=== PATIENT | female | born 1975 | race Caucasian/White ===

== ENCOUNTER 2016-03-07 11:14 | Emergency (ER) | payer BC ==
[~2016-03-07] VITALS: Ht 167.6 cm; Wt 81.6 kg
[~2016-03-07 11:14] MED LIST: ALBU8.5H6 IH; ARIP10TA13 PO; DIAZ2TAB3 PO; ESCI10TA10 PO; FLUT1DIS3 IH; HYDR-923 PO; IBUP-1060 PO; OMEP20CA9 PO; [UNRECOGNIZED DRUG - CODE]
--- NOTE | 2016-03-07 12:32 | PHYS DOC ---
Past Medical History Past Medical History: Anxiety, Asthma, Bipolar, COPD, Depression, GERD, Kidney Infection, Kidney Stone, Other Additional Past Medical Histor: endometrosis, CHRONIC BACK PAIN,burcitis,sinus infeCTt Past Surgical History: , Hysterectomy Additional Past Surgical Histo: hernia X 3 Additional Information: 0.5 PPD Alcohol Use: None Drug Use: None Adult General Chief Complaint Chief Complaint: MULTIPLE COMPLAINTS HPI HPI Patient is a 40 year old female who presents with cough, shortness of breath, back pain. Patient reports she has been having cough and shortness of breath for the past 2 weeks. She had fever initially, however this has resolved. She had seen her PCP at [facility], and she was given a 10 day course of antibiotics and 5 days course of steroids (both of which she has completed). Patient reports that she was feeling better when she is taking the steroids, however now that they have finished she is feeling worse again. She describes bilateral pain in her mid back, as well as pain radiating from her right buttock down her right leg. She does have a history of herniated disc. No numbness or weakness. Back pain worse with movement. No loss of bowel or bladder continence. She has taken some hydrocodone with insufficient relief. Review of Systems Review of Systems Constitutional: Fever, now resolved Eyes: Denies change in visual acuity or eye pain HENT: Denies nasal congestion or sore throat Respiratory: Cough, SOB Cardiovascular: Denies chest pain GI: Denies abdominal pain, nausea, vomiting, bloody stools or diarrhea : Denies dysuria or hematuria Musculoskeletal: B/l mid back pain, pain radiating down RLE Integument: Denies rash or skin lesions Neurologic: Denies headache, focal weakness or sensory changes Current Medications Current Medications Current Medications Medications (Trade) Dose Ordered Sig/Eric Start Time Stop Time Status Last Admin Dose Admin Info (Do NOT chart on this entry -- for MONITORING) 1 each PRN DAILY PRN 03/07/16 14:00 03/07/16 15:31 DC Iohexol (Omnipaque 300 Mg/ml) 75 ml 1X ONCE 03/07/16 14:15 03/07/16 14:16 DC 03/07/16 14:04 75 ML Oxycodone/ Acetaminophen (Percocet 5/325) 2 tab 1X ONCE 03/07/16 12:45 03/07/16 12:46 DC 03/07/16 13:11 2 TAB Sodium Chloride (Iv Sodium Chloride 0.9% 1000ml Bag) 1,000 ml @ 1,000 mls/hr Q1H 03/07/16 12:33 03/07/16 13:49 DC 03/07/16 13:10 1,000 MLS/HR Allergies Allergies Allergies Coded Allergies Type Severity Reaction Last Updated Verified Latex, Natural Rubber Allergy Intermediate RASH 03/07/16 Yes adhesive tape Allergy Intermediate Rash 03/07/16 Yes Physical Exam Physical Exam Constitutional: Well developed, well nourished, no acute distress, non-toxic appearance HENT: Normocephalic, atraumatic, bilateral external ears normal Eyes: EOMI, conjunctiva normal, no discharge Neck: Normal range of motion, no stridor Cardiovascular: Heart rate normal, regular rhythm, no murmur Lungs & Thorax: Coarse breath sounds L lung base Abdomen: Bowel sounds normal, soft, non-distended, no TTP Skin: Clammy, no erythema, no rash Back: Mild bl/l lumbar TTP, no deformity or skin lesion noted Extremities: No obvious deformity, no edema Neurologic: Alert and oriented X 3, no gross deficits noted Current Patient Data Vital Signs Vital Signs Date Time Temp Pulse Resp B/P Pulse Ox O2 Delivery O2 Flow Rate FiO2 03/07/16 15:12 70 16 140/73 99 Room Air 03/07/16 11:39 97.4 97.4 Lab Values Laboratory Tests Test 03/07/16 11:32 03/07/16 12:01 03/07/16 13:15 Urine Collection Type Unknown Urine Color Yellow Urine Clarity Clear Urine pH 6.5 Urine Specific [place] <=1.005 Urine Protein Negativemg/dL (NEG-TRACE) Urine Glucose (UA) Negativemg/dL (NEG) Urine Ketones (Stick) Negativemg/dL (NEG) Urine Blood Negative (NEG) Urine Nitrite Negative (NEG) Urine Bilirubin Negative (NEG) Urine Urobilinogen Dipstick 0.2mg/dL (0.2 mg/dL) Urine Leukocyte Esterase Negative (NEG) Urine RBC 0/HPF (0-2) Urine WBC 0/HPF (0-4) Urine Squamous Epithelial Cells Few/LPF Urine Bacteria 0/HPF (0-FEW) White Blood Count 6.5x10^3/uL (4.0-11.0) Red Blood Count 4.53x10^6/uL (3.50-5.40) Hemoglobin 14.7g/dL (12.0-15.5) Hematocrit 44.3% (36.0-47.0) Mean Corpuscular Volume 98fL (79-100) Mean Corpuscular Hemoglobin 32pg (25-35) Mean Corpuscular Hemoglobin Concent 33g/dL (31-37) Red Cell Distribution Width 13.4% (11.5-14.5) Platelet Count 219x10^3/uL (140-400) Neutrophils (%) (Auto) 67% (31-73) Lymphocytes (%) (Auto) 23% (24-48) L Monocytes (%) (Auto) 7% (0-9) Eosinophils (%) (Auto) 1% (0-3) Basophils (%) (Auto) 1% (0-3) Neutrophils # (Auto) 4.4x10^3uL (1.8-7.7) Lymphocytes # (Auto) 1.5x10^3/uL (1.0-4.8) Monocytes # (Auto) 0.5x10^3/uL (0.0-1.1) Eosinophils # (Auto) 0.1x10^3/uL (0.0-0.7) Basophils # (Auto) 0.1x10^3/uL (0.0-0.2) D-Dimer (Jimena) 0.60ug/mlFEU (0.00-0.50) H Sodium Level 141mmol/L (136-145) Potassium Level 4.0mmol/L (3.5-5.1) Chloride Level 103mmol/L (98-107) Carbon Dioxide Level 25mmol/L (21-32) Anion Gap 13 (6-14) Blood Urea Nitrogen 10mg/dL (7-20) Creatinine 0.8mg/dL (0.6-1.0) Estimated GFR (Cockcroft-Gault) 79.4 BUN/Creatinine Ratio 13 (6-20) Glucose Level 103mg/dL (70-99) H Calcium Level 9.2mg/dL (8.5-10.1) Total Bilirubin 0.6mg/dL (0.2-1.0) Aspartate Amino Transferase (AST) 23U/L (15-37) Alanine Aminotransferase (ALT) 39U/L (14-59) Alkaline Phosphatase 90U/L (46-116) Troponin I Quantitative < 0.017ng/mL (0.000-0.055) Total Protein 7.8g/dL (6.4-8.2) Albumin 4.1g/dL (3.4-5.0) Albumin/Globulin Ratio 1.1 (1.0-1.7) Influenza Type A Antigen Negative (NEGATIVE) Influenza Type B Antigen Negative (NEGATIVE) Laboratory Tests 03/07/16 12:01 Laboratory Tests 03/07/16 12:01 EKG EKG EKG (my read): sinus rhythm, rate 93, normal axis, intervals wnl, no acute ischemic changes Radiology/Procedures Radiology/Procedures CXR: IMPRESSION: No acute pulmonary finding. CTA chest: IMPRESSION: 1. No evidence of pulmonary embolism or alternative acute finding. 2. 5 mm cortical cyst within the upper pole of the right kidney, stable in appearance. Course & Med Decision Making Course & Med Decision Making Pertinent Labs and Imaging studies reviewed. (See chart for details) Patient is 40-year-old female presents with cough, shortness of breath, back pain. He been treated with antibiotics, likely viral upper respiratory infection that is causing pain due to repeated coughing. However must consider more serious pathology. Chest x-ray, EKG, labs ordered to evaluate. Oral pain medication and IV fluids ordered for relief of symptoms. Labs notable for minimally elevated d-dimer; troponin within normal limits, given duration of symptoms this is sufficient to rule out NM. No leukocytosis. CTA chest ordered to rule out PE. No PE noted. No other acute pathology on imaging. Discussed results with the patient. Will discharge with prescription for cough syrup, naproxen, Pepcid, instructions for follow-up, return precautions. Dragon Disclaimer Dragon Disclaimer This electronic medical record was generated, in whole or in part, using a voice recognition dictation system. Departure Departure Impression: Primary Impression: Upper respiratory disease Additional Impression: Back pain Disposition: HOME, SELF-CARE Condition: STABLE Referrals: BARTOLOME LIZ APRN (PCP) Patient Instructions: Upper Respiratory Infection, Adult Additional Instructions: Thank you for allowing us to provide care today in the Emergency Department. Take the provided medication as directed. Use caution when taking the cough syrup as it can make you drowsy. Schedule a follow up appointment with your primary care doctor. Return promptly to the Emergency Department if you develop any new or concerning symptoms. Scripts Famotidine (Pepcid)20 Mg [id number] Mg PO BID #10 TAB Prov:HUMERA HOLDEN MD 03/07/16 Naproxen 250 Mg [id number] Mg PO BID #10 Prov:HUMERA HOLDEN MD 03/07/16 Hydrocodone Bit/Homatrop Me-Br (Hydrocodone-Homatropine Syrup)5 Ml Syrup5 Ml PO Q4HRS PRN COUGH #120 ML Prov:HUMERA HOLDEN MD 03/07/16 Problem Qualifiers HUMERA HOLDEN MD Mar 07, 2016 12:32
[2016-03-07] MEDS ORDERED: IV NORMAL SALINE 1000ML BAG 1,000 ML IV SCH (12:33)
[2016-03-07 12:45] LABS: BASO # 0.1 x10^3/uL (0.0-0.2); BASO % 1 % (0-3); EOS % 1 % (0-3); HEMATOCRIT 44.3 % (36.0-47.0); HEMOGLOBIN 14.7 g/dL (12.0-15.5); LYMPH # 1.5 x10^3/uL (1.0-4.8); LYMPH % 23 % (24-48); MEAN CORPUSCULAR HEMOGLOBIN 32 pg (25-35); MEAN CORPUSCULAR HGB CONC 33 g/dL (31-37); MEAN CORPUSCULAR VOLUME 98 fL (79-100); MONO % 7 % (0-9); NEUT % 67 % (31-73); PLATELET COUNT 219 x10^3/uL (140-400); RED BLOOD COUNT 4.53 x10^6/uL (3.50-5.40); RED CELL DISTRIBUTION WIDTH 13.4 % (11.5-14.5); WHITE BLOOD COUNT 6.5 x10^3/uL (4.0-11.0)
[2016-03-07] MEDS ORDERED: OXYCODONE/APAP 5/325 TABLET. PO ONE (12:45)
[2016-03-07 12:48] LABS: BILIRUBIN,URINE NEGATIVE (NEG); GLUCOSE,URINE NEGATIVE (NEG); NITRITE,URINE NEGATIVE (NEG); PH,URINE 6.5; PROTEIN,URINE NEGATIVE (NEG-TRACE); UROBILINOGEN,URINE 0.2 mg/dL (0.2 mg/dL)
--- NOTE | 2016-03-07 12:50 | EKG ---
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
[2016-03-07 12:58] LABS: CALCIUM 9.2 mg/dL (8.5-10.1); CREATININE 0.8 mg/dL (0.6-1.0); GFR 79.4
[2016-03-07 13:04] LABS: ALBUMIN 4.1 g/dL (3.4-5.0); ALBUMIN/GLOBULIN RATIO 1.1 (1.0-1.7); TOTAL BILIRUBIN 0.6 mg/dL (0.2-1.0); TOTAL PROTEIN 7.8 g/dL (6.4-8.2)
[2016-03-07 13:06] LABS: BACTERIA,URINE 0 /HPF (0-FEW); RBC,URINE 0 /HPF (0-2); SQUAMOUS EPITHELIAL CELL,UR FEW /LPF; WBC,URINE 0 /HPF (0-4)
--- NOTE | 2016-03-07 13:53 | RAD ---
EXAM: Chest, 2 views. HISTORY: Cough. COMPARISON: 11/16/2014. FINDINGS: Frontal and lateral views of the chest are obtained. There is no infiltrate, effusion or pneumothorax. There are prominent central pulmonary vascular shadows. The heart is normal in size. IMPRESSION: No acute pulmonary finding.
[2016-03-07] MEDS ORDERED: CONTRAST GIVEN MC PRN (14:00)
[2016-03-07 14:07] LABS: OBC FLU VALID
[2016-03-07] MEDS ORDERED: IOHEXOL 300 MG/ML 100ML VIAL. IV ONE (14:15)
--- NOTE | 2016-03-07 14:18 | RAD ---
EXAM: Chest CT angiogram with intravenous contrast. HISTORY: Shortness of air and elevated d-dimer. TECHNIQUE: Computed tomographic images of the chest were obtained following the administration of 75 cc Isovue-370 intravenous contrast. Multiplanar reformatting was performed and three-dimensional maximum intensity projection images were obtained. COMPARISON: 11/21/2013. FINDINGS: There is no evidence of pulmonary embolism. There is no pulmonary artery hypertension or right heart strain. The heart is normal in size. There is no aortic and is a more dissection. No pathologically enlarged lymph node is seen. There is no pneumothorax or pleural effusion. There is no infiltrate or suspicious pulmonary nodule. There is no suspicious osseous lesion. There is a 5 mm cortical cyst within the upper pole of the right kidney. IMPRESSION: 1. No evidence of pulmonary embolism or alternative acute finding. 2. 5 mm cortical cyst within the upper pole of the right kidney, stable in appearance. PQRS Compliance Statement: One or more of the following individualized dose reduction techniques were utilized for this examination: 1. Automated exposure control 2. Adjustment of the mA and/or kV according to patient size 3. Use of iterative reconstruction technique
[2016-03-07 15:12] VITALS: BP 140/73
[2016-03-07] MEDS ORDERED: FAMO-63 PO (15:12)
[2016-03-07] MEDS ORDERED: HYDR5SYR PO (15:12)
[2016-03-07] MEDS ORDERED: NAPR250T2 PO (15:12)
== END 2016-03-07 15:20 | disposition home or self-care (01) ==
LOC: ER 11:14
DX: M54.9 Dorsalgia, unspecified (principal); J39.9 Disease of upper respiratory tract, unspecified; F41.9 Anxiety disorder, unspecified; J45.909 Unspecified asthma, uncomplicated; J44.9 Chronic obstructive pulmonary disease, unspecified; G89.29 Other chronic pain; F32.9 Major depressive disorder, single episode, unspecified; K21.9 Gastro-esophageal reflux disease without esophagitis; Z87.442 Personal history of urinary calculi; Z87.440 Personal history of urinary (tract) infections; Z90.710 Acquired absence of both cervix and uterus; Z98.890 Other specified postprocedural states; Z91.040 Latex allergy status; Z91.09 Other allergy status, other than to drugs and biological substances
CPT/HCPCS: 36415; 71020; 71275; 80053; 81001; 84484; 85027; 85379; 87804; 93005; 96360; 99285; J7030; Q9967

== ENCOUNTER 2016-07-10 10:39 | Emergency (ER) | payer BC ==
[~2016-07-10 10:39] MED LIST changes: +AMIT10TA PO; +AMOX1TAB11 PO; -ARIP10TA13 PO; +ARIP10TA9 PO; +BUDE10.2 IH; +BUDE180A IH; +DIAZEPAM10 MG PO; +DOXY100T PO; -ESCI10TA10 PO; +FAMO-63 PO; +FLUO40CA9 PO; +GUAI600T47 PO; +HYDR-2758 PO; +HYDR5SYR PO; +LAMO200T3 PO; +LEVO750T31 PO; +LEXAPRO10 MG PO; +NAPR250T2 PO; +NAPR375T3 PO; +ZOLP10TA PO; -[UNRECOGNIZED DRUG - CODE]; +[UNRECOGNIZED DRUG - CODE] PO
[2016-07-10 11:13] VITALS: BP 107/73
--- NOTE | 2016-07-10 11:28 | PHYS DOC ---
Past Medical History Past Medical History: Asthma, COPD, Depression Additional Past Medical Histor: endometrosis, CHRONIC BACK PAIN,burcitis,sinus infeCTt Past Surgical History: , Hysterectomy, Other Additional Past Surgical Histo: hernia repair x 3 Alcohol Use: None Drug Use: None Adult General Chief Complaint Chief Complaint: MECHANICAL FALL HPI HPI Patient is a 40 year old female presents emergency department stating that she fell about a week ago. She states that she had tripped over a box and landed on the floor. She states that she is having pain in the right lower leg, right lateral knee, and right medial femur area. Patient was also noted to have a tenderness both sides bruise on her right upper arm. Patient states that she is mainly here to be evaluated for her leg pain and discomfort. She states that she takes hydrocodone at home although this has not been helping with the pain. Patient is concerned something further is going on. Review of Systems Review of Systems Constitutional: Denies fever or chills [] Eyes: Denies change in visual acuity, redness, or eye pain [] HENT: Denies nasal congestion or sore throat [] Respiratory: Denies cough or shortness of breath [] Cardiovascular: No additional information not addressed in HPI [] GI: Denies abdominal pain, nausea, vomiting, bloody stools or diarrhea [] : Denies dysuria or hematuria [] Musculoskeletal: Denies back pain. C/o right leg pain and discomfort Integument: Denies rash or skin lesions [] Neurologic: Denies headache, focal weakness or sensory changes [] Endocrine: Denies polyuria or polydipsia [] Current Medications Current Medications Current Medications Medications (Trade) Dose Ordered Sig/Eric Start Time Stop Time Status Last Admin Dose Admin Ketorolac Tromethamine (Toradol Im) 60 mg 1X ONCE 07/10/16 11:45 07/10/16 11:46 DC 07/10/16 12:01 60 MG Ondansetron HCl (Zofran Odt) 4 mg 1X ONCE 07/10/16 11:45 07/10/16 11:46 DC 07/10/16 12:01 4 MG Allergies Allergies Allergies Coded Allergies Type Severity Reaction Last Updated Verified Latex, Natural Rubber Allergy Intermediate RASH 03/07/16 Yes adhesive tape Allergy Intermediate Rash 03/07/16 Yes Physical Exam Physical Exam Constitutional: Well developed, well nourished, no acute distress, non-toxic appearance. [] HENT: Normocephalic, atraumatic, bilateral external ears normal, oropharynx moist, no oral exudates, nose normal. [] Eyes: PERRLA, EOMI, conjunctiva normal, no discharge. [] Neck: Normal range of motion, no tenderness, supple, no stridor. [] Cardiovascular:Heart rate regular rhythm, no murmur [] Lungs & Thorax: Bilateral breath sounds clear to auscultation [] Skin: Warm, dry, no erythema, no rash. [] Back: No tenderness Extremities: Right medial femur, right lateral knee, right anterior lower leg tenderness, old bruises noted. No cyanosis, no clubbing, ROM intact, no edema. Patient with 2+ cap refill, good sensation noted to the toes. Patient able to ambulate without difficulty, Neurologic: Alert and oriented X 3, normal motor function, normal sensory function, no focal deficits noted. [] Psychologic: Affect normal, judgement normal, mood normal. [] Current Patient Data Vital Signs Vital Signs Date Time Temp Pulse Resp B/P (MAP) Pulse Ox O2 Delivery O2 Flow Rate FiO2 07/10/16 11:13 98.3 83 18 97 Room Air 98.3 EKG EKG [] Radiology/Procedures Radiology/Procedures [facility] [address] [place] [address] IMAGING REPORT Signed PATIENT: NARCISA ALCAZAR ACCOUNT: [id number] : 1975 LOCATION: ER AGE: 40 SEX: F EXAM [id number]; [id number] STATUS: REG ER ORD. PHYSICIAN: JUSTIN GARCIA FIRER GLOST KILN REASON: fell 1 week ago increase pain and discomfort, PAIN FROM RT HIP TO ANKLE PROCEDURE: KNEE RIGHT 4V; RIGHT FEMUR XRAY; TIBIA FIBULA RIGHT Examination: 2 views of the right femur, 4 views of the right knee, 2 views of the right tibia and fibula History: History of fall, pain Comparison: None available Findings The femoral head is within the acetabulum. There is no acute fracture or dislocation identified. The alignment of the knee joint grossly appears unremarkable. No evidence of knee joint effusion identified. The alignment of the tibia and fibula grossly appears unremarkable. Impression: No acute osseous findings. DICTATED and SIGNED BY: AMARJIT SCOTT MD DATE: 07/10/16 1208 CC: BARTOLOME LIZ APRN; JUSTIN GARCIA APRN; NON,STAFF ~ [] Course & Med Decision Making Course & Med Decision Making Pertinent Labs and Imaging studies reviewed. (See chart for details) X-rays were negative for any bony abnormalities. Patient will be discharged home with recommendations to use ibuprofen 800 mg every 8 hours. She'll be has hydrocodone at home for her back pain and discomfort. Recommended ice packs on 20 minutes off 20 minutes several times a day. Also recommended her following up with her primary care physician. Signs and symptoms to return back to emergency department been provided. Patient agrees with discharge instructions treatment regimens and follow-up recommendations. [] Dragon Disclaimer Dragon Disclaimer This electronic medical record was generated, in whole or in part, using a voice recognition dictation system. Departure Departure Impression: Primary Impression: Right leg pain Disposition: 01 HOME, SELF-CARE Condition: STABLE Referrals: BARTOLOME LIZ APRN (PCP) Patient Instructions: Contusion, [id number] Additional Instructions: Your x-rays of your femur, knee, and tibia/fibula are negative for any fractures or abnormalities. Ice packs on 20 minutes off 20 minutes several times a day. Elevation as much as possible. Ibuprofen 800 mg every 8 hours with food stop taking few develop an upset stomach. You can continue to use her hydrocodone as needed for your back pain this should also help with your pain and discomfort in her leg. Follow-up to primary care physician next 3-5 days. Return back to emergency prior signs symptoms of become worse. JUSTIN GARCIA APRN July 10, 2016 11:28
[2016-07-10] MEDS ORDERED: KETOROLAC TROMETHAMINE 60 MG/2 ML INJ. IM ONE (11:45)
[2016-07-10] MEDS ORDERED: ONDANSETRON ODT 4 MG TAB.RAPDIS. PO ONE (11:45)
--- NOTE | 2016-07-10 12:10 | RAD ---
Examination: 2 views of the right femur, 4 views of the right knee, 2 views of the right tibia and fibula History: History of fall, pain Comparison: None available Findings The femoral head is within the acetabulum. There is no acute fracture or dislocation identified. The alignment of the knee joint grossly appears unremarkable. No evidence of knee joint effusion identified. The alignment of the tibia and fibula grossly appears unremarkable. Impression: No acute osseous findings.
== END 2016-07-10 12:44 | disposition home or self-care (01) ==
LOC: ER 11:05
DX: M79.604 Pain in right leg (principal); M25.562 Pain in left knee; M79.621 Pain in right upper arm; J44.9 Chronic obstructive pulmonary disease, unspecified; G89.29 Other chronic pain; Z90.710 Acquired absence of both cervix and uterus; Z98.890 Other specified postprocedural states; Z88.8 Allergy status to other drugs, medicaments and biological substances; Z91.040 Latex allergy status
CPT/HCPCS: 73552; 73564; 73590; 96372; 99284; J1885; Q0162

== ENCOUNTER → 2016-11-14 | Outpatient (CLI) | payer BC ==
[~2016-11-14] MED LIST changes: +CARB200T PO; +DOCU-150 PO; +HYDR-2762 PO; +META-21 PO; +MOME17SP NS; +NAPR-695 PO; -NAPR250T2 PO; +NAPR250T6 PO; -NAPR375T3 PO; +OMEP40CA5 PO; +PHEN37.5 PO; +TAMS0.4C2 PO; +TIZA4TAB PO; +ZOLP6.252 PO; +saxenda
[2016-11-14 15:00] LABS: BASO # 0.1 x10^3/uL (0.0-0.2); BASO % 1 % (0-3); EOS % 2 % (0-3); HEMATOCRIT 41.7 % (36.0-47.0); HEMOGLOBIN 14.2 g/dL (12.0-15.5); LYMPH # 1.6 x10^3/uL (1.0-4.8); LYMPH % 39 % (24-48); MEAN CORPUSCULAR HEMOGLOBIN 32 pg (25-35); MEAN CORPUSCULAR HGB CONC 34 g/dL (31-37); MEAN CORPUSCULAR VOLUME 93 fL (79-100); MONO % 9 % (0-9); NEUT % 50 % (31-73); PLATELET COUNT 244 x10^3/uL (140-400); RED BLOOD COUNT 4.49 x10^6/uL (3.50-5.40); RED CELL DISTRIBUTION WIDTH 13.5 % (11.5-14.5); WHITE BLOOD COUNT 4.2 x10^3/uL (4.0-11.0)
[2016-11-14 15:18] LABS: ALBUMIN 3.9 g/dL (3.4-5.0); CALCIUM 8.8 mg/dL (8.5-10.1); CREATININE 0.9 mg/dL (0.6-1.0); POTASSIUM 3.8 mmol/L (3.5-5.1); TOTAL BILIRUBIN 0.3 mg/dL (0.2-1.0)
== END | disposition home or self-care (01) ==
LOC: SURGPAT 14:34
PROVIDERS: ATTEND Surgery
DX: Z01.818 Encounter for other preprocedural examination (principal); Z90.49 Acquired absence of other specified parts of digestive tract
CPT/HCPCS: 36415; 80048; 82040; 82247; 85025

== ENCOUNTER 2016-11-29 08:32 | Day surgery (SDC) | payer BC ==
[~2016-11-29 08:32] MED LIST changes: +BUPIVACAINE-EPI 0.5%-1:200000 50 ML VIAL. ONE; +GLUCAGON,HUMAN RECOMBINANT 1 MG/ML VIAL. ONE; +HYDROmorphone 2 MG/ML VIAL IV PRN; +IOHEXOL 300 MG/ML 50 ML VIAL. ONE; +IV RINGERS,LACTATED 1000ML 1,000 ML IV SCH; +LIDOCAINE 1% PF 2 ML VIAL. ID PRN; +ONDANSETRON PF 4 MG/2 ML VIAL. IV PRN; +PROCHLORPERAZINE 10 MG/2 ML VIAL. IV PRN; +SURGICEL HEMOSTAT 4X8 EACH. ONE; +fentaNYL PF VIAL 100 MCG/2 ML VIAL IV PRN
[2016-11-29] MEDS ORDERED: ONDANSETRON PF 4 MG/2 ML VIAL. ONE (08:52)
[2016-11-29] MEDS ORDERED: fentaNYL PF VIAL 100 MCG/2 ML VIAL ONE (08:52)
[2016-11-29] MEDS ORDERED: DEXAMETHASONE SOD PHOS 20 MG/5 ML VIAL. ONE (08:52)
[2016-11-29] MEDS ORDERED: PROPOFOL 20 ML IV ONE (08:52)
[2016-11-29] MEDS ORDERED: LIDOCAINE 2% PF Vial for OR 5 ML VIAL. ONE (08:52)
[2016-11-29] MEDS ORDERED: MIDAZOLAM HCL/PF 2 MG/2 ML VIAL. ONE (08:52)
[2016-11-29] MEDS ORDERED: NEOSTIGMINE METHYLSULFATE 5 MG/5 ML SYRINGE. ONE (11:32)
[2016-11-29] MEDS ORDERED: GLYCOPYRROLATE 1 MG/5 ML VIAL. ONE (11:32)
[2016-11-29] MEDS ORDERED: DESFLURANE 61 TO 120 MINUTES IH ONE (11:36)
[2016-11-29] MEDS ORDERED: DESFLURANE > 120 MINUTES IH ONE (11:36)
[2016-11-29] MEDS ORDERED: SEVOFLURANE 31 TO 60 MINUTES. IH ONE (11:36)
[2016-11-29] MEDS ORDERED: SEVOFLURANE 61 TO 120 MINUTES. IH ONE (11:36)
[2016-11-29] MEDS: fentaNYL PF VIAL 100 MCG/2 ML VIAL IV PRN ×2 (12:08→12:15)
[2016-11-29] MEDS: MORPHINE SULFATE 4 MG/ML DISP.SYRIN. IV PRN ×4 (12:22→13:00)
--- NOTE | 2016-11-29 12:36 | OP ---
DATE OF SURGERY: 11/29/2016 PREOPERATIVE DIAGNOSIS: Symptomatic cholelithiasis. POSTOPERATIVE DIAGNOSIS: Symptomatic cholelithiasis. PROCEDURE: Laparoscopic cholecystectomy and lysis of a single Gnvh-Ecfm-Oudffh its acute recurrence adhesions. SURGEON: Malia Flynn M.D. ANESTHESIA: General endotracheal. ESTIMATED BLOOD LOSS: 10 mL. INTRAVENOUS FLUIDS: 700 mL. INDICATIONS: The patient is a 41-year-old with postprandial pain and nausea and an ultrasound showing stones. She is brought for cholecystectomy. OPERATIVE FINDINGS: The liver was somewhat fibrotic, but smooth. There was a single adhesion between the liver and the abdominal wall, consistent with Fyng-Ybfe-Hdlqwr. The gallbladder was supple. The cystic duct was extremely small caliber and I was unable to cannulate it for cholangiograms. The remainder of the inspection of the abdomen failed to reveal obvious abnormalities. DESCRIPTION OF PROCEDURE: The patient was brought to the OR, given a general endotracheal anesthetic and the abdomen prepped and draped in the usual sterile fashion. An infraumbilical incision was infiltrated with local anesthetic, sharply incised and a 5 mm Visiport used to gain access into the abdominal cavity, taking care to avoid injury to abdominal contents. Pneumoperitoneum established. Camera inserted. Inspection carried out with results as noted above. With the table in reverse Trendelenburg rolled to the left, the epigastric and midclavicular ports were placed under direct vision. The lateral port location was used for an "alligator" grasper and the gallbladder was retracted superolaterally. The cystic duct and cystic artery were exposed and the duct was clipped on the gallbladder side. Attempts at cholangiograms were unsuccessful due to small caliber of the cystic duct even trying to spatulate the opening. With scissors, I was unsuccessful cannulating it and as such, it was carefully clipped x 3 and divided, taking care to avoid injury or compromise of the common duct. An anterior and posterior branch of the cystic artery were clipped and divided and gallbladder freed from the bed with cautery dissection. A small tertiary vessel posteriorly midway up the fossa was controlled with clips as well. Gallbladder placed in an EndoCatch bag. Good hemostasis was present and there was no evidence of a bile leak. Table returned to level. Gallbladder delivered through the epigastric incision. Epigastric incision closed with interrupted 0 Vicryl suture. Intra-abdominal pressure decreased to 6 cm of water. No bleeding from the epigastric closure or from the midclavicular port site after its removal or from the lateral location of the alligator grasper. Abdomen decompressed, camera slowly removed, no bleeding seen. Skin incisions closed with subcuticular 4-0 Monocryl and Dermabond. The patient awakened from her anesthetic and taken to the recovery room in satisfactory condition. MALIA FLYNN MD DR: DREW/suki JOB#: [id number] / [id number]
--- NOTE | 2016-11-29 12:43 | DISCH ---
DISCHARGE INSTRUCTIONS Condition on Discharge Condition on Discharge: Stable Activity After Discharge Activity Instructions for Disc: Activity as tolerated, Avoid exertion Lifting Instructions after Dis: No heavy lifting Driving Instructions after Dis: Do not drive (3-4 days) Diet after Discharge Diet after Discharge: Regular Wound Incision Care Wound/Incision Care: Ice to area for comfort Other wound/incision instructi: june shower Sunday Follow-Up Follow up with: Pedro in the [facility] office 12/07 MALIA FLYNN MD Nov 29, 2016 12:43
[2016-11-29] MEDS ORDERED: HYDROcodone/APAP 7.5/325MG 1 TAB TABLET PO ONE (13:15)
[2016-11-29 13:34] VITALS: BP 127/61
--- NOTE | 2016-12-01 11:28 | PATHOLOGY ---
PATHOLOGY REPORT * * * * * * * * FINAL DIAGNOSIS: Gallbladder, laparoscopic cholecystectomy: - Cholelithiasis. - Chronic cholecystitis. (JPM:derek; 12/01/2016) COMMENT: There is no evidence of malignancy. REPORT ELECTRONICALLY SIGNED BY: Ben Kingsley M.D. DATE/TIME: 12/01/2016 11:27 * * * * * * * * GROSS PATHOLOGY: Received in formalin labeled "Estefany Ratliff, gallbladder and its contents," is a 6.3 x 3.5 x 2.1 cm, previously punctured gallbladder with blue-claire serosal surfaces. Opening the gallbladder reveals a velvety, bile-stained mucosa and an average wall thickness of 0.1 cm. Calculi are present displaying a light melgoza and granular appearance, and no masses are noted grossly. Stopper Setter sections from the body and fundus are submitted along with the proximal margin in cassette A1. (CAA; 11/30/2016) INITIAL CPT CODE(S): A; 09001 Professional services [place] [address] Technical services performed by [facility] at [address] [place] [address]. SPECIMEN(S) RECEIVED: A.Gallbladder and its contents CLINICAL HISTORY: Gallstones PATIENT: ESTEFANY RATLIFF /AGE: 9 1975 (Age: 41) PATIENT #: [id number] CASE #: SPECIMEN COLLECTION DATE: 11/29/2016 SPECIMEN RECEIVED DATE: 11/29/2016 [facility] - [address] [place] [address] - PHONE: [phone] * * * END OF REPORT * * *
== END 2016-11-29 14:07 | disposition home or self-care (01) ==
LOC: SURG 08:32
PROVIDERS: ATTEND Surgery
DX: K80.10 Calculus of gallbladder with chronic cholecystitis without obstruction (principal); J44.9 Chronic obstructive pulmonary disease, unspecified; E66.9 Obesity, unspecified; K21.9 Gastro-esophageal reflux disease without esophagitis; F32.9 Major depressive disorder, single episode, unspecified; F17.200 Nicotine dependence, unspecified, uncomplicated; Z98.890 Other specified postprocedural states; Z87.01 Personal history of pneumonia (recurrent); Z90.710 Acquired absence of both cervix and uterus; Z87.39 Personal history of other diseases of the musculoskeletal system and connective tissue; Z88.1 Allergy status to other antibiotic agents; Z91.040 Latex allergy status; Z88.8 Allergy status to other drugs, medicaments and biological substances; Z91.048 Other nonmedicinal substance allergy status
CPT/HCPCS: 47562; C1769; J0780; J1100; J1956; J2250; J2270; J2405; J2704; J2710; J3010; J3490; J7030; J7120; Q9967; 88304; J1610; J2001

== ENCOUNTER → 2017-03-05 | Outpatient (CLI) | payer BC | END | disposition home or self-care (01) | LOC: KCIC US 15:05 | DX: R10.9 Unspecified abdominal pain (principal) | CPT/HCPCS: 76770 ==

== ENCOUNTER → 2017-03-23 | Outpatient (CLI) | payer BC | END | disposition home or self-care (01) | LOC: KCIC 10:41 | DX: K59.00 Constipation, unspecified (principal); R10.0 Acute abdomen; R11.0 Nausea | CPT/HCPCS: 74022 ==

== ENCOUNTER → 2017-04-16 | Outpatient (CLI) | payer BC | END | disposition home or self-care (01) | LOC: KCIC 14:05 | DX: M19.031 Primary osteoarthritis, right wrist (principal) | CPT/HCPCS: 73110; 73610; 73630 ==

== ENCOUNTER 2017-06-09 00:56 | Emergency (ER) | payer BC ==
[2017-06-09] MEDS: fentaNYL PF VIAL 100 MCG/2 ML VIAL IM (03:21)
[2017-06-09] MEDS: DEXAMETHASONE SOD PHOS 4 MG/ML VIAL IM (03:21)
[2017-06-09] MEDS: HYDROcodone/APAP 7.5/325MG 1 TAB TABLET PO (03:22)
== END 2017-06-09 03:45 | disposition home or self-care (01) ==
LOC: ER 00:56
DX: G89.29 Other chronic pain (principal); M54.5 Low back pain; J44.9 Chronic obstructive pulmonary disease, unspecified; F32.9 Major depressive disorder, single episode, unspecified; Z90.710 Acquired absence of both cervix and uterus; Z91.040 Latex allergy status; Z91.048 Other nonmedicinal substance allergy status; Z88.8 Allergy status to other drugs, medicaments and biological substances; Z88.1 Allergy status to other antibiotic agents
CPT/HCPCS: 96372; 99284; J1100; J3010

== ENCOUNTER 2017-09-22 10:29 | Emergency (ER) | payer BC ==
[2017-09-22] MEDS: IV NORMAL SALINE 1000ML BAG 1,000 ML IV (11:37)
[2017-09-22 11:50] LABS: BASO % 1 % (0-3); EOS % 1 % (0-3); HEMATOCRIT 41.2 % (36.0-47.0); HEMOGLOBIN 14.3 g/dL (12.0-15.5); LYMPH # 0.3 x10^3/uL (1.0-4.8); LYMPH % 6 % (24-48); MEAN CORPUSCULAR HEMOGLOBIN 32 pg (25-35); MEAN CORPUSCULAR HGB CONC 35 g/dL (31-37); MEAN CORPUSCULAR VOLUME 91 fL (79-100); MONO # 0.2 x10^3/uL (0.0-1.1); MONO % 4 % (0-9); NEUT # 4.3 x10^3uL (1.8-7.7); NEUT % 89 % (31-73); PLATELET COUNT 201 x10^3/uL (140-400); RED BLOOD COUNT 4.53 x10^6/uL (3.50-5.40); RED CELL DISTRIBUTION WIDTH 13.3 % (11.5-14.5); WHITE BLOOD COUNT 4.9 x10^3/uL (4.0-11.0)
[2017-09-22 12:00] LABS: ADD MAN DIFF? YES
[2017-09-22 12:06] LABS: ANION GAP 8 (6-14); BLOOD UREA NITROGEN 11 mg/dL (7-20); BUN/CREATININE RATIO 10 (6-20); CALCIUM 8.9 mg/dL (8.5-10.1); CARBON DIOXIDE 27 mmol/L (21-32); CHLORIDE 100 mmol/L (98-107); CREATININE 1.1 mg/dL (0.6-1.0); GFR 54.7; GLUCOSE 82 mg/dL (70-99); POTASSIUM 3.9 mmol/L (3.5-5.1); SODIUM 135 mmol/L (136-145)
[2017-09-22 12:10] LABS: ALBUMIN/GLOBULIN RATIO 1.1 (1.0-1.7); ALK PHOS 109 U/L (46-116); ALT (SGPT) 32 U/L (14-59); AST (SGOT) 32 U/L (15-37); TOTAL BILIRUBIN 0.6 mg/dL (0.2-1.0); TOTAL PROTEIN 7.5 g/dL (6.4-8.2)
[2017-09-22] MEDS: IBUPROFEN 600 MG TABLET. PO (13:33)
[2017-09-22 14:28] LABS: % EOS 1 % (0-5); % LYMPHS 5 % (24-48); % MONOS 1 % (0-10); % SEGS 93 % (35-66)
[2017-09-22 14:29] LABS: PLT ESTIMATE ADEQUATE (ADEQUATE)
== END 2017-09-22 14:40 | disposition home or self-care (01) ==
LOC: ER 10:29
DX: J20.9 Acute bronchitis, unspecified (principal); K59.00 Constipation, unspecified; J44.9 Chronic obstructive pulmonary disease, unspecified; F32.9 Major depressive disorder, single episode, unspecified; G89.29 Other chronic pain; Z90.49 Acquired absence of other specified parts of digestive tract; Z98.890 Other specified postprocedural states; Z90.710 Acquired absence of both cervix and uterus; Z91.040 Latex allergy status; Z88.8 Allergy status to other drugs, medicaments and biological substances; Z88.1 Allergy status to other antibiotic agents
CPT/HCPCS: 36415; 71046; 80053; 85007; 85025; 87040; 99285-25; J7030

== ENCOUNTER 2017-10-10 09:26 | Emergency (ER) | payer BC ==
[~2017-10-10] VITALS: Ht 167.6 cm; Wt 83.9 kg
[~2017-10-10 09:26] MED LIST changes: +AZIT500T2 PO; -BUPIVACAINE-EPI 0.5%-1:200000 50 ML VIAL. ONE; -GLUCAGON,HUMAN RECOMBINANT 1 MG/ML VIAL. ONE; -HYDROmorphone 2 MG/ML VIAL IV PRN; -IOHEXOL 300 MG/ML 50 ML VIAL. ONE; -IV RINGERS,LACTATED 1000ML 1,000 ML IV SCH; -LIDOCAINE 1% PF 2 ML VIAL. ID PRN; +METH4TAB2 PO; -ONDANSETRON PF 4 MG/2 ML VIAL. IV PRN; -PROCHLORPERAZINE 10 MG/2 ML VIAL. IV PRN; -SURGICEL HEMOSTAT 4X8 EACH. ONE; -fentaNYL PF VIAL 100 MCG/2 ML VIAL IV PRN
[2017-10-10 09:49] LABS: BILIRUBIN,URINE NEGATIVE (NEG); CLARITY,URINE CLEAR; COLOR,URINE YELLOW; NITRITE,URINE NEGATIVE (NEG); PROTEIN,URINE NEGATIVE (NEG-TRACE); UROBILINOGEN,URINE 0.2 mg/dL (0.2 mg/dL)
[2017-10-10] MEDS ORDERED: ONDANSETRON PF 4 MG/2 ML VIAL. IV ONE (10:15)
[2017-10-10] MEDS ORDERED: KETOROLAC 30 MG/ML VIAL. IV ONE (10:15)
[2017-10-10] MEDS ORDERED: MORPHINE SULFATE 10 MG/ML VIAL. IV ONE (10:15)
[2017-10-10 10:16] LABS: BASO % 0 % (0-3); EOS # 0.1 x10^3/uL (0.0-0.7); EOS % 2 % (0-3); HEMATOCRIT 37.3 % (36.0-47.0); HEMOGLOBIN 12.9 g/dL (12.0-15.5); LYMPH # 1.3 x10^3/uL (1.0-4.8); LYMPH % 35 % (24-48); MEAN CORPUSCULAR HEMOGLOBIN 32 pg (25-35); MEAN CORPUSCULAR HGB CONC 35 g/dL (31-37); MEAN CORPUSCULAR VOLUME 92 fL (79-100); MONO # 0.5 x10^3/uL (0.0-1.1); MONO % 13 % (0-9); NEUT # 1.9 x10^3uL (1.8-7.7); NEUT % 50 % (31-73); PLATELET COUNT 240 x10^3/uL (140-400); RED BLOOD COUNT 4.07 x10^6/uL (3.50-5.40); WHITE BLOOD COUNT 3.9 x10^3/uL (4.0-11.0)
[2017-10-10 10:34] LABS: BACTERIA,URINE 0 /HPF (0-FEW); RBC,URINE 0 /HPF (0-2); SQUAMOUS EPITHELIAL CELL,UR FEW /LPF; WBC,URINE OCC /HPF (0-4); YEAST,URINE PRESENT /HPF
--- NOTE | 2017-10-10 10:41 | RAD ---
CT scan abdomen and pelvis without contrast 05/10/2017 CLINICAL HISTORY: Left lower quadrant abdominal pain for one week. TECHNIQUE: Unenhanced, contiguous, 5 mm axial sections were obtained through abdomen and pelvis. One or more of the following individualized dose reduction techniques were utilized for this study: 1. Automated exposure control. 2. Adjustment of the mA and/or kV according to patient size. 3. Use of iterative reconstruction technique. FINDINGS: Comparison study is dated 11/28/2015. Images through the lung bases demonstrate minimal dependent subsegmental atelectasis bilaterally. The liver, spleen, pancreas, adrenal glands and kidneys are within normal limits. Mild atherosclerotic calcification of the abdominal aorta and its branches is seen. The abdominal aorta tapers normally. Surgical clips are seen within the gallbladder fossa consistent with a cholecystectomy. No free fluid or free air is within the abdomen. There is no evidence of bowel obstruction. Air and stool is seen throughout the colon. The cecum extends into the pelvis. The appendix is well-visualized and is within normal limits. Images through the pelvis demonstrate the urinary bladder distended with urine. No adnexal mass is seen. No free fluid is noted. Minimal S-shaped curvature of the thoracolumbar spine is seen. Degenerative changes are seen involving the lower thoracic and mid and lower lumbar spine. IMPRESSION: No acute abnormality is seen. Electronically signed by: Jonas Loera MD (10/10/2017 10:36 AM) [id number]
[2017-10-10 10:53] LABS: CALCIUM 8.9 mg/dL (8.5-10.1); CREATININE 0.9 mg/dL (0.6-1.0); POTASSIUM 3.9 mmol/L (3.5-5.1)
[2017-10-10 10:59] LABS: ALBUMIN 3.7 g/dL (3.4-5.0); ALBUMIN/GLOBULIN RATIO 1.1 (1.0-1.7); TOTAL BILIRUBIN 0.3 mg/dL (0.2-1.0)
[2017-10-10 11:00] VITALS: BP 114/58
[2017-10-10] MEDS ORDERED: fentaNYL PF VIAL 100 MCG/2 ML VIAL IV ONE (11:00)
[2017-10-10 11:02] LABS: AMPHETAMINE/METHAMPHETAMINE NEG (NEG); BARBITURATES NEG (NEG); BENZODIAZEPINES NEG (NEG); CANNABINOIDS NEG (NEG); COCAINE NEG (NEG); METHADONE NEG (NEG); OPIATES NEG (NEG); PHENCYCLIDINE NEG (NEG)
--- NOTE | 2017-10-10 11:43 | PHYS DOC ---
Past Medical History Past Medical History: Angina, Asthma, COPD, Depression, Pneumonia Additional Past Medical Histor: endometrosis, CHRONIC BACK PAIN,burcitis,sinus infeCTt Past Surgical History: Cholecystectomy, , Hysterectomy, Other Additional Past Surgical Histo: hernia repair x 3 Alcohol Use: None Drug Use: None Adult General Chief Complaint Chief Complaint: ABDOMINAL PAIN [facility] HPI Patient is a 41 year old female with history of pneumonia, depression, chronic pain on hydrocodone who presents today complaining of 8 out of 10 left lower quadrant abdominal pain that began a week ago. Patient denies anything exacerbating the pain but states the hydrocodone sometimes helps. Denies any nausea vomiting. Denies any chance she is constipated, she states last bowel movement was yesterday. Denies any urgency frequency dysuria. She states she's had a full hysterectomy. Review of Systems Review of Systems Constitutional: Denies fever or chills [] Eyes: Denies change in visual acuity, redness, or eye pain [] HENT: Denies nasal congestion or sore throat [] Respiratory: Denies cough or shortness of breath [] Cardiovascular: No additional information not addressed in HPI [] GI: Reports left lower quadrant abdominal pain, denies nausea, vomiting, bloody stools or diarrhea [] : Denies dysuria or hematuria [] Musculoskeletal: Denies back pain or joint pain [] Integument: Denies rash or skin lesions [] Neurologic: Denies headache, focal weakness or sensory changes [] All other systems were reviewed and found to be within normal limits, except as documented in this note. Current Medications Current Medications Current Medications Medications (Trade) Dose Ordered Sig/[facility] Start Time Stop Time Status Last Admin Dose Admin Fentanyl Citrate (Fentanyl 2ml Vial) 25 mcg 1X ONCE 10/10/17 11:00 10/10/17 11:01 DC 10/10/17 10:42 25 MCG Ketorolac Tromethamine (Toradol 30mg Vial) 30 mg 1X ONCE 10/10/17 10:15 10/10/17 10:16 DC 10/10/17 10:13 30 MG Morphine Sulfate (Morphine Sulfate) 5 mg 1X ONCE 10/10/17 10:15 10/10/17 10:34 DC Ondansetron HCl (Zofran) 4 mg 1X ONCE 10/10/17 10:15 10/10/17 10:16 DC 10/10/17 10:11 4 MG Allergies Allergies Allergies Coded Allergies Type Severity Reaction Last Updated Verified Latex, Natural Rubber Allergy Intermediate RASH 11/29/16 Yes adhesive tape Allergy Intermediate Rash 11/29/16 Yes amoxicillin Adverse Reaction Intermediate 06/09/17 Yes formoterol Adverse Reaction Intermediate 06/09/17 Yes mometasone furoate Adverse Reaction Intermediate 06/09/17 Yes varenicline Adverse Reaction Intermediate 06/09/17 Yes Physical Exam Physical Exam Constitutional: Well developed, well nourished, no acute distress, non-toxic appearance. [] HENT: Normocephalic, atraumatic, bilateral external ears normal, oropharynx moist, no oral exudates, nose normal. [] Eyes: PERRLA, EOMI, conjunctiva normal, no discharge. [] Neck: Normal range of motion, no tenderness, supple, no stridor. [] Cardiovascular:Heart rate regular rhythm, no murmur [] Lungs & Thorax: Bilateral breath sounds clear to auscultation [] Abdomen: Rounded abdomen. Bowel sounds normal, soft, slight tenderness to the left lower quadrant, no right upper quadrant tenderness, no right lower quadrant tenderness, no guarding, no rebound tenderness, negative psoas sign, negative obturator sign, negative Rovsing sign, no masses, no pulsatile masses. [] Skin: Warm, dry, no erythema, no rash. [] Back: No tenderness, no CVA tenderness. [] Extremities: No tenderness, no cyanosis, no clubbing, ROM intact, no edema. [] Neurologic: Alert and oriented X 3, normal motor function, normal sensory function, no focal deficits noted. [] Psychologic: Affect normal, judgement normal, mood normal. [] Current Patient Data Vital Signs Vital Signs Date Time Temp Pulse Resp B/P (MAP) Pulse Ox O2 Delivery O2 Flow Rate FiO2 10/10/17 10:42 20 Room Air 10/10/17 10:28 84 112/61 (78) 99 10/10/17 09:40 98.3 98.3 Lab Values Laboratory Tests Test 10/10/17 09:35 10/10/17 10:00 Urine Collection Type Unknown Urine Color Yellow Urine Clarity Clear Urine pH 6.0 Urine Specific Novinger <=1.005 Urine Protein Negative mg/dL (NEG-TRACE) Urine Glucose (UA) Negative mg/dL (NEG) Urine Ketones (Stick) Negative mg/dL (NEG) Urine Blood Negative (NEG) Urine Nitrite Negative (NEG) Urine Bilirubin Negative (NEG) Urine Urobilinogen Dipstick 0.2 mg/dL (0.2 mg/dL) Urine Leukocyte Esterase Negative (NEG) Urine RBC 0 /HPF (0-2) Urine WBC Occ /HPF (0-4) Urine Squamous Epithelial Cells Few /LPF Urine Bacteria 0 /HPF (0-FEW) Urine Yeast Present /HPF Urine Opiates Screen Neg (NEG) Urine Methadone Screen Neg (NEG) Urine Barbiturates Neg (NEG) Urine Phencyclidine Screen Neg (NEG) Urine Amphetamine/Methamphetamine Neg (NEG) Urine Benzodiazepines Screen Neg (NEG) Urine Cocaine Screen Neg (NEG) Urine Cannabinoids Screen Neg (NEG) Urine Ethyl Alcohol Neg (NEG) White Blood Count 3.9 x10^3/uL (4.0-11.0) L Red Blood Count 4.07 x10^6/uL (3.50-5.40) Hemoglobin 12.9 g/dL (12.0-15.5) Hematocrit 37.3 % (36.0-47.0) Mean Corpuscular Volume 92 fL (79-100) Mean Corpuscular Hemoglobin 32 pg (25-35) Mean Corpuscular Hemoglobin Concent 35 g/dL (31-37) Red Cell Distribution Width 14.0 % (11.5-14.5) Platelet Count 240 x10^3/uL (140-400) Neutrophils (%) (Auto) 50 % (31-73) Lymphocytes (%) (Auto) 35 % (24-48) Monocytes (%) (Auto) 13 % (0-9) H Eosinophils (%) (Auto) 2 % (0-3) Basophils (%) (Auto) 0 % (0-3) Neutrophils # (Auto) 1.9 x10^3uL (1.8-7.7) Lymphocytes # (Auto) 1.3 x10^3/uL (1.0-4.8) Monocytes # (Auto) 0.5 x10^3/uL (0.0-1.1) Eosinophils # (Auto) 0.1 x10^3/uL (0.0-0.7) Basophils # (Auto) 0.0 x10^3/uL (0.0-0.2) Sodium Level 138 mmol/L (136-145) Potassium Level 3.9 mmol/L (3.5-5.1) Chloride Level 103 mmol/L (98-107) Carbon Dioxide Level 24 mmol/L (21-32) Anion Gap 11 (6-14) Blood Urea Nitrogen 9 mg/dL (7-20) Creatinine 0.9 mg/dL (0.6-1.0) Estimated GFR (Cockcroft-Gault) 69.0 BUN/Creatinine Ratio 10 (6-20) Glucose Level 131 mg/dL (70-99) H Calcium Level 8.9 mg/dL (8.5-10.1) Total Bilirubin 0.3 mg/dL (0.2-1.0) Aspartate Amino Transferase (AST) 30 U/L (15-37) Alanine Aminotransferase (ALT) 40 U/L (14-59) Alkaline Phosphatase 96 U/L (46-116) Total Protein 7.0 g/dL (6.4-8.2) Albumin 3.7 g/dL (3.4-5.0) Albumin/Globulin Ratio 1.1 (1.0-1.7) Lipase 190 U/L (73-393) Ethyl Alcohol Level < 10 mg/dL (0-10) Laboratory Tests 10/10/17 10:00 Laboratory Tests 10/10/17 10:00 EKG EKG [] Radiology/Procedures Radiology/Procedures [] Course & Med Decision Making Course & Med Decision Making Pertinent Labs and Imaging studies reviewed. (See chart for details) This is a 41-year-old female patient presenting to the ED today complaining of left lower quadrant abdominal pain. Has history of chronic pain and is on hydrocodone. Labs are negative for any acute findings, CT of the abdomen and pelvic was negative for any acute findings, noted for stool in the colon. Recommended patient to take [id number] bowel preps. She states she has Linzess at home, encourage her to take it. Also encouraged MiraLAX and magnesium citrate. Discourage her from pain medications. Follow-up with her PCP in one week. Provided GI for follow-up. Dragon Disclaimer Dragon Disclaimer This electronic medical record was generated, in whole or in part, using a voice recognition dictation system. Departure Departure Impression: Primary Impression: Constipation Additional Impression: Left lower quadrant pain Disposition: HOME, SELF-CARE Condition: STABLE Referrals: BARTOLOME LIZ APRN (PCP) Follow-up with your doctor in the next 7 days THO LEE MD follow up in one week Patient Instructions: Abdominal Pain, Constipation, Adult Additional Instructions: You were evaluated in the emergency room for left lower quadrant abdominal pain. Your CT of the abdomen and pelvic was negative for any acute findings, your were noted for stool in the colon. Continue using Linzess, also use MiraLAX every day and take magnesium citrate until you have a very good bowel movement then stop magnesium citrate. Consider diet high in fiber, consider exercise, consider cutting back on pain medication. Follow-up with your own doctor or the provided doctor in one week Problem Qualifiers Primary Impression: Constipation Constipation type: unspecified constipation type Qualified Codes: K59.00 - Constipation, unspecified STEPHANIA JOHNS APRN Oct 10, 2017 11:43
== END 2017-10-10 11:56 | disposition home or self-care (01) ==
LOC: ER 09:26
DX: K59.00 Constipation, unspecified (principal); R10.32 Left lower quadrant pain; J44.9 Chronic obstructive pulmonary disease, unspecified; F32.9 Major depressive disorder, single episode, unspecified; Z90.49 Acquired absence of other specified parts of digestive tract; Z90.710 Acquired absence of both cervix and uterus; Z98.890 Other specified postprocedural states; Z88.1 Allergy status to other antibiotic agents; Z88.8 Allergy status to other drugs, medicaments and biological substances; Z91.040 Latex allergy status
CPT/HCPCS: 36415; 74176; 80053; 80307; 81001; 83690; 85025; 96374; 96375; 99285; G0480; J1885; J2405; J3010; G0479

== ENCOUNTER 2017-10-10 19:50 | Emergency (ER) | payer BC ==
[~2017-10-10] VITALS: Ht 167.6 cm; Wt 83.9 kg
--- NOTE | 2017-10-10 20:59 | PHYS DOC ---
Past Medical History Past Medical History: Angina, Asthma, COPD, Depression, Pneumonia Additional Past Medical Histor: endometrosis, CHRONIC BACK PAIN,burcitis,sinus infeCTt Past Surgical History: Cholecystectomy, , Hysterectomy, Other Additional Past Surgical Histo: hernia repair x 3 Alcohol Use: None Drug Use: None Adult General Chief Complaint Chief Complaint: CONSTIPATION HPI HPI Patient is a 41-year-old female presents to the emergency department, with essentially 2 complaints. She states that she has ongoing chronic back pain. She had an MRI done about a week ago, which shows some degenerative disc disease , and she states her doctor referred her to the emergency department because we have a spine surgeon here. She denies any numbness, weakness, and cons, or saddle anesthesia. There are no alleviating, or exacerbating factors to her symptoms. The patient also states that she has a history of IBS and has been constipated. She states she had a watery bowel movement yesterday. She was seen in the emergency department earlier today, and underwent a thorough workup, with blood testing, and a CT scan which was read as normal. She also had a normal urinalysis. She states she has a GI doctor, Dr. Manjarrez, whom she saw about a week ago, and thought that her pain might be due to diverticulitis and put the patient on Flagyl. She has not had any fevers or chills. There are no alleviating, or exacerbating factors to her symptoms otherwise. The patient states that she has tried an enema and a suppository today but did not have a big bowel movement. Review of Systems Review of Systems Constitutional: Denies fever or chills [] Eyes: Denies change in visual acuity, redness, or eye pain [] HENT: Denies nasal congestion or sore throat [] Respiratory: Denies cough or shortness of breath [] Cardiovascular: The patient denies any shortness of breath, chest pain, palpitations, or orthopnea [] GI: Denies , nausea, vomiting, bloody stools or diarrhea [] : Denies dysuria or hematuria [] Musculoskeletal: Denies neck pain or joint pain [] Integument: Denies rash or skin lesions [] Neurologic: Denies headache, focal weakness or sensory changes [] Endocrine: Denies polyuria or polydipsia [] All other systems were reviewed and found to be within normal limits, except as documented in this note. Allergies Allergies Allergies Coded Allergies Type Severity Reaction Last Updated Verified Latex, Natural Rubber Allergy Intermediate RASH 11/29/16 Yes adhesive tape Allergy Intermediate Rash 11/29/16 Yes amoxicillin Adverse Reaction Intermediate 06/09/17 Yes formoterol Adverse Reaction Intermediate 06/09/17 Yes mometasone furoate Adverse Reaction Intermediate 06/09/17 Yes varenicline Adverse Reaction Intermediate 06/09/17 Yes Physical Exam Physical Exam PHYSICAL EXAM: CONSTITUTIONAL: Well developed, well nourished HEAD: normocephalic, atraumatic EENT: PERRL, EOMI. Conjunctivae normal color, sclerae non-icteric; moist mucous membranes. NECK: Supple, non-tender; no meningismus. LUNGS: Lungs CTA, breathing even and unlabored. Normal air movement. HEART: Regular rate and rhythm, no murmur CHEST: No deformity; non-tender ABDOMEN: The abdomen is soft, and non-tender, no masses or bruits. There is no significant reproducible abdominal discomfort on exam. EXTREM: Normal ROM; no deformity, no calf tenderness. Normal pulses palpable in all extremities. There is no pedal edema. SKIN: No rash; no diaphoresis NEURO: Alert; normal speech and cognition; CN's grossly intact; strength grossly intact without focal deficit.There is no foot drop. There is no perineal anesthesia. BACK: No CVA TTP. Current Patient Data Vital Signs Vital Signs Date Time Temp Pulse Resp B/P (MAP) Pulse Ox O2 Delivery O2 Flow Rate FiO2 10/10/17 20:34 98.1 83 20 149/74 (99) 99 Room Air 98.1 EKG EKG [] Radiology/Procedures Radiology/Procedures [] Course & Med Decision Making Course & Med Decision Making Pertinent Labs and Imaging studies from ER visit this morning reviewed. (See chart for details) []8:55 PM: The patient's condition remained stable. Her exam is benign. She has chronic ongoing issues both with constipation and IBS, as well as back pain. She had a thorough workup this morning, and a do not believe she requires any further testing. I did discuss importance of persistence with a daily bowel regimen, I initially recommended MiraLAX twice daily, and the importance of follow-up with her GI physician, whom she is ready establish with. I will give her a referral to the spine surgeon for further evaluation and treatment of her back pain, and I discussed return precautions with the patient and she is having no neurological symptoms at this time or any other indication of acute back problem. Dannie Disclaimer Dannie Disclaimer This electronic medical record was generated, in whole or in part, using a voice recognition dictation system. Departure Departure Impression: Primary Impression: IBS (irritable bowel syndrome) Additional Impression: Chronic back pain Disposition: HOME, SELF-CARE Condition: STABLE Referrals: BARTOLOME LIZ APRN (PCP) UBALDO XIE MD Patient Instructions: Back Pain, Adult, Constipation, Adult, Irritable Bowel Syndrome Additional Instructions: Use MiraLAX, one Capfull in 8 ounces of water twice daily. He may also use suppositories and/or enemas as needed for constipation. Follow-up with both her central office mechanic for further evaluation of your abdominal discomfort and constipation, and Dr. Sharp, for further evaluation of your back problems. Problem Qualifiers CONSTANCE TELLEZ MD Oct 10, 2017 20:59
[2017-10-10 21:05] VITALS: BP 136/74
[2017-10-10] MEDS ORDERED: KETOROLAC 60 MG/2 ML INJ. IM ONE (21:15)
== END 2017-10-10 21:22 | disposition home or self-care (01) ==
LOC: ER 19:50
DX: G89.29 Other chronic pain (principal); M54.9 Dorsalgia, unspecified; K58.9 Irritable bowel syndrome, unspecified; J44.9 Chronic obstructive pulmonary disease, unspecified; F32.9 Major depressive disorder, single episode, unspecified; Z90.49 Acquired absence of other specified parts of digestive tract; Z90.710 Acquired absence of both cervix and uterus; Z98.890 Other specified postprocedural states; Z88.8 Allergy status to other drugs, medicaments and biological substances; Z88.1 Allergy status to other antibiotic agents; Z91.040 Latex allergy status
CPT/HCPCS: 96372; 99283; J1885

== ENCOUNTER → 2018-06-07 | Outpatient (CLI) | payer BC ==
[~2018-06-07] MED LIST changes: -HYDR-2758 PO; +HYDR-2761 PO; -HYDR-2762 PO; +HYDR-2765 PO; +OMEP20CA10 PO; -OMEP20CA9 PO
--- NOTE | 2018-06-07 13:30 | KCIC ---
Right foot radiograph 06/07/2018 12:00 AM INDICATION: Right lateral foot pain for one year COMPARISON: None available. TECHNIQUE: 3 views of the right foot are provided. FINDINGS: There is no acute fracture or dislocation. Bone mineralization is within normal limits. Joint spaces are maintained. Regional soft tissues are within normal limits. There is no soft tissue gas or osseous erosion. IMPRESSION: No acute fracture or dislocation. Electronically signed by: Phyllis Freeman MD (06/07/2018 1:27 PM) [id number]
== END | disposition home or self-care (01) ==
LOC: KCIC 11:44
PROVIDERS: ATTEND Internal Medicine Rheumatology
DX: M79.671 Pain in right foot (principal)
CPT/HCPCS: 73630

== ENCOUNTER → 2018-10-29 | Day surgery (SDC) | payer BC ==
[~2018-10-29] MED LIST changes: +IV RINGERS,LACTATED 1000ML 1,000 ML IV SCH; +LIDOCAINE 2% PF 5 ML VIAL. ONE; +PANT40TA77 PO; +PROPOFOL 40 ML IV ONE; -TIZA4TAB PO; +TIZA4TAB2 PO
[2018-10-29 17:02] VITALS: BP 134/68
--- NOTE | 2018-10-30 05:19 | CONS ---
DATE OF CONSULTATION: 10/29/2018 REFERRING PHYSICIAN: Brendon Eastman MD REASON FOR CONSULTATION: Abnormal CAT scan, thickening in the right colon and constipation. HISTORY OF PRESENT ILLNESS: A 42-year-old female whose past medical history is significant for pelvic floor dysfunction as well as endometriosis, COPD, asthma, bipolar disorder, diverticulosis, seen with worsening abdominal pain. CT scan did reveal thickening in the right colon and possible early volvulus/floppy colon. Interval colonoscopy is recommended since her last was done in 2016. She does note having difficulties with constipation and defecation, but denies any bleeding. Weight and appetite have been stable. She is otherwise without additional complaints. PAST MEDICAL HISTORY: COPD, asthma, endometriosis, anxiety and gastric ulcers. ALLERGIES: LATEX AND AMOXICILLIN. MEDICATIONS: Include albuterol, budesonide, diazepam, docusate, Prozac, hydrocodone, Nasonex, Protonix and tizanidine. FAMILY AND SOCIAL HISTORY: Significant for heart disease with her mother and her grandfather, thyroid disease with her father, hypertension with her mother, maternal grandmother, pancreatic cancer with a sibling. PAST SURGICAL HISTORY: Status post , hernia repair, hysterectomy, gallbladder surgery. REVIEW OF SYSTEMS: Per records. PHYSICAL EXAMINATION: GENERAL: Reveals a well-nourished, well-developed female. VITAL SIGNS: Temperature is 98.3, pulse 85, respirations 20. HEENT: Normocephalic, atraumatic head. Pupils and extraocular muscles are not tested. Sclerae anicteric. NECK: Supple. LUNGS: Clear. CARDIOVASCULAR: Reveals an S1, S2 without S3, S4 or appreciable murmur. ABDOMEN: Reveals soft abdomen, normal bowel sounds, without appreciable hepatosplenomegaly, diffuse tenderness. EXTREMITIES: Reveals no cyanosis, clubbing or edema. IMPRESSION AND PLAN: Constipation, abnormal CT scan, possible cecal malrotation and volvulus are in the differential as well as inflammatory bowel disease. Therefore, I recommend interval colonoscopy with optical visualization of the right colon. Risks and benefits have been discussed with the patient and she is willing to proceed at this time. THO LEE MD DR: ANEL/suki JOB#: [id number] / [id number] BRENDON Dover MD
== END ==
LOC: SURG 15:24
PROVIDERS: ATTEND Internal Medicine Gastroenterology
DX: K57.30 Diverticulosis of large intestine without perforation or abscess without bleeding (principal); K64.0 First degree hemorrhoids; J44.9 Chronic obstructive pulmonary disease, unspecified; F31.9 Bipolar disorder, unspecified; Z91.040 Latex allergy status; Z90.710 Acquired absence of both cervix and uterus; Z88.6 Allergy status to analgesic agent; Z98.890 Other specified postprocedural states
CPT/HCPCS: 45378; J2001; J2704

== ENCOUNTER 2019-09-29 16:47 | Inpatient (IN) | payer BC ==
[~2019-09-29] VITALS: Ht 167.6 cm; Wt 88.5 kg
[~2019-09-29 16:47] MED LIST changes: -IV RINGERS,LACTATED 1000ML 1,000 ML IV SCH; -LIDOCAINE 2% PF 5 ML VIAL. ONE; -OMEP20CA10 PO; +OMEP20CA16 PO; +OMEP40CA45 PO; -OMEP40CA5 PO; -PROPOFOL 40 ML IV ONE
--- NOTE | 2019-09-29 19:04 | PHYS DOC ---
Past Medical History Past Medical History: Angina, Asthma, COPD, Depression, Pneumonia, UTI Additional Past Medical Histor: endometrosis, CHRONIC BACK PAIN,burcitis,sinus infeCTt;colitis Past Surgical History: Cholecystectomy, , Hysterectomy, Other Additional Past Surgical Histo: hernia repair x 3 Smoking Status: Former Smoker Additional Information: pt vaping Alcohol Use: Occasionally Drug Use: None General Adult EDM: Chief Complaint: FEVER HPI: HPI: Patient is a 43 year old female who presents with 2 to 3-week history of nausea vomiting diarrhea. Patient describes diffuse abdominal pain radiates to her back that is moderate in intensity and worse with palpation. Patient also says it radiates up into her chest. Patient denies any shortness of breath. Patient is also had fever and chills and dysuria. Patient was diagnosed with colitis on the CT scan 4 days ago and has been on antibiotics, Cipro, Flagyl for last several days. Patient states the pain is not getting any better. Review of Systems: Review of Systems: Constitutional: Reports fever and chills Eyes: Denies change in visual acuity. [] HENT: Denies nasal congestion or sore throat. [] Respiratory: Denies cough or shortness of breath. [] Cardiovascular: Complains of chest pain but no edema GI: Complains of abdominal pain, nausea, vomiting, diarrhea : Complains of urinary frequency Musculoskeletal: Complains of back pain but no extremity pain Integument: Denies rash. [] Neurologic: Denies headache, focal weakness or sensory changes. [] Endocrine: Denies polyuria or polydipsia. [] Lymphatic: Denies swollen glands. [] Psychiatric: Denies depression or anxiety. [] Heart Score: Risk Factors: Risk Factors: DM, Current or recent (<one month) smoker, HTN, HLP, family history of CAD, obesity. Risk Scores: Score 0 - 3: 2.5% MACE over next 6 weeks - Discharge Home Score 4 - 6: 20.3% MACE over next 6 weeks - Admit for Clinical Observation Score 7 - 10: 72.7% MACE over next 6 weeks - Early Invasive Strategies Allergies: Allergies: Allergies Coded Allergies Type Severity Reaction Last Updated Verified Latex, Natural Rubber Allergy Intermediate RASH 10/29/18 Yes adhesive tape Allergy Intermediate Rash 10/29/18 Yes amoxicillin Adverse Reaction Intermediate 10/29/18 Yes formoterol Adverse Reaction Intermediate 10/29/18 Yes mometasone furoate Adverse Reaction Intermediate 10/29/18 Yes varenicline Adverse Reaction Intermediate 10/29/18 Yes Physical Exam: PE: Constitutional: Well developed, well nourished, no acute distress, non-toxic appearance. [] HENT: Normocephalic, atraumatic, bilateral external ears normal, no trismus nose normal. [] Eyes: PERRLA, EOMI, conjunctiva normal, no discharge. [] Neck: Normal range of motion, no tenderness, supple, no stridor. [] Cardiovascular:Heart rate regular rhythm, no murmur [] Lungs & Thorax: Bilateral breath sounds clear to auscultation [] Abdomen: soft, diffuse tenderness to palpation without guarding or rebound, no masses, no pulsatile masses. [] Skin: Warm, dry, no erythema, no rash. [] Back: No tenderness, no CVA tenderness. [] Extremities: No tenderness, no cyanosis, no clubbing, ROM intact, no edema. [] Neurologic: Alert and oriented X 3, normal motor function, normal sensory function, no focal deficits noted. [] Psychologic: Affect normal, judgement normal, mood normal. [] Current Patient Data: Labs: Laboratory Tests Test 09/29/19 18:48 09/29/19 18:55 White Blood Count 5.6 x10^3/uL Red Blood Count 4.86 x10^6/uL Hemoglobin 15.6 g/dL Hematocrit 45.8 % Mean Corpuscular Volume 94 fL Mean Corpuscular Hemoglobin 32 pg Mean Corpuscular Hemoglobin Concent 34 g/dL Red Cell Distribution Width 13.5 % Platelet Count 318 x10^3/uL Neutrophils (%) (Auto) 70 % Lymphocytes (%) (Auto) 19 % Monocytes (%) (Auto) 9 % Eosinophils (%) (Auto) 1 % Basophils (%) (Auto) 1 % Neutrophils # (Auto) 3.9 x10^3/uL Lymphocytes # (Auto) 1.1 x10^3/uL Monocytes # (Auto) 0.5 x10^3/uL Eosinophils # (Auto) 0.0 x10^3/uL Basophils # (Auto) 0.1 x10^3/uL Sodium Level 134 mmol/L Potassium Level 4.4 mmol/L Chloride Level 99 mmol/L Carbon Dioxide Level 26 mmol/L Anion Gap 9 Blood Urea Nitrogen 7 mg/dL Creatinine 0.9 mg/dL Estimated GFR (Cockcroft-Gault) 68.3 BUN/Creatinine Ratio 8 Glucose Level 111 mg/dL Lactic Acid Level 1.0 mmol/L Calcium Level 9.4 mg/dL Total Bilirubin 1.1 mg/dL Aspartate Amino Transf (AST/SGOT) 144 U/L Alanine Aminotransferase (ALT/SGPT) 146 U/L Alkaline Phosphatase 104 U/L Creatine Kinase 62 U/L Troponin I Quantitative < 0.017 ng/mL Total Protein 7.8 g/dL Albumin 4.1 g/dL Albumin/Globulin Ratio 1.1 Lipase 103 U/L Procalcitonin < 0.10 ng/mL Serum Test, Qualitative Negative Urine Collection Type Unknown Urine Color Red Urine Clarity Clear Urine pH 5.5 Urine Specific [place] >=1.030 Urine Protein 100 mg/dL Urine Glucose (UA) Negative mg/dL Urine Ketones (Stick) 15 mg/dL Urine Blood Negative Urine Nitrite Positive Urine Bilirubin Moderate Urine Urobilinogen Dipstick 1.0 mg/dL Urine Leukocyte Esterase Moderate Urine RBC Occ /HPF Urine WBC 1-4 /HPF Urine Squamous Epithelial Cells Mod /LPF Urine Bacteria Moderate /HPF Urine Hyaline Casts Moderate /HPF Urine Mucus Marked /LPF Current Medications Medications (Trade) Dose Ordered Sig/Eric Route PRN Reason Start Time Stop Time Status Last Admin Dose Admin Sodium Chloride 1,000 ml @ 1,000 mls/hr 1X ONCE IV 09/29/19 19:15 09/29/19 20:14 DC 09/29/19 19:28 Ondansetron HCl (Zofran) 4 mg 1X ONCE IVP 09/29/19 19:15 09/29/19 19:16 DC 09/29/19 19:28 Iohexol (Omnipaque 300 Mg/ml) 75 ml 1X ONCE IV 09/29/19 19:30 09/29/19 19:31 DC 09/29/19 19:39 Info (CONTRAST GIVEN -- Rx MONITORING) 1 each PRN DAILY PRN MC SEE COMMENTS 09/29/19 19:30 10/01/19 19:29 Ceftriaxone Sodium (Rocephin) 1 gm 1X ONCE IVP 09/29/19 20:30 09/29/19 20:31 DC 09/29/19 20:35 Metronidazole 100 ml @ 100 mls/hr 1X ONCE IV 09/29/19 20:30 09/29/19 21:29 DC 09/29/19 20:36 Morphine Sulfate (Morphine Sulfate) 4 mg 1X ONCE IV 09/29/19 20:30 09/29/19 20:31 DC 09/29/19 20:35 Sodium Chloride 1,000 ml @ 125 mls/hr Q8H IV 09/29/19 21:00 09/30/19 20:59 Ondansetron HCl (Zofran) 4 mg PRN Q6HRS PRN IVP NAUSEA/VOMITING 1ST CHOICE 09/29/19 20:45 Morphine Sulfate (Morphine Sulfate) 4 mg PRN Q6HRS PRN IV SEVERE PAIN 7-10 09/29/19 20:45 Multi-Ingredient Mouthwash/Gargle (Gi Cocktail) 20 ml 1X ONCE SWSW 09/29/19 21:15 09/29/19 21:17 DC Vital Signs: Vital Signs Date Time Temp Pulse Resp B/P (MAP) Pulse Ox O2 Delivery O2 Flow Rate FiO2 09/29/19 18:33 98.4 83 16 122/73 (89) 99 Room Air 98.4 EKG: EKG: EKG interpreted by me normal sinus rhythm with rate of 73 normal axis normal intervals normal ST segments [] Radiology/Procedures: Radiology/Procedures: [][facility] [address] [place] [address] IMAGING REPORT Signed PATIENT: NARCISA ALCAZAR ACCOUNT: [id number] : 1975 LOCATION: ER AGE: 43 SEX: F EXAM STATUS: REG ER ORD. PHYSICIAN: THO SPAULDING MD REASON: n/v colitis PROCEDURE: CT ABD PELV W/ IV CONTRST ONLY CT abdomen pelvis with contrast dated 09/29/2019. Comparison made 10/10/2017. CLINICAL INDICATION: Nausea vomiting. History of colitis. TECHNIQUE: Contiguous axial imaging the abdomen pelvis performed after the administration of 75 cc Omnipaque 300. One or more of the following individualized dose reduction techniques were utilized for this examination: 1. Automated exposure control 2. Adjustment of the mA and/or kV according to patient size 3. Use of iterative reconstruction technique. FINDINGS: Limited images of lung bases are clear. Heart size within normal limits. No pleural or pericardial effusion. There is some linear scarring in the right middle lobe. There is also a noncalcified pulmonary nodule in the subpleural aspect the left lower lobe on image 6 that measures 3 mm. Liver, spleen, pancreas, adrenal glands, kidneys are unremarkable. No hydronephrosis. The gallbladder is surgically absent. Partially opacified GI tract normal in caliber and contour. No focal bowel wall thickening. No inflammatory stranding in the mesentery. Appendix normal in caliber. No ascites or lymphadenopathy. Abdominal aorta normal in caliber. Images of pelvis show nondistended urinary bladder. Uterus is surgically absent. No free fluid or pelvic lymphadenopathy. Bone windows show no acute findings. Multilevel spondylosis. IMPRESSION: 1. No acute abnormality of abdomen or pelvis. Normal appendix. 2. Status post cholecystectomy and hysterectomy. 3. Small noncalcified pulmonary nodule in the left lower lobe, nonspecific. Electronically signed by: Ian Valentin MD (09/29/2019 7:51 PM) [facility] [place] DICTATED and SIGNED BY: IAN VALENTIN MD DATE: 09/29/191950 Course & Med Decision Making: Course & Med Decision Making Pertinent Labs and Imaging studies reviewed. (See chart for details) 43-year-old female presents with abdominal pain, nausea vomiting diarrhea. Patient is dehydrated on exam. Patient be admitted for IV fluids. On reassessment still complain of pain but is somewhat improved. Stable on reassessment but still complains of pain. Patient has elevated LFTs and urinary tract infection. Patient was placed in observation for further evaluation treatment. MIPS measure: hCG checked and negative. Dannie Disclaimer: Dannie Disclaimer: This electronic medical record was generated, in whole or in part, using a voice recognition dictation system. Departure Departure Impression: Primary Impression: Left lower quadrant pain Additional Impressions: UTI (urinary tract infection) Transaminitis Disposition: ADMITTED INPATIENT Condition: STABLE Referrals: BARTOLOME LIZ APRN (PCP) Justicifation of Admission Dx: Justifications for Admission: Justification of Admission Dx: Yes THO SPAULDING MD Sep 29, 2019 19:03
[2019-09-29 19:14] LABS: BASO # 0.1 x10^3/uL (0.0-0.2); BASO % 1 % (0-3); EOS % 1 % (0-3); HEMATOCRIT 45.8 % (36.0-47.0); HEMOGLOBIN 15.6 g/dL (12.0-15.5); LYMPH # 1.1 x10^3/uL (1.0-4.8); LYMPH % 19 % (24-48); MEAN CORPUSCULAR HEMOGLOBIN 32 pg (25-35); MEAN CORPUSCULAR HGB CONC 34 g/dL (31-37); MEAN CORPUSCULAR VOLUME 94 fL (79-100); MONO # 0.5 x10^3/uL (0.0-1.1); MONO % 9 % (0-9); NEUT # 3.9 x10^3/uL (1.8-7.7); NEUT % 70 % (31-73); PLATELET COUNT 318 x10^3/uL (140-400); RED BLOOD COUNT 4.86 x10^6/uL (3.50-5.40); RED CELL DISTRIBUTION WIDTH 13.5 % (11.5-14.5); WHITE BLOOD COUNT 5.6 x10^3/uL (4.0-11.0)
[2019-09-29 19:15] LABS: BILIRUBIN,URINE MODERATE (NEG); CLARITY,URINE CLEAR; COLOR,URINE RED; NITRITE,URINE POSITIVE (NEG); PH,URINE 5.5 (<5.0-8.0); PROTEIN,URINE 100 mg/dL (NEG-TRACE)
[2019-09-29] MEDS ORDERED: IV NORMAL SALINE 1000ML BAG 1,000 ML IV ONE (19:15)
[2019-09-29] MEDS ORDERED: ONDANSETRON PF 4 MG/2 ML VIAL. IVP ONE (19:15)
[2019-09-29 19:21] LABS: CALCIUM 9.4 mg/dL (8.5-10.1); CREATININE 0.9 mg/dL (0.6-1.0); GFR 68.3; POTASSIUM 4.4 mmol/L (3.5-5.1)
[2019-09-29 19:22] LABS: BACTERIA,URINE MODERATE /HPF (0-FEW); RBC,URINE OCC /HPF (0-2); SQUAMOUS EPITHELIAL CELL,UR MOD /LPF
[2019-09-29 19:23] LABS: PREG TEST PT QUAL NEGATIVE (NEG)
[2019-09-29 19:23] LABS: HYALINE CASTS, URINE MODERATE /HPF
[2019-09-29 19:27] LABS: ALBUMIN 4.1 g/dL (3.4-5.0); ALBUMIN/GLOBULIN RATIO 1.1 (1.0-1.7); TOTAL BILIRUBIN 1.1 mg/dL (0.2-1.0); TOTAL PROTEIN 7.8 g/dL (6.4-8.2)
[2019-09-29] MEDS ORDERED: IOHEXOL 300 MG/ML 100ML VIAL. IV ONE (19:30)
[2019-09-29] MEDS ORDERED: CONTRAST GIVEN. MC PRN (19:30)
--- NOTE | 2019-09-29 19:53 | RAD ---
CT abdomen pelvis with contrast dated 09/29/2019. Comparison made 10/10/2017. CLINICAL INDICATION: Nausea vomiting. History of colitis. TECHNIQUE: Contiguous axial imaging the abdomen pelvis performed after the administration of 75 cc Omnipaque 300. One or more of the following individualized dose reduction techniques were utilized for this examination: 1. Automated exposure control 2. Adjustment of the mA and/or kV according to patient size 3. Use of iterative reconstruction technique. FINDINGS: Limited images of lung bases are clear. Heart size within normal limits. No pleural or pericardial effusion. There is some linear scarring in the right middle lobe. There is also a noncalcified pulmonary nodule in the subpleural aspect the left lower lobe on image 6 that measures 3 mm. Liver, spleen, pancreas, adrenal glands, kidneys are unremarkable. No hydronephrosis. The gallbladder is surgically absent. Partially opacified GI tract normal in caliber and contour. No focal bowel wall thickening. No inflammatory stranding in the mesentery. Appendix normal in caliber. No ascites or lymphadenopathy. Abdominal aorta normal in caliber. Images of pelvis show nondistended urinary bladder. Uterus is surgically absent. No free fluid or pelvic lymphadenopathy. Bone windows show no acute findings. Multilevel spondylosis. IMPRESSION: 1. No acute abnormality of abdomen or pelvis. Normal appendix. 2. Status post cholecystectomy and hysterectomy. 3. Small noncalcified pulmonary nodule in the left lower lobe, nonspecific. Electronically signed by: Ian Valentin MD (09/29/2019 7:51 PM) [facility]
--- NOTE | 2019-09-29 20:05 | RAD ---
Two-view chest dated 09/29/2019. Comparison made to 10/23/2017. CLINICAL INDICATION: Fever abdominal pain. FINDINGS: PA and lateral views obtained. Heart and mediastinal contours are within normal limits. Lungs are clear. No consolidation or pleural effusion. No pneumothorax. IMPRESSION: No acute radiographic abnormality. Electronically signed by: Ian Valentin MD (09/29/2019 8:02 PM) [facility]
[2019-09-29] MEDS ORDERED: MORPHINE SULFATE 4 MG/ML VIAL. IV ONE (20:30)
[2019-09-29] MEDS ORDERED: cefTRIAXone IV Push 1 GM VIAL. IVP ONE (20:30)
[2019-09-29] MEDS ORDERED: MORPHINE SULFATE 4 MG/ML VIAL. IV PRN (20:45)
[2019-09-29] MEDS ORDERED: LIDO:MAALOX 1:1 20 ML SINGLE DOSE. SWSW ONE (21:15)
[2019-09-29 22:02] VITALS: BP 110/61
[2019-09-29] MEDS ORDERED: [UNRECOGNIZED DRUG - OTHER] PO (23:13)
[2019-09-29] MEDS ORDERED: DULO30CA2 PO (23:13)
[2019-09-29] MEDS ORDERED: METR500T PO (23:13)
[2019-09-29] MEDS ORDERED: CIPR500T94 PO (23:13)
[2019-09-29] MEDS ORDERED: estrogen (23:13)
[2019-09-29] MEDS ORDERED: TEST100V2 IM (23:13)
[2019-09-29] MEDS ORDERED: LORA2TAB89 PO (23:13)
[2019-09-29] MEDS ORDERED: SUVO10TA PO (23:13)
[2019-09-29] MEDS ORDERED: PROG100C10 PO (23:13)
[2019-09-29] MEDS ORDERED: PRAZ2CAP2 PO (23:28)
[2019-09-29] MEDS ORDERED: LORazepam 1 MG TABLET PO SCH (23:30)
[2019-09-29] MEDS: IV NORMAL SALINE 1000ML BAG 1,000 ML IV SCH (23:57)
[2019-09-29] MEDS: PRAZOSIN 1 MG CAPSULE. PO SCH (23:58)
[2019-09-30] MEDS: MORPHINE SULFATE 4 MG/ML VIAL. IV PRN ×4 (01:43→20:53)
[2019-09-30] MEDS: ONDANSETRON PF 4 MG/2 ML VIAL. IVP PRN ×4 (01:53→21:55)
[2019-09-30 03:04] VITALS: BP 111/61
[2019-09-30] MEDS: HYDROmorphone 2 MG/ML VIAL IV PRN ×4 (03:43→18:19)
[2019-09-30] MEDS: hydrOXYzine 25 MG TABLET PO PRN ×2 (05:22→11:50)
--- NOTE | 2019-09-30 07:14 | EKG ---
[facility] [address] [place] [address] Test Date: 2019-09-29 Test Time: 18:58:52 Pat Name: ANRCISA ALCAZAR Department: Room: Gender: F [employer]: SERGIO : 1975 Requested By: THO SPAULDING Order Number: [id number] Reading MD: Measurements Intervals [place] Rate: 73 P: 56 W[place]: 156 QRS: 59 QRSD: 82 T: 41 QT: 408 QTc: 453 Interpretive Statements SINUS RHYTHM NORMAL ECG RI6.02 No previous ECG available for comparison
[2019-09-30 07:29] VITALS: BP 133/76
[2019-09-30] MEDS: IV NORMAL SALINE 1000ML BAG 1,000 ML IV SCH ×2 (09:31→12:54)
[2019-09-30] MEDS ORDERED: diphenhydrAMINE 50 MG/ML VIAL IVP PRN (10:15)
--- NOTE | 2019-09-30 11:06 | NUR ---
SW following. Spoke with RN and reviewed chart. Spoke with pt. Pt from home with spouse. Pt stated no concerns about returning home at discharge. Pt on IV Morphine and IV Dilaudid. Pt COVID pending. Pt on room air. No SW needs identified at this time.
[2019-09-30 11:10] VITALS: BP 148/88
--- NOTE | 2019-09-30 11:25 | PDOC1 ---
History and Physical Date of Service: DOS: DATE: 09/30/19 TIME: 11:23 Chief Complaint: Problems: (1) Pneumonia (2) COPD exacerbation (3) Urinary retention (4) De Quervain's disease (radial styloid tenosynovitis) (5) Contact dermatitis (6) Dermatitis (7) Lumbar strain (8) Upper respiratory disease (9) Back pain (10) CAP (community acquired pneumonia) (11) CAP (community acquired pneumonia) (12) Malaise (13) Chest discomfort (14) Hypoxia (15) Cough (16) CAP (community acquired pneumonia) (17) Symptomatic cholelithiasis (18) Constipation (19) UTI (urinary tract infection) Chief Complain: Left lower quadrant pain Nausea vomiting diarrhea History of Present Illness: HPI: This is a 43-year-old female who presents the ER with shortness of breath and weakness and abdominal discomfort While in the ER we noticed that she has a UTI She also seems to be dehydrated Were also concerned she could have COVID-19 I discussed the case with ER physician regarding with the patient and give her some IV antibiotics and rule out COVID-19 Past Medical/Surgical History: PMH/PSH: Past Medical History: Angina, Asthma, COPD, Depression, Pneumonia, UTI Additional Past Medical Histor: endometrosis, CHRONIC BACK PAIN,burcitis,sinus infeCTt;colitis Past Surgical History: Cholecystectomy, , Hysterectomy, Other Additional Past Surgical Histo: hernia repair x 3 Smoking Status: Former Smoker Additional Information: pt vaping Alcohol Use: Occasionally Allergies: Allergies: Coded Allergies: Latex, Natural Rubber (Verified Allergy, Intermediate, RASH, 10/29/18) adhesive tape (Verified Allergy, Intermediate, Rash, 10/29/18) amoxicillin (Verified Adverse Reaction, Intermediate, 10/29/18) CAUSES SEVERE YEAST INFECTIONS formoterol (Verified Adverse Reaction, Intermediate, 10/29/18) SHAKEY mometasone furoate (Verified Adverse Reaction, Intermediate, 10/29/18) SHAKEY varenicline (Verified Adverse Reaction, Intermediate, 10/29/18) BAD DREAMS Family History: Family History: Hypertension diabetes Social History: Social History: She smokes no drink or drug Current Medications: Current Medications Current Medications Sodium Chloride 1,000 ml @ 1,000 mls/hr 1X ONCE IV Last administered on at 19:28; Start 09/29/19 at 19:15; Stop 09/29/19 at 20:14; Status DC Ondansetron HCl (Zofran) 4 mg 1X ONCE IVP Last administered on 09/29/19at 19:28; Start 09/29/19 at 19:15; Stop 09/29/19 at 19:16; Status DC Iohexol (Omnipaque 300 Mg/ml) 75 ml 1X ONCE IV Last administered on 09/29/19at 19:39; Start 09/29/19 at 19:30; Stop 09/29/19 at 19:31; Status DC Info (CONTRAST GIVEN -- Rx MONITORING) 1 each PRN DAILY PRN MC SEE COMMENTS; Start 09/29/19 at 19:30; Stop 10/01/19 at 19:29 Ceftriaxone Sodium (Rocephin) 1 gm 1X ONCE IVP Last administered on 09/29/19at 20:35; Start 09/29/19 at 20:30; Stop 09/29/19 at 20:31; Status DC Metronidazole 100 ml @ 100 mls/hr 1X ONCE IV Last administered on 09/29/19at 20:36; Start 09/29/19 at 20:30; Stop 09/29/19 at 21:29; Status DC Morphine Sulfate (Morphine Sulfate) 4 mg 1X ONCE IV Last administered on 09/29/19 20:35; Start 09/29/19 at 20:30; Stop 09/29/19 at 20:31; Status DC Sodium Chloride 1,000 ml @ 125 mls/hr Q8H IV Last administered on 09/30/19at 09:31; Start 09/29/19 at 21:00; Stop 09/30/19 at 20:59 Ondansetron HCl (Zofran) 4 mg PRN Q6HRS PRN IVP NAUSEA/VOMITING 1ST CHOICE Last administered on 09/30/19 08:48; Start 09/29/19 at 20:45 Morphine Sulfate (Morphine Sulfate) 4 mg PRN Q6HRS PRN IV SEVERE PAIN 7-10 Last administered on 09/29/19at 21:48; Start 09/29/19 at 20:45; Stop 09/30/19 at 01:23; Status DC Multi-Ingredient Mouthwash/Gargle (Gi Cocktail) 20 ml 1X ONCE SWSW Last administered on 09/29/19at 21:48; Start 09/29/19 at 21:15; Stop 09/29/19 at 21:17; Status DC Progesterone (Prometrium) 100 mg QHS PO ; Start 09/30/19 at 21:00 Lorazepam (Ativan) 1 mg QHS PO Last administered on 09/29/19at 23:57; Start 09/29/19 at 23:30; Stop 09/30/19 at 11:06; Status DC Prazosin HCl (Minipress) 2 mg QHS PO Last administered on 09/29/19at 23:58; Start 09/30/19 at 00:00 Morphine Sulfate (Morphine Sulfate) 4 mg PRN Q4HRS PRN IV PAIN Last administered on 09/30/19at 08:11; Start 09/30/19 at 01:30 Hydromorphone HCl (Dilaudid) 0.7 mg PRN Q3HRS PRN IV SEVERE PAIN 7-10 Last administered on 09/30/19at 08:48; Start 09/30/19 at 03:15 Hydroxyzine HCl (Atarax) 25 mg PRN Q6HRS PRN PO ITCHING Last administered on 09/30/19at 05:22; Start 09/30/19 at 05:00 Diphenhydramine HCl (Benadryl) 50 mg PRN Q8HRS PRN IVP ITCHING; Start 09/30/19 at 10:15 Lorazepam (Ativan Inj) 2 mg PRN Q4HRS PRN IVP ANXIETY / AGITATION; Start 09/30/19 at 11:15 Active Scripts Active Reported Prazosin Hcl 2 Mg Capsule 2 Cap PO QHS Flagyl (Metronidazole) 500 Mg Tablet 500 Mg PO TID Cipro (Ciprofloxacin Hcl) 500 Mg Tablet 1 Tab PO BID 7 Days Belsomra (Suvorexant) 10 Mg Tablet 10 Mg PO HS Testosterone Cypionate 100 Mg/1 Ml Vial 100 Mg IM Q4WK [estrogen ] Progesterone (Progesterone,Micronized) 100 Mg Capsule 1 Cap PO QHS 30 Days Ativan (Lorazepam) 2 Mg Tablet 2 Mg PO HS Cymbalta (Duloxetine Hcl) 30 Mg Capsule. 1 Cap PO DAILY Protonix (Pantoprazole Sodium) 40 Mg Tablet. 40 Mg PO DAILYAC [saxenda] Hydrocodone-Apap 7.5-325 (Hydrocodone Bit/Acetaminophen) 1 Each Tablet 1 Tab PO PRN Q6HRS PRN Tizanidine Hcl 4 Mg Tablet 1 Tab PO PRN Q6HRS Symbicort 160-4.5 Mcg Inhaler (Budesonide/Formoterol Fumarate) 10.2 Gm Hfa.aer.ad 2 Puff IH BID Prozac (Fluoxetine Hcl) 40 Mg Capsule 80 Mg PO DAILY Albuterol Sulfate Hfa Inhaler (Albuterol Sulfate) 8.5 Gm Hfa.aer.ad 8.5 Gm IH DAILY ROS: Review of Systems Review of System REVIEW OF SYSTEMS: GENERAL: Denies weakness SKIN: No bruising, hair changes or rashes. EYES: No blurred, double or loss of vision. NOSE AND THROAT: No history of nosebleeds, hoarseness or sore throat. HEART: No history of palpitations, chest pain or shortness of breath on exertion. LUNGS: Complains of shortness of breath GASTROINTESTINAL: Complains of abdominal pain GENITOURINARY: No history of frequency, urgency, hesitancy or nocturia. NEUROLOGIC: Denies history of numbness, tingling, or tremor. PSYCHIATRIC: No history of panic, anxiety or depression. ENDOCRINE: No history of heat or cold intolerance, polyuria or polydipsia. EXTREMITIES: Denies joint pain, pain on walking or stiffness. Physical Exam: Vital Signs: Vital Signs Date Time Temp Pulse Resp B/P (MAP) Pulse Ox O2 Delivery O2 Flow Rate FiO2 09/30/19 11:10 97.0 90 22 148/88 (108) 99 Room Air 97.0 Physcial Exam: GEN: Appears weak short of breath HEENT: Normal cephalic, atraumatic, external auditory canals are patent EYES: Extraocular muscles are intact, pupil are equally round and reactive to light and accommodation MUSCULOSKELETAL: Well developed , well nourished, good range of motion ENDOCRINE: No thyromegaly was palpated LYMPHATICS: No cervical chain or axillary nodes were noted HEMATOPOIETIC: No bruising NECK: Supple, no JVD, no thyromegaly was noted LUNGS: Bibasilar crackles HEART: RRR, S!, S2 present. Peripheral pulses intact, no obvious murmurs noted ABDOMEN: Slightly tender EXTREMITIES: Without clubbing, cyanosis, or edema. Pedal pulses intact. Negative Homans sign NEUROLOGIC: Normal speech and tone. A&O x 3, moves all extremities, no obvious focal deficits PSYCHIATRIC: Normal affect, normal mood. Stable SKIN: No ulcerations or rashes, good skin turgor, no jaundice VASCULAR: Good capillary refill, neurovascular bundle appears to be intact Labs: Labs: Laboratory Tests Test 09/29/19 18:48 09/29/19 18:55 White Blood Count 5.6 x10^3/uL (4.0-11.0) Red Blood Count 4.86 x10^6/uL (3.50-5.40) Hemoglobin 15.6 g/dL (12.0-15.5) Hematocrit 45.8 % (36.0-47.0) Mean Corpuscular Volume 94 fL (79-100) Mean Corpuscular Hemoglobin 32 pg (25-35) Mean Corpuscular Hemoglobin Concent 34 g/dL (31-37) Red Cell Distribution Width 13.5 % (11.5-14.5) Platelet Count 318 x10^3/uL (140-400) Neutrophils (%) (Auto) 70 % (31-73) Lymphocytes (%) (Auto) 19 % (24-48) Monocytes (%) (Auto) 9 % (0-9) Eosinophils (%) (Auto) 1 % (0-3) Basophils (%) (Auto) 1 % (0-3) Neutrophils # (Auto) 3.9 x10^3/uL (1.8-7.7) Lymphocytes # (Auto) 1.1 x10^3/uL (1.0-4.8) Monocytes # (Auto) 0.5 x10^3/uL (0.0-1.1) Eosinophils # (Auto) 0.0 x10^3/uL (0.0-0.7) Basophils # (Auto) 0.1 x10^3/uL (0.0-0.2) Sodium Level 134 mmol/L (136-145) Potassium Level 4.4 mmol/L (3.5-5.1) Chloride Level 99 mmol/L (98-107) Carbon Dioxide Level 26 mmol/L (21-32) Anion Gap 9 (6-14) Blood Urea Nitrogen 7 mg/dL (7-20) Creatinine 0.9 mg/dL (0.6-1.0) Estimated GFR (Cockcroft-Gault) 68.3 BUN/Creatinine Ratio 8 (6-20) Glucose Level 111 mg/dL (70-99) Lactic Acid Level 1.0 mmol/L (0.4-2.0) Calcium Level 9.4 mg/dL (8.5-10.1) Total Bilirubin 1.1 mg/dL (0.2-1.0) Aspartate Amino Transf (AST/SGOT) 144 U/L (15-37) Alanine Aminotransferase (ALT/SGPT) 146 U/L (14-59) Alkaline Phosphatase 104 U/L (46-116) Creatine Kinase 62 U/L (26-192) Troponin I Quantitative < 0.017 ng/mL (0.000-0.055) Total Protein 7.8 g/dL (6.4-8.2) Albumin 4.1 g/dL (3.4-5.0) Albumin/Globulin Ratio 1.1 (1.0-1.7) Lipase 103 U/L (73-393) Procalcitonin < 0.10 ng/mL (0.00-0.10) Serum Test, Qualitative Negative (NEG) Urine Collection Type Unknown Urine Color Red Urine Clarity Clear Urine pH 5.5 (<5.0-8.0) Urine Specific [place] >=1.030 (1.000-1.030) Urine Protein 100 mg/dL (NEG-TRACE) Urine Glucose (UA) Negative mg/dL (NEG) Urine Ketones (Stick) 15 mg/dL (NEG) Urine Blood Negative (NEG) Urine Nitrite Positive (NEG) Urine Bilirubin Moderate (NEG) Urine Urobilinogen Dipstick 1.0 mg/dL (0.2 mg/dL) Urine Leukocyte Esterase Moderate (NEG) Urine RBC Occ /HPF (0-2) Urine WBC 1-4 /HPF (0-4) Urine Squamous Epithelial Cells Mod /LPF Urine Bacteria Moderate /HPF (0-FEW) Urine Hyaline Casts Moderate /HPF Urine Mucus Marked /LPF Laboratory Tests Test 09/29/19 18:48 09/29/19 18:55 White Blood Count 5.6 x10^3/uL (4.0-11.0) Red Blood Count 4.86 x10^6/uL (3.50-5.40) Hemoglobin 15.6 g/dL (12.0-15.5) Hematocrit 45.8 % (36.0-47.0) Mean Corpuscular Volume 94 fL (79-100) Mean Corpuscular Hemoglobin 32 pg (25-35) Mean Corpuscular Hemoglobin Concent 34 g/dL (31-37) Red Cell Distribution Width 13.5 % (11.5-14.5) Platelet Count 318 x10^3/uL (140-400) Neutrophils (%) (Auto) 70 % (31-73) Lymphocytes (%) (Auto) 19 % (24-48) Monocytes (%) (Auto) 9 % (0-9) Eosinophils (%) (Auto) 1 % (0-3) Basophils (%) (Auto) 1 % (0-3) Neutrophils # (Auto) 3.9 x10^3/uL (1.8-7.7) Lymphocytes # (Auto) 1.1 x10^3/uL (1.0-4.8) Monocytes # (Auto) 0.5 x10^3/uL (0.0-1.1) Eosinophils # (Auto) 0.0 x10^3/uL (0.0-0.7) Basophils # (Auto) 0.1 x10^3/uL (0.0-0.2) Sodium Level 134 mmol/L (136-145) Potassium Level 4.4 mmol/L (3.5-5.1) Chloride Level 99 mmol/L (98-107) Carbon Dioxide Level 26 mmol/L (21-32) Anion Gap 9 (6-14) Blood Urea Nitrogen 7 mg/dL (7-20) Creatinine 0.9 mg/dL (0.6-1.0) Estimated GFR (Cockcroft-Gault) 68.3 BUN/Creatinine Ratio 8 (6-20) Glucose Level 111 mg/dL (70-99) Lactic Acid Level 1.0 mmol/L (0.4-2.0) Calcium Level 9.4 mg/dL (8.5-10.1) Total Bilirubin 1.1 mg/dL (0.2-1.0) Aspartate Amino Transf (AST/SGOT) 144 U/L (15-37) Alanine Aminotransferase (ALT/SGPT) 146 U/L (14-59) Alkaline Phosphatase 104 U/L (46-116) Creatine Kinase 62 U/L (26-192) Troponin I Quantitative < 0.017 ng/mL (0.000-0.055) Total Protein 7.8 g/dL (6.4-8.2) Albumin 4.1 g/dL (3.4-5.0) Albumin/Globulin Ratio 1.1 (1.0-1.7) Lipase 103 U/L (73-393) Procalcitonin < 0.10 ng/mL (0.00-0.10) Serum Test, Qualitative Negative (NEG) Urine Collection Type Unknown Urine Color Red Urine Clarity Clear Urine pH 5.5 (<5.0-8.0) Urine Specific [place] >=1.030 (1.000-1.030) Urine Protein 100 mg/dL (NEG-TRACE) Urine Glucose (UA) Negative mg/dL (NEG) Urine Ketones (Stick) 15 mg/dL (NEG) Urine Blood Negative (NEG) Urine Nitrite Positive (NEG) Urine Bilirubin Moderate (NEG) Urine Urobilinogen Dipstick 1.0 mg/dL (0.2 mg/dL) Urine Leukocyte Esterase Moderate (NEG) Urine RBC Occ /HPF (0-2) Urine WBC 1-4 /HPF (0-4) Urine Squamous Epithelial Cells Mod /LPF Urine Bacteria Moderate /HPF (0-FEW) Urine Hyaline Casts Moderate /HPF Urine Mucus Marked /LPF Assessment/Plan Assessment/Plan Shortness of breath Possible Covid-19 Abdominal pain UTI Multiple comorbidities please see above Plan Rest isolation Rule out COVID-19 PRN pain meds IV fluids IV antibiotics Home meds DVT prophylaxis Full code Discussed with RN Justicifation of Admission Dx: Justifications for Admission: Justification of Admission Dx: N/A ZOHRA ZAMORA III DO Sep 30, 2019 11:25
--- NOTE | 2019-09-30 12:21 | PDOC2 ---
GI CONSULT Date of Service: DATE: 09/30/19 TIME: 12:20 Reason For Consult: colitis HPI: HPI: 43 y/o female to ER last night. Ill x 3 weeks w/ upper abdominal pain, n/v, some shortness of breath, and fevers (100). Denies precipitating events. Saw PCP - was told she had a UTI and "colitis" on CT done @ [facility] last . Started on Cipro and Flagyl without improvement. Currently very uncomfortable - pain meds not helping and has been itching since started taking last night. H/o GERD on Protonix QD. Typically has constipation improved w/ Linzess 290mcg QD but has had several days of diarrhea - unclear when this started (thinks before starting antibiotics) and hasn't stooled here. Denies hematemesis, hematochezia, and melena. Chronic back pain on hydrocodone. Pain is not similar to gallbladder attack (before cholecystectomy) - has never had this pain before. EGD in 2013 showed reflux esophagitis and duodenitis. Colonoscopy in 2019 showed sigmoid diverticulosis. She says she had diverticulitis in the past. S/p cholecystectomy for stones - did not have IOC. Denies liver and pancreas history. Remote h/o "ulcer." No NSAIDs. PMH: PMH: COPD/asthma, endometriosis, anxiety, bipolar, GERD, constipation cholecystectomy (stones) w/ CABRERA , x 2, hysterectomy, LIH repair, umbilical hernia repair FH: Family History: No pertinent hx Social History: ALCOHOL: other ("a couple shots every couple days") Drugs: None ROS: GEN: +fever HEENT: Denies blurred vision, sore throat CV: Denies chest pain RESP: Denies shortness of air, cough GI: Per HPI : Denies hematuria, dysuria ENDO: Denies weight changes NEURO: Denies confusion, dizziness MSK: +back, arm, leg pain SKIN: +pruritus Vitals: Vitals: Vital Signs Date Time Temp Pulse Resp B/P (MAP) Pulse Ox O2 Delivery O2 Flow Rate FiO2 09/30/19 11:10 97.0 90 22 148/88 (108) 99 Room Air 97.0 Labs: Labs: Laboratory Tests Test 09/29/19 18:48 09/29/19 18:55 White Blood Count 5.6 x10^3/uL (4.0-11.0) Red Blood Count 4.86 x10^6/uL (3.50-5.40) Hemoglobin 15.6 g/dL (12.0-15.5) Hematocrit 45.8 % (36.0-47.0) Mean Corpuscular Volume 94 fL (79-100) Mean Corpuscular Hemoglobin 32 pg (25-35) Mean Corpuscular Hemoglobin Concent 34 g/dL (31-37) Red Cell Distribution Width 13.5 % (11.5-14.5) Platelet Count 318 x10^3/uL (140-400) Neutrophils (%) (Auto) 70 % (31-73) Lymphocytes (%) (Auto) 19 % (24-48) Monocytes (%) (Auto) 9 % (0-9) Eosinophils (%) (Auto) 1 % (0-3) Basophils (%) (Auto) 1 % (0-3) Neutrophils # (Auto) 3.9 x10^3/uL (1.8-7.7) Lymphocytes # (Auto) 1.1 x10^3/uL (1.0-4.8) Monocytes # (Auto) 0.5 x10^3/uL (0.0-1.1) Eosinophils # (Auto) 0.0 x10^3/uL (0.0-0.7) Basophils # (Auto) 0.1 x10^3/uL (0.0-0.2) Sodium Level 134 mmol/L (136-145) Potassium Level 4.4 mmol/L (3.5-5.1) Chloride Level 99 mmol/L (98-107) Carbon Dioxide Level 26 mmol/L (21-32) Anion Gap 9 (6-14) Blood Urea Nitrogen 7 mg/dL (7-20) Creatinine 0.9 mg/dL (0.6-1.0) Estimated GFR (Cockcroft-Gault) 68.3 BUN/Creatinine Ratio 8 (6-20) Glucose Level 111 mg/dL (70-99) Lactic Acid Level 1.0 mmol/L (0.4-2.0) Calcium Level 9.4 mg/dL (8.5-10.1) Total Bilirubin 1.1 mg/dL (0.2-1.0) Aspartate Amino Transf (AST/SGOT) 144 U/L (15-37) Alanine Aminotransferase (ALT/SGPT) 146 U/L (14-59) Alkaline Phosphatase 104 U/L (46-116) Creatine Kinase 62 U/L (26-192) Troponin I Quantitative < 0.017 ng/mL (0.000-0.055) Total Protein 7.8 g/dL (6.4-8.2) Albumin 4.1 g/dL (3.4-5.0) Albumin/Globulin Ratio 1.1 (1.0-1.7) Lipase 103 U/L (73-393) Procalcitonin < 0.10 ng/mL (0.00-0.10) Serum Test, Qualitative Negative (NEG) Urine Collection Type Unknown Urine Color Red Urine Clarity Clear Urine pH 5.5 (<5.0-8.0) Urine Specific [place] >=1.030 (1.000-1.030) Urine Protein 100 mg/dL (NEG-TRACE) Urine Glucose (UA) Negative mg/dL (NEG) Urine Ketones (Stick) 15 mg/dL (NEG) Urine Blood Negative (NEG) Urine Nitrite Positive (NEG) Urine Bilirubin Moderate (NEG) Urine Urobilinogen Dipstick 1.0 mg/dL (0.2 mg/dL) Urine Leukocyte Esterase Moderate (NEG) Urine RBC Occ /HPF (0-2) Urine WBC 1-4 /HPF (0-4) Urine Squamous Epithelial Cells Mod /LPF Urine Bacteria Moderate /HPF (0-FEW) Urine Hyaline Casts Moderate /HPF Urine Mucus Marked /LPF Allergies: Coded Allergies: Latex, Natural Rubber (Verified Allergy, Intermediate, RASH, 10/29/18) adhesive tape (Verified Allergy, Intermediate, Rash, 10/29/18) amoxicillin (Verified Adverse Reaction, Intermediate, 10/29/18) CAUSES SEVERE YEAST INFECTIONS formoterol (Verified Adverse Reaction, Intermediate, 10/29/18) SHAKEY mometasone furoate (Verified Adverse Reaction, Intermediate, 10/29/18) SHAKEY varenicline (Verified Adverse Reaction, Intermediate, 10/29/18) BAD DREAMS Medications: Current Medications Medications (Trade) Dose Ordered Sig/Eric Route PRN Reason Start Time Stop Time Status Last Admin Dose Admin Sodium Chloride 1,000 ml @ 1,000 mls/hr 1X ONCE IV 09/29/19 19:15 09/29/19 20:14 DC 09/29/19 19:28 Ondansetron HCl (Zofran) 4 mg 1X ONCE IVP 09/29/19 19:15 09/29/19 19:16 DC 09/29/19 19:28 Iohexol (Omnipaque 300 Mg/ml) 75 ml 1X ONCE IV 09/29/19 19:30 09/29/19 19:31 DC 09/29/19 19:39 Ceftriaxone Sodium (Rocephin) 1 gm 1X ONCE IVP 09/29/19 20:30 09/29/19 20:31 DC 09/29/19 20:35 Metronidazole 100 ml @ 100 mls/hr 1X ONCE IV 09/29/19 20:30 09/29/19 21:29 DC 09/29/19 20:36 Morphine Sulfate (Morphine Sulfate) 4 mg 1X ONCE IV 09/29/19 20:30 09/29/19 20:31 DC 09/29/19 20:35 Sodium Chloride 1,000 ml @ 125 mls/hr Q8H IV 09/29/19 21:00 09/30/19 20:59 09/30/19 09:31 Ondansetron HCl (Zofran) 4 mg PRN Q6HRS PRN IVP NAUSEA/VOMITING 1ST CHOICE 09/29/19 20:45 09/30/19 08:48 Morphine Sulfate (Morphine Sulfate) 4 mg PRN Q6HRS PRN IV SEVERE PAIN 7-10 09/29/19 20:45 09/30/19 01:23 DC 09/29/19 21:48 Multi-Ingredient Mouthwash/Gargle (Gi Cocktail) 20 ml 1X ONCE SWSW 09/29/19 21:15 09/29/19 21:17 DC 09/29/19 21:48 Lorazepam (Ativan) 1 mg QHS PO 09/29/19 23:30 09/30/19 11:06 DC 09/29/19 23:57 Prazosin HCl (Minipress) 2 mg QHS PO 09/30/19 00:00 09/29/19 23:58 Morphine Sulfate (Morphine Sulfate) 4 mg PRN Q4HRS PRN IV PAIN 09/30/19 01:30 09/30/19 08:11 Hydromorphone HCl (Dilaudid) 0.7 mg PRN Q3HRS PRN IV SEVERE PAIN 7-10 09/30/19 03:15 09/30/19 11:50 Hydroxyzine HCl (Atarax) 25 mg PRN Q6HRS PRN PO ITCHING 09/30/19 05:00 09/30/19 11:50 Lorazepam (Ativan Inj) 2 mg PRN Q4HRS PRN IVP ANXIETY / AGITATION 09/30/19 11:15 09/30/19 11:50 Imaging: Imaging: CXR IMPRESSION: No acute radiographic abnormality. CT A/P IMPRESSION: 1. No acute abnormality of abdomen or pelvis. Normal appendix. 2. Status post cholecystectomy and hysterectomy. 3. Small noncalcified pulmonary nodule in the left lower lobe, nonspecific. PE: GEN: uncomfortable HEENT: Atraumatic, PERRL LUNGS: CTAB anteriorly HEART: RRR ABD: NABS, mildly distended, soft, diffusely non-specifically tender EXTREMITY: No edema SKIN: excoriations on legs NEURO/PSYCH: A & O 3, tearful A/P: A/P: Abd pain, vomiting, ?diarrhea - treated w/ atbx for UTI and "colitis" as outpt UTI, elevated LFTs GERD, remote h/o PUD CRC screen - UTD H/o constipation - controlled w/ Manuelazess Diverticulosis - ?h/o diverticulitis S/p cholecystectomy Chronic back pain on hydrocodone R/o COVID-19 -- UTI treatment and pain control per Dr. Fink. Would keep NPO for now. Add IV PPI. If having diarrhea, check stool studies. Will return to see and review additional recs (?need for additional imaging) w/ Dr. Green. Will ask for outpt CT report. Recheck labs in [facility] Guillen Sep 30, 2019 12:21
--- NOTE | 2019-09-30 12:55 | NUR ---
This RN nonadministered NS @ 100 for 1300. Previous bag still infusing. Refer to EMAR for details.
[2019-09-30] MEDS ORDERED: LIDO:MAALOX 1:1 20 ML SINGLE DOSE. PO PRN (13:00)
[2019-09-30] MEDS ORDERED: DICYCLOMINE HCL 10 MG CAPSULE PO PRN (13:00)
[2019-09-30 15:37] VITALS: BP 126/76
[2019-09-30] MEDS ORDERED: IV NORMAL SALINE 1000ML BAG 1,000 ML IV SCH (18:00)
[2019-09-30] MEDS: IV NORMAL SALINE 1000ML BAG 1,000 ML IV PRN (18:11)
[2019-09-30 19:00] VITALS: BP 133/70
[2019-09-30] MEDS: PRAZOSIN 1 MG CAPSULE. PO SCH (20:20)
[2019-09-30] MEDS: PROGESTERONE, MICRONIZED 100 MG CAPSULE PO SCH (20:20)
[2019-09-30 23:00] VITALS: BP 116/67
--- NOTE | 2019-10-01 00:30 | NUR ---
Covid test came back negative. Patient transferred to [facility]. Report called to Amira ANN.
[2019-10-01] MEDS: ACETAMINOPHEN 325 MG TABLET. PO PRN (01:29)
[2019-10-01] MEDS: IV NORMAL SALINE 1000ML BAG 1,000 ML IV PRN (02:16)
[2019-10-01 03:00] VITALS: BP 121/64
[2019-10-01] MEDS: ONDANSETRON PF 4 MG/2 ML VIAL. IVP PRN (04:09)
[2019-10-01] MEDS: MORPHINE SULFATE 4 MG/ML VIAL. IV PRN (04:10)
[2019-10-01 05:56] LABS: HEMOGLOBIN 13.6 g/dL (12.0-15.5); RED BLOOD COUNT 4.21 x10^6/uL (3.50-5.40); RED CELL DISTRIBUTION WIDTH 13.8 % (11.5-14.5); WHITE BLOOD COUNT 7.3 x10^3/uL (4.0-11.0)
[2019-10-01 06:18] LABS: ALBUMIN 3.3 g/dL (3.4-5.0); ALBUMIN/GLOBULIN RATIO 1.1 (1.0-1.7); CALCIUM 8.1 mg/dL (8.5-10.1); CREATININE 0.6 mg/dL (0.6-1.0); GFR 109.1; POTASSIUM 3.6 mmol/L (3.5-5.1); TOTAL BILIRUBIN 0.9 mg/dL (0.2-1.0); TOTAL PROTEIN 6.3 g/dL (6.4-8.2)
[2019-10-01 07:00] VITALS: BP 124/69
[2019-10-01] MEDS ORDERED: PANTOPRAZOLE IV PUSH 40 MG VIAL. IVP SCH (07:30)
[2019-10-01] MEDS: KETOROLAC 15 MG/ML VIAL. IVP PRN ×3 (08:21→21:50)
--- NOTE | 2019-10-01 09:19 | PDOC ---
PROGRESS NOTES Date of Service: DATE: 10/01/19 TIME: 09:19 Chief Complaint Chief Complaint Assessment/Plan Assessment/Plan Shortness of breath Possible Covid-19 Abdominal pain UTI Multiple comorbidities Plan Rest isolation Rule out COVID-19 PRN pain meds IV fluids IV antibiotics Home meds DVT prophylaxis Full code Discussed with RN Justicifation of Admission Dx: Justicifation of Admission Dx: Justifications for Admission: Justification of Admission Dx: N/A Vitals Vitals Vital Signs Date Time Temp Pulse Resp B/P (MAP) Pulse Ox O2 Delivery O2 Flow Rate FiO2 10/01/19 07:00 98.1 77 18 124/69 (87) 97 Room Air 98.1 Physical Exam Physical Exam GEN: Appears weak short of breath HEENT: Normal cephalic, atraumatic, external auditory canals are patent EYES: Extraocular muscles are intact, pupil are equally round and reactive to light and accommodation MUSCULOSKELETAL: Well developed , well nourished, good range of motion ENDOCRINE: No thyromegaly was palpated LYMPHATICS: No cervical chain or axillary nodes were noted HEMATOPOIETIC: No bruising NECK: Supple, no JVD, no thyromegaly was noted LUNGS: Bibasilar crackles HEART: RRR, S!, S2 present. Peripheral pulses intact, no obvious murmurs noted ABDOMEN: Slightly tender EXTREMITIES: Without clubbing, cyanosis, or edema. Pedal pulses intact. Negative Homans sign NEUROLOGIC: Normal speech and tone. A&O x 3, moves all extremities, no obvious focal deficits PSYCHIATRIC: Normal affect, normal mood. Stable SKIN: No ulcerations or rashes, good skin turgor, no jaundice VASCULAR: Good capillary refill, neurovascular bundle appears to be intact Lungs: Crackles Labs LABS Laboratory Tests Test 10/01/19 04:05 White Blood Count 7.3 x10^3/uL (4.0-11.0) Red Blood Count 4.21 x10^6/uL (3.50-5.40) Hemoglobin 13.6 g/dL (12.0-15.5) Hematocrit 40.0 % (36.0-47.0) Mean Corpuscular Volume 95 fL (79-100) Mean Corpuscular Hemoglobin 32 pg (25-35) Mean Corpuscular Hemoglobin Concent 34 g/dL (31-37) Red Cell Distribution Width 13.8 % (11.5-14.5) Platelet Count 238 x10^3/uL (140-400) Sodium Level 136 mmol/L (136-145) Potassium Level 3.6 mmol/L (3.5-5.1) Chloride Level 103 mmol/L (98-107) Carbon Dioxide Level 24 mmol/L (21-32) Anion Gap 9 (6-14) Blood Urea Nitrogen 2 mg/dL (7-20) Creatinine 0.6 mg/dL (0.6-1.0) Estimated GFR (Cockcroft-Gault) 109.1 BUN/Creatinine Ratio 3 (6-20) Glucose Level 88 mg/dL (70-99) Calcium Level 8.1 mg/dL (8.5-10.1) Total Bilirubin 0.9 mg/dL (0.2-1.0) Aspartate Amino Transf (AST/SGOT) 54 U/L (15-37) Alanine Aminotransferase (ALT/SGPT) 84 U/L (14-59) Alkaline Phosphatase 81 U/L (46-116) Total Protein 6.3 g/dL (6.4-8.2) Albumin 3.3 g/dL (3.4-5.0) Albumin/Globulin Ratio 1.1 (1.0-1.7) Assessment and Plan Assessmemt and Plan Problems Medical Problems: (1) Left lower quadrant pain Status: Acute (2) Transaminitis Status: Acute (3) UTI (urinary tract infection) Status: Acute Comment Review of Relevant I have reviewed the following items kasandra (where applicable) has been applied. Labs Laboratory Tests Test 09/29/19 18:48 09/29/19 18:55 09/29/19 19:03 10/01/19 04:05 White Blood Count 5.6 x10^3/uL (4.0-11.0) 7.3 x10^3/uL (4.0-11.0) Red Blood Count 4.86 x10^6/uL (3.50-5.40) 4.21 x10^6/uL (3.50-5.40) Hemoglobin 15.6 g/dL (12.0-15.5) 13.6 g/dL (12.0-15.5) Hematocrit 45.8 % (36.0-47.0) 40.0 % (36.0-47.0) Mean Corpuscular Volume 94 fL (79-100) 95 fL (79-100) Mean Corpuscular Hemoglobin 32 pg (25-35) 32 pg (25-35) Mean Corpuscular Hemoglobin Concent 34 g/dL (31-37) 34 g/dL (31-37) Red Cell Distribution Width 13.5 % (11.5-14.5) 13.8 % (11.5-14.5) Platelet Count 318 x10^3/uL (140-400) 238 x10^3/uL (140-400) Neutrophils (%) (Auto) 70 % (31-73) Lymphocytes (%) (Auto) 19 % (24-48) Monocytes (%) (Auto) 9 % (0-9) Eosinophils (%) (Auto) 1 % (0-3) Basophils (%) (Auto) 1 % (0-3) Neutrophils # (Auto) 3.9 x10^3/uL (1.8-7.7) Lymphocytes # (Auto) 1.1 x10^3/uL (1.0-4.8) Monocytes # (Auto) 0.5 x10^3/uL (0.0-1.1) Eosinophils # (Auto) 0.0 x10^3/uL (0.0-0.7) Basophils # (Auto) 0.1 x10^3/uL (0.0-0.2) Sodium Level 134 mmol/L (136-145) 136 mmol/L (136-145) Potassium Level 4.4 mmol/L (3.5-5.1) 3.6 mmol/L (3.5-5.1) Chloride Level 99 mmol/L (98-107) 103 mmol/L (98-107) Carbon Dioxide Level 26 mmol/L (21-32) 24 mmol/L (21-32) Anion Gap 9 (6-14) 9 (6-14) Blood Urea Nitrogen 7 mg/dL (7-20) 2 mg/dL (7-20) Creatinine 0.9 mg/dL (0.6-1.0) 0.6 mg/dL (0.6-1.0) Estimated GFR (Cockcroft-Gault) 68.3 109.1 BUN/Creatinine Ratio 8 (6-20) 3 (6-20) Glucose Level 111 mg/dL (70-99) 88 mg/dL (70-99) Lactic Acid Level 1.0 mmol/L (0.4-2.0) Calcium Level 9.4 mg/dL (8.5-10.1) 8.1 mg/dL (8.5-10.1) Total Bilirubin 1.1 mg/dL (0.2-1.0) 0.9 mg/dL (0.2-1.0) Aspartate Amino Transf (AST/SGOT) 144 U/L (15-37) 54 U/L (15-37) Alanine Aminotransferase (ALT/SGPT) 146 U/L (14-59) 84 U/L (14-59) Alkaline Phosphatase 104 U/L (46-116) 81 U/L (46-116) Creatine Kinase 62 U/L (26-192) Troponin I Quantitative < 0.017 ng/mL (0.000-0.055) Total Protein 7.8 g/dL (6.4-8.2) 6.3 g/dL (6.4-8.2) Albumin 4.1 g/dL (3.4-5.0) 3.3 g/dL (3.4-5.0) Albumin/Globulin Ratio 1.1 (1.0-1.7) 1.1 (1.0-1.7) Lipase 103 U/L (73-393) Procalcitonin < 0.10 ng/mL (0.00-0.10) Serum Test, Qualitative Negative (NEG) Urine Collection Type Unknown Urine Color Red Urine Clarity Clear Urine pH 5.5 (<5.0-8.0) Urine Specific [place] >=1.030 (1.000-1.030) Urine Protein 100 mg/dL (NEG-TRACE) Urine Glucose (UA) Negative mg/dL (NEG) Urine Ketones (Stick) 15 mg/dL (NEG) Urine Blood Negative (NEG) Urine Nitrite Positive (NEG) Urine Bilirubin Moderate (NEG) Urine Urobilinogen Dipstick 1.0 mg/dL (0.2 mg/dL) Urine Leukocyte Esterase Moderate (NEG) Urine RBC Occ /HPF (0-2) Urine WBC 1-4 /HPF (0-4) Urine Squamous Epithelial Cells Mod /LPF Urine Bacteria Moderate /HPF (0-FEW) Urine Hyaline Casts Moderate /HPF Urine Mucus Marked /LPF Coronavirus (PCR) Not detected (Not Detected) Laboratory Tests Test 10/01/19 04:05 White Blood Count 7.3 x10^3/uL (4.0-11.0) Red Blood Count 4.21 x10^6/uL (3.50-5.40) Hemoglobin 13.6 g/dL (12.0-15.5) Hematocrit 40.0 % (36.0-47.0) Mean Corpuscular Volume 95 fL (79-100) Mean Corpuscular Hemoglobin 32 pg (25-35) Mean Corpuscular Hemoglobin Concent 34 g/dL (31-37) Red Cell Distribution Width 13.8 % (11.5-14.5) Platelet Count 238 x10^3/uL (140-400) Sodium Level 136 mmol/L (136-145) Potassium Level 3.6 mmol/L (3.5-5.1) Chloride Level 103 mmol/L (98-107) Carbon Dioxide Level 24 mmol/L (21-32) Anion Gap 9 (6-14) Blood Urea Nitrogen 2 mg/dL (7-20) Creatinine 0.6 mg/dL (0.6-1.0) Estimated GFR (Cockcroft-Gault) 109.1 BUN/Creatinine Ratio 3 (6-20) Glucose Level 88 mg/dL (70-99) Calcium Level 8.1 mg/dL (8.5-10.1) Total Bilirubin 0.9 mg/dL (0.2-1.0) Aspartate Amino Transf (AST/SGOT) 54 U/L (15-37) Alanine Aminotransferase (ALT/SGPT) 84 U/L (14-59) Alkaline Phosphatase 81 U/L (46-116) Total Protein 6.3 g/dL (6.4-8.2) Albumin 3.3 g/dL (3.4-5.0) Albumin/Globulin Ratio 1.1 (1.0-1.7) Microbiology 09/29/19 Urine Culture - Final, Complete 09/29/19 Blood Culture - Preliminary, Resulted NO GROWTH AFTER 1 DAY Medications Current Medications Sodium Chloride 1,000 ml @ 1,000 mls/hr 1X ONCE IV Last administered on 09/29/19at 19:28; Start 09/29/19 at 19:15; Stop 09/29/19 at 20:14; Status DC Ondansetron HCl (Zofran) 4 mg 1X ONCE IVP Last administered on 09/29/19 19:28; Start 09/29/19 at 19:15; Stop 09/29/19 at 19:16; Status DC Iohexol (Omnipaque 300 Mg/ml) 75 ml 1X ONCE IV Last administered on 09/29/19at 19:39; Start 09/29/19 at 19:30; Stop 09/29/19 at 19:31; Status DC Info (CONTRAST GIVEN -- Rx MONITORING) 1 each PRN DAILY PRN MC SEE COMMENTS; Start 09/29/19 at 19:30; Stop 10/01/19 at 19:29 Ceftriaxone Sodium (Rocephin) 1 gm 1X ONCE IVP Last administered on 09/29/19at 20:35; Start 09/29/19 at 20:30; Stop 09/29/19 at 20:31; Status DC Metronidazole 100 ml @ 100 mls/hr 1X ONCE IV Last administered on 09/29/19at 20:36; Start 09/29/19 at 20:30; Stop 09/29/19 at 21:29; Status DC Morphine Sulfate (Morphine Sulfate) 4 mg 1X ONCE IV Last administered on 09/29/19 20:35; Start 09/29/19 at 20:30; Stop 09/29/19 at 20:31; Status DC Sodium Chloride 1,000 ml @ 125 mls/hr Q8H IV Last administered on 09/30/19 09:31; Start 09/29/19 at 21:00; Stop 09/30/19 at 18:01; Status DC Ondansetron HCl (Zofran) 4 mg PRN Q6HRS PRN IVP NAUSEA/VOMITING 1ST CHOICE Last administered on 10/01/19at 04:09; Start 09/29/19 at 20:45 Morphine Sulfate (Morphine Sulfate) 4 mg PRN Q6HRS PRN IV SEVERE PAIN 7-10 Last administered on 09/29/19at 21:48; Start 09/29/19 at 20:45; Stop 09/30/19 at 01:23; Status DC Multi-Ingredient Mouthwash/Gargle (Gi Cocktail) 20 ml 1X ONCE SWSW Last administered on 09/29/19 21:48; Start 09/29/19 at 21:15; Stop 09/29/19 at 21:17; Status DC Progesterone (Prometrium) 100 mg QHS PO Last administered on 09/30/19at 20:20; Start 09/30/19 at 21:00 Lorazepam (Ativan) 1 mg QHS PO Last administered on 09/29/19 23:57; Start 09/29/19 at 23:30; Stop 09/30/19 at 11:06; Status DC Prazosin HCl (Minipress) 2 mg QHS PO Last administered on 09/30/19at 20:20; Start 09/30/19 at 00:00 Morphine Sulfate (Morphine Sulfate) 4 mg PRN Q4HRS PRN IV MODERATE PAIN Last administered on 10/01/19at 04:10; Start 09/30/19 at 01:30 Hydromorphone HCl (Dilaudid) 0.7 mg PRN Q3HRS PRN IV SEVERE PAIN 7-10 Last administered on 09/30/19at 18:19; Start 09/30/19 at 03:15 Hydroxyzine HCl (Atarax) 25 mg PRN Q6HRS PRN PO ITCHING Last administered on 09/30/19at 11:50; Start 09/30/19 at 05:00 Diphenhydramine HCl (Benadryl) 50 mg PRN Q8HRS PRN IVP ITCHING; Start 09/30/19 at 10:15 Lorazepam (Ativan Inj) 2 mg PRN Q4HRS PRN IVP ANXIETY / AGITATION Last administered on 10/01/19at 04:10; Start 09/30/19 at 11:15 Pantoprazole Sodium (PROTONIX VIAL for IV PUSH) 40 mg DAILYAC IVP Last administered on 10/01/19at 08:04; Start 10/01/19 at 07:30 Multi-Ingredient Mouthwash/Gargle (Gi Cocktail) 20 ml PRN QID PRN PO abd pain Last administered on 10/01/19at 08:20; Start 09/30/19 at 13:00 Dicyclomine HCl (Bentyl) 10 mg PRN QID PRN PO GI SYMPTOMS; Start 09/30/19 at 13:00 Sodium Chloride 1,000 ml @ 125 mls/hr 1X IV ; Start 09/30/19 at 18:00; Stop 09/30/19 at 18:05; Status DC Sodium Chloride 1,000 ml @ 125 mls/hr CONT PRN IV SEE COMMENTS Last administered on 10/01/19at 02:16; Start 09/30/19 at 18:15; Stop 10/01/19 at 02:16; Status DC Acetaminophen (Tylenol) 650 mg PRN Q6HRS PRN PO MILD PAIN / TEMP > 100.3'F Last administered on 10/01/19at 01:29; Start 10/01/19 at 01:15 Ketorolac Tromethamine (Toradol 15mg Vial) 15 mg PRN Q6HRS PRN IVP MODERATE PAIN 4-6 Last administered on 10/01/19at 08:21; Start 10/01/19 at 01:15 Active Scripts Active Reported Prazosin Hcl 2 Mg Capsule 2 Cap PO QHS Flagyl (Metronidazole) 500 Mg Tablet 500 Mg PO TID Cipro (Ciprofloxacin Hcl) 500 Mg Tablet 1 Tab PO BID 7 Days Belsomra (Suvorexant) 10 Mg Tablet 10 Mg PO HS Testosterone Cypionate 100 Mg/1 Ml Vial 100 Mg IM Q4WK [estrogen ] Progesterone (Progesterone,Micronized) 100 Mg Capsule 1 Cap PO QHS 30 Days Ativan (Lorazepam) 2 Mg Tablet 2 Mg PO HS Cymbalta (Duloxetine Hcl) 30 Mg Capsule. 1 Cap PO DAILY Protonix (Pantoprazole Sodium) 40 Mg Tablet. 40 Mg PO DAILYAC [saxenda] Hydrocodone-Apap 7.5-325 (Hydrocodone Bit/Acetaminophen) 1 Each Tablet 1 Tab PO PRN Q6HRS PRN Tizanidine Hcl 4 Mg Tablet 1 Tab PO PRN Q6HRS Symbicort 160-4.5 Mcg Inhaler (Budesonide/Formoterol Fumarate) 10.2 Gm Hfa.aer.ad 2 Puff IH BID Prozac (Fluoxetine Hcl) 40 Mg Capsule 80 Mg PO DAILY Albuterol Sulfate Hfa Inhaler (Albuterol Sulfate) 8.5 Gm Hfa.aer.ad 8.5 Gm IH DAILY Vitals/I & O Vital Sign - Last 24 Hours 09/30/19 09/30/19 09/30/19 09/30/19 11:10 15:37 19:00 20:00 Temp 97.0 96.6 97.9 97.0 96.6 97.9 Pulse 90 72 79 Resp 22 18 18 B/P (MAP) 148/88 (108) 126/76 (93) 133/70 (91) Pulse Ox 99 96 96 O2 Delivery Room Air Room Air Room Air Room Air 09/30/19 09/30/19 09/30/19 09/30/19 20:20 20:53 21:23 23:00 Temp 97.7 97.7 Pulse 72 80 Resp 18 18 18 B/P (MAP) 126/76 116/67 (83) Pulse Ox 96 96 94 O2 Delivery Room Air Room Air Room Air 10/01/19 10/01/19 10/01/19 10/01/19 03:00 04:10 04:51 07:00 Temp 98.1 98.1 98.1 98.1 Pulse 90 77 Resp 19 18 B/P (MAP) 121/64 (83) 124/69 (87) Pulse Ox 97 97 O2 Delivery Room Air Room Air Room Air Room Air Intake and Output 09/30/19 09/30/19 10/01/19 15:00 23:00 07:00 Intake Total 1100 ml 1000 ml 60 ml Output Total 450 ml 250 ml Balance 650 ml 750 ml 60 ml Justicifation of Admission Dx: Justifications for Admission: Justification of Admission Dx: N/A DENISSE MENDES MD Oct 01, 2019 09:19
[2019-10-01 11:00] VITALS: BP 123/84
--- NOTE | 2019-10-01 11:46 | NUR ---
SW following. Discussed with RN, pt from home with spouse, room air, COVID-19 negative. RN advised no SW needs, anticipates possible discharge home today with self care if tolerates diet.
--- NOTE | 2019-10-01 11:59 | PDOC ---
Date of Service: DATE: 10/01/19 TIME: 11:51 Subjective: Subjective: Feels better but wants to know what's going on. Vomited last night - has tolerated liquids today. Has had diarrhea - says specimen not collected. Pain is now in LUQ tracking down left side to LLQ - worse w/ movement and w/ stooling, unchanged w/ eating. Wonders if she has an ulcer. Objective: Objective: Called by nurse this morning - pt wanting to know "the plan." Toradol and GI cocktail improved pain this morning. Gave okay to advance diet. No diarrhea reported. Outside CT report reviewed from 09/24 - fluid-filled proximal colon w/ suspicion for very mild long segment nonspecific colitis involving mid to distal colon, no evidence of diverticulitis, mild hepatomegaly, no biliary ductal dilation s/p margarita, renal cysts. Hasn't tried dicyclomine. Vital Signs: Vital Signs Date Time Temp Pulse Resp B/P (MAP) Pulse Ox O2 Delivery O2 Flow Rate FiO2 10/01/19 11:00 98.5 91 18 123/84 (97) 95 Room Air 98.5 Labs: Laboratory Tests Test 10/01/19 04:05 White Blood Count 7.3 x10^3/uL Red Blood Count 4.21 x10^6/uL Hemoglobin 13.6 g/dL Hematocrit 40.0 % Mean Corpuscular Volume 95 fL Mean Corpuscular Hemoglobin 32 pg Mean Corpuscular Hemoglobin Concent 34 g/dL Red Cell Distribution Width 13.8 % Platelet Count 238 x10^3/uL Sodium Level 136 mmol/L Potassium Level 3.6 mmol/L Chloride Level 103 mmol/L Carbon Dioxide Level 24 mmol/L Anion Gap 9 Blood Urea Nitrogen 2 mg/dL Creatinine 0.6 mg/dL Estimated GFR (Cockcroft-Gault) 109.1 BUN/Creatinine Ratio 3 Glucose Level 88 mg/dL Calcium Level 8.1 mg/dL Total Bilirubin 0.9 mg/dL Aspartate Amino Transf (AST/SGOT) 54 U/L Alanine Aminotransferase (ALT/SGPT) 84 U/L Alkaline Phosphatase 81 U/L Total Protein 6.3 g/dL Albumin 3.3 g/dL Albumin/Globulin Ratio 1.1 URINE CULTURE Final Final No Growth on 10/01/19 at 0841 BLOOD CULTURE Preliminary NO GROWTH AFTER 1 DAY PE: GEN: NAD - seems much more comfortable today LUNGS: CTAB HEART: RRR ABD: quiest, still some distention, less tender NEURO/PSYCH: A & O 3 A/P: Abd pain, n/v, diarrhea Recent UTI - cx neg Elevated LFTs - improved; h/o cholecystectomy for stones (no IOC); some h/o alcohol use GERD, remote h/o PUD - on PPI COVID-19 negative Chronic pain, frequent alcohol use -- ADAT. Change to PO PPI. Reviewed orders - C Diff order cancelled yesterday per nurse, will reorder w/ c/o ongoing diarrhea and recent antibiotic use. Also appears enteric panel not collected. Would collect before considering DC; however, if pain improved and tolerating diet, could consider DC soon w/ plans for outpt GI f/u PRN. D/w nurse. Justicifation of Admission Dx: Justifications for Admission: Justification of Admission Dx: N/A ELLIOTT POPE Oct 01, 2019 11:59
[2019-10-01 15:00] VITALS: BP 150/97
[2019-10-01 19:33] VITALS: BP 130/76
[2019-10-01] MEDS: PRAZOSIN 1 MG CAPSULE. PO SCH (21:50)
[2019-10-01] MEDS: PROGESTERONE, MICRONIZED 100 MG CAPSULE PO SCH (21:50)
[2019-10-01 23:57] VITALS: BP 145/86
[2019-10-02 03:38] VITALS: BP 120/67
[2019-10-02] MEDS: KETOROLAC 15 MG/ML VIAL. IVP PRN (05:14)
[2019-10-02 07:00] VITALS: BP 101/47
[2019-10-02] MEDS ORDERED: PANTOPRAZOLE 40 MG TABLET.DR. PO SCH (07:30)
[2019-10-02] MEDS: ACETAMINOPHEN 325 MG TABLET. PO PRN (08:43)
--- NOTE | 2019-10-02 09:38 | NUR ---
SW following. Discussed with RN, pt from home with spouse, room air, COVID-19 negative. Pt on GI soft diet, wanting to discharge home today. RN advised no SW needs.
--- NOTE | 2019-10-02 10:19 | PDOC3 ---
Discharge Summary Date of Admission: Sep 30, 2019 Date of Discharge: Oct 02, 2019 Follow-Up: 3-5 days Admitting Diagnosis comment: DISCHARGE DX Shortness of breath RESOLVED NEG Covid-19 Abdominal pain UTI Multiple comorbidities Plan FEELS MUCH IMPROVED, WANTS TO GO HOME PRN pain meds IV fluids PO antibiotics Home meds DVT prophylaxis Full code Discussed with RN D/C PLANNING 34 MIN Justicifation of Admission Dx: Justicifation of Admission Dx: Justifications for Admission: Justification of Admission Dx: N/A Vitals Vitals Vital Signs Date Time Temp Pulse Resp B/P (MAP) Pulse Ox O2 Delivery O2 Flow Rate FiO2 10/02/19 07:00 98.6 67 18 101/47 (65) 96 Room Air 98.6 Physical Exam Physical Exam ALERT NAD HEENT: Normal cephalic, atraumatic, external auditory canals are patent EYES: Extraocular muscles are intact, pupil are equally round and reactive to light and accommodation MUSCULOSKELETAL: Well developed , well nourished, good range of motion ENDOCRINE: No thyromegaly was palpated LYMPHATICS: No cervical chain or axillary nodes were noted HEMATOPOIETIC: No bruising NECK: Supple, no JVD, no thyromegaly was noted LUNGS: Bibasilar crackles HEART: RRR, S!, S2 present. Peripheral pulses intact, no obvious murmurs noted ABDOMEN: Slightly tender EXTREMITIES: Without clubbing, cyanosis, or edema. Pedal pulses intact. Neg ative Homans sign NEUROLOGIC: Normal speech and tone. A&O x 3, moves all extremities, no obvious focal deficits PSYCHIATRIC: Normal affect, normal mood. Stable SKIN: No ulcerations or rashes, good skin turgor, no jaundice VASCULAR: Good capillary refill, neurovascular bundle appears to be intact General: Alert, Oriented X3, Cooperative, No acute distress Heart: Regular rate Lungs: Clear, Crackles Abdomen: Soft, No tenderness Extremities: No cyanosis, No edema Skin: No rashes, No significant lesion Assessment and Plan Assessmemt and Plan Problems Medical Problems: (1) Left lower quadrant pain Status: Acute (2) Transaminitis Status: Acute (3) UTI (urinary tract infection) Status: Acute FINAL DIAGNOSIS Problems Medical Problems: (1) Left lower quadrant pain Status: Acute (2) Transaminitis Status: Acute (3) UTI (urinary tract infection) Status: Acute Brief Hospital Course Ms. Ratliff is a 43 old [sex] who presented with [UTI , WEAKNESS ] CONDITION AT DISCHARGE: Improved Discharge Medications Current Medications Sodium Chloride 1,000 ml @ 1,000 mls/hr 1X ONCE IV Last administered on 09/29/19 19:28; Start 09/29/19 at 19:15; Stop 09/29/19 at 20:14; Status DC Ondansetron HCl (Zofran) 4 mg 1X ONCE IVP Last administered on 09/29/19 19:28; Start 09/29/19 at 19:15; Stop 09/29/19 at 19:16; Status DC Iohexol (Omnipaque 300 Mg/ml) 75 ml 1X ONCE IV Last administered on 09/29/19at 19:39; Start 09/29/19 at 19:30; Stop 09/29/19 at 19:31; Status DC Info (CONTRAST GIVEN -- Rx MONITORING) 1 each PRN DAILY PRN MC SEE COMMENTS; Start 09/29/19 at 19:30; Stop 10/01/19 at 19:29; Status DC Ceftriaxone Sodium (Rocephin) 1 gm 1X ONCE IVP Last administered on 09/29/19 20:35; Start 09/29/19 at 20:30; Stop 09/29/19 at 20:31; Status DC Metronidazole 100 ml @ 100 mls/hr 1X ONCE IV Last administered on 09/29/19 20:36; Start 09/29/19 at 20:30; Stop 09/29/19 at 21:29; Status DC Morphine Sulfate (Morphine Sulfate) 4 mg 1X ONCE IV Last administered on 09/29/19 20:35; Start 09/29/19 at 20:30; Stop 09/29/19 at 20:31; Status DC Sodium Chloride 1,000 ml @ 125 mls/hr Q8H IV Last administered on 09/30/19 09:31; Start 09/29/19 at 21:00; Stop 09/30/19 at 18:01; Status DC Ondansetron HCl (Zofran) 4 mg PRN Q6HRS PRN IVP NAUSEA/VOMITING 1ST CHOICE Last administered on 10/01/19at 04:09; Start 09/29/19 at 20:45 Morphine Sulfate (Morphine Sulfate) 4 mg PRN Q6HRS PRN IV SEVERE PAIN 7-10 Last administered on 09/29/19 21:48; Start 09/29/19 at 20:45; Stop 09/30/19 at 01:23; Status DC Multi-Ingredient Mouthwash/Gargle (Gi Cocktail) 20 ml 1X ONCE SWSW Last administered on 09/29/19 21:48; Start 09/29/19 at 21:15; Stop 09/29/19 at 21:17; Status DC Progesterone (Prometrium) 100 mg QHS PO Last administered on 10/01/19 21:50; Start 09/30/19 at 21:00 Lorazepam (Ativan) 1 mg QHS PO Last administered on 09/29/19 23:57; Start 09/29/19 at 23:30; Stop 09/30/19 at 11:06; Status DC Prazosin HCl (Minipress) 2 mg QHS PO Last administered on 10/01/19 21:50; Start 09/30/19 at 00:00 Morphine Sulfate (Morphine Sulfate) 4 mg PRN Q4HRS PRN IV MODERATE PAIN (2nd Choice) Last administered on 10/01/19 04:10; Start 09/30/19 at 01:30 Hydromorphone HCl (Dilaudid) 0.7 mg PRN Q3HRS PRN IV SEVERE PAIN 7-10 Last administered on 09/30/19 18:19; Start 09/30/19 at 03:15 Hydroxyzine HCl (Atarax) 25 mg PRN Q6HRS PRN PO ITCHING Last administered on 09/30/19at 11:50; Start 09/30/19 at 05:00 Diphenhydramine HCl (Benadryl) 50 mg PRN Q8HRS PRN IVP ITCHING; Start 09/30/19 at 10:15 Lorazepam (Ativan Inj) 2 mg PRN Q4HRS PRN IVP ANXIETY / AGITATION Last administ ered on 10/02/19 05:14; Start 09/30/19 at 11:15 Pantoprazole Sodium (PROTONIX VIAL for IV PUSH) 40 mg DAILYAC IVP Last administered on 8/5/20at 08:04; Start 10/01/19 at 07:30; Stop 10/01/19 at 12:01; Status DC Multi-Ingredient Mouthwash/Gargle (Gi Cocktail) 20 ml PRN QID PRN PO abd pain Last administered on 10/01/19at 08:20; Start 09/30/19 at 13:00 Dicyclomine HCl (Bentyl) 10 mg PRN QID PRN PO GI SYMPTOMS; Start 09/30/19 at 13:00 Sodium Chloride 1,000 ml @ 125 mls/hr 1X IV ; Start 09/30/19 at 18:00; Stop 09/30/19 at 18:05; Status DC Sodium Chloride 1,000 ml @ 125 mls/hr CONT PRN IV SEE COMMENTS Last administered on 10/01/19at 02:16; Start 09/30/19 at 18:15; Stop 10/01/19 at 02:16; Status DC Acetaminophen (Tylenol) 650 mg PRN Q6HRS PRN PO MILD PAIN / TEMP > 100.3'F Last administered on 10/02/19at 08:43; Start 10/01/19 at 01:15 Ketorolac Tromethamine (Toradol 15mg Vial) 15 mg PRN Q6HRS PRN IVP MODERATE PAIN 4-6 (1st Choice) Last administered on 10/02/19at 05:14; Start 10/01/19 at 01:15 Pantoprazole Sodium (Protonix) 40 mg DAILYAC PO Last administered on 10/02/19at 08:43; Start 10/02/19 at 07:30 Active Scripts Active Reported Prazosin Hcl 2 Mg Capsule 2 Cap PO QHS Flagyl (Metronidazole) 500 Mg Tablet 500 Mg PO TID Cipro (Ciprofloxacin Hcl) 500 Mg Tablet 1 Tab PO BID 7 Days Belsomra (Suvorexant) 10 Mg Tablet 10 Mg PO HS Testosterone Cypionate 100 Mg/1 Ml Vial 100 Mg IM Q4WK [estrogen ] Progesterone (Progesterone,Micronized) 100 Mg Capsule 1 Cap PO QHS 30 Days Ativan (Lorazepam) 2 Mg Tablet 2 Mg PO HS Cymbalta (Duloxetine Hcl) 30 Mg Capsule. 1 Cap PO DAILY Protonix (Pantoprazole Sodium) 40 Mg Tablet.dr 40 Mg PO DAILYAC [saxenda] Hydrocodone-Apap 7.5-325 (Hydrocodone Bit/Acetaminophen) 1 Each Tablet 1 Tab PO PRN Q6HRS PRN Tizanidine Hcl 4 Mg Tablet 1 Tab PO PRN Q6HRS Symbicort 160-4.5 Mcg Inhaler (Budesonide/Formoterol Fumarate) 10.2 Gm Hfa.aer.ad 2 Puff IH BID Prozac (Fluoxetine Hcl) 40 Mg Capsule 80 Mg PO DAILY Albuterol Sulfate Hfa Inhaler (Albuterol Sulfate) 8.5 Gm Hfa.aer.ad 8.5 Gm IH DAILY Vital Signs Vital Signs Date Time Temp Pulse Resp B/P (MAP) Pulse Ox O2 Delivery O2 Flow Rate FiO2 10/02/19 07:00 98.6 67 18 101/47 (65) 96 Room Air 98.6 Labs Laboratory Tests Test 10/01/19 04:05 White Blood Count 7.3 x10^3/uL (4.0-11.0) Red Blood Count 4.21 x10^6/uL (3.50-5.40) Hemoglobin 13.6 g/dL (12.0-15.5) Hematocrit 40.0 % (36.0-47.0) Mean Corpuscular Volume 95 fL (79-100) Mean Corpuscular Hemoglobin 32 pg (25-35) Mean Corpuscular Hemoglobin Concent 34 g/dL (31-37) Red Cell Distribution Width 13.8 % (11.5-14.5) Platelet Count 238 x10^3/uL (140-400) Sodium Level 136 mmol/L (136-145) Potassium Level 3.6 mmol/L (3.5-5.1) Chloride Level 103 mmol/L (98-107) Carbon Dioxide Level 24 mmol/L (21-32) Anion Gap 9 (6-14) Blood Urea Nitrogen 2 mg/dL (7-20) Creatinine 0.6 mg/dL (0.6-1.0) Estimated GFR (Cockcroft-Gault) 109.1 BUN/Creatinine Ratio 3 (6-20) Glucose Level 88 mg/dL (70-99) Calcium Level 8.1 mg/dL (8.5-10.1) Total Bilirubin 0.9 mg/dL (0.2-1.0) Aspartate Amino Transf (AST/SGOT) 54 U/L (15-37) Alanine Aminotransferase (ALT/SGPT) 84 U/L (14-59) Alkaline Phosphatase 81 U/L (46-116) Total Protein 6.3 g/dL (6.4-8.2) Albumin 3.3 g/dL (3.4-5.0) Albumin/Globulin Ratio 1.1 (1.0-1.7) Allergies Allergies Coded Allergies Type Severity Reaction Last Updated Verified Latex, Natural Rubber Allergy Intermediate RASH 10/29/18 Yes adhesive tape Allergy Intermediate Rash 10/29/18 Yes amoxicillin Adverse Reaction Intermediate 10/29/18 Yes formoterol Adverse Reaction Intermediate 10/29/18 Yes mometasone furoate Adverse Reaction Intermediate 10/29/18 Yes varenicline Adverse Reaction Intermediate 10/29/18 Yes Disposition/Orders: D/C to Home Patient Instructions SEE PCP SUNDAY Justicifation of Admission Dx: Justifications for Admission: Justification of Admission Dx: N/A DENISSE MENDES MD Oct 02, 2019 10:19
[2019-10-02] MEDS ORDERED: ACET325T9 PO (10:21)
[2019-10-02] MEDS ORDERED: NITR100C62 PO (10:24)
--- NOTE | 2019-10-02 10:25 | DISCH ---
DISCHARGE INSTRUCTIONS Condition on Discharge Condition on Discharge: Stable Activity After Discharge Activity Instructions for Disc: Activity as tolerated, Avoid exertion Lifting Instructions after Dis: No heavy lifting Driving Instructions after Dis: Do not drive, Do not drive today Weight Bearing Status after Di: As tolerated Diet after Discharge Diet after Discharge: Regular Liquid Texture: Thin Liquid Wound Incision Care Wound/Incision Care: Ice to area for comfort Contacting the DR. after DC Call your doctor for: If your condition worsens Treatment/Equipment after DC Discharge Respiratory Equipmen: Oxygen DENISSE MENDES MD Oct 02, 2019 10:25
--- NOTE | 2019-10-02 10:46 | PDOC ---
Date of Service: DATE: 10/02/19 TIME: 10:44 Subjective: Subjective: I saw her earlier this morning. Feeling better. Had a little diarrhea - less. Pain improved. Feels okay to go home. Objective: Vital Signs: Vital Signs Date Time Temp Pulse Resp B/P (MAP) Pulse Ox O2 Delivery O2 Flow Rate FiO2 10/02/19 08:00 Room Air 10/02/19 07:00 98.6 67 18 101/47 (65) 96 98.6 PE: GEN: NAD LUNGS: CTAB HEART: RRR, ABD: NABS, S/ND/NT NEURO/PSYCH: A & O 3 A/P: Abd pain, n/v, diarrhea - resolving -- Dc per primary. Follow-up for stool test results and if symptoms recur. Justicifation of Admission Dx: Justifications for Admission: Justification of Admission Dx: N/A ELLIOTT POPE Oct 02, 2019 10:46
[2019-10-02] MEDS ORDERED: NITROFURANTOIN MONOHYD/M-CRYST 100 MG CAPSULE. PO SCH (11:00)
== END 2019-10-02 11:10 | disposition home or self-care (01) | DRG 690 ==
LOC: ER 16:47 → 6 SOUTH 21:20 → OBSVTOIN 09-30 11:37 → 4 NORTH 10-01 01:08
PROVIDERS: ADMIT Family Medicine; ATTEND Family Medicine
DX: N39.0 Urinary tract infection, site not specified (principal); K52.9 Noninfective gastroenteritis and colitis, unspecified; Z20.828 Contact with and (suspected) exposure to other viral communicable diseases; E86.0 Dehydration; F31.9 Bipolar disorder, unspecified; F41.9 Anxiety disorder, unspecified; G89.29 Other chronic pain; J39.9 Disease of upper respiratory tract, unspecified; K21.9 Gastro-esophageal reflux disease without esophagitis; K57.30 Diverticulosis of large intestine without perforation or abscess without bleeding; K59.00 Constipation, unspecified; K80.20 Calculus of gallbladder without cholecystitis without obstruction; L25.9 Unspecified contact dermatitis, unspecified cause; M65.4 Radial styloid tenosynovitis [de Quervain]; N80.9 Endometriosis, unspecified; R09.02 Hypoxemia; S39.012A Strain of muscle, fascia and tendon of lower back, initial encounter; Z82.49 Family history of ischemic heart disease and other diseases of the circulatory system; Z83.3 Family history of diabetes mellitus; Z87.891 Personal history of nicotine dependence; Z90.49 Acquired absence of other specified parts of digestive tract; Z90.710 Acquired absence of both cervix and uterus; K21.0 Gastro-esophageal reflux disease with esophagitis; Z91.040 Latex allergy status; Z91.048 Other nonmedicinal substance allergy status
CPT/HCPCS: 36415; 71046; 74177; 80053; 81001; 82550; 83605; 83690; 84145; 84484; 84703; 85025; 85027; 87040; 87086; 87493; 87505; 93005; 96361; 96365; 96375; 99285; C9113; G0378; G0379; J0696; J1170; J1885; J2060; J2270; J2405; J3490; J7030; Q9967; U0003-CS

== ENCOUNTER → 2019-10-24 | Outpatient (CLI) | payer BC ==
[2019-10-02 07:00] VITALS: BP 101/47
[~2019-10-24] MED LIST changes: +ACET325T9 PO; +CIPR500T94 PO; +DULO30CA2 PO; +LORA2TAB89 PO; +METR500T PO; +NITR100C62 PO; +PRAZ2CAP2 PO; +PROG100C10 PO; +SUVO10TA PO; +TEST100V2 IM; +[UNRECOGNIZED DRUG - OTHER] PO; +estrogen
--- NOTE | 2019-10-24 14:42 | KCIC ---
EXAM: Right shoulder, 3 views; right humerus, 2 views; right forearm, 2 views; right elbow, 3 views; right wrist, 3 views; right hand, 3 views. HISTORY: Fall. COMPARISON: None. FINDINGS: Right shoulder: 3 views of the right shoulder obtained. There is no fracture, dislocation or subluxation. There is suspected calcification associated with lymph nodes within the right axilla. Right humerus: 2 views of the right humerus are obtained. There is no fracture, dislocation or subluxation. There is no lytic or sclerotic osseous lesion or periosteal reaction. Right elbow: 3 views of the right elbow are obtained. There is calcification along the posterior olecranon at the triceps insertion, possibly due to enthesopathy or the sequela of overlying the olecranon bursitis. There is no fracture, dislocation or subluxation. There is no elbow effusion. Right forearm: 2 views of the right forearm are obtained. There is no fracture, dislocation or subluxation. There is no lytic or sclerotic osseous lesion or periosteal reaction. Right hand and wrist: 3 views of the right hand and wrist are obtained. There is no fracture, dislocation or subluxation. The alignment and joint spaces are unremarkable. No foreign body is seen. IMPRESSION: No acute osseous finding. Electronically signed by: Ilene Santamaria MD (10/24/2019 2:39 PM) [facility]
== END ==
LOC: KCIC 12:37
PROVIDERS: ATTEND Obstetrics & Gynecology
DX: M25.511 Pain in right shoulder (principal); M79.631 Pain in right forearm; M79.641 Pain in right hand
CPT/HCPCS: 73030; 73060; 73080; 73090; 73110; 73130

== ENCOUNTER → 2019-10-27 | Outpatient (CLI) | payer BC ==
[2019-10-02 07:00] VITALS: BP 101/47
[~2019-10-27] MED LIST changes: +GADOTERATE 7.5 MMOL/15ML VIAL. IVP ONE
--- NOTE | 2019-10-27 16:38 | KCIC ---
MRI Brain with and without contrast History:Hyperprolactinemia, elevated prolactin levels in recent months Technique: Multiplanar, multi sequential pre and postcontrast MR imaging was performed of the brain, dedicated images of the pituitary gland also obtained. Comparison: None Findings: There is a slightly more protuberant margin of the superior lateral aspect of the right pituitary gland although difficult to identify focus of decreased enhancement in this region. As seen on coronal Images, there is a small focus of decreased enhancement of the left lateral pituitary gland near margin of the cavernous sinus, measures about 2 mm as seen on image 11 series 15. This is difficult to confirm on the dynamic images although there is some associated T2 hyperintense signal in this region. There is no evidence of recent infarct or cytotoxic edema. The ventricles, sulci, and cisterns are within normal limits in size and configuration. There is no significant midline shift, intraaxial mass effect, or focal abnormal extra-axial fluid collection. There are a couple of tiny foci of nonenhancing T2 and FLAIR hyperintense signal of the right frontal deep white matter There is no nodular parenchymal or leptomeningeal enhancement. There is preservation of the major intracranial flow-voids at the skull base. The cerebellar tonsils are normal in location. There is no significant abnormality of the pineal gland. Paranasal sinuses are overall aerated. There is minimal patchy fluid and thickening of the left mastoid air cells.There is preserved marrow signal of the clivus. Impression: 1. There is a small 2 mm focus of relative decreased enhancement of the left lateral pituitary gland, potentially a small microadenoma although difficult to confirm on the dynamic images. 2. There are a couple of small foci of nonenhancing, likely nonspecific gliosis of the right frontal white matter. Electronically signed by: Chip Yen MD (10/27/2019 4:35 PM) [place] [id number]
== END | disposition home or self-care (01) ==
LOC: KCIC MRI 13:54
PROVIDERS: ATTEND Internal Medicine
DX: E22.1 Hyperprolactinemia (principal); J34.89 Other specified disorders of nose and nasal sinuses
CPT/HCPCS: 70553; A9575

== ENCOUNTER → 2019-10-27 | Outpatient (CLI) | payer BC ==
[2019-10-02 07:00] VITALS: BP 101/47
[~2019-10-27] MED LIST changes: -GADOTERATE 7.5 MMOL/15ML VIAL. IVP ONE
--- NOTE | 2019-10-27 15:44 | RAD ---
Gastric Emptying Study 10/27/2019 Indication: Reason: / Spl. Instructions: / History: Procedure: Anterior and posterior projection static images are obtained over the stomach following oral administration of 2 mCi of 99 M technetium sulfur colloid in a solid meal . Time points include an immediate baseline, and 1, 2, 3, and 4 hours post ingestion. Findings: There is progressive emptying of the stomach on sequential images. Percentage retention at... One hour is 70% (normal 34.8-91%). Two hours 45% (normal 2.7-60%). Three hours 41,% (normal 0.5-28%). Four hours 30% (normal 0-10%). Impression: Abnormal gastric emptying with increased retention of radiotracer in the stomach at the 3 and 4 hour time points. Findings are consistent with moderately delayed gastric emptying. Consensus Recommendations for Gastric Emptying Scintigraphy: A Joint Report of the [place] [employer] and the Society of Nuclear Medicine: J. Nucl. Med. Technol. April 2007 vol. 36 no. 1 44-54 Grading for severity of delayed GE based on the 4-h value: grade 1 (mild): 11?20% retention at 4 h grade 2 (moderate): 21?35% retention at 4 h grade 3 (severe): 36?50% retention at 4 h grade 4 (very severe): >50% retention at 4 h. Electronically signed by: Alessio Maza MD (10/27/2019 3:41 PM) [id number]
== END | disposition home or self-care (01) ==
LOC: NM 08:23
PROVIDERS: ATTEND Internal Medicine Gastroenterology
DX: R11.0 Nausea (principal); R14.0 Abdominal distension (gaseous); R10.9 Unspecified abdominal pain
CPT/HCPCS: 78264; A9541

== ENCOUNTER 2019-11-20 11:32 | Inpatient (IN) | payer BC ==
[~2019-11-20] VITALS: Ht 167.6 cm; Wt 83.9 kg
[2019-11-20] MEDS ORDERED: ONDANSETRON PF 4 MG/2 ML VIAL. IVP ONE (12:45)
[2019-11-20] MEDS ORDERED: IBUPROFEN 400 MG TABLET. PO ONE (12:45)
[2019-11-20] MEDS: IV NORMAL SALINE 1000ML BAG 1,000 ML IV SCH ×3 (12:59→16:21)
--- NOTE | 2019-11-20 13:00 | PHYS DOC ---
Past Medical History Past Medical History: Angina, Asthma, COPD, Depression, Pneumonia, UTI Additional Past Medical Histor: endometrosis, CHRONIC BACK PAIN,burcitis,sinus infeCTt;colitis Past Surgical History: Cholecystectomy, , Hysterectomy, Other Additional Past Surgical Histo: hernia repair x 3 Smoking Status: Former Smoker Alcohol Use: Occasionally Drug Use: None General Adult EDM: Chief Complaint: SKIN PROBLEM HPI: HPI: Patient is a 44 year old female with a history of asthma, depression, COPD, angina, who presents to the ED today complaining of a right buttock cellulitis that began 7 days ago. Patient is being followed up by her PCP, she states she is currently on Cipro and Flagyl and goes to the PCP every other day to receive Rocephin injections. She states she was sent to the ED to ensure the cellulitis has not gone to her rectum and does not need to be drained hence she needs a CT. She is also reporting fevers. Denies any nausea or vomiting. Review of Systems: Review of Systems: Constitutional: Reports fever Eyes: Denies change in visual acuity. [] HENT: Denies nasal congestion or sore throat. [] Respiratory: Denies cough or shortness of breath. [] Cardiovascular: Denies chest pain or edema. [] GI: Denies abdominal pain, nausea, vomiting, bloody stools or diarrhea. [] : Denies dysuria. [] Musculoskeletal: Denies back pain or joint pain. [] Integument: Reports right buttock abscess Neurologic: Denies headache, focal weakness or sensory changes. [] Psychiatric: Denies depression or anxiety. [] Heart Score: Risk Factors: Risk Factors: DM, Current or recent (<one month) smoker, HTN, HLP, family history of CAD, obesity. Risk Scores: Score 0 - 3: 2.5% MACE over next 6 weeks - Discharge Home Score 4 - 6: 20.3% MACE over next 6 weeks - Admit for Clinical Observation Score 7 - 10: 72.7% MACE over next 6 weeks - Early Invasive Strategies Current Medications: Current Medications Medications (Trade) Dose Ordered Sig/Eric Start Time Stop Time Status Last Admin Dose Admin Fentanyl Citrate (Fentanyl 2ml Vial) 50 mcg PRN Q15MIN PRN 11/20/19 12:45 11/21/19 12:44 Ibuprofen (Motrin) 800 mg 1X ONCE 11/20/19 12:45 11/20/19 12:51 DC Ondansetron HCl (Zofran) 4 mg 1X ONCE 11/20/19 12:45 11/20/19 12:51 DC Sodium Chloride 1,000 ml @ 1,770 mls/hr Q34M 11/20/19 12:40 11/20/19 13:40 Allergies: Allergies: Allergies Coded Allergies Type Severity Reaction Last Updated Verified Latex, Natural Rubber Allergy Intermediate RASH 10/29/18 Yes adhesive tape Allergy Intermediate Rash 10/29/18 Yes amoxicillin Adverse Reaction Intermediate 10/29/18 Yes formoterol Adverse Reaction Intermediate 10/29/18 Yes mometasone furoate Adverse Reaction Intermediate 10/29/18 Yes varenicline Adverse Reaction Intermediate 10/29/18 Yes Physical Exam: PE: Constitutional: Well developed, well nourished, no acute distress, non-toxic appearance. [] HENT: Normocephalic, atraumatic, bilateral external ears normal, oropharynx moist, no oral exudates, nose normal. [] Eyes: PERRLA, EOMI, conjunctiva normal, no discharge. [] Neck: Normal range of motion, no tenderness, supple, no stridor. [] Cardiovascular:Heart rate regular rhythm, no murmur [] Lungs & Thorax: Bilateral breath sounds clear to auscultation [] Abdomen: Bowel sounds normal, soft, no tenderness, no masses, no pulsatile masses. [] Skin: Right buttock with mild area of cellulitis roughly 10 x 8 cm moving into the inner buttock, there is no rectal wall involvement. There is no fluctuance to this region. Considering the marking on her skin that was done at the doctor's office the cellulitis appears to be decreasing in size. Back: No tenderness, no CVA tenderness. [] Extremities: No tenderness, no cyanosis, no clubbing, ROM intact, no edema. [] Neurologic: Alert and oriented X 3, normal motor function, normal sensory function, no focal deficits noted. [] Psychologic: Affect normal, judgement normal, mood normal. [] Current Patient Data: Vital Signs: Vital Signs Date Time Temp Pulse Resp B/P (MAP) Pulse Ox O2 Delivery O2 Flow Rate FiO2 11/20/19 12:15 98.7 106 18 140/87 (104) 98 Room Air 98.7 EKG: EKG: [] Radiology/Procedures: Radiology/Procedures: []PROCEDURE: CT PELVIS W/CONTRAST Examination: CT pelvis with IV contrast HISTORY: History of right buttock abscess, cellulitis TECHNIQUE: Axial CT images of the pelvis were performed with IV contrast. Coronal and sagittal reformats are performed. Exposure: One or more of the following individualized dose reduction techniques were utilized for this examination: 1. Automated exposure control 2. Adjustment of the mA and/or kV according to patient size 3. Use of iterative reconstruction technique FINDINGS: Feces and gas noted in the colon. Urinary bladder is mildly distended. There is a large focal fluid collection identified in the right perineal region extending to the right buttock could be seroma or abscess. The bilateral femoral heads within the acetabula. IMPRESSION: 1. Large focal fluid collection identified in the right perineal region extending to the right buttock could be seroma or abscess. Electronically signed by: Omer Florence MD (11/20/2019 2:01 PM) [id number] DICTATED and SIGNED BY: OMER FLORENCE MD DATE: 11/20/19 1401 Course & Med Decision Making: Course & Med Decision Making Pertinent Labs and Imaging studies reviewed. (See chart for details) This is a 44-year-old female patient presenting to the ED today with right buttock cellulitis that began 7 days ago. Patient is currently on Flagyl and Cipro and gets Rocephin injections every other day at the PCPs office. She was sent by the PCP to have a CAT scan to make sure this infection has not gone into her rectal region and does not need to be drained. Patient is afebrile,CBC with a normal WBC, CMP with no acute findings, lactic is normal. CT of the pelvic noted for large focal fluid collection identified in the right perineal region extending to the right buttock could be seroma or abscess. I spoke with Dr. Hernandez who will follow up with patient tomorrow morning I spoke with Dr. Butt who accepted patient for admission Dannie Disclaimer: Dannie Disclaimer: This electronic medical record was generated, in whole or in part, using a voice recognition dictation system. Departure Departure Impression: Primary Impression: Cellulitis of right buttock Additional Impression: Abscess of right buttock Disposition: ADMITTED INPATIENT Condition: STABLE Referrals: BARTOLOME LZI APRN (PCP) Justicifation of Admission Dx: Justifications for Admission: Justification of Admission Dx: Yes Cellulitis: Cellulitis STEPHANIA JOHNS APRN Nov 20, 2019 13:00
[2019-11-20 13:04] LABS: CALCIUM 9.2 mg/dL (8.5-10.1); CREATININE 0.8 mg/dL (0.6-1.0); GFR 77.9; POTASSIUM 3.3 mmol/L (3.5-5.1)
[2019-11-20] MEDS: fentaNYL PF VIAL 100 MCG/2 ML VIAL IV PRN ×7 (13:04→22:39)
[2019-11-20 13:12] LABS: ALBUMIN 3.2 g/dL (3.4-5.0); ALBUMIN/GLOBULIN RATIO 0.7 (1.0-1.7); TOTAL BILIRUBIN 0.5 mg/dL (0.2-1.0); TOTAL PROTEIN 7.6 g/dL (6.4-8.2)
[2019-11-20 13:18] LABS: BASO % 0 % (0-3); EOS % 0 % (0-3); HEMATOCRIT 40.9 % (36.0-47.0); HEMOGLOBIN 14.2 g/dL (12.0-15.5); LYMPH % 15 % (24-48); MEAN CORPUSCULAR HEMOGLOBIN 32 pg (25-35); MEAN CORPUSCULAR HGB CONC 35 g/dL (31-37); MEAN CORPUSCULAR VOLUME 93 fL (79-100); MONO # 0.6 x10^3/uL (0.0-1.1); MONO % 10 % (0-9); NEUT % 75 % (31-73); PLATELET COUNT 363 x10^3/uL (140-400); RED BLOOD COUNT 4.38 x10^6/uL (3.50-5.40); RED CELL DISTRIBUTION WIDTH 14.6 % (11.5-14.5); WHITE BLOOD COUNT 6.6 x10^3/uL (4.0-11.0)
[2019-11-20 13:27] LABS: PROTHROMBIN TIME PATIENT 12.9 SEC (11.7-14.0)
[2019-11-20] MEDS ORDERED: IOHEXOL 300 MG/ML 100ML VIAL. IV ONE (13:30)
[2019-11-20] MEDS ORDERED: CONTRAST GIVEN. MC PRN (13:30)
--- NOTE | 2019-11-20 14:04 | RAD ---
Examination: CT pelvis with IV contrast HISTORY: History of right buttock abscess, cellulitis TECHNIQUE: Axial CT images of the pelvis were performed with IV contrast. Coronal and sagittal reformats are performed. Exposure: One or more of the following individualized dose reduction techniques were utilized for this examination: 1. Automated exposure control 2. Adjustment of the mA and/or kV according to patient size 3. Use of iterative reconstruction technique FINDINGS: Feces and gas noted in the colon. Urinary bladder is mildly distended. There is a large focal fluid collection identified in the right perineal region extending to the right buttock could be seroma or abscess. The bilateral femoral heads within the acetabula. IMPRESSION: 1. Large focal fluid collection identified in the right perineal region extending to the right buttock could be seroma or abscess. Electronically signed by: Omer Florence MD (11/20/2019 2:01 PM) [id number]
[2019-11-20] MEDS ORDERED: ONDANSETRON PF 4 MG/2 ML VIAL. IV PRN (15:15)
[2019-11-20] MEDS ORDERED: ACETAMINOPHEN 325 MG TABLET. PO PRN ×2 (15:15→16:00)
[2019-11-20] MEDS ORDERED: PIPERACILLIN/TAZOBACTAM 3.375 GM in IV NORMAL SALINE 50ML 50 ML IV ONE (16:00)
[2019-11-20] MEDS ORDERED: cloNIDine HCL 0.1 MG TABLET PO PRN (16:00)
[2019-11-20] MEDS ORDERED: guaiFENesin ORAL 200 MG/10 ML LIQUID. PO PRN (16:00)
[2019-11-20] MEDS ORDERED: ALBUTEROL SULFATE 2.5 MG/3 ML NEBU. NEB PRN (16:00)
[2019-11-20] MEDS: LORazepam 0.5 MG TABLET PO PRN ×2 (16:33→22:41)
--- NOTE | 2019-11-20 17:17 | PDOC1 ---
History and Physical Date of Admission Date of Admission November 20, 2019 Identification/Chief Complaint Chief Complaint My buttock hurts Problems: (1) Cellulitis of right buttock (2) Abscess of right buttock Source Source: Chart review, Patient History of Present Illness History of Present Illness Patient is a 44-year-old female with past medical history of depression bipolar disorder and anxiety who also suffers from interstitial cystitis who was in her usual state of health until approximately 1 week prior to her admission when she presented what she thought it was a bump in her right buttock. 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 The patient unfortunately has had progression of her symptoms with pain over the affected area and now experiencing fever and chills at home. She called her primary care physician who advised her to come to the emergency department for further evaluation and treatment. At the time of my evaluation the patient is in no acute distress she does seem to be somewhat uncomfortable and she was told by her primary care physician that she needed to be evaluated in order to ensure that the cellulitis had not gone into the rectum. She has been taking Cipro and Flagyl and has received Rocephin injections in the outpatient setting. Despite all this intervention she has failed outpatient therapy reason why we were asked to admit the patient for definitive treatment. Plan of care has been explained detail no concerns were voiced during my encounter. No headache no blurred vision no dysphagia odynophagia no chest pain no palpitations no shortness of breath no abdominal pain no nausea vomiting or diarrhea has been reported no urinary symptoms either. Reassurance has been provided Past Medical History Cardiovascular: No pertinent hx Pulmonary: Bronchitis, COPD, Pneumonia GI: No pertinent hx Heme/Onc: No pertinent hx Hepatobiliary: No pertinent hx Psych: No pertinent hx Rheumatologic: No pertinent hx Infectious disease: No pertinent hx Renal/: No pertinent hx Endocrine: No pertinent hx Past Surgical History Past Surgical History: Hysterectomy Family History Family History: No Significant Social History Smoke: No ALCOHOL: none Drugs: None Current Problem List Problem List Problems Medical Problems: (1) Abscess of right buttock Status: Acute (2) Cellulitis of right buttock Status: Acute Current Medications Current Medications Current Medications Medications (Trade) Dose Ordered Sig/Eric Start Time Stop Time Status Last Admin Dose Admin Acetaminophen (Tylenol) 650 mg PRN Q4HRS PRN 11/20/19 16:00 Albuterol Sulfate (Ventolin Neb Soln) 2.5 mg PRN Q4HRS PRN 11/20/19 16:00 Clonidine HCl (Catapres) 0.1 mg PRN Q6HRS PRN 11/20/19 16:00 Diphenhydramine HCl (Benadryl) 25 mg PRN Q4HRS PRN 11/20/19 16:00 Docusate Sodium (Colace) 100 mg PRN BID PRN 11/20/19 16:00 Duloxetine HCl (Cymbalta) 30 mg DAILY 11/21/19 09:00 UNV Enoxaparin Sodium (Lovenox 40mg Syringe) 40 mg Q24H 11/20/19 16:00 UNV Fentanyl Citrate (Fentanyl 2ml Vial) 50 mcg PRN Q1HR PRN 11/20/19 15:15 11/21/19 15:14 11/20/19 16:22 50 MCG Guaifenesin (Robitussin) 200 mg PRN Q4HRS PRN 11/20/19 16:00 Ibuprofen (Motrin) 800 mg 1X ONCE 11/20/19 12:45 11/20/19 12:51 DC 11/20/19 12:59 800 MG Info (CONTRAST GIVEN -- Rx MONITORING) 1 each PRN DAILY PRN 11/20/19 13:30 11/22/19 13:29 Iohexol (Omnipaque 300 Mg/ml) 75 ml 1X ONCE 11/20/19 13:30 11/20/19 13:31 DC 11/20/19 13:49 75 ML Lorazepam (Ativan) 0.5 mg PRN Q4HRS PRN 11/20/19 16:00 11/20/19 16:33 0.5 MG Nitrofurantoin Macrocrystals (Macrobid) 100 mg BID 11/20/19 21:00 11/20/19 15:52 DC Non-Formulary Medication (Albuterol Sulfate (Albuterol Sulfate Hfa Inhaler)) 8.5 gm DAILY 11/21/19 09:00 UNV Non-Formulary Medication (Budesonide/ Formoterol Fumarate (Symbicort 160-4.5 Mcg Inhaler)) 2 puff BID 9/24/20 21:00 UNV Non-Formulary Medication (Prazosin Hcl ) 2 cap QHS 11/20/19 21:00 UNV Non-Formulary Medication (Suvorexant (Belsomra)) 10 mg HS 11/20/19 21:00 UNV Ondansetron HCl (Zofran) 4 mg PRN Q4HRS PRN 11/20/19 16:00 Pantoprazole Sodium (Protonix) 40 mg DAILYAC 11/21/19 07:30 Piperacillin Sod/ Tazobactam Sod 3.375 gm/Sodium Chloride 50 ml @ 100 mls/hr 1X ONCE 11/20/19 16:00 11/20/19 16:29 DC 11/20/19 16:21 100 MLS/HR Progesterone (Prometrium) 100 mg QHS 11/20/19 21:00 UNV Sodium Chloride 1,000 ml @ 75 mls/hr [id number] 11/20/19 15:46 11/20/19 16:21 75 MLS/HR Zolpidem Tartrate (Ambien) 5 mg PRN QHS PRN 11/20/19 16:00 Allergies Allergies Allergies Coded Allergies Type Severity Reaction Last Updated Verified Latex, Natural Rubber Allergy Intermediate RASH 10/29/18 Yes adhesive tape Allergy Intermediate Rash 10/29/18 Yes amoxicillin Adverse Reaction Intermediate 10/29/18 Yes formoterol Adverse Reaction Intermediate 10/29/18 Yes mometasone furoate Adverse Reaction Intermediate 10/29/18 Yes varenicline Adverse Reaction Intermediate 10/29/18 Yes ROS Review of System CONSTITUTIONAL: Fever and chills, generalized malaise EYES: No recent changes SKIN: No rash or itching CARDIOVASCULAR: No chest pain, syncope, palpitations, or edema RESPIRATORY: No SOB or cough GASTROINTESTINAL: No nausea, vomiting or abdominal pain NEUROLOGICAL: No headaches or weakness ENDOCRINE: No cold or heat intolerance GENITOURINARY: No urgency or frequency of urination MUSCULOSKELETAL: No back pain or joint pain LYMPHATICS: No enlarged lymph nodes PSYCHIATRIC: Anxiety and depression Physical Exam Physical Exam GEN.: No apparent distress. Alert and oriented. HEENT: Head is normocephalic, atraumatic NECK: Supple. LUNGS: Clear to auscultation. HEART: RRR, S1, S2 present. Peripheral pulses intact ABDOMEN: Soft, nontender. Positive bowel sounds. EXTREMITIES: Without any cyanosis. NEUROLOGIC: Normal speech, normal tone PSYCHIATRIC: Normal affect, normal mood. SKIN: No ulcerations Vitals Vitals Vital Signs Date Time Temp Pulse Resp B/P (MAP) Pulse Ox O2 Delivery O2 Flow Rate FiO2 11/20/19 16:22 22 98 Room Air 11/20/19 12:15 98.7 106 140/87 (104) 98.7 Labs Labs Laboratory Tests Test 11/20/19 12:44 White Blood Count 6.6 x10^3/uL (4.0-11.0) Red Blood Count 4.38 x10^6/uL (3.50-5.40) Hemoglobin 14.2 g/dL (12.0-15.5) Hematocrit 40.9 % (36.0-47.0) Mean Corpuscular Volume 93 fL (79-100) Mean Corpuscular Hemoglobin 32 pg (25-35) Mean Corpuscular Hemoglobin Concent 35 g/dL (31-37) Red Cell Distribution Width 14.6 % (11.5-14.5) Platelet Count 363 x10^3/uL (140-400) Neutrophils (%) (Auto) 75 % (31-73) Lymphocytes (%) (Auto) 15 % (24-48) Monocytes (%) (Auto) 10 % (0-9) Eosinophils (%) (Auto) 0 % (0-3) Basophils (%) (Auto) 0 % (0-3) Neutrophils # (Auto) 5.0 x10^3/uL (1.8-7.7) Lymphocytes # (Auto) 1.0 x10^3/uL (1.0-4.8) Monocytes # (Auto) 0.6 x10^3/uL (0.0-1.1) Eosinophils # (Auto) 0.0 x10^3/uL (0.0-0.7) Basophils # (Auto) 0.0 x10^3/uL (0.0-0.2) Prothrombin Time 12.9 SEC (11.7-14.0) Prothromb Time International Ratio 1.0 (0.8-1.1) Activated Partial Thromboplast Time 29 SEC (24-38) Sodium Level 137 mmol/L (136-145) Potassium Level 3.3 mmol/L (3.5-5.1) Chloride Level 99 mmol/L (98-107) Carbon Dioxide Level 29 mmol/L (21-32) Anion Gap 9 (6-14) Blood Urea Nitrogen 11 mg/dL (7-20) Creatinine 0.8 mg/dL (0.6-1.0) Estimated GFR (Cockcroft-Gault) 77.9 BUN/Creatinine Ratio 14 (6-20) Glucose Level 120 mg/dL (70-99) Lactic Acid Level 1.3 mmol/L (0.4-2.0) Calcium Level 9.2 mg/dL (8.5-10.1) Total Bilirubin 0.5 mg/dL (0.2-1.0) Aspartate Amino Transf (AST/SGOT) 16 U/L (15-37) Alanine Aminotransferase (ALT/SGPT) 27 U/L (14-59) Alkaline Phosphatase 157 U/L (46-116) Total Protein 7.6 g/dL (6.4-8.2) Albumin 3.2 g/dL (3.4-5.0) Albumin/Globulin Ratio 0.7 (1.0-1.7) Procalcitonin < 0.10 ng/mL (0.00-0.10) Laboratory Tests Test 11/20/19 12:44 White Blood Count 6.6 x10^3/uL (4.0-11.0) Red Blood Count 4.38 x10^6/uL (3.50-5.40) Hemoglobin 14.2 g/dL (12.0-15.5) Hematocrit 40.9 % (36.0-47.0) Mean Corpuscular Volume 93 fL (79-100) Mean Corpuscular Hemoglobin 32 pg (25-35) Mean Corpuscular Hemoglobin Concent 35 g/dL (31-37) Red Cell Distribution Width 14.6 % (11.5-14.5) Platelet Count 363 x10^3/uL (140-400) Neutrophils (%) (Auto) 75 % (31-73) Lymphocytes (%) (Auto) 15 % (24-48) Monocytes (%) (Auto) 10 % (0-9) Eosinophils (%) (Auto) 0 % (0-3) Basophils (%) (Auto) 0 % (0-3) Neutrophils # (Auto) 5.0 x10^3/uL (1.8-7.7) Lymphocytes # (Auto) 1.0 x10^3/uL (1.0-4.8) Monocytes # (Auto) 0.6 x10^3/uL (0.0-1.1) Eosinophils # (Auto) 0.0 x10^3/uL (0.0-0.7) Basophils # (Auto) 0.0 x10^3/uL (0.0-0.2) Prothrombin Time 12.9 SEC (11.7-14.0) Prothromb Time International Ratio 1.0 (0.8-1.1) Activated Partial Thromboplast Time 29 SEC (24-38) Sodium Level 137 mmol/L (136-145) Potassium Level 3.3 mmol/L (3.5-5.1) Chloride Level 99 mmol/L (98-107) Carbon Dioxide Level 29 mmol/L (21-32) Anion Gap 9 (6-14) Blood Urea Nitrogen 11 mg/dL (7-20) Creatinine 0.8 mg/dL (0.6-1.0) Estimated GFR (Cockcroft-Gault) 77.9 BUN/Creatinine Ratio 14 (6-20) Glucose Level 120 mg/dL (70-99) Lactic Acid Level 1.3 mmol/L (0.4-2.0) Calcium Level 9.2 mg/dL (8.5-10.1) Total Bilirubin 0.5 mg/dL (0.2-1.0) Aspartate Amino Transf (AST/SGOT) 16 U/L (15-37) Alanine Aminotransferase (ALT/SGPT) 27 U/L (14-59) Alkaline Phosphatase 157 U/L (46-116) Total Protein 7.6 g/dL (6.4-8.2) Albumin 3.2 g/dL (3.4-5.0) Albumin/Globulin Ratio 0.7 (1.0-1.7) Procalcitonin < 0.10 ng/mL (0.00-0.10) VTE Prophylaxis Ordered VTE Prophylaxis Devices: No VTE Pharmacological Prophylaxi: Yes Assessment/Plan Assessment/Plan Large focal fluid collection identified in the right perineal region extending to the right buttock could be seroma or abscess. History of COPD Tobacco abuse who quit approximately 10 years ago History of bipolar disorder History of generalized anxiety disorder History of interstitial cystitis currently being followed up in the outpatient setting by urogynecology Plan Broad-spectrum antibiotic Surgical consultation Pain management Resume home medications once available for review Further recommendations based on the clinical course DVT prophylaxis with Lovenox Justifications for Admission Other Justification MENDEZ CHRISTIE MD Nov 20, 2019 17:17
[2019-11-20] MEDS: ENOXAPARIN 40 MG/0.4 ML SYRINGE. SQ SCH (17:34)
[2019-11-20] MEDS: PIPERACILLIN/TAZOBACTAM 3.375 GM in IV NORMAL SALINE 50ML 50 ML IV SCH (18:00)
[2019-11-20] MEDS: BUDESONIDE 0.5 MG/2 ML NEBU. NEB SCH (20:00)
[2019-11-20 20:30] VITALS: BP 149/101
[2019-11-20] MEDS ORDERED: NITROFURANTOIN MONOHYD/M-CRYST 100 MG CAPSULE. PO SCH (21:00)
[2019-11-20] MEDS ORDERED: SUVOREXANT 10 MG PO SCH (21:00)
[2019-11-20] MEDS: PRAZOSIN 1 MG CAPSULE. PO SCH (22:41)
[2019-11-20] MEDS: PROGESTERONE, MICRONIZED 100 MG CAPSULE PO SCH (22:41)
--- NOTE | 2019-11-20 23:00 | NUR ---
Patient admitted from ER to room 414. Patient arrived to floor at 2034. Admitting diagnosis: Right buttock abscess with cellulitis. Patient c/o that the abscess developed 1 week ago and she was being seen in her doctor's office for outpatient treatment. The treatment was not working. Patient states her pain was increasing daily. Patient will be seen by Dr. Hernandez in the morning for an I&D of her right perirectal abscess. Patient is alert and oriented x4. Patient is moderate distress due to pain. Will continue to monitor.
[2019-11-20 23:08] VITALS: BP 141/84
[2019-11-21] VITALS (11 sets, daily range): BP systolic 120–146; BP diastolic 69–91
[2019-11-21] MEDS: PIPERACILLIN/TAZOBACTAM 3.375 GM in IV NORMAL SALINE 50ML 50 ML IV SCH ×5 (00:09→23:29)
[2019-11-21] MEDS: fentaNYL PF VIAL 100 MCG/2 ML VIAL IV PRN ×3 (00:09→09:20)
[2019-11-21] MEDS: ONDANSETRON PF 4 MG/2 ML VIAL. IV PRN ×2 (00:17→20:55)
[2019-11-21] MEDS: fentaNYL PF VIAL 100 MCG/2 ML VIAL IVP PRN ×13 (01:31→22:48)
[2019-11-21] MEDS: LORazepam 0.5 MG TABLET PO PRN ×4 (02:39→22:49)
[2019-11-21] MEDS: IV NORMAL SALINE 1000ML BAG 1,000 ML IV SCH ×2 (05:09→22:41)
[2019-11-21] MEDS ORDERED: IV RINGERS,LACTATED 1000ML 1,000 ML IV SCH (06:56)
[2019-11-21] MEDS ORDERED: ONDANSETRON PF 4 MG/2 ML VIAL. IV PRN (07:00)
[2019-11-21] MEDS ORDERED: fentaNYL PF VIAL 100 MCG/2 ML VIAL IV PRN (07:00)
[2019-11-21] MEDS ORDERED: PROCHLORPERAZINE 10 MG/2 ML VIAL. IV PRN (07:00)
[2019-11-21 07:04] LABS: BASO % 1 % (0-3); EOS % 0 % (0-3); HEMATOCRIT 36.5 % (36.0-47.0); HEMOGLOBIN 12.4 g/dL (12.0-15.5); LYMPH # 0.8 x10^3/uL (1.0-4.8); LYMPH % 12 % (24-48); MEAN CORPUSCULAR HEMOGLOBIN 32 pg (25-35); MEAN CORPUSCULAR HGB CONC 34 g/dL (31-37); MEAN CORPUSCULAR VOLUME 95 fL (79-100); MONO # 0.6 x10^3/uL (0.0-1.1); MONO % 9 % (0-9); NEUT % 78 % (31-73); PLATELET COUNT 289 x10^3/uL (140-400); RED BLOOD COUNT 3.85 x10^6/uL (3.50-5.40); RED CELL DISTRIBUTION WIDTH 14.9 % (11.5-14.5); WHITE BLOOD COUNT 6.4 x10^3/uL (4.0-11.0)
[2019-11-21] MEDS: PANTOPRAZOLE 40 MG TABLET.DR. PO SCH (07:30)
[2019-11-21] MEDS ORDERED: BUPIVACAINE-EPI 0.5%-1:200000 MPF 30 ML VIAL. ONE (07:43)
[2019-11-21] MEDS ORDERED: fentaNYL PF VIAL 100 MCG/2 ML VIAL ONE ×2 (08:13→09:05)
[2019-11-21] MEDS ORDERED: MIDAZOLAM HCL/PF 2 MG/2 ML VIAL. ONE (08:13)
[2019-11-21] MEDS ORDERED: LIDOCAINE 2% PF 5 ML VIAL. ONE (08:49)
[2019-11-21] MEDS ORDERED: PROPOFOL 10 MG/ML (20ML) VIAL. IV ONE ×2 (08:49)
[2019-11-21] MEDS ORDERED: ONDANSETRON PF 4 MG/2 ML VIAL. ONE (08:49)
[2019-11-21] MEDS ORDERED: SEVOFLURANE 31 TO 60 MINUTES. IH ONE (08:50)
[2019-11-21] MEDS ORDERED: DEXAMETHASONE SOD PHOS 4 MG/ML VIAL ONE (08:50)
[2019-11-21] MEDS ORDERED: SURGICEL HEMOSTAT 4X8 EACH. ONE (08:54)
--- NOTE | 2019-11-21 08:59 | PDOC2 ---
CONSULT Date of Consult Date of Consult DATE: 11/21/19 TIME: 08:57 Reason for Consult Reason for Consult: Perirectal abscess Referring Physician Referring Physician: Daquan Identification/Chief Complaint Chief Complaint Peritoneal pain Source Source: Chart review, Patient History of Present Illness Reason for Visit: 44-year-old female with perirectal pain and swelling. Admitted to the hospital for IV antibiotics CT scan shows a extensive perirectal abscess and gluteal abscess Past Medical History Cardiovascular: No pertinent hx Pulmonary: Bronchitis, COPD, Pneumonia GI: No pertinent hx Heme/Onc: No pertinent hx Hepatobiliary: No pertinent hx Psych: No pertinent hx Rheumatologic: No pertinent hx Infectious disease: No pertinent hx Renal/: No pertinent hx Endocrine: No pertinent hx Past Surgical History Past Surgical History: Hysterectomy Family History Family History: No Significant Social History No ALCOHOL: none Drugs: None Current Problem List Problem List Problems Medical Problems: (1) Abscess of right buttock Status: Acute (2) Cellulitis of right buttock Status: Acute Current Medications Current Medications Current Medications Sodium Chloride 1,000 ml @ 1,770 mls/hr Q34M IV Last administered on 11/20/19at 13:05; Start 11/20/19 at 12:40; Stop 11/20/19 at 13:40; Status DC Fentanyl Citrate (Fentanyl 2ml Vial) 50 mcg PRN Q15MIN PRN IV PAIN GREATER THAN 3/10 Last administered on 11/20/19at 21:05; Start 11/20/19 at 12:45; Stop 11/21/19 at 01:14; Status DC Ondansetron HCl (Zofran) 4 mg 1X ONCE IVP Last administered on 11/20/19at 12:59; Start 11/20/19 at 12:45; Stop 11/20/19 at 12:51; Status DC Ibuprofen (Motrin) 800 mg 1X ONCE PO Last administered on 11/20/19at 12:59; Start 11/20/19 at 12:45; Stop 11/20/19 at 12:51; Status DC Iohexol (Omnipaque 300 Mg/ml) 75 ml 1X ONCE IV Last administered on 11/20/19at 13:49; Start 11/20/19 at 13:30; Stop 11/20/19 at 13:31; Status DC Info (CONTRAST GIVEN -- Rx MONITORING) 1 each PRN DAILY PRN MC SEE COMMENTS; Start 11/20/19 at 13:30; Stop 11/22/19 at 13:29 Ondansetron HCl (Zofran) 4 mg PRN Q8HRS PRN IV NAUSEA/VOMITING; Start 11/20/19 at 15:15; Stop 11/20/19 at 15:55; Status DC Fentanyl Citrate (Fentanyl 2ml Vial) 50 mcg PRN Q1HR PRN IV PAIN Last administered on 11/21/19at 00:09; Start 11/20/19 at 15:15; Stop 11/21/19 at 01:14; Status DC Acetaminophen (Tylenol) 650 mg PRN Q4HRS PRN PO FEVER > 100.3'F; Start 11/20/19 at 15:15; Stop 11/20/19 at 15:55; Status DC Acetaminophen (Tylenol) 650 mg PRN Q6HRS PRN PO MILD PAIN / TEMP > 100.3'F; Start 11/20/19 at 16:00; Status UNV Duloxetine HCl (Cymbalta) 30 mg DAILY PO ; Start 11/21/19 at 09:00 Nitrofurantoin Macrocrystals (Macrobid) 100 mg BID PO ; Start 11/20/19 at 21:00; Stop 11/20/19 at 15:52; Status DC Pantoprazole Sodium (Protonix) 40 mg DAILYAC PO ; Start 11/21/19 at 07:30 Progesterone (Prometrium) 100 mg QHS PO Last administered on 11/20/19at 22:41; Start 11/20/19 at 21:00 Non-Formulary Medication (Albuterol Sulfate (Albuterol Sulfate Hfa Inhaler)) 8.5 gm DAILY IH ; Start 11/21/19 at 09:00; Status UNV Budesonide (Pulmicort) 0.5 mg RTBID NEB ; Start 11/20/19 at 20:00 Prazosin HCl (Minipress) 4 mg QHS PO Last administered on 11/20/19at 22:41; Start 11/20/19 at 21:00 Non-Formulary Medication (Suvorexant (Belsomra)) 10 mg HS PO ; Start 11/20/19 at 21:00; Stop 11/21/19 at 07:15; Status DC Sodium Chloride 1,000 ml @ 75 mls/hr [id number] IV Last administered on 11/21/19at 05:09; Start 11/20/19 at 15:46 Ondansetron HCl (Zofran) 4 mg PRN Q4HRS PRN IV NAUSEA/VOMITING Last administered on 11/21/19at 00:17; Start 11/20/19 at 16:00 Zolpidem Tartrate (Ambien) 5 mg PRN QHS PRN PO INSOMNIA; Start 11/20/19 at 16:00 Acetaminophen (Tylenol) 650 mg PRN Q4HRS PRN PO TEMP OVER 100.4F OR MILD PAIN; Start 11/20/19 at 16:00 Clonidine HCl (Catapres) 0.1 mg PRN Q6HRS PRN PO SBP>160 OR DBP>90; Start 11/20/19 at 16:00 Diphenhydramine HCl (Benadryl) 25 mg PRN Q4HRS PRN IVP ITCHING; Start 11/20/19 at 16:00 Docusate Sodium (Colace) 100 mg PRN BID PRN PO HARD STOOLS; Start 11/20/19 at 16:00 Albuterol Sulfate (Ventolin Neb Soln) 2.5 mg PRN Q4HRS PRN NEB SHORTNESS OF BREATH; Start 11/20/19 at 16:00 Guaifenesin (Robitussin) 200 mg PRN Q4HRS PRN PO COUGH; Start 11/20/19 at 16:00 Lorazepam (Ativan) 0.5 mg PRN Q4HRS PRN PO ANXIETY / AGITATION Last administered on 11/21/19at 02:39; Start 11/20/19 at 16:00 Enoxaparin Sodium (Lovenox 40mg Syringe) 40 mg Q24H SQ Last administered on 11/20/19at 17:34; Start 11/20/19 at 17:00 Piperacillin Sod/ Tazobactam Sod 3.375 gm/Sodium Chloride 50 ml @ 100 mls/hr Q6HRS IV Last administered on 11/21/19at 06:16; Start 11/20/19 at 18:00 Piperacillin Sod/ Tazobactam Sod 3.375 gm/Sodium Chloride 50 ml @ 100 mls/hr 1X ONCE IV Last administered on 11/20/19at 16:21; Start 11/20/19 at 16:00; Stop 11/20/19 at 16:29; Status DC Albuterol Sulfate (Ventolin Neb Soln) 2.5 mg Q6HRS NEB ; Start 11/21/19 at 19:00 Fentanyl Citrate (Fentanyl 2ml Vial) 100 mcg PRN Q1HR PRN IVP SEVERE PAIN 7-10 Last administered on 11/21/19at 07:21; Start 11/21/19 at 01:15 Ondansetron HCl (Zofran) 4 mg PRN Q6HRS PRN IV NAUSEA/VOMITING; Start 11/21/19 at 07:00; Stop 11/22/19 at 06:59 Fentanyl Citrate (Fentanyl 2ml Vial) 25 mcg PRN Q5MIN PRN IV MILD PAIN 1-3; Start 11/21/19 at 07:00; Stop 11/22/19 at 06:59 Fentanyl Citrate (Fentanyl 2ml Vial) 50 mcg PRN Q5MIN PRN IV MODERATE TO SEVERE PAIN; Start 11/21/19 at 07:00; Stop 11/22/19 at 06:59 Morphine Sulfate (Morphine Sulfate) 1 mg PRN Q10MIN PRN IV SEVERE PAIN 7-10; Start 11/21/19 at 07:00; Stop 11/22/19 at 06:59 Ringer's Solution 1,000 ml @ 30 mls/hr Q24H IV ; Start 11/21/19 at 06:56; Stop 11/21/19 at 18:55 Hydromorphone HCl (Dilaudid) 0.5 mg PRN Q10MIN PRN IV SEV PAIN, Second choice; Start 11/21/19 at 07:00; Stop 11/22/19 at 06:59 Prochlorperazine Edisylate (Compazine) 5 mg PACU PRN PRN IV NAUSEA, MRX1; Start 11/21/19 at 07:00; Stop 11/22/19 at 06:59 Bupivacaine HCl/ Epinephrine Bitart (Sensorcain-Epi 0.5%-1:[id number] Mpf) 30 ml STK-MED ONCE .ROUTE Last administered on 11/21/19at 08:44; Start 11/21/19 at 07:43; Stop 11/21/19 at 07:43; Status DC Fentanyl Citrate (Fentanyl 2ml Vial) 100 mcg STK-MED ONCE .ROUTE ; Start 11/21/19 at 08:13; Stop 11/21/19 at 08:13; Status DC Midazolam HCl (Versed) 2 mg STK-MED ONCE .ROUTE ; Start 11/21/19 at 08:13; Stop 11/21/19 at 08:13; Status DC Propofol (Diprivan) 200 mg STK-MED ONCE IV ; Start 11/21/19 at 08:49; Stop 11/21/19 at 08:50; Status DC Propofol (Diprivan) 200 mg STK-MED ONCE IV ; Start 11/21/19 at 08:49; Stop 11/21/19 at 08:50; Status DC Lidocaine HCl (Lidocaine Pf 2% Vial) 5 ml STK-MED ONCE .ROUTE ; Start 11/21/19 at 08:49; Stop 11/21/19 at 08:50; Status DC Ondansetron HCl (Zofran) 4 mg STK-MED ONCE .ROUTE ; Start 11/21/19 at 08:49; Stop 11/21/19 at 08:50; Status DC Dexamethasone Sodium Phosphate (Decadron) 4 mg STK-MED ONCE .ROUTE ; Start 11/21/19 at 08:50; Stop 11/21/19 at 08:50; Status DC Sevoflurane (Ultane) 30 ml STK-MED ONCE IH ; Start 11/21/19 at 08:50; Stop 11/21/19 at 08:50; Status DC Cellulose (Surgicel Hemostat 4x8) 1 each STK-MED ONCE .ROUTE ; Start 11/21/19 at 08:54; Stop 11/21/19 at 08:54; Status DC Active Scripts Active Macrobid 100 Mg Capsule (Nitrofurantoin Monohyd/M-Cryst) 100 Mg Capsule 1 Cap PO BID 7 Days Tylenol (Acetaminophen) 325 Mg Tablet 650 Mg PO PRN Q6HRS PRN 10 Days Reported Prazosin Hcl 2 Mg Capsule 2 Cap PO QHS Belsomra (Suvorexant) 10 Mg Tablet 10 Mg PO HS Progesterone (Progesterone,Micronized) 100 Mg Capsule 1 Cap PO QHS 30 Days Cymbalta (Duloxetine Hcl) 30 Mg Capsule. 1 Cap PO DAILY Protonix (Pantoprazole Sodium) 40 Mg Tablet.dr 40 Mg PO DAILYAC Symbicort 160-4.5 Mcg Inhaler (Budesonide/Formoterol Fumarate) 10.2 Gm Hfa.aer.ad 2 Puff IH BID Albuterol Sulfate Hfa Inhaler (Albuterol Sulfate) 8.5 Gm Hfa.aer.ad 8.5 Gm IH DAILY Allergies Allergies: Coded Allergies: Latex, Natural Rubber (Verified Allergy, Intermediate, RASH, 10/29/18) adhesive tape (Verified Allergy, Intermediate, Rash, 10/29/18) amoxicillin (Verified Adverse Reaction, Intermediate, 10/29/18) CAUSES SEVERE YEAST INFECTIONS formoterol (Verified Adverse Reaction, Intermediate, 10/29/18) SHAKEY mometasone furoate (Verified Adverse Reaction, Intermediate, 10/29/18) SHAKEY varenicline (Verified Adverse Reaction, Intermediate, 10/29/18) BAD DREAMS ROS Gastrointestinal: Yes Other (Rectal pain) Physical Exam General: Alert, Oriented X3, Cooperative, moderate distress HEENT: Atraumatic, EOMI Lungs: Clear to auscultation, Normal air movement Heart: Regular rate, No murmurs Abdomen: Normal bowel sounds, Soft, No tenderness, Other (Large perirectal inflammation tenderness to palpation erythema) Extremities: No edema Skin: No significant lesion Neuro: Normal speech Psych/Mental Status: Mental status NL Vitals VITALS Vital Signs Date Time Temp Pulse Resp B/P (MAP) Pulse Ox O2 Delivery O2 Flow Rate FiO2 11/21/19 07:48 98.8 107 20 126/74 97 Room Air 98.8 Labs Labs Laboratory Tests Test 11/20/19 12:44 11/20/19 19:48 11/21/19 06:05 White Blood Count 6.6 x10^3/uL (4.0-11.0) 6.4 x10^3/uL (4.0-11.0) Red Blood Count 4.38 x10^6/uL (3.50-5.40) 3.85 x10^6/uL (3.50-5.40) Hemoglobin 14.2 g/dL (12.0-15.5) 12.4 g/dL (12.0-15.5) Hematocrit 40.9 % (36.0-47.0) 36.5 % (36.0-47.0) Mean Corpuscular Volume 93 fL (79-100) 95 fL (79-100) Mean Corpuscular Hemoglobin 32 pg (25-35) 32 pg (25-35) Mean Corpuscular Hemoglobin Concent 35 g/dL (31-37) 34 g/dL (31-37) Red Cell Distribution Width 14.6 % (11.5-14.5) 14.9 % (11.5-14.5) Platelet Count 363 x10^3/uL (140-400) 289 x10^3/uL (140-400) Neutrophils (%) (Auto) 75 % (31-73) 78 % (31-73) Lymphocytes (%) (Auto) 15 % (24-48) 12 % (24-48) Monocytes (%) (Auto) 10 % (0-9) 9 % (0-9) Eosinophils (%) (Auto) 0 % (0-3) 0 % (0-3) Basophils (%) (Auto) 0 % (0-3) 1 % (0-3) Neutrophils # (Auto) 5.0 x10^3/uL (1.8-7.7) 5.0 x10^3/uL (1.8-7.7) Lymphocytes # (Auto) 1.0 x10^3/uL (1.0-4.8) 0.8 x10^3/uL (1.0-4.8) Monocytes # (Auto) 0.6 x10^3/uL (0.0-1.1) 0.6 x10^3/uL (0.0-1.1) Eosinophils # (Auto) 0.0 x10^3/uL (0.0-0.7) 0.0 x10^3/uL (0.0-0.7) Basophils # (Auto) 0.0 x10^3/uL (0.0-0.2) 0.0 x10^3/uL (0.0-0.2) Prothrombin Time 12.9 SEC (11.7-14.0) Prothromb Time International Ratio 1.0 (0.8-1.1) Activated Partial Thromboplast Time 29 SEC (24-38) Sodium Level 137 mmol/L (136-145) Potassium Level 3.3 mmol/L (3.5-5.1) Chloride Level 99 mmol/L (98-107) Carbon Dioxide Level 29 mmol/L (21-32) Anion Gap 9 (6-14) Blood Urea Nitrogen 11 mg/dL (7-20) Creatinine 0.8 mg/dL (0.6-1.0) Estimated GFR (Cockcroft-Gault) 77.9 BUN/Creatinine Ratio 14 (6-20) Glucose Level 120 mg/dL (70-99) Lactic Acid Level 1.3 mmol/L (0.4-2.0) Calcium Level 9.2 mg/dL (8.5-10.1) Total Bilirubin 0.5 mg/dL (0.2-1.0) Aspartate Amino Transf (AST/SGOT) 16 U/L (15-37) Alanine Aminotransferase (ALT/SGPT) 27 U/L (14-59) Alkaline Phosphatase 157 U/L (46-116) Total Protein 7.6 g/dL (6.4-8.2) Albumin 3.2 g/dL (3.4-5.0) Albumin/Globulin Ratio 0.7 (1.0-1.7) Procalcitonin < 0.10 ng/mL (0.00-0.10) SARS-CoV-2 Antigen (Rapid) Negative (NEGATIVE) Laboratory Tests Test 11/20/19 12:44 11/20/19 19:48 11/21/19 06:05 White Blood Count 6.6 x10^3/uL (4.0-11.0) 6.4 x10^3/uL (4.0-11.0) Red Blood Count 4.38 x10^6/uL (3.50-5.40) 3.85 x10^6/uL (3.50-5.40) Hemoglobin 14.2 g/dL (12.0-15.5) 12.4 g/dL (12.0-15.5) Hematocrit 40.9 % (36.0-47.0) 36.5 % (36.0-47.0) Mean Corpuscular Volume 93 fL (79-100) 95 fL (79-100) Mean Corpuscular Hemoglobin 32 pg (25-35) 32 pg (25-35) Mean Corpuscular Hemoglobin Concent 35 g/dL (31-37) 34 g/dL (31-37) Red Cell Distribution Width 14.6 % (11.5-14.5) 14.9 % (11.5-14.5) Platelet Count 363 x10^3/uL (140-400) 289 x10^3/uL (140-400) Neutrophils (%) (Auto) 75 % (31-73) 78 % (31-73) Lymphocytes (%) (Auto) 15 % (24-48) 12 % (24-48) Monocytes (%) (Auto) 10 % (0-9) 9 % (0-9) Eosinophils (%) (Auto) 0 % (0-3) 0 % (0-3) Basophils (%) (Auto) 0 % (0-3) 1 % (0-3) Neutrophils # (Auto) 5.0 x10^3/uL (1.8-7.7) 5.0 x10^3/uL (1.8-7.7) Lymphocytes # (Auto) 1.0 x10^3/uL (1.0-4.8) 0.8 x10^3/uL (1.0-4.8) Monocytes # (Auto) 0.6 x10^3/uL (0.0-1.1) 0.6 x10^3/uL (0.0-1.1) Eosinophils # (Auto) 0.0 x10^3/uL (0.0-0.7) 0.0 x10^3/uL (0.0-0.7) Basophils # (Auto) 0.0 x10^3/uL (0.0-0.2) 0.0 x10^3/uL (0.0-0.2) Prothrombin Time 12.9 SEC (11.7-14.0) Prothromb Time International Ratio 1.0 (0.8-1.1) Activated Partial Thromboplast Time 29 SEC (24-38) Sodium Level 137 mmol/L (136-145) Potassium Level 3.3 mmol/L (3.5-5.1) Chloride Level 99 mmol/L (98-107) Carbon Dioxide Level 29 mmol/L (21-32) Anion Gap 9 (6-14) Blood Urea Nitrogen 11 mg/dL (7-20) Creatinine 0.8 mg/dL (0.6-1.0) Estimated GFR (Cockcroft-Gault) 77.9 BUN/Creatinine Ratio 14 (6-20) Glucose Level 120 mg/dL (70-99) Lactic Acid Level 1.3 mmol/L (0.4-2.0) Calcium Level 9.2 mg/dL (8.5-10.1) Total Bilirubin 0.5 mg/dL (0.2-1.0) Aspartate Amino Transf (AST/SGOT) 16 U/L (15-37) Alanine Aminotransferase (ALT/SGPT) 27 U/L (14-59) Alkaline Phosphatase 157 U/L (46-116) Total Protein 7.6 g/dL (6.4-8.2) Albumin 3.2 g/dL (3.4-5.0) Albumin/Globulin Ratio 0.7 (1.0-1.7) Procalcitonin < 0.10 ng/mL (0.00-0.10) SARS-CoV-2 Antigen (Rapid) Negative (NEGATIVE) Images Images CT as in the history of present illness Assessment/Plan Assessment/Plan Perirectal abscess plan for incision and drainage DENISSE WATKINS MD Nov 21, 2019 08:59
[2019-11-21] MEDS ORDERED: ALBUTEROL SULFATE IH SCH (09:00)
--- NOTE | 2019-11-21 09:02 | PDOC4 ---
Operative Note Operative Note Date: 11/21/2019 at 0900 Preoperative diagnosis: Perirectal abscess Postoperative diagnosis: Same Procedure: Incision and drainage of perirectal abscess Surgeon: David Specimen: Cultures Dictation: Patient is a 44-year-old female was mated to the hospital with large perirectal abscess. Procedure of incision and drainage was explained to the patient detail risk-benefit were also discussed including bleeding infection alternatives to this procedure also discussed with the patient who seemed to understand and gave both verbal and written consent to have the procedure perfor med. Patient was taken to the operating room placed supine position general anesthesia was initiated once patient was sleeping intubated she placed in lithotomy positioning and her peritoneum was prepped and draped usual sterile fashion using Betadine scrub and solution. Area on the left buttock towards the rectum was incised with a 11 blade scalpel copious amounts of purulent material were expressed this was cultured wound was suctioned of all this purulence wound was then irrigated with copious amounts normal saline and suctioned dry hemostasis was controlled with electrocautery. The wound was then packed with inch iodoform new gauze and Surgicel. Wound was dressed with 4 x 4's ABD and mesh panties patient was prepared position to her supine position awakened and extubated operating room taken to recovery in stable condition all sponge instrument needle counts listed as correct estimated blood loss 30 mL. DENISSE WATKINS MD Nov 21, 2019 09:02
[2019-11-21] MEDS ORDERED: MORPHINE SULFATE 2 MG/ML VIAL. ONE (09:24)
[2019-11-21] MEDS: MORPHINE SULFATE 2 MG/ML VIAL. IV PRN ×2 (09:27→09:35)
[2019-11-21] MEDS ORDERED: HYDROmorphone 2 MG/ML VIAL ONE (09:37)
[2019-11-21] MEDS: HYDROmorphone 2 MG/ML VIAL IV PRN ×2 (09:39→09:49)
[2019-11-21] MEDS: DULoxetine HCL 30 MG CAPSULE.DR PO SCH (10:47)
[2019-11-21] MEDS: DOCUSATE SODIUM 100 MG CAPSULE. PO PRN (10:47)
--- NOTE | 2019-11-21 10:49 | NUR ---
SW following. Discussed with RN, pt from home with family, room air, NPO for surgery this morning. Pt up ad yessi, IV zosyn. Pt may require some wound care at discharge. SW will continue to follow.
--- NOTE | 2019-11-21 12:13 | NUR ---
Reviewed patient incision upon after arrival. Pt had saturated the 4x4s, Reapplied fresh 4x4 and abdominal pad, mesh panties holding in place.
--- NOTE | 2019-11-21 12:48 | PDOC ---
[employer] PROGRESS NOTE Date of Service DOS: DATE: 11/21/19 TIME: 12:42 Chief Complaint Chief Complaint Sacral wound s/p Incision and drainage of perirectal abscess 11/21/19 History of COPD Tobacco abuse who quit approximately 10 years ago History of bipolar disorder History of generalized anxiety disorder History of interstitial cystitis currently being followed up in the outpatient setting by urogynecology Plan Broad-spectrum antibiotic Follow-up with surgical recommendations Pain management Resume home medications once available for review Further recommendations based on the clinical course DVT prophylaxis with Lovenox Smoking cessation: Total time spent was > 15 minutes in face to face counseling. Patient has agreed disagreed to consider nicotine patches/gum or to start on Varnicline when discharged History of Present Illness History of Present Illness 44-year-old female with past medical history of depression bipolar disorder and anxiety who also suffers from interstitial cystitis who was in her usual state of health until approximately 1 week prior to her admission when she presented what she thought it was a bump in her right buttock. The patient subsequently was seen by her uro-principal law clerk and also by her primary care physician on Sunday and advised to start an antibiotic. The patient unfortunately has had progression of her symptoms with pain over the affected area and now experienci ng fever and chills at home. She called her primary care physician who advised her to come to the emergency department for further evaluation and treatment. Vitals/I&O Vitals/I&O: Vital Signs Date Time Temp Pulse Resp B/P (MAP) Pulse Ox O2 Delivery O2 Flow Rate FiO2 11/21/19 10:54 90 Room Air 11/21/19 09:49 16 11/21/19 09:45 97.6 110 131/71 97.6 11/21/19 09:39 4.0 I & O 11/20/19 11/20/19 11/21/19 14:59 22:59 06:59 Intake Total 1770 ml 50 ml 2220 ml Balance 1770 ml 50 ml 2220 ml Physical Exam Physical Exam: GEN: No apparent distress. Alert and oriented HEENT: Normal cephalic, atraumatic, external auditory canals are patent NECK: Supple, no JVD, no thyromegaly was noted LUNGS: Bilateral clear HEART: RRR, S1, S2 present. Peripheral pulses intact, no obvious murmurs noted ABDOMEN: Soft, appropriate tender to palpation. Dressings are clear dry and intact positive bowel sounds, no organomegaly, normal bowel sounds EXTREMITIES: Without clubbing, cyanosis, or edema. Pedal pulses intact. Negative Homans sign General: Alert, Oriented X3, Cooperative, moderate distress Heart: Regular rate, No murmurs Lungs: Clear, Crackles Abdomen: Normal bowel sounds, Soft, No tenderness, Other (Large perirectal inflammation tenderness to palpation erythema) Extremities: No edema Skin: No significant lesion Labs Labs: Laboratory Tests Test 11/20/19 12:44 11/20/19 19:48 11/21/19 06:05 White Blood Count 6.6 x10^3/uL (4.0-11.0) 6.4 x10^3/uL (4.0-11.0) Red Blood Count 4.38 x10^6/uL (3.50-5.40) 3.85 x10^6/uL (3.50-5.40) Hemoglobin 14.2 g/dL (12.0-15.5) 12.4 g/dL (12.0-15.5) Hematocrit 40.9 % (36.0-47.0) 36.5 % (36.0-47.0) Mean Corpuscular Volume 93 fL (79-100) 95 fL (79-100) Mean Corpuscular Hemoglobin 32 pg (25-35) 32 pg (25-35) Mean Corpuscular Hemoglobin Concent 35 g/dL (31-37) 34 g/dL (31-37) Red Cell Distribution Width 14.6 % (11.5-14.5) 14.9 % (11.5-14.5) Platelet Count 363 x10^3/uL (140-400) 289 x10^3/uL (140-400) Neutrophils (%) (Auto) 75 % (31-73) 78 % (31-73) Lymphocytes (%) (Auto) 15 % (24-48) 12 % (24-48) Monocytes (%) (Auto) 10 % (0-9) 9 % (0-9) Eosinophils (%) (Auto) 0 % (0-3) 0 % (0-3) Basophils (%) (Auto) 0 % (0-3) 1 % (0-3) Neutrophils # (Auto) 5.0 x10^3/uL (1.8-7.7) 5.0 x10^3/uL (1.8-7.7) Lymphocytes # (Auto) 1.0 x10^3/uL (1.0-4.8) 0.8 x10^3/uL (1.0-4.8) Monocytes # (Auto) 0.6 x10^3/uL (0.0-1.1) 0.6 x10^3/uL (0.0-1.1) Eosinophils # (Auto) 0.0 x10^3/uL (0.0-0.7) 0.0 x10^3/uL (0.0-0.7) Basophils # (Auto) 0.0 x10^3/uL (0.0-0.2) 0.0 x10^3/uL (0.0-0.2) Prothrombin Time 12.9 SEC (11.7-14.0) Prothromb Time International Ratio 1.0 (0.8-1.1) Activated Partial Thromboplast Time 29 SEC (24-38) Sodium Level 137 mmol/L (136-145) Potassium Level 3.3 mmol/L (3.5-5.1) Chloride Level 99 mmol/L (98-107) Carbon Dioxide Level 29 mmol/L (21-32) Anion Gap 9 (6-14) Blood Urea Nitrogen 11 mg/dL (7-20) Creatinine 0.8 mg/dL (0.6-1.0) Estimated GFR (Cockcroft-Gault) 77.9 BUN/Creatinine Ratio 14 (6-20) Glucose Level 120 mg/dL (70-99) Lactic Acid Level 1.3 mmol/L (0.4-2.0) Calcium Level 9.2 mg/dL (8.5-10.1) Total Bilirubin 0.5 mg/dL (0.2-1.0) Aspartate Amino Transf (AST/SGOT) 16 U/L (15-37) Alanine Aminotransferase (ALT/SGPT) 27 U/L (14-59) Alkaline Phosphatase 157 U/L (46-116) Total Protein 7.6 g/dL (6.4-8.2) Albumin 3.2 g/dL (3.4-5.0) Albumin/Globulin Ratio 0.7 (1.0-1.7) Procalcitonin < 0.10 ng/mL (0.00-0.10) SARS-CoV-2 Antigen (Rapid) Negative (NEGATIVE) Assessment and Plan Assessmemt and Plan Problems Medical Problems: (1) Abscess of right buttock Status: Acute (2) Cellulitis of right buttock Status: Acute Comment Review of Relevant I have reviewed the following items kasandra (where applicable) has been applied. Medications: Current Medications Medications (Trade) Dose Ordered Sig/Eric Route PRN Reason Start Time Stop Time Status Last Admin Dose Admin Fentanyl Citrate (Fentanyl 2ml Vial) 50 mcg PRN Q15MIN PRN IV PAIN GREATER THAN 3/10 11/20/19 12:45 11/21/19 01:14 DC 11/20/19 21:05 Ondansetron HCl (Zofran) 4 mg 1X ONCE IVP 11/20/19 12:45 11/20/19 12:51 DC 11/20/19 12:59 Ibuprofen (Motrin) 800 mg 1X ONCE PO 11/20/19 12:45 11/20/19 12:51 DC 11/20/19 12:59 Iohexol (Omnipaque 300 Mg/ml) 75 ml 1X ONCE IV 11/20/19 13:30 11/20/19 13:31 DC 11/20/19 13:49 Fentanyl Citrate (Fentanyl 2ml Vial) 50 mcg PRN Q1HR PRN IV PAIN 11/20/19 15:15 11/21/19 01:14 DC 11/21/19 00:09 Duloxetine HCl (Cymbalta) 30 mg DAILY PO 11/21/19 09:00 11/21/19 10:47 Progesterone (Prometrium) 100 mg QHS PO 11/20/19 21:00 11/20/19 22:41 Prazosin HCl (Minipress) 4 mg QHS PO 11/20/19 21:00 11/20/19 22:41 Sodium Chloride 1,000 ml @ 75 mls/hr [id number] IV 11/20/19 15:46 11/21/19 05:09 Ondansetron HCl (Zofran) 4 mg PRN Q4HRS PRN IV NAUSEA/VOMITING 11/20/19 16:00 11/21/19 00:17 Docusate Sodium (Colace) 100 mg PRN BID PRN PO HARD STOOLS 11/20/19 16:00 11/21/19 10:47 Lorazepam (Ativan) 0.5 mg PRN Q4HRS PRN PO ANXIETY / AGITATION 11/20/19 16:00 11/21/19 11:53 Enoxaparin Sodium (Lovenox 40mg Syringe) 40 mg Q24H SQ 11/20/19 17:00 11/20/19 17:34 Piperacillin Sod/ Tazobactam Sod 3.375 gm/Sodium Chloride 50 ml @ 100 mls/hr Q6HRS IV 11/20/19 18:00 11/21/19 11:55 Piperacillin Sod/ Tazobactam Sod 3.375 gm/Sodium Chloride 50 ml @ 100 mls/hr 1X ONCE IV 11/20/19 16:00 11/20/19 16:29 DC 11/20/19 16:21 Fentanyl Citrate (Fentanyl 2ml Vial) 100 mcg PRN Q1HR PRN IVP SEVERE PAIN 7-10 11/21/19 01:15 11/21/19 10:54 Fentanyl Citrate (Fentanyl 2ml Vial) 50 mcg PRN Q5MIN PRN IV MODERATE TO SEVERE PAIN 11/21/19 07:00 11/22/19 06:59 11/21/19 09:20 Morphine Sulfate (Morphine Sulfate) 1 mg PRN Q10MIN PRN IV SEVERE PAIN 7-10 11/21/19 07:00 11/22/19 06:59 11/21/19 09:35 Hydromorphone HCl (Dilaudid) 0.5 mg PRN Q10MIN PRN IV SEV PAIN, Second choice 11/21/19 07:00 11/22/19 06:59 11/21/19 09:49 Bupivacaine HCl/ Epinephrine Bitart (Sensorcain-Epi 0.5%-1:853430 Mpf) 30 ml STK-MED ONCE .ROUTE 11/21/19 07:43 11/21/19 07:43 DC 11/21/19 08:44 Cellulose (Surgicel Hemostat 4x8) 1 each STK-MED ONCE .ROUTE 11/21/19 08:54 11/21/19 08:54 DC 11/21/19 08:44 Justifications for Admission Other Justification JAMILA MOORE MD Nov 21, 2019 12:48
[2019-11-21] MEDS: ENOXAPARIN 40 MG/0.4 ML SYRINGE. SQ SCH (17:59)
[2019-11-21] MEDS ORDERED: ALBUTEROL SULFATE 2.5 MG/3 ML NEBU. NEB SCH (19:00)
[2019-11-21] MEDS: diphenhydrAMINE 50 MG/ML VIAL IVP PRN (19:51)
[2019-11-21] MEDS: PROGESTERONE, MICRONIZED 100 MG CAPSULE PO SCH (20:20)
[2019-11-21] MEDS: PRAZOSIN 1 MG CAPSULE. PO SCH (20:20)
[2019-11-21] MEDS: ZOLPIDEM 5 MG TABLET. PO PRN (20:26)
[2019-11-22] MEDS: fentaNYL PF VIAL 100 MCG/2 ML VIAL IVP PRN ×4 (00:01→09:08)
[2019-11-22] MEDS: diphenhydrAMINE 50 MG/ML VIAL IVP PRN ×4 (00:11→20:42)
[2019-11-22 02:55] VITALS: BP 148/82
[2019-11-22] MEDS: LORazepam 0.5 MG TABLET PO PRN ×2 (03:12→20:19)
[2019-11-22] MEDS: PIPERACILLIN/TAZOBACTAM 3.375 GM in IV NORMAL SALINE 50ML 50 ML IV SCH ×4 (05:27→23:14)
[2019-11-22] MEDS: PANTOPRAZOLE 40 MG TABLET.DR. PO SCH (05:28)
[2019-11-22 07:00] VITALS: BP 102/63
[2019-11-22] MEDS: BUDESONIDE 0.5 MG/2 ML NEBU. NEB SCH ×2 (07:30→19:42)
[2019-11-22] MEDS ORDERED: ALBUTEROL SULFATE 2.5 MG/3 ML NEBU. NEB PRN (08:15)
[2019-11-22] MEDS: DULoxetine HCL 30 MG CAPSULE.DR PO SCH (09:08)
[2019-11-22] MEDS: IV NORMAL SALINE 1000ML BAG 1,000 ML IV SCH ×2 (09:11→23:15)
--- NOTE | 2019-11-22 09:13 | PDOC ---
SURGICAL PROGRESS NOTE DATE: 11/22/19 TIME: 09:12 Subjective Patient feeling much better today significantly less pain Vital Signs Vital Signs Date Time Temp Pulse Resp B/P (MAP) Pulse Ox O2 Delivery O2 Flow Rate FiO2 11/22/19 09:08 94 Room Air 11/22/19 07:00 98.3 94 18 102/63 (76) 98.3 11/21/19 15:30 2.0 I&O Intake and Output 11/22/19 07:00 Intake Total 2800 ml Output Total 30 ml Balance 2770 ml Intake Oral 1950 ml IV Total 850 ml Output Estimated Blood Loss 30 ml # Voids 6 PATIENT HAS A MORALES: No General: Alert, Oriented X3, Cooperative, mild distress Skin: Other (Wound packed decreased erythema) Labs Laboratory Tests Test 11/20/19 12:44 11/20/19 19:48 11/21/19 06:05 White Blood Count 6.6 x10^3/uL (4.0-11.0) 6.4 x10^3/uL (4.0-11.0) Red Blood Count 4.38 x10^6/uL (3.50-5.40) 3.85 x10^6/uL (3.50-5.40) Hemoglobin 14.2 g/dL (12.0-15.5) 12.4 g/dL (12.0-15.5) Hematocrit 40.9 % (36.0-47.0) 36.5 % (36.0-47.0) Mean Corpuscular Volume 93 fL (79-100) 95 fL (79-100) Mean Corpuscular Hemoglobin 32 pg (25-35) 32 pg (25-35) Mean Corpuscular Hemoglobin Concent 35 g/dL (31-37) 34 g/dL (31-37) Red Cell Distribution Width 14.6 % (11.5-14.5) 14.9 % (11.5-14.5) Platelet Count 363 x10^3/uL (140-400) 289 x10^3/uL (140-400) Neutrophils (%) (Auto) 75 % (31-73) 78 % (31-73) Lymphocytes (%) (Auto) 15 % (24-48) 12 % (24-48) Monocytes (%) (Auto) 10 % (0-9) 9 % (0-9) Eosinophils (%) (Auto) 0 % (0-3) 0 % (0-3) Basophils (%) (Auto) 0 % (0-3) 1 % (0-3) Neutrophils # (Auto) 5.0 x10^3/uL (1.8-7.7) 5.0 x10^3/uL (1.8-7.7) Lymphocytes # (Auto) 1.0 x10^3/uL (1.0-4.8) 0.8 x10^3/uL (1.0-4.8) Monocytes # (Auto) 0.6 x10^3/uL (0.0-1.1) 0.6 x10^3/uL (0.0-1.1) Eosinophils # (Auto) 0.0 x10^3/uL (0.0-0.7) 0.0 x10^3/uL (0.0-0.7) Basophils # (Auto) 0.0 x10^3/uL (0.0-0.2) 0.0 x10^3/uL (0.0-0.2) Prothrombin Time 12.9 SEC (11.7-14.0) Prothromb Time International Ratio 1.0 (0.8-1.1) Activated Partial Thromboplast Time 29 SEC (24-38) Sodium Level 137 mmol/L (136-145) Potassium Level 3.3 mmol/L (3.5-5.1) Chloride Level 99 mmol/L (98-107) Carbon Dioxide Level 29 mmol/L (21-32) Anion Gap 9 (6-14) Blood Urea Nitrogen 11 mg/dL (7-20) Creatinine 0.8 mg/dL (0.6-1.0) Estimated GFR (Cockcroft-Gault) 77.9 BUN/Creatinine Ratio 14 (6-20) Glucose Level 120 mg/dL (70-99) Lactic Acid Level 1.3 mmol/L (0.4-2.0) Calcium Level 9.2 mg/dL (8.5-10.1) Total Bilirubin 0.5 mg/dL (0.2-1.0) Aspartate Amino Transf (AST/SGOT) 16 U/L (15-37) Alanine Aminotransferase (ALT/SGPT) 27 U/L (14-59) Alkaline Phosphatase 157 U/L (46-116) Total Protein 7.6 g/dL (6.4-8.2) Albumin 3.2 g/dL (3.4-5.0) Albumin/Globulin Ratio 0.7 (1.0-1.7) Procalcitonin < 0.10 ng/mL (0.00-0.10) SARS-CoV-2 Antigen (Rapid) Negative (NEGATIVE) Problem List Problems Medical Problems: (1) Abscess of right buttock Status: Acute (2) Cellulitis of right buttock Status: Acute Assessment/Plan Right perirectal abscess status post incision and drainage with packing. Consult wound care for daily packing changes and wound care Justicifation of Admission Dx: Justifications for Admission: Justification of Admission Dx: Yes Cellulitis: Cellulitis DENISSE WATKINS MD Nov 22, 2019 09:13
[2019-11-22 11:00] VITALS: BP 108/54
--- NOTE | 2019-11-22 12:02 | PDOC ---
GENERAL General: Patient examined chart reviewed today's hospital day 3 for this patient with ri ght buttock abscess status post surgical debridement. General surgery assistance is appreciated. She tells me that her pain is much improved since surgery though still higher than her baseline pain. She does follow with pain management at [facility] and needs some hydrocodone daily to function. She has lumbar spinal stenosis by her report. Her home medication list does not reflect this but nursing tells me that needs to be updated. We will change her intravenous pain meds to oral patient is agreeable to that plan. Continue IV antibiotics. Cultures are negative to date surgical cultures are pending. She will need significant support for her dressings wound nurse consult is pending. She may also benefit from home health nursing. Depending on her progress we could even consider discharge home with home health nursing for wound care as long as they could see her over the weekend. Continue current management otherwise Problems: (1) Abscess of right buttock VITAL SIGNS Vital Signs/I&O: Vital Signs Date Time Temp Pulse Resp B/P (MAP) Pulse Ox O2 Delivery O2 Flow Rate FiO2 11/22/19 11:00 98.1 90 18 108/54 (72) 95 Room Air 98.1 11/21/19 15:30 2.0 I & O 11/21/19 11/21/19 11/22/19 15:00 23:00 07:00 Intake Total 1050 ml 850 ml 900 ml Output Total 30 ml Balance 1020 ml 850 ml 900 ml In general the patient is pleasant alert and oriented x3 no acute distress HEENT exam is unremarkable Chest is clear to auscultation Heart S1-S2 normal regular rate and rhythm no murmurs or gallops are noted Abdomen soft nontender nondistended no masses organomegaly noted Buttock wound dressing is dry clean and intact Extremity exam is unremarkable for acute abnormality ALLERGIES Allergies: Allergies Coded Allergies Type Severity Reaction Last Updated Verified Latex, Natural Rubber Allergy Intermediate RASH 10/29/18 Yes adhesive tape Allergy Intermediate Rash 10/29/18 Yes amoxicillin Adverse Reaction Intermediate 10/29/18 Yes formoterol Adverse Reaction Intermediate 10/29/18 Yes mometasone furoate Adverse Reaction Intermediate 10/29/18 Yes varenicline Adverse Reaction Intermediate 10/29/18 Yes MEDS Medications: Current Medications Medications (Trade) Dose Ordered Sig/Eric Start Time Stop Time Status Last Admin Dose Admin Acetaminophen (Tylenol) 650 mg PRN Q4HRS PRN 11/20/19 16:00 Albuterol Sulfate (Ventolin Neb Soln) 2.5 mg PRN Q4HRS PRN 11/22/19 08:15 Budesonide (Pulmicort) 0.5 mg RTBID 11/20/19 20:00 11/22/19 07:30 Bupivacaine HCl/ Epinephrine Bitart (Sensorcain-Epi 0.5%-1:910071 Mpf) 30 ml STK-MED ONCE 11/21/19 07:43 11/21/19 07:43 DC 11/21/19 08:44 Cellulose (Surgicel Hemostat 4x8) 1 each STK-MED ONCE 11/21/19 08:54 11/21/19 08:54 DC 11/21/19 08:44 Clonidine HCl (Catapres) 0.1 mg PRN Q6HRS PRN 11/20/19 16:00 Dexamethasone Sodium Phosphate (Decadron) 4 mg STK-MED ONCE 11/21/19 08:50 11/21/19 08:50 DC Diphenhydramine HCl (Benadryl) 25 mg PRN Q4HRS PRN 11/20/19 16:00 11/22/19 05:26 Docusate Sodium (Colace) 100 mg PRN BID PRN 11/20/19 16:00 11/21/19 10:47 Duloxetine HCl (Cymbalta) 30 mg DAILY 11/21/19 09:00 11/22/19 09:08 Enoxaparin Sodium (Lovenox 40mg Syringe) 40 mg Q24H 11/20/19 17:00 11/21/19 17:59 Fentanyl Citrate (Fentanyl 2ml Vial) 100 mcg STK-MED ONCE 11/21/19 09:05 11/21/19 09:06 DC Guaifenesin (Robitussin) 200 mg PRN Q4HRS PRN 11/20/19 16:00 Hydromorphone HCl (Dilaudid) 2 mg STK-MED ONCE 11/21/19 09:37 11/21/19 09:37 DC Ibuprofen (Motrin) 800 mg 1X ONCE 11/20/19 12:45 11/20/19 12:51 DC 11/20/19 12:59 Info (CONTRAST GIVEN -- Rx MONITORING) 1 each PRN DAILY PRN 11/20/19 13:30 11/22/19 13:29 Iohexol (Omnipaque 300 Mg/ml) 75 ml 1X ONCE 11/20/19 13:30 11/20/19 13:31 DC 11/20/19 13:49 Lidocaine HCl (Lidocaine Pf 2% Vial) 5 ml STK-MED ONCE 11/21/19 08:49 11/21/19 08:50 DC Lorazepam (Ativan) 0.5 mg PRN BID PRN 11/22/19 11:45 Midazolam HCl (Versed) 2 mg STK-MED ONCE 11/21/19 08:13 11/21/19 08:13 DC Morphine Sulfate (Morphine Sulfate) 2 mg STK-MED ONCE 11/21/19 09:24 11/21/19 09:24 DC Nitrofurantoin Macrocrystals (Macrobid) 100 mg BID 11/20/19 21:00 11/20/19 15:52 DC Non-Formulary Medication (Albuterol Sulfate (Albuterol Sulfate Hfa Inhaler)) 8.5 gm DAILY 11/21/19 09:00 UNV Non-Formulary Medication (Suvorexant (Belsomra)) 10 mg HS 11/20/19 21:00 11/21/19 07:15 DC Ondansetron HCl (Zofran) 4 mg STK-MED ONCE 11/21/19 08:49 11/21/19 08:50 DC Oxycodone HCl (Roxicodone) 5 mg PRN Q4HRS PRN 11/22/19 11:45 Pantoprazole Sodium (Protonix) 40 mg DAILYAC 11/21/19 07:30 11/22/19 05:28 Piperacillin Sod/ Tazobactam Sod 3.375 gm/Sodium Chloride 50 ml @ 100 mls/hr 1X ONCE 11/20/19 16:00 11/20/19 16:29 DC 11/20/19 16:21 Prazosin HCl (Minipress) 4 mg QHS 11/20/19 21:00 11/21/19 20:20 Prochlorperazine Edisylate (Compazine) 5 mg PACU PRN PRN 11/21/19 07:00 11/22/19 07:00 DC Progesterone (Prometrium) 100 mg QHS 11/20/19 21:00 11/21/19 20:20 Propofol (Diprivan) 200 mg STK-MED ONCE 11/21/19 08:49 11/21/19 08:50 DC Ringer's Solution 1,000 ml @ 30 mls/hr Q24H 11/21/19 06:56 11/21/19 18:55 DC Sevoflurane (Ultane) 30 ml STK-MED ONCE 11/21/19 08:50 11/21/19 08:50 DC Sodium Chloride 1,000 ml @ 75 mls/hr [id number] 11/20/19 15:46 11/22/19 09:11 Zolpidem Tartrate (Ambien) 5 mg PRN QHS PRN 11/20/19 16:00 11/21/19 20:26 ASSESSMENT & PLAN A&P Plan as noted above This note was created using [employer] and may have omissions and/or errors due to the nature of real-time voice rotary kiln operator. Justifications for Admission Other Justification CHARLOTTE CONNORS MD Nov 22, 2019 12:02
[2019-11-22] MEDS: oxyCODONE IR 5 MG TABLET PO PRN ×2 (12:13→18:17)
[2019-11-22 15:00] VITALS: BP 105/65
[2019-11-22] MEDS: DOCUSATE SODIUM 100 MG CAPSULE. PO PRN (17:29)
[2019-11-22] MEDS: ENOXAPARIN 40 MG/0.4 ML SYRINGE. SQ SCH (17:30)
[2019-11-22] MEDS: ACETAMINOPHEN 325 MG TABLET. PO PRN (18:16)
[2019-11-22 19:09] VITALS: BP 148/81
[2019-11-22] MEDS: PROGESTERONE, MICRONIZED 100 MG CAPSULE PO SCH (20:18)
[2019-11-22] MEDS: PRAZOSIN 1 MG CAPSULE. PO SCH (20:18)
[2019-11-22] MEDS: ZOLPIDEM 5 MG TABLET. PO PRN (20:42)
[2019-11-22 22:47] VITALS: BP 129/78
[2019-11-23] VITALS (9 sets, daily range): BP systolic 84–154; BP diastolic 44–93
[2019-11-23] MEDS: oxyCODONE IR 5 MG TABLET PO PRN ×5 (00:14→22:12)
[2019-11-23] MEDS: diphenhydrAMINE 50 MG/ML VIAL IVP PRN ×2 (02:38→19:10)
[2019-11-23] MEDS: ACETAMINOPHEN 325 MG TABLET. PO PRN ×3 (02:43→16:17)
[2019-11-23] MEDS: PANTOPRAZOLE 40 MG TABLET.DR. PO SCH (05:43)
[2019-11-23] MEDS: PIPERACILLIN/TAZOBACTAM 3.375 GM in IV NORMAL SALINE 50ML 50 ML IV SCH ×3 (05:43→19:11)
[2019-11-23] MEDS: BUDESONIDE 0.5 MG/2 ML NEBU. NEB SCH ×2 (07:54→20:00)
[2019-11-23 08:18] LABS: BASO % 0 % (0-3); EOS % 1 % (0-3); HEMATOCRIT 29.9 % (36.0-47.0); HEMOGLOBIN 10.3 g/dL (12.0-15.5); LYMPH # 1.2 x10^3/uL (1.0-4.8); LYMPH % 23 % (24-48); MEAN CORPUSCULAR HEMOGLOBIN 33 pg (25-35); MEAN CORPUSCULAR HGB CONC 34 g/dL (31-37); MEAN CORPUSCULAR VOLUME 96 fL (79-100); MONO # 0.5 x10^3/uL (0.0-1.1); MONO % 10 % (0-9); NEUT # 3.5 x10^3/uL (1.8-7.7); NEUT % 66 % (31-73); PLATELET COUNT 281 x10^3/uL (140-400); RED BLOOD COUNT 3.13 x10^6/uL (3.50-5.40); WHITE BLOOD COUNT 5.3 x10^3/uL (4.0-11.0)
[2019-11-23 08:34] LABS: ALBUMIN 2.1 g/dL (3.4-5.0); ALBUMIN/GLOBULIN RATIO 0.7 (1.0-1.7); CALCIUM 7.9 mg/dL (8.5-10.1); CREATININE 0.8 mg/dL (0.6-1.0); GFR 77.9; POTASSIUM 3.4 mmol/L (3.5-5.1); TOTAL BILIRUBIN 0.3 mg/dL (0.2-1.0); TOTAL PROTEIN 5.3 g/dL (6.4-8.2)
[2019-11-23] MEDS: DOCUSATE SODIUM 100 MG CAPSULE. PO PRN (09:17)
[2019-11-23] MEDS: DULoxetine HCL 30 MG CAPSULE.DR PO SCH (09:17)
[2019-11-23] MEDS ORDERED: IV NORMAL SALINE 500ML BAG 500 ML IV ONE (09:30)
[2019-11-23] MEDS: IV NORMAL SALINE 1000ML BAG 1,000 ML IV SCH ×2 (12:14→20:50)
--- NOTE | 2019-11-23 13:27 | PDOC ---
GENERAL General: Patient examined chart reviewed she is feeling little stronger today. She is looking forward to being able to discharge. Plan is for wound nurse consult tomorrow morning and then home with home health to help with wound management if she and her family do not feel that they can handle the dressing needs. She can also follow-up with outpatient wound management. Continue current management otherwise. Problems: (1) Abscess of right buttock VITAL SIGNS Vital Signs/I&O: Vital Signs Date Time Temp Pulse Resp B/P (MAP) Pulse Ox O2 Delivery O2 Flow Rate FiO2 11/23/19 12:17 93 Room Air 2.0 11/23/19 11:00 98.8 79 18 113/66 (82) 98.8 I & O 11/22/19 11/22/19 11/23/19 15:00 23:00 07:00 Intake Total 150 ml 1250 ml 500 ml Balance 150 ml 1250 ml 500 ml In general the patient is pleasant alert and oriented x3 no acute distress HEENT exam is unremarkable Chest is clear to auscultation Heart S1-S2 normal regular rate and rhythm no murmurs or gallops are noted Abdomen soft nontender nondistended no masses organomegaly noted Extremity exam is unremarkable for acute abnormality ALLERGIES Allergies: Allergies Coded Allergies Type Severity Reaction Last Updated Verified Latex, Natural Rubber Allergy Intermediate RASH 10/29/18 Yes adhesive tape Allergy Intermediate Rash 10/29/18 Yes amoxicillin Adverse Reaction Intermediate 10/29/18 Yes formoterol Adverse Reaction Intermediate 10/29/18 Yes mometasone furoate Adverse Reaction Intermediate 10/29/18 Yes varenicline Adverse Reaction Intermediate 10/29/18 Yes MEDS Medications: Current Medications Medications (Trade) Dose Ordered Sig/Eric Route PRN Reason Start Time Stop Time Status Last Admin Dose Admin Sodium Chloride 500 ml @ 500 mls/hr 1X ONCE IV 11/23/19 09:30 11/23/19 10:29 DC 11/23/19 09:30 LAB Lab: Laboratory Tests Test 11/23/19 06:45 White Blood Count 5.3 x10^3/uL (4.0-11.0) Red Blood Count 3.13 x10^6/uL (3.50-5.40) L Hemoglobin 10.3 g/dL (12.0-15.5) L Hematocrit 29.9 % (36.0-47.0) L Mean Corpuscular Volume 96 fL (79-100) Mean Corpuscular Hemoglobin 33 pg (25-35) Mean Corpuscular Hemoglobin Concent 34 g/dL (31-37) Red Cell Distribution Width 15.0 % (11.5-14.5) H Platelet Count 281 x10^3/uL (140-400) Neutrophils (%) (Auto) 66 % (31-73) Lymphocytes (%) (Auto) 23 % (24-48) L Monocytes (%) (Auto) 10 % (0-9) H Eosinophils (%) (Auto) 1 % (0-3) Basophils (%) (Auto) 0 % (0-3) Neutrophils # (Auto) 3.5 x10^3/uL (1.8-7.7) Lymphocytes # (Auto) 1.2 x10^3/uL (1.0-4.8) Monocytes # (Auto) 0.5 x10^3/uL (0.0-1.1) Eosinophils # (Auto) 0.0 x10^3/uL (0.0-0.7) Basophils # (Auto) 0.0 x10^3/uL (0.0-0.2) Sodium Level 140 mmol/L (136-145) Potassium Level 3.4 mmol/L (3.5-5.1) L Chloride Level 104 mmol/L (98-107) Carbon Dioxide Level 28 mmol/L (21-32) Anion Gap 8 (6-14) Blood Urea Nitrogen 10 mg/dL (7-20) Creatinine 0.8 mg/dL (0.6-1.0) Estimated GFR (Cockcroft-Gault) 77.9 BUN/Creatinine Ratio 13 (6-20) Glucose Level 117 mg/dL (70-99) H Calcium Level 7.9 mg/dL (8.5-10.1) L Total Bilirubin 0.3 mg/dL (0.2-1.0) Aspartate Amino Transferase (AST) 18 U/L (15-37) Alanine Aminotransferase (ALT) 17 U/L (14-59) Alkaline Phosphatase 81 U/L (46-116) Total Protein 5.3 g/dL (6.4-8.2) L Albumin 2.1 g/dL (3.4-5.0) L Albumin/Globulin Ratio 0.7 (1.0-1.7) L Laboratory Tests 11/23/19 06:45 Laboratory Tests 11/23/19 06:45 ASSESSMENT & PLAN A&P Plan as noted above This note was created using [employer] and may have omissions and/or errors due to the nature of real-time voice shared services and outsourcing manager. Justifications for Admission Other Justification CHARLOTTE CONNORS MD Nov 23, 2019 13:27
[2019-11-23] MEDS: ENOXAPARIN 40 MG/0.4 ML SYRINGE. SQ SCH (17:09)
[2019-11-23] MEDS: LACTOBACILLUS RHAMNOSUS GG 1 CAPSULE. PO SCH (20:50)
[2019-11-23] MEDS: ZOLPIDEM 5 MG TABLET. PO PRN (20:50)
[2019-11-23] MEDS: PRAZOSIN 1 MG CAPSULE. PO SCH (20:50)
[2019-11-23] MEDS: PROGESTERONE, MICRONIZED 100 MG CAPSULE PO SCH (20:50)
[2019-11-23] MEDS: LORazepam 0.5 MG TABLET PO PRN (20:50)
[2019-11-24] MEDS: PIPERACILLIN/TAZOBACTAM 3.375 GM in IV NORMAL SALINE 50ML 50 ML IV SCH ×4 (00:54→14:54)
[2019-11-24] MEDS: diphenhydrAMINE 50 MG/ML VIAL IVP PRN ×2 (00:56→05:21)
[2019-11-24] MEDS: ACETAMINOPHEN 325 MG TABLET. PO PRN (00:56)
[2019-11-24 03:00] VITALS: BP 116/80
[2019-11-24] MEDS: oxyCODONE IR 5 MG TABLET PO PRN ×3 (03:15→15:37)
[2019-11-24] MEDS: PANTOPRAZOLE 40 MG TABLET.DR. PO SCH (05:21)
[2019-11-24] MEDS: IV NORMAL SALINE 1000ML BAG 1,000 ML IV SCH ×2 (05:24→14:53)
[2019-11-24 07:00] VITALS: BP 144/88
[2019-11-24] MEDS: BUDESONIDE 0.5 MG/2 ML NEBU. NEB SCH (07:28)
--- NOTE | 2019-11-24 07:51 | NUR ---
IP: Pt is mrsa + in a perirectal abscess requiring contact precautions.
[2019-11-24] MEDS: LACTOBACILLUS RHAMNOSUS GG 1 CAPSULE. PO SCH (08:22)
[2019-11-24] MEDS: DULoxetine HCL 30 MG CAPSULE.DR PO SCH (08:23)
[2019-11-24] MEDS: LORazepam 0.5 MG TABLET PO PRN (08:23)
[2019-11-24] MEDS ORDERED: POTASSIUM CHLORIDE 20 MEQ TABLET.ER. PO ONE (08:45)
--- NOTE | 2019-11-24 09:14 | PDOC ---
SURGICAL PROGRESS NOTE DATE: 11/24/19 TIME: 09:12 Subjective still with pain Vital Signs Vital Signs Date Time Temp Pulse Resp B/P (MAP) Pulse Ox O2 Delivery O2 Flow Rate FiO2 11/24/19 08:00 Room Air 11/24/19 07:31 97 11/24/19 07:00 98.4 86 20 144/88 (106) 98.4 11/23/19 19:35 2.0 I&O Intake and Output 11/24/19 06:59 Intake Total 850 ml Balance 850 ml Intake Oral 850 ml # Voids 2 General: Alert, Oriented X3, Cooperative Skin: Other (wound with packing, some drainage ) Labs Laboratory Tests Test 11/23/19 06:45 White Blood Count 5.3 x10^3/uL (4.0-11.0) Red Blood Count 3.13 x10^6/uL (3.50-5.40) Hemoglobin 10.3 g/dL (12.0-15.5) Hematocrit 29.9 % (36.0-47.0) Mean Corpuscular Volume 96 fL (79-100) Mean Corpuscular Hemoglobin 33 pg (25-35) Mean Corpuscular Hemoglobin Concent 34 g/dL (31-37) Red Cell Distribution Width 15.0 % (11.5-14.5) Platelet Count 281 x10^3/uL (140-400) Neutrophils (%) (Auto) 66 % (31-73) Lymphocytes (%) (Auto) 23 % (24-48) Monocytes (%) (Auto) 10 % (0-9) Eosinophils (%) (Auto) 1 % (0-3) Basophils (%) (Auto) 0 % (0-3) Neutrophils # (Auto) 3.5 x10^3/uL (1.8-7.7) Lymphocytes # (Auto) 1.2 x10^3/uL (1.0-4.8) Monocytes # (Auto) 0.5 x10^3/uL (0.0-1.1) Eosinophils # (Auto) 0.0 x10^3/uL (0.0-0.7) Basophils # (Auto) 0.0 x10^3/uL (0.0-0.2) Sodium Level 140 mmol/L (136-145) Potassium Level 3.4 mmol/L (3.5-5.1) Chloride Level 104 mmol/L (98-107) Carbon Dioxide Level 28 mmol/L (21-32) Anion Gap 8 (6-14) Blood Urea Nitrogen 10 mg/dL (7-20) Creatinine 0.8 mg/dL (0.6-1.0) Estimated GFR (Cockcroft-Gault) 77.9 BUN/Creatinine Ratio 13 (6-20) Glucose Level 117 mg/dL (70-99) Calcium Level 7.9 mg/dL (8.5-10.1) Total Bilirubin 0.3 mg/dL (0.2-1.0) Aspartate Amino Transf (AST/SGOT) 18 U/L (15-37) Alanine Aminotransferase (ALT/SGPT) 17 U/L (14-59) Alkaline Phosphatase 81 U/L (46-116) Total Protein 5.3 g/dL (6.4-8.2) Albumin 2.1 g/dL (3.4-5.0) Albumin/Globulin Ratio 0.7 (1.0-1.7) Problem List Problems Medical Problems: (1) Abscess of right buttock Status: Acute (2) Cellulitis of right buttock Status: Acute Assessment/Plan s/p I&D wound care to see, continue packing, abx stable surgically Justicifation of Admission Dx: Justifications for Admission: Justification of Admission Dx: Yes Cellulitis: Cellulitis MARYJANE CHINO [employer] SPECIALIST Nov 24, 2019 09:14
[2019-11-24] MEDS ORDERED: MULTIVITAMIN with MINERAL TABLET. PO SCH (10:00)
[2019-11-24 11:00] VITALS: BP 128/71
--- NOTE | 2019-11-24 11:42 | NUR ---
DEENA following. Discussed with RN, pt from home with family, room air, regular diet. Wound care to see pt today, to provide teaching and determine wound care at home. Pt having IV terin q6. DEENA will continue to follow. Possibility of home health vs outpatient wound care. Addendum: 11/24/19 at 1243 by LESLEY SHAFFER Discharge order for home with home health. RN contacted DEENA to advise pt does not want home health at discharge - stated she doesn't need it. No further DEENA needs.
--- NOTE | 2019-11-24 12:04 | PDOC ---
[facility] [facility] PROGRESS NOTE Date of Service DOS: DATE: 11/24/19 TIME: 11:55 Chief Complaint Chief Complaint Sacral wound s/p Incision and drainage of perirectal abscess 11/21/19 History of COPD Tobacco abuse who quit approximately 10 years ago History of bipolar disorder History of generalized anxiety disorder History of interstitial cystitis currently being followed up in the outpatient setting by urogynecology History of Present Illness History of Present Illness 11/24/2019 Patient was laying in bed LEFT lateral recumbent, NAD. Post-op day 4 of sacral wound s/p I&D. Awaiting wound care consult this AM. Discussed with RN and CM. HPI: 44-year-old female with past medical history of depression bipolar disorder and anxiety who also suffers from interstitial cystitis who was in her usual state of health until approximately 1 week prior to her admission when she presented what she thought it was a bump in her right buttock. The patient subsequently was seen by her uro-legal analyst and also by her primary care physician on Sunday and advised to start an antibiotic. The patient unfortunately has had progression of her symptoms with pain over the affected area and now experiencing fever and chills at home. She called her primary care physician who advised her to come to the emergency department for further evaluation and treatment. Vitals/I&O Vitals/I&O: Vital Signs Date Time Temp Pulse Resp B/P (MAP) Pulse Ox O2 Delivery O2 Flow Rate FiO2 11/24/19 11:00 98.2 76 20 128/71 (90) 100 Room Air 98.2 11/23/19 19:35 2.0 I & O 11/23/19 11/23/19 11/24/19 15:00 23:00 07:00 Intake Total 350 ml 200 ml 300 ml Balance 350 ml 200 ml 300 ml Physical Exam Physical Exam: GEN: No apparent distress. Alert and oriented HEENT: Normal cephalic, atraumatic, external auditory canals are patent NECK: Supple, no JVD, no thyromegaly was noted LUNGS: Bilateral clear HEART: RRR, S1, S2 present. Peripheral pulses intact, no obvious murmurs noted ABDOMEN: Soft, appropriate tender to palpation. Dressings are clear dry and intact positive bowel sounds, no organomegaly, normal bowel sounds EXTREMITIES: Without clubbing, cyanosis, or edema. Pedal pulses intact. Negative Homans sign General: Alert, Oriented X3, Cooperative Heart: Regular rate, No murmurs Lungs: Clear, Crackles Abdomen: Normal bowel sounds, Soft, No tenderness, Other (Large perirectal inflammation tenderness to palpation erythema) Extremities: No edema Skin: Other (wound with packing, some drainage ) Review of Systems Review of Systems: Denies SOB. Denies N/V. Assessment and Plan Assessmemt and Plan Problems Medical Problems: (1) Abscess of right buttock Status: Acute (2) Cellulitis of right buttock Status: Acute Assessment: 1) Sacral wound s/p I&D of perirectal abscess 11/21/19 2) Hx COPD 3) Tobacco abuse who quit approximately 10 years ago 4) Hx bipolar disorder 5) Hx generalized anxiety disorder 6) Hx interstitial cystitis currently being followed up in the outpatient setting by urogynecology Plan: Broad-spectrum Abx. PO Potassium. Follow-up with surgical recommendations. DVT prophylaxis with Lovenox Awaiting wound care consult. D/C home with home health for wound management. Comment Review of Relevant I have reviewed the following items kasandra (where applicable) has been applied. Medications: Current Medications Medications (Trade) Dose Ordered Sig/Eric Route PRN Reason Start Time Stop Time Status Last Admin Dose Admin Lactobacillus Rhamnosus (Culturelle) 1 cap BID PO 11/23/19 21:00 11/24/19 08:22 Potassium Chloride (Klor-Con) 40 meq 1X ONCE PO 11/24/19 08:45 11/24/19 08:46 DC 11/24/19 10:17 Multivitamins (Thera M Plus) 1 tab DAILY PO 11/24/19 10:00 11/24/19 10:17 Justifications for Admission Other Justification ZOHRA ZAMORA III DO Nov 24, 2019 12:04
--- NOTE | 2019-11-24 12:12 | SNU/HH DC ---
DISCHARGE WITH HOME HEALTH DISCHARGE INFORMATION: Final Diagnosis: Problems Medical Problems: (1) Abscess of right buttock Status: Acute (2) Cellulitis of right buttock Status: Acute Condition on Discharge: Stable CODE STATUS: Code Status: Full HOME HEALTH: Face to Face: I certify this patient is under my care and that I, or a nurse practitioner or physician's plastic surgery assistant working with me, had a face to face encounter that meets the physician face to face encounter requirements with this patient on []. Medical Complications: Other (Postop I&D buttock wound) Jail For: Assess & Educate Safety RN For Eval/Treatment: Yes Physical Therapy For: Evalulation/Treatment Occupational Therapy For: Evaluation/Treatment Home Health Aide For: Self-care RN STARS For: Community Resources Pt Meets Homebound Status: Poor coordination w/ amb. POST DISCHARGE ORDERS: Activity Instructions for Disc: Activity as tolerated Weight Bearing Status after Di: As tolerated DIET AFTER DISCHARGE: Cardiac Wound/Incision Care: Ice to area for comfort TREATMENT/EQUIPMENT ORDERS: Discharge Respiratory Equipmen: Oxygen CERTIFICATION STATEMENT: Certification Statement: Certification Statement: Based on the above finding, I certify that this patient is confined to the home and needs intermittent long term care, physical therapy and/or speech therapy, or continues to need occupational therapy.~ This patient is under my care, and I have initiated the establishment of the plan of care.~ This patient will be followed by myself or a community physician who will periodically review the plan of care. Home Meds Active Scripts Nitrofurantoin Monohyd/M-Cryst (MACROBID 100 MG CAPSULE) 100 Mg Capsule, 1 CAP PO BID for UTI for 7 Days, #14 CAP 0 Refills Prov:DENISSE MENDES MD 10/02/19 Acetaminophen (TYLENOL) 325 Mg Tablet, 650 MG PO PRN Q6HRS PRN for MILD PAIN / TEMP > 100.3'F for 10 Days, #30 TAB Prov:DENISSE MENDES MD 10/02/19 Reported Medications Prazosin Hcl (PRAZOSIN HCL) 2 Mg Capsule, 2 CAP PO QHS for anxiety, #30 CAP 2 Refills 09/29/19 Suvorexant (Belsomra) 10 Mg Tablet, 10 MG PO HS for unknown, TAB 09/29/19 Progesterone,Micronized (PROGESTERONE) 100 Mg Capsule, 1 CAP PO QHS for hormone replacement for 30 Days, #30 CAP 0 Refills 09/29/19 Duloxetine Hcl (CYMBALTA) 30 Mg Capsule.dr, 1 CAP PO DAILY for depression, #30 CAP 5 Refills 09/29/19 Pantoprazole Sodium (PROTONIX ) 40 Mg Tablet.dr, 40 MG PO DAILYAC for GERD, TAB 10/29/18 Budesonide/Formoterol Fumarate (SYMBICORT 160-4.5 MCG INHALER) 10.2 Gm Hfa.aer.ad, 2 PUFF IH BID, #10.6 GM 3 Refills 11/14/16 Albuterol Sulfate (ALBUTEROL SULFATE HFA INHALER) 8.5 Gm Hfa.aer.ad, 8.5 GM IH DAILY 02/28/13 ZOHRA ZAMORA III DO Nov 24, 2019 12:11
[2019-11-24] MEDS: ENOXAPARIN 40 MG/0.4 ML SYRINGE. SQ SCH (14:54)
[2019-11-24 15:00] VITALS: BP 132/80
--- NOTE | 2019-11-24 15:50 | NUR ---
Discharge Note: NARCISA ALCAZAR TANGIPAHOA Discharge instructions and discharge home medications reviewed with Patient and a copy given. All questions have been answered and understanding verbalized. The following instructions and handouts were given: information about wound care, medications, follow up appointments, etc. Discontinued lines and drains: IV line in left AC removed, catheter tip intact. Patient discharged to home with self care with , wheelchair used for mobility to discharge vehicle.
--- NOTE | 2019-11-24 15:50 | NUR ---
Wound Care Wound Type/Assessment: R medial gluteal abscess s/p surgical I&D. Packing removed, at bedside to observe, as he will be her primary caregiver/dressing changer. Wound bed is pink, shiny, sloughy, with two extensive tunnels. Using a sterile cotton tipped applicator, showed where tunnels are located. Wound cleaned/flushed with saline wash, repacked with 1/4" plain packing strip, as Iodoform packing was not available at the bedside. Tunnels and wound bed packed, tail left extending out of wound, covered with ABD and tape, pt tolerated well. Treatment Recommendations/Plan: Cleanse wound, pack with 1/2" Iodoform packing strip, cover with ABD and tape, change once daily. Iodoform packing ordered from [facility] and given to pt's for home dressing changes. Education provided: to pt and re: s/sx of infection, correct packing technique and dressing changes, nutrition, and keeping wound clean, no baths or shower water into wound bed. Offloading surface/device: turning side to side, minimal sitting upright. Recommended Referrals/Tests: follow up with surgeon as scheduled, and also provided pt with Wound Clinic contact information, if she would like to follow up with us. Discharge Recommendations for dressings: See treatment plan above.
--- NOTE | 2019-11-24 16:17 | DS ---
DATE OF DISCHARGE: 11/24/2019 ADMISSION DIAGNOSIS: Right buttock abscess. DISCHARGE DIAGNOSIS: Postoperative incision and drainage of right buttock abscess. HOSPITAL COURSE: The patient is a pleasant 44-year-old female who presented with a right buttock abscess. We admitted the patient, consulted General Surgery. She was taken for I and D. Today, her cultures did grow MRSA that was sensitive to Bactrim and we called in a prescription for Bactrim and discharged to home with home health. DISPOSITION: Home with home health. ACTIVITY: As tolerated. DIET: Low sodium. MEDICATIONS: Please see the MRAD. TOTAL TIME: 34 minutes. ZOHRA ZAMORA DO DR: IKER/suki JOB#: [id number] / [id number]
== END 2019-11-24 15:50 | disposition home health service (06) | DRG 345 ==
LOC: ER 11:32 → ED HOLD 16:16 → 4 NORTH 20:31
PROVIDERS: ADMIT Internal Medicine; ATTEND Internal Medicine
PROC: 0D9P0ZZ Drainage of Rectum, Open Approach (ICD-10-PCS; principal; 2019-11-21 08:30)
DX: K61.1 Rectal abscess (principal); L02.31 Cutaneous abscess of buttock; L03.317 Cellulitis of buttock; F31.9 Bipolar disorder, unspecified; F41.1 Generalized anxiety disorder; J44.9 Chronic obstructive pulmonary disease, unspecified; K62.89 Other specified diseases of anus and rectum; N30.10 Interstitial cystitis (chronic) without hematuria; Z87.891 Personal history of nicotine dependence; Z90.710 Acquired absence of both cervix and uterus; G89.29 Other chronic pain; F41.9 Anxiety disorder, unspecified; K52.9 Noninfective gastroenteritis and colitis, unspecified; Z20.828 Contact with and (suspected) exposure to other viral communicable diseases; Z79.899 Other long term (current) drug therapy
CPT/HCPCS: 36415; 72193; 80053; 83605; 84145; 85025; 85610; 85730; 87040; 87071; 87075; 87426; 94640; 94760; 96361; 96365; 96372; 96375; 99285; A7015; J1100; J1170; J1200; J1650; J2250; J2270; J2405; J2543; J2704; J3010; J7030; J7040; Q9967; A4461; G0378; J7626; U0003-CS

== ENCOUNTER → 2019-12-23 | Outpatient (CLI) | payer BC ==
[2019-11-24 15:00] VITALS: BP 132/80
[~2019-12-23] MED LIST changes: +CONTRAST GIVEN. MC PRN; +IOHEXOL 350 MG/ML 100 ML VIAL. IV ONE
--- NOTE | 2019-12-23 14:53 | RAD ---
CT angiography of the chest 12/23/2019 2:27 PM Indication: Dyspnea. Technique: Multiple contiguous axial images were obtained through the chest after administration of intravenous iodinated contrast. Coronal, sagittal, and 3-D MIP reformations were created. One or more of the following individualized dose reduction techniques were utilized for this examination: 1. Automated exposure control 2. Adjustment of the mA and/or kV according to patient size 3. Use of iterative reconstruction technique Comparison: CT of the chest April 07, 2016. Findings: There is no filling defect within central pulmonary arteries or evidence of acute pulmonary embolism. Heart size is normal. No pericardial effusion is appreciated. No pathologically enlarged mediastinal lymph nodes are seen. There is no pneumothorax or pleural effusion. No acute infiltrates are seen. There is a 3 mm subpleural nodule in the left lower lobe (axial image 109). Limited visualization of the upper abdomen demonstrates no acute abnormality. No acute osseous abnormalities are appreciated. Impression: 1.No evidence of acute pulmonary embolism or other acute cardiopulmonary process 2. 3 mm noncalcified pulmonary nodule in the subpleural left lower lobe . Fleischner Society pulmonary nodule recommendations 2017, revision 4 SOLID NODULES Solitary solid nodule <6 mm (<100 mm3) low-risk patients: no routine follow-up required high-risk patients: optional CT at 12 months (particularly with suspicious nodule morphology and/or upper lobe location) Electronically signed by: Alessio Maza MD (12/23/2019 2:50 PM) [id number]
== END ==
LOC: CT 14:08
PROVIDERS: ATTEND Nurse Practitioner
DX: R79.89 Other specified abnormal findings of blood chemistry (principal); R91.1 Solitary pulmonary nodule; R06.00 Dyspnea, unspecified
CPT/HCPCS: 71275; Q9967

== ENCOUNTER 2020-03-22 11:08 | Emergency (ER) | payer BC ==
[~2020-03-22] VITALS: Ht 167.6 cm; Wt 82.9 kg
[~2020-03-22 11:08] MED LIST changes: -CONTRAST GIVEN. MC PRN; -IOHEXOL 350 MG/ML 100 ML VIAL. IV ONE
--- NOTE | 2020-03-22 11:20 | PHYS DOC ---
Past Medical History Past Medical History: Angina, Asthma, COPD, Depression, Pneumonia, UTI Additional Past Medical Histor: endometrosis, CHRONIC BACK PAIN,burcitis,sinus infeCTt;colitis Past Surgical History: Cholecystectomy, , Hysterectomy, Other Additional Past Surgical Histo: hernia repair x 3 Smoking Status: Former Smoker Alcohol Use: Occasionally Drug Use: None General Adult EDM: Chief Complaint: HALLUCINATIONS AUDIBLE/VISUAL HPI: HPI: Patient is a 44 year old female presents to the emergency department stating that her psychiatrist sent her here to be admitted to the psychiatric unit because they are out of beds at [facility]. Patient states that she has been having increased auditory and visual hallucinations over the past 2 months. Patient states her psychiatrist suspects that it might be because she drinks fireball daily and takes muscle relaxers at night. Patient states she has a longstanding history of bipolar depression and multiple other psychiatric problems that she has been dealing with most of her life. Patient states that her auditory and visual hallucinations have become worse and is starting to affect her relationship with her and has come into the ER today to be evaluated and admitted to the psychiatric unit. Patient denies homicidal or suicidal ideations. Review of Systems: Review of Systems: 14 body systems of review of systems have been reviewed. See HPI for pertinent positives and negative responses, otherwise all other systems are negative, nonpertinent or noncontributory. Heart Score: Risk Factors: Risk Factors: DM, Current or recent (<one month) smoker, HTN, HLP, family history of CAD, obesity. Risk Scores: Score 0 - 3: 2.5% MACE over next 6 weeks - Discharge Home Score 4 - 6: 20.3% MACE over next 6 weeks - Admit for Clinical Observation Score 7 - 10: 72.7% MACE over next 6 weeks - Early Invasive Strategies Current Medications: Patient reports taking prazosin 5 mg, Robaxin 750 mg, zaleplon 10 mg, duloxetine 30 mg, amlodipine 2.5 mg, calcium 333 mg, Warren 7.5/325 mg, fluoxetine 40 mg, Linzess 290 mcg, tizanidine 4 mg, spironolactone 100 mg, progesterone 200 mg, lorazepam 1 mg, Allergies: Allergies: Allergies Coded Allergies Type Severity Reaction Last Updated Verified Latex, Natural Rubber Allergy Intermediate RASH 10/29/18 Yes adhesive tape Allergy Intermediate Rash 10/29/18 Yes I S O L A T I O N *CONTACT* Allergy Unknown 11/24/19 Yes amoxicillin Adverse Reaction Intermediate 10/29/18 Yes formoterol Adverse Reaction Intermediate 10/29/18 Yes mometasone furoate Adverse Reaction Intermediate 10/29/18 Yes varenicline Adverse Reaction Intermediate 10/29/18 Yes Physical Exam: PE: Constitutional: Well developed, well nourished, no acute distress, non-toxic appearance. HENT: Normocephalic, atraumatic, bilateral external ears normal, oropharynx moist, no oral exudates, nose normal. Eyes: PERRLA, EOMI, conjunctiva normal, no discharge. Neck: Normal range of motion, no tenderness, supple, no stridor. Cardiovascular:Heart rate regular rhythm, no murmur Lungs & Thorax: Bilateral breath sounds clear to auscultation Abdomen: Bowel sounds normal, soft, no tenderness, no masses, no pulsatile masses. Skin: Warm, dry, no erythema, no rash. Back: No tenderness, no CVA tenderness. Extremities: No tenderness, no cyanosis, no clubbing, ROM intact, no edema. Neurologic: Alert and oriented X 3, normal motor function, normal sensory function, no focal deficits noted. Psychologic: Affect normal, judgement normal, mood normal. EKG: EKG: [] Radiology/Procedures: Radiology/Procedures: [] Course & Med Decision Making: Course & Med Decision Making Pertinent Labs and Imaging studies reviewed. (See chart for details) 44-year-old patient, vital signs stable, presents to the emergency department for evaluation of auditory hallucinations and visual hallucinations, reports was sent here by her primary psychiatrist because [facility] psych that are limited. And she should be admitted here at this hospital. A psychiatric ER work-up was initiated. PAT member Kwon in room to evaluate patient. Patient plan to go home and follow-up with psychiatric facility in the morning, has signed a safety plan with PAT member Kwon. Patient gave verbal understanding of discharge home instructions, return to ER precautions and concerns, follow-up with psychiatric facility tomorrow, patient had no further questions or concerns and was discharged home. Will follow up with [place] psychiatric facility tomorrow. Dannie Disclaimer: Dannie Disclaimer: This electronic medical record was generated, in whole or in part, using a voice recognition dictation system. Departure Departure Impression: Primary Impression: Hallucinations Additional Impressions: Hallucinations, visual Auditory hallucinations Disposition: 01 DC HOME SELF CARE/HOMELESS Condition: IMPROVED Referrals: LESLIE FREED (PCP) Additional Instructions: Please maintain your safety plan, follow-up with [facility] tomorrow, return to the emergency department for worsening symptoms or other concerns. EMERGENCY DEPARTMENT GENERAL DISCHARGE INSTRUCTIONS Thank you for coming to [facility] Emergency Department (ED) today and trusting us with you care. We trust that you had a positive experience in our Emergency Department. If you wish to speak to the department management, you may call the Director at [phone]. YOUR FOLLOW UP INSTRUCTIONS ARE FOLLOWS: 1. Do you have a private Doctor? If you do not have a private doctor, please ask for a resource list of physicians or clinics that may be able to assist you with follow up care. 2. The Emergency Physicain has interpreted your x-rays. The X-Ray specialist will also review them. If there is a change in the findings, you will be notified in 48 hours when at all possible. 3. A lab test or culture has been done, your results will be reviewed and you will be notified if you need a change in treatment. ADDITIONAL INSTRUCTIONS AND INFORMATION: 1. Your care today has been supervised by a physician who is specially trained in emergency care. Many problems require more than one evaluation for a complete diagnosis and treatment. We recommend that you schedule your follow up appointment as recommended to ensure complete treatment of you illness or injury. If you are unable to obtain follow up care and continue to have a problem, or if your condition worsens, we recommend that you return to the ED. 2. We are not able to safely determine your condition over the phone nor are we able to give sound medical advice over the phone. For these safety reasons, if you call for medical advice we will ask you to come to the ED for further evaluation. 3. If you have any questions regarding these discharge instructions please call the ED at [phone]. SAFETY INFORMATION: In the interest of safety, wellness, and injury prevention; we encourage you to wear your sealbelt, if you smoke; quite smoking, and we encourage family to use a protective helmet for bicycling and other sporting events that present an increased risk for head injury. IF YOUR SYMPTOMS WORSEN OR NEW SYMPTOMS DEVELOP, OR YOU HAVE CONCERNS ABOUT YOUR CONDITION; OR IF YOUR CONDITION WORSENS WHILE YOU ARE WAITING FOR YOUR FOLLOW UP APPOINTMENT; EITHER CONTACT YOUR PRIMARY CARE DOCTOR, THE PHYSICIAN WHOSE NAME AND NUMBER YOU WERE GIVEN, OR RETURN TO THE ED IMMEDIATELY. YVON DAVIS APRN Mar 22, 2020 11:20
[2020-03-22 11:58] LABS: BILIRUBIN,URINE NEGATIVE (NEG); CLARITY,URINE CLEAR; COLOR,URINE YELLOW; NITRITE,URINE NEGATIVE (NEG); PROTEIN,URINE NEGATIVE (NEG-TRACE); UROBILINOGEN,URINE 0.2 mg/dL (0.2 mg/dL)
[2020-03-22 11:59] LABS: BASO # 0.1 x10^3/uL (0.0-0.2); BASO % 1 % (0-3); EOS # 0.1 x10^3/uL (0.0-0.7); EOS % 2 % (0-3); HEMATOCRIT 41.3 % (36.0-47.0); HEMOGLOBIN 13.9 g/dL (12.0-15.5); LYMPH % 35 % (24-48); MEAN CORPUSCULAR HEMOGLOBIN 31 pg (25-35); MEAN CORPUSCULAR HGB CONC 34 g/dL (31-37); MEAN CORPUSCULAR VOLUME 93 fL (79-100); MONO # 0.6 x10^3/uL (0.0-1.1); MONO % 11 % (0-9); NEUT % 52 % (31-73); PLATELET COUNT 306 x10^3/uL (140-400); RED BLOOD COUNT 4.42 x10^6/uL (3.50-5.40); RED CELL DISTRIBUTION WIDTH 14.9 % (11.5-14.5); WHITE BLOOD COUNT 5.8 x10^3/uL (4.0-11.0)
[2020-03-22 12:04] LABS: BARBITURATES NEG (NEG); BENZODIAZEPINES NEG (NEG); CANNABINOIDS NEG (NEG); COCAINE NEG (NEG); METHADONE NEG (NEG); OPIATES POS (NEG); PHENCYCLIDINE NEG (NEG)
[2020-03-22 12:05] LABS: AMPHETAMINE/METHAMPHETAMINE POS (NEG)
[2020-03-22 12:07] LABS: CALCIUM 9.3 mg/dL (8.5-10.1); CREATININE 0.8 mg/dL (0.6-1.0); GFR 77.9; POTASSIUM 3.6 mmol/L (3.5-5.1)
[2020-03-22 12:13] LABS: BACTERIA,URINE FEW /HPF (0-FEW); RBC,URINE OCC /HPF (0-2); WBC,URINE OCC /HPF (0-4)
[2020-03-22 12:14] LABS: ALBUMIN 3.9 g/dL (3.4-5.0); ALBUMIN/GLOBULIN RATIO 1.1 (1.0-1.7); TOTAL BILIRUBIN 0.6 mg/dL (0.2-1.0); TOTAL PROTEIN 7.4 g/dL (6.4-8.2)
[2020-03-22] MEDS ORDERED: IV NORMAL SALINE 1000ML BAG 1,000 ML IV ONE (13:00)
[2020-03-22 14:58] VITALS: BP 139/84
== END 2020-03-22 16:35 | disposition home or self-care (01) ==
LOC: ER 11:08
DX: R44.1 Visual hallucinations (principal); Z20.822 Contact with and (suspected) exposure to COVID-19; R44.0 Auditory hallucinations; J44.9 Chronic obstructive pulmonary disease, unspecified; F32.9 Major depressive disorder, single episode, unspecified; G89.29 Other chronic pain; Z87.891 Personal history of nicotine dependence; Z90.49 Acquired absence of other specified parts of digestive tract; Z90.710 Acquired absence of both cervix and uterus; Z98.890 Other specified postprocedural states; Z91.040 Latex allergy status; Z88.1 Allergy status to other antibiotic agents; Z88.8 Allergy status to other drugs, medicaments and biological substances
CPT/HCPCS: 36415; 80053; 80307; 81001; 85025; 87426; 96360; 96361; 99285; C9803; G0480; J7030; U0003

== ENCOUNTER → 2020-04-21 | Outpatient (CLI) | payer BC ==
[2020-03-22 14:58] VITALS: BP 139/84
[~2020-04-21] MED LIST changes: +ACAM333T7 PO; +AMLO2.5T2 PO; +LORA2ORA2 PO; +MIRT-36 PO; +PRAZ5CAP2 PO; +SPIR100T4 PO; +ZALE10CA PO
--- NOTE | 2020-04-21 12:44 | RAD ---
MR#: [id number] Date of Study: 04/21/2020 Ordering Physician: KENISHA SANCHEZ, Referring Physician: NINA GARCIA Tech: RT Jay (R) (N) APPROVED REPORT Test Type: Exercise Stress Nurse/Tech: Dena Slaughter RN Test Indications: Chest pain Cardiac History: Family history,COPD Medications: See Electronic Medical Record Medical History: See Electronic Medical Record Resting ECG: SR Resting Heart Rate: 95 bpm Resting Blood Pressure: 122/73mmHg Pretest Chest Pain: No chest pain Nurse/Tech Notes S1,S2 and lungs slightly diminished in the bases. Consent: The procedure was explained to the patient in lay terms. Informed consent was witnessed. José Miguel eout was entered into [employer]. History and Stress Test performed by SUSAN Eller, ARRT (R) (N) Stress Symptoms Fatigue POST EXERCISE Reason for Termination: Reached target heart rate, Fatigue Target HR: Yes Max HR: 149 bpm 100% of Maximum Predicted HR: 149 bpm Exercise duration: 8:50 min:sec, 3 Stage Exercise capacity: 10.0METs Max Blood Pressure: 146/74mmHg Blood Pressure response to exercise: Normal blood pressure response during stress. Heart Rate response to exercise: WNL Chest Pain: No. Arrhythmia: No. ST Change: No. INTERPRETATION Stress EKG Conclusion: No evidence of stress induced EKG changes. Imaging Protocol IMAGE PROTOCOL: Rest Tc-99m/stress Tc-99m 1 day Rest: Stress: Viability: Radiopharm.Tc99m ZahgohdvpPt24x Sestamibi Wzzo61oEf 30mCi Img Date 04/21/2020 04/21/2020 Inj-Img Atun07oxn. 60min. Rest Admin Site:IV - Right AntecubitalAdministrator:RT Jay (R)(N) Stress Admin Site: IV - Right AntecubitalAdministrator: RT Jay (R)(N) STRESS DATA End Diast. Vol.67.0mlLVEDV index BSA35.0ml End Syst. Vol.18.0mlLVESV index BSA9.0ml Myocardial Jeup875.0gEject. Tekzcwap22.0% Stress Scores Regional WT1.00Summed WT3.00 Regional WM0.00Summed WM2.00 The rest and stress images show normal perfusion, normal contraction and thickening. LV Perf. Quant 17 Seg. SSS0.00 17 Seg. SRS0.00 17 Seg. SDS0.00 Stress Defect Extent (% LAD)0.00Rest Defect Extent (% LAD)0.00Rev. Defect Extent (% LAD)0.00 Stress Defect Extent (% LCX) 0.00Rest Defect Extent (% LCX)0.00Rev. Defect Extent (% LCX)0.00 Stress Defect Extent (% RCA)0.00Rest Defect Extent (% RCA)0.00Rev. Defect Extent (% RCA)0.00 Stress Defect Extent (% NOY)0.00Rest Defect Extent (% NOY)0.00Rev. Defect Extent (% NOY)0.00 Other Information Quality:Average Risk Assessment: Low Risk Conclusion 1. No evidence of EKG changes with stress testing. 2. Normal perfusion at stress/rest. 3. Low risk study. 4. EF > 60%. Signed by : Kenisha Sanchez, Electronically Approved : 04/21/2020 12:44:14
--- NOTE | 2020-04-21 12:49 | CARD ---
MR#: [id number] Date of Study: 04/21/2020 Ordering Physician: KENISHA ROSARIO, Referring Physician: KENISHA ROSARIO, Tech: Kyung Parham [facility] APPROVED REPORT EXAM: Two-dimensional and M-mode echocardiogram with Doppler and color Doppler. Other Information Quality : Good INDICATION Chest Pain RISK FACTORS Smoking Smoker 25 years, Current Vape with Nicotine 2D DIMENSIONS RVDd3.1 (2.9-3.5cm)Left Atrium(2D)3.4 (1.6-4.0cm) IVSd0.7 (0.7-1.1cm)Aortic Root(2D)2.8 (2.0-3.7cm) LVDd4.7 (3.9-5.9cm)LVOT Diameter2.0 (1.8-2.4cm) PWd0.7 (0.7-1.1cm)LVDs3.3 (2.5-4.0cm) FS (%) 30.7 %SV60.8 ml LVEF(%)58.1 (>50%) Aortic Valve AoV Peak Marlo.137.5cm/sAoV VTI21.2cm AO Peak GR.7.6mmHgLVOT Peak Marlo.121.3cm/s AO Mean GR.4mmHgAVA (VMAX)2.66cm2 ANA (VTI)2.90cm2 Mitral Valve MV E Ntyvytez18.5cm/sMV DECEL ZMIS467ib MV A Lokcobxh50.4cm/sE/A Ratio0.8 Pulmonary Vein S1 Rlpnihst84.6cm/sD2 Uzoryxuc18.9cm/s LEFT VENTRICLE The left ventricle is normal size. There is normal left ventricular wall thickness. The left ventricu lar systolic function is normal and the ejection fraction is within normal range. The Ejection Fracti on is 55-60%. There is normal LV segmental wall motion. Transmitral Doppler flow pattern is Grade I-a bnormal relaxation pattern. RIGHT VENTRICLE The right ventricle is normal size. The right ventricular systolic function is normal. ATRIA The left atrium size is normal. The right atrium size is normal. The interatrial septum is intact wit h no evidence for an atrial septal defect or patent foramen ovale as noted on 2-D or Doppler imaging. AORTIC VALVE The aortic valve is normal in structure and function. Doppler and Color Flow revealed no significant aortic regurgitation. There is no significant aortic valvular stenosis. MITRAL VALVE The mitral valve is calcified but opens well. There is no evidence of mitral valve prolapse. There is no mitral valve stenosis. Doppler and Color-flow revealed trace mitral regurgitation. TRICUSPID VALVE The tricuspid valve is normal in structure and function. Doppler and Color Flow revealed no tricuspid valve regurgitation noted. There is no tricuspid valve stenosis. PULMONIC VALVE The pulmonic valve is not well visualized. Doppler and Color Flow revealed no pulmonic valvular regur gitation. There is no pulmonic valvular stenosis. GREAT VESSELS The aortic root is normal in size. The ascending aorta is not well seen. The IVC is normal in size an d collapses >50% with inspiration. PERICARDIAL EFFUSION There is no evidence of significant pericardial effusion. Critical Notification Critical Value: No <Conclusion> The left ventricular systolic function is normal and the ejection fraction is within normal range. Th e Ejection Fraction is 55-60%. There is normal LV segmental wall motion. Signed by : Kenisha Rosario, Electronically Approved : 04/21/2020 12:49:07
== END ==
LOC: NM 11:11
PROVIDERS: ATTEND Internal Medicine Cardiovascular Disease
DX: I34.0 Nonrheumatic mitral (valve) insufficiency (principal); F17.200 Nicotine dependence, unspecified, uncomplicated
CPT/HCPCS: 78452; 93017; 93306; A9500

== ENCOUNTER 2020-08-20 09:10 | Day surgery (SDC) | payer BC ==
[~2020-08-20] VITALS: Ht 167.6 cm; Wt 84.0 kg
[~2020-08-20 09:10] MED LIST changes: +ACETAMINOPHEN 500 MG TABLET PO ONE; +BUPIVACAINE-EPI 0.25%-1:200000 MPF 30 ML VIAL. ONE; -DOCU-150 PO; +DOCU-158 PO; +ESTR0.5T PO; +FLUO60TA PO; +HYDROmorphone 2 MG/ML VIAL IVP PRN; +IV RINGERS,LACTATED 1000ML 1,000 ML IV SCH; +LINZESS290 MCG PO; +LORA-434 PO; +MORPHINE SULFATE 2 MG/ML VIAL. IVP PRN; +NAPR-699 PO; -NAPR250T6 PO; -OMEP40CA45 PO; +OMEP40CA7 PO; +PHEN37.53 PO; +PROCHLORPERAZINE 10 MG/2 ML VIAL. IVP PRN; +TEST200V3 IM; +ceFAZolin 2GM PREMIX 2 GM/50 ML BAG IV ONE; +fentaNYL PF VIAL 100 MCG/2 ML VIAL IVP PRN
[2020-08-20] MEDS ORDERED: MIDAZOLAM HCL/PF 2 MG/2 ML VIAL. ONE (09:32)
[2020-08-20] MEDS ORDERED: fentaNYL PF VIAL 100 MCG/2 ML VIAL ONE (09:32)
[2020-08-20] MEDS ORDERED: GLYCOPYRROLATE 1 MG/5 ML VIAL. ONE (09:33)
[2020-08-20] MEDS ORDERED: ONDANSETRON PF 4 MG/2 ML VIAL. ONE (09:33)
[2020-08-20] MEDS ORDERED: NEOSTIGMINE METHYLSULFATE 5 MG/5 ML SYRINGE. ONE (09:33)
[2020-08-20] MEDS ORDERED: PROPOFOL 10 MG/ML (20ML) VIAL. IV ONE (09:33)
[2020-08-20] MEDS ORDERED: DEXAMETHASONE SOD PHOS 4 MG/ML VIAL ONE (09:33)
[2020-08-20] MEDS ORDERED: ROCURONIUM 50 MG/5 ML VIAL. ONE (09:33)
[2020-08-20] MEDS ORDERED: LIDOCAINE 2% PF 5 ML VIAL. ONE (09:34)
[2020-08-20] MEDS ORDERED: KETOROLAC 30 MG/ML VIAL. ONE (09:34)
[2020-08-20] MEDS ORDERED: BUPIVACAINE-EPI 0.25%-1:200000 MPF 30 ML VIAL. INJ ONE (10:50)
--- NOTE | 2020-08-20 11:36 | PDOC4 ---
Operative Note Operative Note Date: August 20, 2020 at 1132 Preoperative diagnosis: Recurrent ventral hernia Postoperative diagnosis: Same, diastases recti Surgeon: David Procedure: Robotic assisted laparoscopic ventral hernia repair with mesh Specimen: None Dictation: Patient is 44-year-old female is complained of periumbilical pain as well as pain in the left lower quadrant she had previously had a umbilical hernia repaired now has recurrent ventral incisional hernia at that site. Procedure of robotic assisted laparoscopic ventral hernia repair with mesh was explained to the patient detail risk benefits were also discussed including bleeding infection alternatives to this procedure also discussed with the patient who seemed to understand and gave both verbal and written consent to have procedure performed. Patient was taken to the operating room placed in the supine position general anesthesia was initiated once patient was sleeping intubated her abdomen was prepped and draped in usual sterile fashion using ChloraPrep. An area in the left upper quadrant was injected with quarter percent Marcaine with epinephrine incision was made 11 blade scalpel and a 5 mm Visiport was placed under direct visualization and the abdomen pneumoperitoneum was achieved once this complete 5 mm scope was placed and the abdomen was inspected was noted there is small recurrent incisional hernia periumbilically there is also some mild diastases in the lower abdomen below the umbilicus in the left lower quadrant there were no adhesions no hernias noted no explanation for the left lower quadrant abdominal pain. 8 mm da Aric port was placed at the left midabdomen and 8 mm da Aric ports placed in the left lower abdomen and an 8 mm da Aric port was placed out for the 5 mm Visiport in the left upper quadrant. The da Aric robot was brought and docked all port sites surgeon went to the robotic console using a grasper and Endo Liya scissors the hernia did defect was exposed and reduced its contents. The hernia defect was then closed with a running 2 OV lock nonabsorbable suture. A ventral light ST mesh was then placed over the hernia defect and this was sewn into place with a running 2 OV lock absorbable suture. Sutures removed from the abdomen the da Aric robot was undocked from all port sites and removed all ports were removed the pneumoperitoneum reduced all port sites were closed with 4 subcuticular Monocryl Mastisol Steri-Strips and island dressings were applied. Patient was awakened and extubated in the operating room taken to recovery in stable condition all sponge instrument needle counts listed as correct estimated blood loss 5 mL DENISSE WATKINS MD Aug 20, 2020 11:36
--- NOTE | 2020-08-20 11:38 | DISCH ---
DISCHARGE INSTRUCTIONS Condition on Discharge Condition on Discharge: Stable Activity After Discharge Activity Instructions for Disc: Avoid exertion Other activity instructions: No lifting more than 20 pounds for 2 weeks Lifting Instructions after Dis: No heavy lifting Exercise Instruction after Dis: Progress as tolerated Diet after Discharge Diet after Discharge: Regular Wound Incision Care Other wound/incision instructi: May shower in 24 hours Contacting the after DC Call your doctor for: If your condition worsens Follow-Up Follow up with: Dr. Watkins in 2 weeks DENISSE WATKINS MD Aug 20, 2020 11:38
[2020-08-20] MEDS ORDERED: OXYC1TAB15 PO ×2 (11:39→11:52)
[2020-08-20] MEDS ORDERED: oxyCODONE/APAP 5/325 1 TAB TABLET PO ONE ×2 (12:30)
[2020-08-20 13:08] VITALS: BP 95/52
== END 2020-08-20 13:35 | disposition home or self-care (01) ==
LOC: SURG 09:10
PROVIDERS: ATTEND Surgery
DX: K43.2 Incisional hernia without obstruction or gangrene (principal); J44.9 Chronic obstructive pulmonary disease, unspecified; E66.9 Obesity, unspecified; K21.9 Gastro-esophageal reflux disease without esophagitis; F41.9 Anxiety disorder, unspecified; F32.9 Major depressive disorder, single episode, unspecified; Z87.440 Personal history of urinary (tract) infections; Z87.891 Personal history of nicotine dependence; Z79.899 Other long term (current) drug therapy; Z98.890 Other specified postprocedural states; Z88.1 Allergy status to other antibiotic agents; Z88.2 Allergy status to sulfonamides; Z91.040 Latex allergy status; Z88.8 Allergy status to other drugs, medicaments and biological substances; Z82.49 Family history of ischemic heart disease and other diseases of the circulatory system
CPT/HCPCS: 49652; A4364; A4930; A6219; C1781; J0690; J1100; J1885; J2250; J2405; J2704; J2710; J3010; J3490; S2900; A4223; A4657

== ENCOUNTER 2020-08-25 18:59 | Emergency (ER) | payer BC ==
[~2020-08-25] VITALS: Ht 167.6 cm; Wt 84.0 kg
[~2020-08-25 18:59] MED LIST changes: -ACETAMINOPHEN 500 MG TABLET PO ONE; -BUPIVACAINE-EPI 0.25%-1:200000 MPF 30 ML VIAL. ONE; -HYDROmorphone 2 MG/ML VIAL IVP PRN; -IV RINGERS,LACTATED 1000ML 1,000 ML IV SCH; -MORPHINE SULFATE 2 MG/ML VIAL. IVP PRN; +OXYC1TAB15 PO; -PROCHLORPERAZINE 10 MG/2 ML VIAL. IVP PRN; -ceFAZolin 2GM PREMIX 2 GM/50 ML BAG IV ONE; -fentaNYL PF VIAL 100 MCG/2 ML VIAL IVP PRN
[2020-08-25 19:42] LABS: BASO # 0.1 x10^3/uL (0.0-0.2); BASO % 1 % (0-3); EOS # 0.1 x10^3/uL (0.0-0.7); EOS % 1 % (0-3); HEMATOCRIT 34.6 % (36.0-47.0); HEMOGLOBIN 11.7 g/dL (12.0-15.5); LYMPH # 1.3 x10^3/uL (1.0-4.8); LYMPH % 22 % (24-48); MEAN CORPUSCULAR HEMOGLOBIN 29 pg (25-35); MEAN CORPUSCULAR HGB CONC 34 g/dL (31-37); MEAN CORPUSCULAR VOLUME 87 fL (79-100); MONO # 0.4 x10^3/uL (0.0-1.1); MONO % 7 % (0-9); NEUT # 4.1 x10^3/uL (1.8-7.7); NEUT % 68 % (31-73); PLATELET COUNT 288 x10^3/uL (140-400); RED BLOOD COUNT 3.98 x10^6/uL (3.50-5.40); RED CELL DISTRIBUTION WIDTH 13.9 % (11.5-14.5)
[2020-08-25] MEDS ORDERED: oxyCODONE/APAP 5/325 1 TAB TABLET PO ONE (19:45)
[2020-08-25 19:52] LABS: CALCIUM 8.6 mg/dL (8.5-10.1); GFR 60.2; POTASSIUM 3.2 mmol/L (3.5-5.1)
[2020-08-25 19:57] LABS: ALBUMIN/GLOBULIN RATIO 1.2 (1.0-1.7); TOTAL BILIRUBIN 0.5 mg/dL (0.2-1.0); TOTAL PROTEIN 7.3 g/dL (6.4-8.2)
--- NOTE | 2020-08-25 20:03 | RAD ---
EXAM: CHEST ONE VIEW. HISTORY: Fall, fever. COMPARISON: 09/29/2019. FINDINGS: A frontal view of the chest is obtained. The left costophrenic angle is partially excluded. There are no confluent infiltrates. There is no pneumothorax or pleural effusion. The heart is not en larged. IMPRESSION: 1. No confluent infiltrates. Electronically signed by: Christiano Linares MD (08/25/2020 8:01 PM) [id number]
--- NOTE | 2020-08-25 20:05 | RAD ---
EXAM: 1. Bilateral knees 4 views. 2. Right ankle 3 views. HISTORY: Fall COMPARISON: None. FINDINGS: 4 views of each knee are obtained. No fractures are identified bilaterally. Joint spaces and alignment are maintained. There is no joint effusion bilaterally. Three views of the right ankle are obtained. No fractures are identified. Alignment is normal. Joint spaces are maintained. IMPRESSION: 1. No fracture. Electronically signed by: Christiano Linares MD (08/25/2020 8:02 PM) [id number]
--- NOTE | 2020-08-25 20:24 | RAD ---
Exam: CT head and cervical spine without contrast INDICATION: Fall, pain TECHNIQUE: Sequential axial images through the head and cervical spine were obtained without the admi nistration of IV contrast. Exposure: One or more of the following in the visualized dose reduction techniques were utilized for this examination: 1. Automated exposure control 2. Adjustment of the MA and/or KV according to patient size 3. Use of iterative of reconstructive technique Comparisons: None FINDINGS: Head: No focal parenchymal lesion or hemorrhage is identified. There is no midline shift or sulcal effaceme nt. No acute vascular territory infarction is identified. Griffin-white distinction is preserved. The ventricular system is within normal limits without compression hydrocephalus. The basal cisterns are well maintained. Extra cranial soft tissue scalp contusion overlying the right frontal region. The visualized portions of the paranasal sinuses and mastoid air cells are well-pneumatized. No acute fractures. Cervical spine: Straightening of the cervical spine which may positional. Vertebral body heights are well-maintained. Fracture to the cervical spine is not identified. No significant spondylotic change in cervical spine. Visualized paraspinal soft tissues are unremarkable. IMPRESSION: 1. Extra cranial soft tissue scalp contusion overlying the right frontal region without underlying o sseous or intracranial abnormality. 2. Negative CT C-spine for acute traumatic injury. Electronically signed by: Chele Swenson MD (08/25/2020 8:21 PM) [facility]
--- NOTE | 2020-08-25 20:26 | PHYS DOC ---
Past Medical History Past Medical History: Angina, Asthma, Bipolar, COPD, Depression, Fibromyalgia, Hypertension, IBS, MRSA, Pneumonia, Sinusitis, UTI, Other Additional Past Medical Histor: endometrosis/CHRONIC BACK PAIN/burcitis,colitis Past Surgical History: Cholecystectomy, , Hysterectomy, Other Additional Past Surgical Histo: hernia repair x3,ABD EXP,L BREAST CYST REMOVED Smoking Status: Current Some Day Smoker Alcohol Use: Occasionally Additional Information: DENIES [employer] Drug Use: None General Adult EDM: Chief Complaint: MECHANICAL FALL HPI: HPI: Patient is a 44 year old female with a history of bipolar, depression, COPD, current smoker, hypertension, fibromyalgia, who presents to the ED today to be evaluated for multiple symptoms. Patient states today she was walking down some wet wooden steps when she slipped and fell down 3 steps. Patient denies any loss of consciousness. She states she hit her head. She is complaining of forehead contusion, 7 out of 10 right posterior ankle pain, bilateral knee pain, right shoulder pain, low back pain. Patient denies being on any blood thinners. Patient states she took ibuprofen which relieved some of the pain but she is still in pain. She is also complaining of not feeling well after having hernia surgery on Sunday. She states she has been running slight fevers in the . She states she is prone to pneumonia and believes she could have pneumonia. Review of Systems: Review of Systems: Constitutional: Reports fevers Eyes: Denies change in visual acuity. [] HENT: Denies nasal congestion or sore throat. [] Respiratory: Denies cough or shortness of breath. [] Cardiovascular: Denies chest pain or edema. [] GI: Denies abdominal pain, nausea, vomiting, bloody stools or diarrhea. [] : Denies dysuria. [] Musculoskeletal: Reports low back pain, bilateral knee pain, right ankle pain, right shoulder pain. Integument: Denies rash. [] Neurologic: Denies headache, focal weakness or sensory changes. [] Endocrine: Denies polyuria or polydipsia. [] Lymphatic: Denies swollen glands. [] Psychiatric: Denies depression or anxiety. [] Heart Score: C/O Chest Pain: N/A Risk Factors: Risk Factors: DM, Current or recent (<one month) smoker, HTN, HLP, family history of CAD, obesity. Risk Scores: Score 0 - 3: 2.5% MACE over next 6 weeks - Discharge Home Score 4 - 6: 20.3% MACE over next 6 weeks - Admit for Clinical Observation Score 7 - 10: 72.7% MACE over next 6 weeks - Early Invasive Strategies Current Medications: Current Medications Medications (Trade) Dose Ordered Sig/Eric Start Time Stop Time Status Last Admin Dose Admin Oxycodone/ Acetaminophen (Percocet 5/325) 1 tab 1X ONCE 08/25/20 19:45 08/25/20 19:46 DC Allergies: Allergies: Allergies Coded Allergies Type Severity Reaction Last Updated Verified Latex, Natural Rubber Allergy Intermediate RASH 08/20/20 Yes adhesive tape Allergy Intermediate Rash 08/20/20 Yes phosphoric acid,diluted Allergy Intermediate RASH, SWELLING 08/20/20 Yes sodium lauryl sulfate Allergy Intermediate RASH, SWELLING 08/20/20 Yes vaginal antiseptics combination no.1 Allergy Intermediate RASH, SWELLING 08/20/20 Yes levofloxacin Allergy Mild GI UPSET 08/20/20 Yes RONIT Inhibitors Allergy Unknown SHAKEY AND NAUSEA 08/20/20 Yes I S O L A T I O N *CONTACT* Allergy Unknown mrsa 08/20/20 Yes ciprofloxacin Allergy Unknown COLITIS 08/20/20 Yes formoterol Adverse Reaction Intermediate 08/20/20 Yes mometasone furoate Adverse Reaction Intermediate 08/20/20 Yes varenicline Adverse Reaction Intermediate 08/20/20 Yes Physical Exam: PE: Constitutional: Well developed, well nourished, no acute distress, non-toxic appearance. [] HENT: Normocephalic, atraumatic, bilateral external ears normal, oropharynx moist, no oral exudates, nose normal. [] Eyes: PERRLA, EOMI, conjunctiva normal, no discharge. [] Neck: Normal range of motion, no tenderness, supple, no stridor. [] Cardiovascular:Heart rate regular rhythm, no murmur [] Lungs & Thorax: Bilateral breath sounds clear to auscultation [] Abdomen: Laparoscopic abdominal incisions noted with no signs of infection on the abdomen. Bowel sounds normal, soft, no tenderness, no masses, no pulsatile masses. [] Skin: Warm, dry, no erythema, no rash. [] Back: No tenderness, no CVA tenderness. [] Extremities: Right shoulder with small contusion and bruising. Full range of motion to the right upper extremity/shoulder. Adequate radial, medial, ulnar sensation to the right upper extremity. +2 right radial pulse. Cap refill less than 2 seconds to right fingers. Hematoma noted on the posterior right ankle. Tenderness over the hematoma, full range of motion to the right ankle and right lower extremity. +2 right pedal pulse, cap refill less than 2 seconds the right lower extremity. Bilateral knees with no obvious deformity. Bruising noted over the right anterior knee. Tenderness over the bruised region. Full range of motion to bilateral knees. +2 left pedal pulse. Cap refill less than 2 seconds of left toes. Sensation intact bilateral lower extremities. Neurologic: Right forehead with a mild hematoma. Alert and oriented X 3, normal motor function, normal sensory function, no focal deficits noted. Cranial nerves II through XII intact Psychologic: Affect normal, judgement normal, mood normal. [] Current Patient Data: Labs: Laboratory Tests Test 08/25/20 19:30 White Blood Count 6.0 x10^3/uL (4.0-11.0) Red Blood Count 3.98 x10^6/uL (3.50-5.40) Hemoglobin 11.7 g/dL (12.0-15.5) L Hematocrit 34.6 % (36.0-47.0) L Mean Corpuscular Volume 87 fL (79-100) Mean Corpuscular Hemoglobin 29 pg (25-35) Mean Corpuscular Hemoglobin Concent 34 g/dL (31-37) Red Cell Distribution Width 13.9 % (11.5-14.5) Platelet Count 288 x10^3/uL (140-400) Neutrophils (%) (Auto) 68 % (31-73) Lymphocytes (%) (Auto) 22 % (24-48) L Monocytes (%) (Auto) 7 % (0-9) Eosinophils (%) (Auto) 1 % (0-3) Basophils (%) (Auto) 1 % (0-3) Neutrophils # (Auto) 4.1 x10^3/uL (1.8-7.7) Lymphocytes # (Auto) 1.3 x10^3/uL (1.0-4.8) Monocytes # (Auto) 0.4 x10^3/uL (0.0-1.1) Eosinophils # (Auto) 0.1 x10^3/uL (0.0-0.7) Basophils # (Auto) 0.1 x10^3/uL (0.0-0.2) Sodium Level 137 mmol/L (136-145) Potassium Level 3.2 mmol/L (3.5-5.1) L Chloride Level 102 mmol/L (98-107) Carbon Dioxide Level 25 mmol/L (21-32) Anion Gap 10 (6-14) Blood Urea Nitrogen 9 mg/dL (7-20) Creatinine 1.0 mg/dL (0.6-1.0) Estimated GFR (Cockcroft-Gault) 60.2 BUN/Creatinine Ratio 9 (6-20) Glucose Level 112 mg/dL (70-99) H Calcium Level 8.6 mg/dL (8.5-10.1) Total Bilirubin 0.5 mg/dL (0.2-1.0) Aspartate Amino Transferase (AST) 25 U/L (15-37) Alanine Aminotransferase (ALT) 39 U/L (14-59) Alkaline Phosphatase 131 U/L (46-116) H Total Protein 7.3 g/dL (6.4-8.2) Albumin 4.0 g/dL (3.4-5.0) Albumin/Globulin Ratio 1.2 (1.0-1.7) Laboratory Tests 08/25/20 19:30 Laboratory Tests 08/25/20 19:30 Vital Signs: Vital Signs Date Time Temp Pulse Resp B/P (MAP) Pulse Ox O2 Delivery O2 Flow Rate FiO2 08/25/20 19:12 98.4 91 20 150/84 (106) 100 Room Air 98.4 EKG: EKG: [] Radiology/Procedures: Radiology/Procedures: []PROCEDURE: KNEE BILAT 4V EXAM: 1. Bilateral knees 4 views. 2. Right ankle 3 views. HISTORY: Fall COMPARISON: None. FINDINGS: 4 views of each knee are obtained. No fractures are identified bilaterally. Joint spaces and alignment are maintained. There is no joint effusion bilaterally. Three views of the right ankle are obtained. No fractures are identified. Alignment is normal. Joint spaces are maintained. IMPRESSION: 1. No fracture. Electronically signed by: Christiano Linares MD (08/25/2020 8:02 PM) [id number] DICTATED and SIGNED BY: BALJEET LINARES MD DATE: 08/25/[id number] 0 PROCEDURE: PORTABLE CHEST 1V EXAM: CHEST ONE VIEW. HISTORY: Fall, fever. COMPARISON: 09/29/2019. FINDINGS: A frontal view of the chest is obtained. The left costophrenic angle is partially excluded. There are no confluent infiltrates. There is no pneumothorax or pleural effusion. The heart is not enlarged. IMPRESSION: 1. No confluent infiltrates. Electronically signed by: Christiano Linares MD (08/25/2020 8:01 PM) [id number] DICTATED and SIGNED BY: BALJEET LINARES MD DATE: 08/25/[id number] 0 PROCEDURE: ANKLE RIGHT 3V EXAM: 1. Bilateral knees 4 views. 2. Right ankle 3 views. HISTORY: Fall COMPARISON: None. FINDINGS: 4 views of each knee are obtained. No fractures are identified bilaterally. Joint spaces and alignment are maintained. There is no joint effusion bilaterally. Three views of the right ankle are obtained. No fractures are identified. Alignment is normal. Joint spaces are maintained. IMPRESSION: 1. No fracture. Electronically signed by: Christiano Linares MD (08/25/2020 8:02 PM) [id number] DICTATED and SIGNED BY: BALJEET LINARES MD DATE: 08/25/[id number] 0 PROCEDURE: SHOULDER 2+V RIGHT Exam: Right shoulder 3 views INDICATION: Fall, pain TECHNIQUE: Frontal view of the right shoulder with internal and external ro tation and transscapular Y views Comparisons: None FINDINGS: Bone mineralization is normal. No acute or healed fractures. Soft tissues are unremarkable. Joint spaces are well-maintained. IMPRESSION: No acute osseous abnormality Electronically signed by: Chele Masterson MD (08/25/2020 9:06 PM) [facility] DICTATED and SIGNED BY: CHELE MASTERSON MD DATE: 08/25/[id number] 0 Course & Med Decision Making: Course & Med Decision Making Pertinent Labs and Imaging studies reviewed. (See chart for details) This is a 44-year-old female patient presenting to the ED today for multiple complaints. Patient fell, complaining of hematoma on the forehead, right shoulder, bilateral knee pain, right ankle hematoma. Patient also had hernia repair on Sunday and states she has not been feeling well since then. She is complaining of slight fevers. Chest x-ray is negative for any acute findings, bilateral knee x-rays are negative, right shoulder xrays, right ankle x-rays are negative CBC with nothing really acute, normal WBC. CMP with potassium of 3.2. Oral potassium replacement given in the ed. UA is negative. Patient is afebrile in the ED. Discharge to home. Encouraged to continue following up with her own PCP as well as general surgeon. Dannie Disclaimer: Dannie Disclaimer: This electronic medical record was generated, in whole or in part, using a voice recognition dictation system. Departure Departure Impression: Primary Impression: Fall Qualified Codes: W19.XXXA - Unspecified fall, initial encounter Additional Impressions: Fever Qualified Codes: R50.9 - Fever, unspecified Hypokalemia Forehead contusion Qualified Codes: S00.83XA - Contusion of other part of head, initial encounter Contusion of knee, left Qualified Codes: S80.02XA - Contusion of left knee, initial encounter Contusion of knee, right Qualified Codes: S80.01XA - Contusion of right knee, initial encounter Contusion of shoulder, right Qualified Codes: S40.011A - Contusion of right shoulder, initial encounter Contusion of ankle, right Qualified Codes: S90.01XA - Contusion of right ankle, initial encounter Low back pain Qualified Codes: M54.5 - Low back pain Closed head injury Qualified Codes: S09.90XA - Unspecified injury of head, initial encounter Disposition: ADMITTED INPATIENT Condition: STABLE Referrals: LESLIE FREED (PCP) follow up in the course of next week Patient Instructions: Contusion, Fall Prevention and Home Safety, Head Injury, Adult, [id number] Additional Instructions: You were evaluated in the emergency room, your CT of the head, cervical spine, right shoulder x-ray, chest x-ray, bilateral knee x-rays and right ankle x-rays are negative for any acute findings. Try to ice and elevate the affected areas. Please follow-up with your general surgeon as well as primary care doctor next week. STEPHANIA JOHNS APRN Aug 25, 2020 20:26
[2020-08-25] MEDS ORDERED: POTASSIUM CHLORIDE 20 MEQ TABLET.ER. PO ONE (20:30)
--- NOTE | 2020-08-25 20:30 | RAD ---
Exam: CT the lumbar spine without contrast INDICATION: Fall, pain TECHNIQUE: Sequential axial images through the lumbar spine obtained without IV contrast. Sagittal an d coronal reformatted images were reconstructed from the axial data and reviewed. Exposure: One or more of the following in the visualized dose reduction techniques were utilized for this examination: 1. Automated exposure control 2. Adjustment of the MA and/or KV according to patient size 3. Use of iterative of reconstructive technique Comparisons: None FINDINGS: Vertebral body heights and alignment are well-maintained. Fracture to the lumbar spine is not identified. No significant spondylotic change in the lumbar spine. Visualized paraspinal soft tissues are unremarkable. IMPRESSION: Negative CT lumbar spine for acute traumatic injury. Electronically signed by: Chele Swenson MD (08/25/2020 8:27 PM) [facility]
--- NOTE | 2020-08-25 21:08 | RAD ---
Exam: Right shoulder 3 views INDICATION: Fall, pain TECHNIQUE: Frontal view of the right shoulder with internal and external rotation and transscapular Y views Comparisons: None FINDINGS: Bone mineralization is normal. No acute or healed fractures. Soft tissues are unremarkable. Joint spa kami are well-maintained. IMPRESSION: No acute osseous abnormality Electronically signed by: Chele Swenson MD (08/25/2020 9:06 PM) [facility]
[2020-08-25] MEDS ORDERED: ONDANSETRON PF 4 MG/2 ML VIAL. ONE (21:23)
[2020-08-25 21:30] LABS: BILIRUBIN,URINE NEGATIVE (NEG); CLARITY,URINE CLEAR; NITRITE,URINE NEGATIVE (NEG); PROTEIN,URINE NEGATIVE (NEG-TRACE); UROBILINOGEN,URINE 0.2 mg/dL (0.2 mg/dL)
[2020-08-25] MEDS ORDERED: ONDANSETRON PF 4 MG/2 ML VIAL. IVP ONE (21:30)
[2020-08-25 21:35] LABS: COLOR,URINE STRAW
[2020-08-25 21:36] LABS: BACTERIA,URINE FEW /HPF (0-FEW)
[2020-08-25 21:37] LABS: RBC,URINE 0 /HPF (0-2); WBC,URINE 0 /HPF (0-4)
[2020-08-25 22:05] VITALS: BP 134/73
== END 2020-08-25 22:08 | disposition admitted as inpatient to this hospital (09) ==
LOC: ER 18:59
DX: S00.83XA Contusion of other part of head, initial encounter (principal); S80.02XA Contusion of left knee, initial encounter; S80.01XA Contusion of right knee, initial encounter; S40.011A Contusion of right shoulder, initial encounter; S90.01XA Contusion of right ankle, initial encounter; M54.5 Low back pain; E87.6 Hypokalemia; R50.9 Fever, unspecified; F31.9 Bipolar disorder, unspecified; J44.9 Chronic obstructive pulmonary disease, unspecified; G89.29 Other chronic pain; I10 Essential (primary) hypertension; K58.9 Irritable bowel syndrome, unspecified; Z86.14 Personal history of Methicillin resistant Staphylococcus aureus infection; F17.200 Nicotine dependence, unspecified, uncomplicated; W01.0XXA Fall on same level from slipping, tripping and stumbling without subsequent striking against object, initial encounter; Y93.89 Activity, other specified; Y92.89 Other specified places as the place of occurrence of the external cause; Y99.8 Other external cause status
CPT/HCPCS: 36415; 70450; 71045; 72125; 72131; 73030; 73564; 73610; 80053; 81001; 84145; 85025; 96374; 99285; J2405

== ENCOUNTER 2020-09-08 08:49 | Emergency (ER) | payer BC ==
[~2020-09-08] VITALS: Ht 167.6 cm; Wt 81.8 kg
[~2020-09-08 08:49] MED LIST changes: -PHEN37.5 PO; +PHEN37.59 PO
--- NOTE | 2020-09-08 10:35 | RAD ---
EXAM: Chest, single view. HISTORY: Chest pain. COMPARISON: 08/25/2020 FINDINGS: A frontal view of the chest is obtained. There is no infiltrate, pleural effusion or pneumo thorax. The heart is normal in size. IMPRESSION: No acute pulmonary finding. Electronically signed by: Ilene Santamaria MD (09/08/2020 10:33 AM) [id number]
--- NOTE | 2020-09-08 10:50 | RAD ---
EXAM: Thoracic spine, 4 views. HISTORY: Pain. COMPARISON: None. FINDINGS: 4 views of the thoracic spine are obtained. There is no fracture or significant listhesis. There is no suspicious osseous lesion. IMPRESSION: No acute osseous finding. Electronically signed by: Ilene Santamaria MD (09/08/2020 10:48 AM) [id number]
[2020-09-08 10:57] LABS: BILIRUBIN,URINE SMALL (NEG); CLARITY,URINE CLEAR; COLOR,URINE AMBER; NITRITE,URINE NEGATIVE (NEG); PROTEIN,URINE NEGATIVE (NEG-TRACE)
[2020-09-08] MEDS: fentaNYL PF VIAL 100 MCG/2 ML VIAL IVP ONE (11:02)
[2020-09-08] MEDS: IV NORMAL SALINE 1000ML BAG 1,000 ML IV SCH (11:02)
[2020-09-08 11:04] LABS: BARBITURATES NEG (NEG); BENZODIAZEPINES NEG (NEG); CANNABINOIDS NEG (NEG); COCAINE NEG (NEG); METHADONE NEG (NEG); OPIATES POS (NEG); PHENCYCLIDINE NEG (NEG)
[2020-09-08 11:05] LABS: AMPHETAMINE/METHAMPHETAMINE NEG (NEG); BACTERIA,URINE 0 /HPF (0-FEW); HYALINE CASTS, URINE FEW /HPF; RBC,URINE 0 /HPF (0-2); WBC,URINE OCC /HPF (0-4)
--- NOTE | 2020-09-08 11:08 | PHYS DOC ---
Past Medical History Past Medical History: Angina, Asthma, Bipolar, COPD, Depression, Fibromyalgia, Hypertension, IBS, MRSA, Pneumonia, Sinusitis, UTI, Other Additional Past Medical Histor: endometrosis/CHRONIC BACK PAIN/burcitis,colitis,CONCUSSION Past Surgical History: Cholecystectomy, , Hysterectomy, Other Additional Past Surgical Histo: hernia repair x3,ABD EXP,L BREAST CYST REMOVED Smoking Status: Current Every Day Smoker Additional Information: SMOKES 1 CIGARETTE A DAY. Alcohol Use: Occasionally Drug Use: None General Adult EDM: Chief Complaint: MULTIPLE COMPLAINTS HPI: HPI: Patient is a 44 year old female who presents with complaints of the last 3 days of fever of which she states today before coming it was 101.2, fatigue, arm and neck pain, headache, upper back pain, when she takes a deep breath her left thoracic back is painful, midsternal chest pain is started today, right upper quadrant pain for the last 4 to 5 days of which she states she had ultrasound done yesterday but it came back normal, a fall on August 25 that resulted in a right facial bruise, concussion and worsening back pain. She states that during the fall she had slipped on some wet wood. She states that she has had left sided thoracic back pain when she takes a deep breath since the fall. Patient states that she does take hydrocodone daily and she took a hydrocodone this morning and she took 1000mg of Tylenol this morning for her fever. She had a hernia surgery on August 20. She has a history of exploratory laparoscopy, cholecystectomy, hysterectomy, hernia surgery x3, x2, smoker, angina, asthma, bipolar, COPD, depression, colitis, bursitis, IBS, concussion, fibromyalgia, hypertension, pneumonia, MRSA, UTI, sinusitis, left breast cyst removed. She has had both Covid vaccines. Review of Systems: Review of Systems: Constitutional: + fever or chills. [] Eyes: Denies change in visual acuity. [] HENT: Denies nasal congestion or sore throat. [] Respiratory: + cough or +shortness of breath. [] Cardiovascular: Denies chest pain or edema. [] GI: + abdominal pain, +nausea, +vomiting, denies bloody stools or diarrhea. [] : Denies dysuria. [] Musculoskeletal: + back pain or denies joint pain. + Generalized weakness [] Integument: Denies rash. [] Neurologic: +headache, denies focal weakness or sensory changes. [] Endocrine: Denies polyuria or polydipsia. [] Lymphatic: Denies swollen glands. [] Psychiatric: Denies depression or anxiety. [] Heart Score: C/O Chest Pain: Yes HEART Score for Chest Pain: HEART Score for Chest Pain Response (Comments) Value History Slighlty/Non-Suspicious 0 ECG Nonspecific Repolarizatio 1 Age < 45 0 Risk Factors 1 or 2 Risk Factors 1 Troponin < Normal Limit 0 Total 2 Risk Factors: Risk Factors: DM, Current or recent (<one month) smoker, HTN, HLP, family history of CAD, obesity. Risk Scores: Score 0 - 3: 2.5% MACE over next 6 weeks - Discharge Home Score 4 - 6: 20.3% MACE over next 6 weeks - Admit for Clinical Observation Score 7 - 10: 72.7% MACE over next 6 weeks - Early Invasive Strategies Current Medications: Current Medications Medications (Trade) Dose Ordered Sig/Eric Start Time Stop Time Status Last Admin Dose Admin Fentanyl Citrate (Fentanyl 2ml Vial) 50 mcg 1X ONCE 09/08/20 10:45 09/08/20 10:46 DC Sodium Chloride 1,000 ml @ 1,000 mls/hr Q1H 09/08/20 10:15 09/08/20 11:14 Allergies: Allergies: Allergies Coded Allergies Type Severity Reaction Last Updated Verified Latex, Natural Rubber Allergy Intermediate RASH 08/20/20 Yes adhesive tape Allergy Intermediate Rash 08/20/20 Yes phosphoric acid,diluted Allergy Intermediate RASH, SWELLING 08/20/20 Yes sodium lauryl sulfate Allergy Intermediate RASH, SWELLING 08/20/20 Yes vaginal antiseptics combination no.1 Allergy Intermediate RASH, SWELLING 08/20/20 Yes levofloxacin Allergy Mild GI UPSET 08/20/20 Yes RONIT Inhibitors Allergy Unknown SHAKEY AND NAUSEA 08/20/20 Yes I S O L A T I O N *CONTACT* Allergy Unknown mrsa 08/20/20 Yes ciprofloxacin Allergy Unknown COLITIS 08/20/20 Yes formoterol Adverse Reaction Intermediate 08/20/20 Yes mometasone furoate Adverse Reaction Intermediate 08/20/20 Yes varenicline Adverse Reaction Intermediate 08/20/20 Yes Physical Exam: PE: Constitutional: Well developed, well nourished, no acute distress, non-toxic appearance. [] HENT: Normocephalic, atraumatic, bilateral external ears normal, oropharynx moist, no oral exudates, nose normal. [] Eyes: PERRLA, EOMI, conjunctiva normal, no discharge. [] Neck: Normal range of motion, no tenderness, supple, no stridor. [] Cardiovascular:Heart rate regular rhythm, no murmur [] Lungs & Thorax: Bilateral upper breath sounds clear and lower diminished to auscultation [] Abdomen: Bowel sounds normal, soft, no tenderness, no masses, no pulsatile masses. [] Skin: Warm, dry, no erythema, no rash. [] Back: No tenderness, no CVA tenderness. [] Extremities: No tenderness, no cyanosis, no clubbing, ROM intact, no edema. [] Neurologic: Alert and oriented X 3, normal motor function, normal sensory function, no focal deficits noted. [] Psychologic: Affect normal, judgement normal, mood normal. [] Current Patient Data: Vital Signs: Vital Signs Date Time Temp Pulse Resp B/P (MAP) Pulse Ox O2 Delivery O2 Flow Rate FiO2 09/08/20 09:58 98.9 89 20 104/61 (93 97 Room Air 98.9 EKG: EK and read by Dr. Govea is sinus rhythm and no STEMI [] Radiology/Procedures: Radiology/Procedures: [] Impression: [facility] [address] [place] [address] IMAGING REPORT Signed PATIENT: NARCISA ALCAZAR ACCOUNT: [id number] : 1975 LOCATION: ER AGE: 44 SEX: F EXAM STATUS: REG ER ORD. PHYSICIAN: JUSTIN DORSEY APRN REASON: chest pain PROCEDURE: PORTABLE CHEST 1V EXAM: Chest, single view. HISTORY: Chest pain. COMPARISON: 08/25/2020 FINDINGS: A frontal view of the chest is obtained. There is no infiltrate, p leural effusion or pneumothorax. The heart is normal in size. IMPRESSION: No acute pulmonary finding. Electronically signed by: Ilene Iglesias MD (09/08/2020 10:33 AM) [id number] DICTATED and SIGNED BY: ILENE IGLESIAS MD DATE: 09/08/20 [id number] [facility] [address] [place] [address] IMAGING REPORT Signed PATIENT: NARCISA ALCAZAR ACCOUNT: [id number] : 1975 LOCATION: ER AGE: 44 SEX: F EXAM STATUS: REG ER ORD. PHYSICIAN: JUSTIN DORSEY APRN REASON: pain PROCEDURE: THORACIC SPINE 3V EXAM: Thoracic spine, 4 views. HISTORY: Pain. COMPARISON: None. FINDINGS: 4 views of the thoracic spine are obtained. There is no fracture or significant listhesis. There is no suspicious osseous lesion. IMPRESSION: No acute osseous finding. Electronically signed by: Ilnee Iglesias MD (09/08/2020 10:48 AM) [id number] DICTATED and SIGNED BY: ILENE IGLESIAS MD DATE: 09/08/20 [id number] [facility] [address] [place] [address] IMAGING REPORT Signed PATIENT: NARCISA ALCAZAR ACCOUNT: [id number] : 1975 LOCATION: ER AGE: 44 SEX: F EXAM STATUS: REG ER ORD. PHYSICIAN: JUSTIN DORSEY APRN REASON: HEADACHE, NECK PAIN, PREVIOUS FALL PROCEDURE: CT HEAD AND CERVICAL SPINE WO EXAM: Head and cervical spine CT without contrast. HISTORY: Headache. Fall. TECHNIQUE: Computed tomographic images of the head and cervical spine were obtained without contrast. *One or more of the following individualized dose reduction techniques were utilized for this examination: 1. Automated exposure control. 2. Adjustment of the mA and/or kV according to patient size. 3. Use of iterative reconstruction technique. COMPARISON: 08/25/2020. FINDINGS: Head: There is no hemorrhage. There is no mass effect or midline shift. There is no hydrocephalus. There has been near complete resolution of a previously demon strated right supraorbital scalp soft tissue hematoma. The orbits and visualized paranasal sinuses mastoid air cells are unremarkable. No suspicious calvarial lesion is seen. The claire-white matter differentiation pattern is intact. Cervical spine: There is no listhesis. The vertebral bodies are normal in height and the disc spaces are preserved. There is no fracture or suspicious osseous lesion. There is mild left facet arthropathy at C3-C4, contributing to mild left foraminal stenosis. The lung apices are unremarkable. The airways midline and mildly patent. IMPRESSION: 1. No acute intracranial finding or evidence of acute cervical spine trauma. 2. Near complete resolution of a previously demonstrated right supraorbital scalp soft tissue hematoma. 3. Mild left facet arthropathy at C3-C4, contributing to mild left foraminal stenosis. Electronically signed by: Ilene Iglesias MD (09/08/2020 12:05 PM) [id number] DICTATED and SIGNED BY: ILENE IGLESIAS MD DATE: 09/08/20 [id number] [facility] [address] [place] [address] IMAGING REPORT Signed PATIENT: NARCISA ALCAZAR ACCOUNT: [id number] : 1975 LOCATION: ER AGE: 44 SEX: F EXAM STATUS: REG ER ORD. PHYSICIAN: JUSTIN DORSEY APRN REASON: fever x 2 weeks PROCEDURE: CT ABD PELV W/ IV CONTRST ONLY EXAM: Abdomen and pelvis CT with intravenous contrast. HISTORY: Fever. TECHNIQUE: Computed tomographic images of the abdomen and pelvis were obtained following the administration of intravenous contrast. Multiplanar reformatting was performed. *One or more of the following individualized dose reduction techniques were utilized for this examination: 1. Automated exposure control. 2. Adjustment of the mA and/or kV according to patient size. 3. Use of iterative reconstruction technique. COMPARISON: 11/20/2019. FINDINGS: Evaluation of the lower thorax demonstrates bilateral posterior dependent atelectasis. There is inferior medial right middle lobe atelectasis or scarring. There are chronic posterior right ninth and 10th rib fractures. There is mild hepatic megaly and hepatic steatosis. No focal hepatic lesion is seen. The gallbladder is absent. The pancreas, spleen, adrenal glands and kidneys are unremarkable. There is no appendicitis. There is no bowel obstruction. There is moderate colonic stool. The bladder is nearly empty. The uterus is absent. No adnexal lesion is seen. There is stranding along a ventral abdominal wall mesh related to prior hernia repair. There is a small fat-containing left spigelian hernia. The hernia sac measures approximately 2.0 cm. There is slight stranding within the herniated fat, suggesting a component of incarceration. The aorta is normal in caliber. There is no lymphadenopathy. There is no suspicious osseous lesion. There is quinten ear scarring within the right perineum. There is degenerative change at the lumbosacral junction, with associated foraminal stenosis. IMPRESSION: 1. Hepatomegaly and suspected mild hepatic steatosis. 2. Moderate colonic stool. There is no evidence of bowel obstruction. 3. Findings consistent with ventral abdominal wall hernia repair. There is slight fatty stranding along the ventral abdominal wall mesh likely due to resolving postoperative change or scar/granulation tissue 4. Small left spigelian hernia containing fat. There is slight fatty stranding within the herniated fat. This may be of no clinical significance or related to fat ischemia. 5. Degenerative change at the lumbosacral junction. Electronically signed by: Ilene Iglesias MD (09/08/2020 12:15 PM) [id number] DICTATED and SIGNED BY: ILENE IGLESIAS MD DATE: 09/08/20 [id number] Course & Med Decision Making: Course & Med Decision Making Pertinent Labs and Imaging studies reviewed. (See chart for details) See HPI. Alert and oriented x4. Ambulatory with steady gait. Speaks in full clear sentences. Lungs are clear in upper lobes and diminished in lower lobes. Skin pink warm and dry. Abdomen is soft and nontender. She states she has a fullness feeling in her abdomen. No focal bony spinal tenderness. Full range of motion of her neck. No tenderness, crepitus, subcutaneous emphysema with palpated over the ribs or back. No bruising. Bruising to the right upper forehead area that looks to be healing. Moving all extremities. Rating her pain a aching 6 out of 10. She states the midsternal chest pain feels like a pressure. She states she does have some shortness of air. [] Dannie Disclaimer: Dannie Disclaimer: This electronic medical record was generated, in whole or in part, using a voice recognition dictation system. Departure Departure Impression: Primary Impression: Cough Additional Impressions: Chronic back pain Qualified Codes: M54.6 - Pain in thoracic spine; G89.29 - Other chronic pain Chronic neck pain Fatigue Qualified Codes: R53.83 - Other fatigue Nonspecific abdominal pain Dehydration Disposition: HOME / SELF CARE / HOMELESS Condition: STABLE Referrals: LESLIE FREED (PCP) Patient Instructions: Chronic Back Pain, Chronic Obstructive Pulmonary Disease Exacerbation, Cough, Adult Additional Instructions: Follow-up with your primary care physician. Take medication as prescribed and with food. Drink plenty of fluids. If anything worsens you can always return to the ED. Scripts Azithromycin (AZITHROMYCIN TABLET) 250 Mg Tablet 1 PKG PO UD for 5 Days, #6 TAB 0 Refills 2 the first day followed by 1 for days 2-5 Prov: JUSTIN DORSEY APR09/08/20 Albuterol Sulfate (PROAIR HFA INHALER) 8.5 Gm Hfa.aer.ad 1 PUFF INH PRN Q6HRS PRN for SHORTNESS OF BREATH, #1 EACH 0 Refills Prov: JUSTIN DORSEY APRN 09/08/20 Methylprednisolone (MEDROL) 4 Mg Tab.ds.pk 1 PKG PO UD, #1 PKG Prov: JUSTIN DORSEY APPARATUS CLEANER 09/08/20 JUSTIN DORSEY APPARATUS CLEANER Sep 08, 2020 11:08
[2020-09-08] MEDS: methylPREDNISolone SOD SUCC PF 125 MG/2 ML VIAL. IV ONE (11:09)
[2020-09-08 11:18] LABS: BASO % 0 % (0-3); EOS # 0.1 x10^3/uL (0.0-0.7); EOS % 3 % (0-3); HEMATOCRIT 31.1 % (36.0-47.0); HEMOGLOBIN 10.2 g/dL (12.0-15.5); LYMPH # 0.3 x10^3/uL (1.0-4.8); LYMPH % 6 % (24-48); MEAN CORPUSCULAR HEMOGLOBIN 29 pg (25-35); MEAN CORPUSCULAR HGB CONC 33 g/dL (31-37); MEAN CORPUSCULAR VOLUME 88 fL (79-100); MONO # 0.2 x10^3/uL (0.0-1.1); MONO % 4 % (0-9); NEUT # 3.7 x10^3/uL (1.8-7.7); NEUT % 86 % (31-73); PLATELET COUNT 351 x10^3/uL (140-400); RED BLOOD COUNT 3.52 x10^6/uL (3.50-5.40); RED CELL DISTRIBUTION WIDTH 14.2 % (11.5-14.5); WHITE BLOOD COUNT 4.3 x10^3/uL (4.0-11.0)
--- NOTE | 2020-09-08 11:39 | EKG ---
[facility] [address] [place] [address] Test Date: 2020-09-08 Test Time: 10:30:35 Pat Name: NARCISA ALCAZAR Department: Room: Gender: F [employer]: : 1975 Requested By: JUSTIN DORSEY Order Number: [id number] Reading MD: Measurements Intervals [place] Rate: 69 P: 51 MS: 214 QRS: 47 QRSD: 78 T: 37 QT: 394 QTc: 424 Interpretive Statements SINUS RHYTHM QRS(T) CONTOUR ABNORMALITY CONSIDER ANTEROLATERAL MYOCARDIAL DAMAGE POSSIBLY ABNORMAL ECG RI6.01 No previous ECG available for comparison
[2020-09-08 11:41] LABS: CALCIUM 8.5 mg/dL (8.5-10.1); CREATININE 1.3 mg/dL (0.6-1.0); GFR 44.5; POTASSIUM 4.4 mmol/L (3.5-5.1)
[2020-09-08] MEDS ORDERED: CONTRAST GIVEN. MC PRN (11:45)
[2020-09-08 11:46] LABS: ALBUMIN 3.3 g/dL (3.4-5.0); MAGNESIUM 1.8 mg/dL (1.8-2.4); TOTAL BILIRUBIN 0.7 mg/dL (0.2-1.0); TOTAL PROTEIN 6.6 g/dL (6.4-8.2)
[2020-09-08] MEDS: IOHEXOL 300 MG/ML 100ML VIAL. IV ONE (11:50)
[2020-09-08] MEDS: IV NORMAL SALINE 1000ML BAG 1,000 ML IV ONE (12:08)
--- NOTE | 2020-09-08 12:08 | RAD ---
EXAM: Head and cervical spine CT without contrast. HISTORY: Headache. Fall. TECHNIQUE: Computed tomographic images of the head and cervical spine were obtained without contrast. *One or more of the following individualized dose reduction techniques were utilized for this examina tion: 1. Automated exposure control. 2. Adjustment of the mA and/or kV according to patient size. 3. Use of iterative reconstruction technique. COMPARISON: 08/25/2020. FINDINGS: Head: There is no hemorrhage. There is no mass effect or midline shift. There is no hydrocephalus. Th ere has been near complete resolution of a previously demonstrated right supraorbital scalp soft tiss ue hematoma. The orbits and visualized paranasal sinuses mastoid air cells are unremarkable. No suspi cious calvarial lesion is seen. The claire-white matter differentiation pattern is intact. Cervical spine: There is no listhesis. The vertebral bodies are normal in height and the disc spaces are preserved. There is no fracture or suspicious osseous lesion. There is mild left facet arthropath y at C3-C4, contributing to mild left foraminal stenosis. The lung apices are unremarkable. The airwa ys midline and mildly patent. IMPRESSION: 1. No acute intracranial finding or evidence of acute cervical spine trauma. 2. Near complete resolution of a previously demonstrated right supraorbital scalp soft tissue hematom a. 3. Mild left facet arthropathy at C3-C4, contributing to mild left foraminal stenosis. Electronically signed by: Ilene Santamaria MD (09/08/2020 12:05 PM) [id number]
--- NOTE | 2020-09-08 12:17 | RAD ---
EXAM: Abdomen and pelvis CT with intravenous contrast. HISTORY: Fever. TECHNIQUE: Computed tomographic images of the abdomen and pelvis were obtained following the administ ration of intravenous contrast. Multiplanar reformatting was performed. *One or more of the following individualized dose reduction techniques were utilized for this examina tion: 1. Automated exposure control. 2. Adjustment of the mA and/or kV according to patient size. 3. Use of iterative reconstruction technique. COMPARISON: 11/20/2019. FINDINGS: Evaluation of the lower thorax demonstrates bilateral posterior dependent atelectasis. Ther e is inferior medial right middle lobe atelectasis or scarring. There are chronic posterior right wilian th and 10th rib fractures. There is mild hepatic megaly and hepatic steatosis. No focal hepatic lesio n is seen. The gallbladder is absent. The pancreas, spleen, adrenal glands and kidneys are unremarkab le. There is no appendicitis. There is no bowel obstruction. There is moderate colonic stool. The senia dder is nearly empty. The uterus is absent. No adnexal lesion is seen. There is stranding along a ventral abdominal wall mesh related to prior hernia repair. There is a sma ll fat-containing left spigelian hernia. The hernia sac measures approximately 2.0 cm. There is sligh t stranding within the herniated fat, suggesting a component of incarceration. The aorta is normal in caliber. There is no lymphadenopathy. There is no suspicious osseous lesion. There is linear scarrin g within the right perineum. There is degenerative change at the lumbosacral junction, with associate d foraminal stenosis. IMPRESSION: 1. Hepatomegaly and suspected mild hepatic steatosis. 2. Moderate colonic stool. There is no evidence of bowel obstruction. 3. Findings consistent with ventral abdominal wall hernia repair. There is slight fatty stranding murphy ng the ventral abdominal wall mesh likely due to resolving postoperative change or scar/granulation t issue 4. Small left spigelian hernia containing fat. There is slight fatty stranding within the herniated f at. This may be of no clinical significance or related to fat ischemia. 5. Degenerative change at the lumbosacral junction. Electronically signed by: Ilene Santamaria MD (09/08/2020 12:15 PM) [id number]
[2020-09-08] MEDS: ALBUTEROL SULFATE 2.5 MG/3 ML NEBU. NEB ONE (12:22)
[2020-09-08] MEDS ORDERED: METH4TAB2 PO (12:29)
[2020-09-08] MEDS ORDERED: ALBU2.5V8 INH (12:29)
[2020-09-08] MEDS ORDERED: AZIT250T6 PO (12:29)
[2020-09-08 13:45] VITALS: BP 102/65
== END 2020-09-08 13:51 | disposition home or self-care (01) ==
LOC: ER 08:49
DX: E86.0 Dehydration (principal); Z20.822 Contact with and (suspected) exposure to COVID-19; R05 Cough; G89.29 Other chronic pain; M54.6 Pain in thoracic spine; M54.2 Cervicalgia; R53.83 Other fatigue; R07.2 Precordial pain; R51.9 Headache, unspecified; Z91.040 Latex allergy status; Z88.1 Allergy status to other antibiotic agents; Z91.041 Radiographic dye allergy status; Z88.8 Allergy status to other drugs, medicaments and biological substances; F31.9 Bipolar disorder, unspecified; J44.9 Chronic obstructive pulmonary disease, unspecified; I10 Essential (primary) hypertension; K58.9 Irritable bowel syndrome, unspecified; F17.210 Nicotine dependence, cigarettes, uncomplicated; Z90.49 Acquired absence of other specified parts of digestive tract; Z90.710 Acquired absence of both cervix and uterus
CPT/HCPCS: 36415; 70450; 71045; 72072; 72125; 74177; 80053; 80307; 81001; 83690; 83735; 83880; 84484; 85025; 93005; 94640; 96361; 96374; 96375; 99285; J2930; J3010; J7030; J7613; Q9967; U0003; U0005

== ENCOUNTER 2020-09-22 11:09 | Observation (INO) | payer BC ==
[~2020-09-22] VITALS: Ht 167.6 cm; Wt 81.8 kg
[~2020-09-22 11:09] MED LIST changes: +ALBU2.5V8 INH; +AZIT250T6 PO
[2020-09-22 13:22] LABS: BILIRUBIN,URINE NEGATIVE (NEG); CLARITY,URINE CLEAR; COLOR,URINE YELLOW; NITRITE,URINE NEGATIVE (NEG); PH,URINE 6.5 (<5.0-8.0); PROTEIN,URINE NEGATIVE (NEG-TRACE); UROBILINOGEN,URINE 0.2 mg/dL (0.2 mg/dL)
[2020-09-22 13:34] LABS: BACTERIA,URINE FEW /HPF (0-FEW); RBC,URINE 0 /HPF (0-2); WBC,URINE 0 /HPF (0-4)
[2020-09-22 14:03] LABS: BASO # 0.1 x10^3/uL (0.0-0.2); BASO % 1 % (0-3); EOS # 0.1 x10^3/uL (0.0-0.7); EOS % 2 % (0-3); HEMATOCRIT 29.1 % (36.0-47.0); HEMOGLOBIN 9.5 g/dL (12.0-15.5); LYMPH # 1.5 x10^3/uL (1.0-4.8); LYMPH % 26 % (24-48); MEAN CORPUSCULAR HEMOGLOBIN 28 pg (25-35); MEAN CORPUSCULAR HGB CONC 33 g/dL (31-37); MEAN CORPUSCULAR VOLUME 85 fL (79-100); MONO # 0.4 x10^3/uL (0.0-1.1); MONO % 8 % (0-9); NEUT # 3.6 x10^3/uL (1.8-7.7); NEUT % 64 % (31-73); PLATELET COUNT 315 x10^3/uL (140-400); RED BLOOD COUNT 3.42 x10^6/uL (3.50-5.40); RED CELL DISTRIBUTION WIDTH 14.3 % (11.5-14.5); WHITE BLOOD COUNT 5.7 x10^3/uL (4.0-11.0)
[2020-09-22 14:15] LABS: CALCIUM 8.8 mg/dL (8.5-10.1); CREATININE 0.8 mg/dL (0.6-1.0); GFR 77.9; POTASSIUM 3.5 mmol/L (3.5-5.1)
[2020-09-22 14:21] LABS: ALBUMIN 3.5 g/dL (3.4-5.0); TOTAL BILIRUBIN 0.3 mg/dL (0.2-1.0); TOTAL PROTEIN 6.9 g/dL (6.4-8.2)
--- NOTE | 2020-09-22 15:33 | PHYS DOC ---
Past Medical History Past Medical History: Angina, Asthma, Bipolar, COPD, Depression, Fibromyalgia, Hypertension, IBS, MRSA, Pneumonia, Sinusitis, UTI, Other Additional Past Medical Histor: endometrosis/CHRONIC BACK PAIN/burcitis,colitis,CONCUSSION Past Surgical History: Cholecystectomy, , Hysterectomy, Other Additional Past Surgical Histo: hernia repair x3,ABD EXP,L BREAST CYST REMOVED Smoking Status: Former Smoker Alcohol Use: None Drug Use: None General Adult EDM: Chief Complaint: SHORTNESS OF BREATH HPI: HPI: Patient is a 44 year old female presents emergency department stating her primary care physician sent her here for pulmonary embolus of the lung. Patient reports she has not been feeling well for the past 3 months reporting generalized abdominal pain, shortness of breath. Patient denies any chest pain or chest palpitations. Patient denies chest congestion or nasal congestion. Patient denies any recent fever or chills. Patient reports she had a CT of her abdomen and pelvis with contrast done today at diagnostic imaging. Patient reports she seen her primary care physician yesterday and had an elevated D- dimer which prompted the CT of the chest abdomen and pelvis with IV contrast patient does report being a cigarette smoker for several years, has been on weight loss medication recently Saxenda and phentermine. Patient denies any rashes of her skin. Patient reports she had the mode during a vaccine for COVID -19 both injections of series last one was May 12. Patient reports she had a negative Covid test yesterday. Patient denies any other physical complaints or physical concerns. Review of Systems: Review of Systems: 14 body systems of review of systems have been reviewed. See HPI for pertinent positives and negative responses, otherwise all other systems are negative, nonpertinent or noncontributory. Constitutional: Negative except as outlined in HPI above. Skin: Negative except as outlined in HPI above. Eyes: Negative except as outlined in HPI above. HENT: Negative except as outlined in HPI above. Respiratory: Negative except as outlined in HPI above. Cardiovascular: Negative except as outlined in HPI above. GI: Negative except as outlined in HPI above. : Negative except as outlined in HPI above. Musculoskeletal: Negative except as outlined in HPI above. Integument: Negative except as outlined in HPI above. Neurologic: Negative except as outlined in HPI above. Endocrine: Negative except as outlined in HPI above. Lymphatic: Negative except as outlined in HPI above. Psychiatric: Negative except as outlined in HPI above. Heart Score: C/O Chest Pain: No Risk Factors: Risk Factors: DM, Current or recent (<one month) smoker, HTN, HLP, family history of CAD, obesity. Risk Scores: Score 0 - 3: 2.5% MACE over next 6 weeks - Discharge Home Score 4 - 6: 20.3% MACE over next 6 weeks - Admit for Clinical Observation Score 7 - 10: 72.7% MACE over next 6 weeks - Early Invasive Strategies Current Medications: Patient reports home medications as follows: Prozac 80 mg daily, Cymbalta 30 mg daily, Remeron 15 mg daily, lorazepam 1 mg nightly, spironolactone 200 mg daily, Linzess 290 mcg daily, Protonix 40 mg daily, Norvasc 2.5 mg daily, prazosin 5 mg daily, progesterone 100 mg daily, [place] 5/325 2 tablets daily, phentermine 37.5 mg daily, estrogen 5 mg injection, testosterone 150 mg injection, 800 mg Motrin twice daily, zaleplon 10 mg nightly. Allergies: Allergies: Allergies Coded Allergies Type Severity Reaction Last Updated Verified Latex, Natural Rubber Allergy Intermediate RASH 08/20/20 Yes adhesive tape Allergy Intermediate Rash 08/20/20 Yes phosphoric acid,diluted Allergy Intermediate RASH, SWELLING 08/20/20 Yes sodium lauryl sulfate Allergy Intermediate RASH, SWELLING 08/20/20 Yes vaginal antiseptics combination no.1 Allergy Intermediate RASH, SWELLING 08/20/20 Yes levofloxacin Allergy Mild GI UPSET 08/20/20 Yes RONIT Inhibitors Allergy Unknown SHAKEY AND NAUSEA 08/20/20 Yes I S O L A T I O N *CONTACT* Allergy Unknown mrsa 08/20/20 Yes ciprofloxacin Allergy Unknown COLITIS 08/20/20 Yes formoterol Adverse Reaction Intermediate 08/20/20 Yes mometasone furoate Adverse Reaction Intermediate 08/20/20 Yes varenicline Adverse Reaction Intermediate 08/20/20 Yes Physical Exam: PE: Constitutional: Well developed, well nourished, no acute distress, non-toxic appearance. 44-year-old female in no apparent distress. HENT: Normocephalic, atraumatic. Eyes: Conjunctiva normal, no discharge. Neck: Normal range of motion, no stridor. Cardiovascular: No cyanosis appreciated, distal cap refill less than 2 seconds. Heart sounds S1-S2 auscultation, regular rate and rhythm. Lungs & Thorax: Patient is in no respiratory distress, no audible adventitious lung sounds appreciated. Normal WOB, no adventitious lung sounds per auscultation. Abdomen: Nontender, no abnormalities noted. Skin: Warm, dry, no erythema, no rash. Back: No tenderness, no deformities. Extremities: No tenderness, no cyanosis, no clubbing, ROM intact, no edema. Neurologic: Alert and oriented X 3, normal motor function, normal sensory function, no focal deficits noted. Psychologic: Affect normal, judgement normal, mood normal. Current Patient Data: Labs: Laboratory Tests Test 09/22/20 12:30 09/22/20 13:40 Urine Collection Type Unknown Urine Color Yellow Urine Clarity Clear Urine pH 6.5 Urine Specific [place] >=1.030 Urine Protein Negative mg/dL Urine Glucose (UA) Negative mg/dL Urine Ketones (Stick) Negative mg/dL Urine Blood Negative Urine Nitrite Negative Urine Bilirubin Negative Urine Urobilinogen Dipstick 0.2 mg/dL Urine Leukocyte Esterase Negative Urine RBC 0 /HPF Urine WBC 0 /HPF Urine Squamous Epithelial Cells Mod /LPF Urine Bacteria Few /HPF White Blood Count 5.7 x10^3/uL Red Blood Count 3.42 x10^6/uL Hemoglobin 9.5 g/dL Hematocrit 29.1 % Mean Corpuscular Volume 85 fL Mean Corpuscular Hemoglobin 28 pg Mean Corpuscular Hemoglobin Concent 33 g/dL Red Cell Distribution Width 14.3 % Platelet Count 315 x10^3/uL Neutrophils (%) (Auto) 64 % Lymphocytes (%) (Auto) 26 % Monocytes (%) (Auto) 8 % Eosinophils (%) (Auto) 2 % Basophils (%) (Auto) 1 % Neutrophils # (Auto) 3.6 x10^3/uL Lymphocytes # (Auto) 1.5 x10^3/uL Monocytes # (Auto) 0.4 x10^3/uL Eosinophils # (Auto) 0.1 x10^3/uL Basophils # (Auto) 0.1 x10^3/uL Sodium Level 133 mmol/L Potassium Level 3.5 mmol/L Chloride Level 99 mmol/L Carbon Dioxide Level 24 mmol/L Anion Gap 10 Blood Urea Nitrogen 8 mg/dL Creatinine 0.8 mg/dL Estimated GFR (Cockcroft-Gault) 77.9 BUN/Creatinine Ratio 10 Glucose Level 115 mg/dL Calcium Level 8.8 mg/dL Total Bilirubin 0.3 mg/dL Aspartate Amino Transf (AST/SGOT) 28 U/L Alanine Aminotransferase (ALT/SGPT) 44 U/L Alkaline Phosphatase 132 U/L Troponin I Quantitative < 0.017 ng/mL Total Protein 6.9 g/dL Albumin 3.5 g/dL Albumin/Globulin Ratio 1.0 Current Medications Medications (Trade) Dose Ordered Sig/Eric Route PRN Reason Start Time Stop Time Status Last Admin Dose Admin Acetaminophen/ Hydrocodone Bitart (Lortab 5/325) 1 tab 1X ONCE PO 09/22/20 15:45 09/22/20 15:46 Enoxaparin Sodium (Lovenox 80mg Syringe) 80 mg 1X ONCE SQ 09/22/20 16:00 09/22/20 16:01 Laboratory Tests Test 09/22/20 12:30 09/22/20 13:40 Urine Collection Type Unknown Urine Color Yellow Urine Clarity Clear Urine pH 6.5 (<5.0-8.0) Urine Specific [place] >=1.030 (1.000-1.030) Urine Protein Negative mg/dL (NEG-TRACE) Urine Glucose (UA) Negative mg/dL (NEG) Urine Ketones (Stick) Negative mg/dL (NEG) Urine Blood Negative (NEG) Urine Nitrite Negative (NEG) Urine Bilirubin Negative (NEG) Urine Urobilinogen Dipstick 0.2 mg/dL (0.2 mg/dL) Urine Leukocyte Esterase Negative (NEG) Urine RBC 0 /HPF (0-2) Urine WBC 0 /HPF (0-4) Urine Squamous Epithelial Cells Mod /LPF Urine Bacteria Few /HPF (0-FEW) White Blood Count 5.7 x10^3/uL (4.0-11.0) Red Blood Count 3.42 x10^6/uL (3.50-5.40) L Hemoglobin 9.5 g/dL (12.0-15.5) L Hematocrit 29.1 % (36.0-47.0) L Mean Corpuscular Volume 85 fL (79-100) Mean Corpuscular Hemoglobin 28 pg (25-35) Mean Corpuscular Hemoglobin Concent 33 g/dL (31-37) Red Cell Distribution Width 14.3 % (11.5-14.5) Platelet Count 315 x10^3/uL (140-400) Neutrophils (%) (Auto) 64 % (31-73) Lymphocytes (%) (Auto) 26 % (24-48) Monocytes (%) (Auto) 8 % (0-9) Eosinophils (%) (Auto) 2 % (0-3) Basophils (%) (Auto) 1 % (0-3) Neutrophils # (Auto) 3.6 x10^3/uL (1.8-7.7) Lymphocytes # (Auto) 1.5 x10^3/uL (1.0-4.8) Monocytes # (Auto) 0.4 x10^3/uL (0.0-1.1) Eosinophils # (Auto) 0.1 x10^3/uL (0.0-0.7) Basophils # (Auto) 0.1 x10^3/uL (0.0-0.2) Sodium Level 133 mmol/L (136-145) L Potassium Level 3.5 mmol/L (3.5-5.1) Chloride Level 99 mmol/L (98-107) Carbon Dioxide Level 24 mmol/L (21-32) Anion Gap 10 (6-14) Blood Urea Nitrogen 8 mg/dL (7-20) Creatinine 0.8 mg/dL (0.6-1.0) Estimated GFR (Cockcroft-Gault) 77.9 BUN/Creatinine Ratio 10 (6-20) Glucose Level 115 mg/dL (70-99) H Calcium Level 8.8 mg/dL (8.5-10.1) Total Bilirubin 0.3 mg/dL (0.2-1.0) Aspartate Amino Transferase (AST) 28 U/L (15-37) Alanine Aminotransferase (ALT) 44 U/L (14-59) Alkaline Phosphatase 132 U/L (46-116) H Troponin I Quantitative < 0.017 ng/mL (0.000-0.055) Total Protein 6.9 g/dL (6.4-8.2) Albumin 3.5 g/dL (3.4-5.0) Albumin/Globulin Ratio 1.0 (1.0-1.7) Laboratory Tests 09/22/20 13:40 Laboratory Tests 09/22/20 13:40 Vital Signs: Vital Signs Date Time Temp Pulse Resp B/P (MAP) Pulse Ox O2 Delivery O2 Flow Rate FiO2 09/22/20 12:57 99.2 74 16 124/87 (77) 99 Room Air 99.2 EKG: EKG: EKG performed at 1321 by ED nursing staff shows a normal sinus rhythm with borderline prolonged MS interval heart rate 73 bpm, no other ectopy, MS interval 0.220, QTc interval 0.447 no acute STEMI, no ACS, no acute ischemia appreciated, EKG interpreted by ED attending physician Dr. Velasquez. Radiology/Procedures: Radiology/Procedures: [] Course & Med Decision Making: Course & Med Decision Making Pertinent Labs and Imaging studies reviewed. (See chart for details) 44-year-old female, vital signs reviewed, presents emergency department concern ing pulmonary embolus. Physical examination unremarkable. Will order EKG, cardiac enzymes, basic labs to rule out infectious process. Monitor patient's blood pressure, heart rate, O2 sat. Patient's labs unremarkable, EKG unremarkable. Patient's primary care physician sent faxed copy of CT angiography chest with contrast performed today at 9:30 AM showing a 8 cm in length linear clot in the right upper lobe artery. There were no additional areas of thrombosis demonstrated. There was no evidence of infiltration or consolidation. No pleural effusion. CT was read by Dr. Nery Monroy. The patient is simplified PESI score showed high risk and recommended hospitalization for start of anticoagulation therapy. Discussed admission to the hospital with patient, patient is amenable to this plan. Called and discussed patient case and ED work-up with [facility] hospitalist Dr. Colunga who agreed the patient's case warrants observation admission to med telemetry unit, recommended starting weight-based Lovenox 1 gardenia per cake, this was ordered, PT/INR/PTT ordered, Dr. Colunga will examine patient and further care. Dr. Colunga has assumed patient care at this time. Patient was given 1 5/325 [place] for history of chronic back pains. Dragon Disclaimer: Dragon Disclaimer: This electronic medical record was generated, in whole or in part, using a voice recognition dictation system. Departure Departure Impression: Primary Impression: Pulmonary embolism Qualified Codes: I26.99 - Other pulmonary embolism without acute cor pulmonale Disposition: ADMITTED INPATIENT (Observation status) Admitting Physician: HIMS (Admit to Dr. Colunga observation status med telemetry unit) Condition: STABLE Referrals: LESLIE FREED (PCP) YVON DAVIS APRN Sep 22, 2020 15:33
[2020-09-22] MEDS ORDERED: HYDROcodone/APAP 5/325MG 1 TAB TABLET PO ONE (15:45)
--- NOTE | 2020-09-22 16:54 | PDOC1 ---
History and Physical Date of Service: DOS: DATE: 09/22/20 TIME: 16:40 Chief Complaint: Chief Complain: Unwell for the last 3 months History of Present Illness: HPI: Patient is a 44-year-old female with past medical history of asthma, COPD, depression, fibromyalgia, hypertension, IBS who presents with abdominal pain and not feeling well and some shortness of breath for the past 3 months. She states that she went to see her PCP and she had an elevated D-dimer and she got a CT chest abdomen pelvis showing pulmonary embolus. She was sent here to the ED for further management for her PE. When seen in the ED she was saturating 100% room air but she was having some mild dyspnea. She will be admitted for observation and starting full dose anticoagulation. She will likely need to be started on Eliquis upon discharge. More inportantly, patient had a robotic umbilical hernia repair on 08/27/20 without any complications and 5 days after her surgery she fell and hit her head and her right side. She did not have LOC. She did have evaluation and imaging done that was completely negative. I believe these events are what precipitated her PE. Pt states she has also been having diarrhea and her PCP gave her Flagyl for which she started today. Past Medical/Surgical History: PMH/PSH: Past Medical History: Angina, Asthma, Bipolar, COPD, Depression, Fibromyalgia, Hypertension, IBS, MRSA, Pneumonia, Sinusitis, UTI, endometrosis/CHRONIC BACK PAIN/burcitis,colitis,CONCUSSION Past Surgical History: Cholecystectomy, , Hysterectomy, hernia repair x3,ABD EXP,L BREAST CYST REMOVED Allergies: Allergies: Coded Allergies: Latex, Natural Rubber (Verified Allergy, Intermediate, RASH, 08/20/20) adhesive tape (Verified Allergy, Intermediate, Rash, 08/20/20) phosphoric acid,diluted (Verified Allergy, Intermediate, RASH, SWELLING, 08/20/20) sodium lauryl sulfate (Verified Allergy, Intermediate, RASH, SWELLING, 08/20/20) vaginal antiseptics combination no.1 (Verified Allergy, Intermediate, RASH, SWELLING, 08/20/20) levofloxacin (Verified Allergy, Mild, GI UPSET, 08/20/20) RONIT Inhibitors (Verified Allergy, Unknown, SHAKEY AND NAUSEA, 08/20/20) I S O L A T I O N *CONTACT* (Verified Allergy, Unknown, mrsa, 08/20/20) ciprofloxacin (Verified Allergy, Unknown, COLITIS, 08/20/20) formoterol (Verified Adverse Reaction, Intermediate, 08/20/20) SHAKEY mometasone furoate (Verified Adverse Reaction, Intermediate, 08/20/20) SHAKEY varenicline (Verified Adverse Reaction, Intermediate, 08/20/20) BAD DREAMS Family History: Family History: Reviewed with no relevant findings Social History: Social History: Smoking Status: Former Smoker Alcohol Use: None Drug Use: None Current Medications: Current Medications Current Medications Acetaminophen/ Hydrocodone Bitart (Lortab 5/325) 1 tab 1X ONCE PO Last administered on 09/22/20at 16:29; Start 09/22/20 at 15:45; Stop 09/22/20 at 15:46; Status DC Enoxaparin Sodium (Lovenox 80mg Syringe) 80 mg 1X ONCE SQ ; Start 09/22/20 at 16:00; Stop 09/22/20 at 16:01; Status DC Active Scripts Active Azithromycin Tablet (Azithromycin) 250 Mg Tablet 1 Pkg PO UD 5 Days 2 the first day followed by 1 for days 2-5 Proair Hfa Inhaler (Albuterol Sulfate) 8.5 Gm Hfa.aer.ad 1 Puff INH PRN Q6HRS PRN Medrol (Methylprednisolone) 4 Mg Tab.ds.pk 1 Pkg PO UD Tylenol (Acetaminophen) 325 Mg Tablet 650 Mg PO PRN Q6HRS PRN 10 Days Reported Percocet 5-325 Mg Tablet (Oxycodone/Acetaminophen) 1 Each Tablet 1-2 Tab PO PRN Q6HRS PRN Linzess (Linaclotide) 290 Mcg Capsule 290 Mcg PO DAILY07 Testosterone Cypionate 200 Mg/1 Ml Vial 150 Mg IM Q4WK Estradiol 0.5 Mg Tablet 0.5 Mg PO DAILY Phentermine Hcl 37.5 Mg Capsule 37.5 Mg PO DAILY Spironolactone 100 Mg Tablet 200 Mg PO DAILY Ativan (Lorazepam) 1 Mg Tablet 1 Mg PO TID Fluoxetine Hcl 60 Mg Tablet 80 Mg PO DAILY Prazosin Hcl 5 Mg Capsule 1 Cap PO QHS Zaleplon 10 Mg Capsule 10 Mg PO Remeron (Mirtazapine) 15 Mg Tablet 1 Tab PO QHS Norvasc (Amlodipine Besylate) 2.5 Mg Tablet 1 Tab PO DAILY Progesterone (Progesterone,Micronized) 100 Mg Capsule 1 Cap PO QHS 30 Days Cymbalta (Duloxetine Hcl) 30 Mg Capsule.dr 1 Cap PO DAILY Protonix (Pantoprazole Sodium) 40 Mg Tablet.dr 40 Mg PO DAILYAC Albuterol Sulfate Hfa Inhaler (Albuterol Sulfate) 8.5 Gm Hfa.aer.ad 8.5 Gm IH DAILY ROS: Review of Systems Review of System REVIEW OF SYSTEMS: GENERAL: Denies weakness SKIN: No bruising, hair changes or rashes. EYES: No blurred, double or loss of vision. NOSE AND THROAT: No history of nosebleeds, hoarseness or sore throat. HEART: No history of palpitations, chest pain or shortness of breath on exertion. LUNGS: Denies cough, hemoptysis, wheezing or shortness of breath. GASTROINTESTINAL: Denies changes in appetite, nausea, vomiting, diarrhea or constipation. GENITOURINARY: No history of frequency, urgency, hesitancy or nocturia. NEUROLOGIC: Denies history of numbness, tingling, or tremor. PSYCHIATRIC: No history of panic, anxiety or depression. ENDOCRINE: No history of heat or cold intolerance, polyuria or polydipsia. EXTREMITIES: Denies joint pain, pain on walking or stiffness. Physical Exam: Vital Signs: Vital Signs Date Time Temp Pulse Resp B/P (MAP) Pulse Ox O2 Delivery O2 Flow Rate FiO2 09/22/20 16:29 16 100 Room Air 09/22/20 12:57 99.2 74 124/87 (77) 99.2 Physcial Exam: General: Well developed, well nourished, no acute distress, well appearing HEENT: Pupils equally round and reactive to light, EOMI, no discharge, normal conjunctiva Neck: Supple, no nuchal rigidity, no JVD, trachea midline, no tenderness Cardiac: RRR, no murmurs, no gallops, no rubs Chest/Lungs: CTAB, no wheeze, no rhonchi, no crackles Abdomen: soft, non-distended, no guarding, no peritoneal signs, non-tender Back: No tenderness Extremities: no edema, pulses intact, non-tender,capillary refill <3 sec bilateral upper and lower extremities, Neuro: Alert and oriented x 4, no focal deficits, normal speech Labs: Labs: Laboratory Tests Test 09/22/20 12:30 09/22/20 13:40 Urine Collection Type Unknown Urine Color Yellow Urine Clarity Clear Urine pH 6.5 (<5.0-8.0) Urine Specific [place] >=1.030 (1.000-1.030) Urine Protein Negative mg/dL (NEG-TRACE) Urine Glucose (UA) Negative mg/dL (NEG) Urine Ketones (Stick) Negative mg/dL (NEG) Urine Blood Negative (NEG) Urine Nitrite Negative (NEG) Urine Bilirubin Negative (NEG) Urine Urobilinogen Dipstick 0.2 mg/dL (0.2 mg/dL) Urine Leukocyte Esterase Negative (NEG) Urine RBC 0 /HPF (0-2) Urine WBC 0 /HPF (0-4) Urine Squamous Epithelial Cells Mod /LPF Urine Bacteria Few /HPF (0-FEW) White Blood Count 5.7 x10^3/uL (4.0-11.0) Red Blood Count 3.42 x10^6/uL (3.50-5.40) Hemoglobin 9.5 g/dL (12.0-15.5) Hematocrit 29.1 % (36.0-47.0) Mean Corpuscular Volume 85 fL (79-100) Mean Corpuscular Hemoglobin 28 pg (25-35) Mean Corpuscular Hemoglobin Concent 33 g/dL (31-37) Red Cell Distribution Width 14.3 % (11.5-14.5) Platelet Count 315 x10^3/uL (140-400) Neutrophils (%) (Auto) 64 % (31-73) Lymphocytes (%) (Auto) 26 % (24-48) Monocytes (%) (Auto) 8 % (0-9) Eosinophils (%) (Auto) 2 % (0-3) Basophils (%) (Auto) 1 % (0-3) Neutrophils # (Auto) 3.6 x10^3/uL (1.8-7.7) Lymphocytes # (Auto) 1.5 x10^3/uL (1.0-4.8) Monocytes # (Auto) 0.4 x10^3/uL (0.0-1.1) Eosinophils # (Auto) 0.1 x10^3/uL (0.0-0.7) Basophils # (Auto) 0.1 x10^3/uL (0.0-0.2) Sodium Level 133 mmol/L (136-145) Potassium Level 3.5 mmol/L (3.5-5.1) Chloride Level 99 mmol/L (98-107) Carbon Dioxide Level 24 mmol/L (21-32) Anion Gap 10 (6-14) Blood Urea Nitrogen 8 mg/dL (7-20) Creatinine 0.8 mg/dL (0.6-1.0) Estimated GFR (Cockcroft-Gault) 77.9 BUN/Creatinine Ratio 10 (6-20) Glucose Level 115 mg/dL (70-99) Calcium Level 8.8 mg/dL (8.5-10.1) Total Bilirubin 0.3 mg/dL (0.2-1.0) Aspartate Amino Transf (AST/SGOT) 28 U/L (15-37) Alanine Aminotransferase (ALT/SGPT) 44 U/L (14-59) Alkaline Phosphatase 132 U/L (46-116) Troponin I Quantitative < 0.017 ng/mL (0.000-0.055) Total Protein 6.9 g/dL (6.4-8.2) Albumin 3.5 g/dL (3.4-5.0) Albumin/Globulin Ratio 1.0 (1.0-1.7) Laboratory Tests Test 09/22/20 12:30 09/22/20 13:40 Urine Collection Type Unknown Urine Color Yellow Urine Clarity Clear Urine pH 6.5 (<5.0-8.0) Urine Specific [place] >=1.030 (1.000-1.030) Urine Protein Negative mg/dL (NEG-TRACE) Urine Glucose (UA) Negative mg/dL (NEG) Urine Ketones (Stick) Negative mg/dL (NEG) Urine Blood Negative (NEG) Urine Nitrite Negative (NEG) Urine Bilirubin Negative (NEG) Urine Urobilinogen Dipstick 0.2 mg/dL (0.2 mg/dL) Urine Leukocyte Esterase Negative (NEG) Urine RBC 0 /HPF (0-2) Urine WBC 0 /HPF (0-4) Urine Squamous Epithelial Cells Mod /LPF Urine Bacteria Few /HPF (0-FEW) White Blood Count 5.7 x10^3/uL (4.0-11.0) Red Blood Count 3.42 x10^6/uL (3.50-5.40) Hemoglobin 9.5 g/dL (12.0-15.5) Hematocrit 29.1 % (36.0-47.0) Mean Corpuscular Volume 85 fL (79-100) Mean Corpuscular Hemoglobin 28 pg (25-35) Mean Corpuscular Hemoglobin Concent 33 g/dL (31-37) Red Cell Distribution Width 14.3 % (11.5-14.5) Platelet Count 315 x10^3/uL (140-400) Neutrophils (%) (Auto) 64 % (31-73) Lymphocytes (%) (Auto) 26 % (24-48) Monocytes (%) (Auto) 8 % (0-9) Eosinophils (%) (Auto) 2 % (0-3) Basophils (%) (Auto) 1 % (0-3) Neutrophils # (Auto) 3.6 x10^3/uL (1.8-7.7) Lymphocytes # (Auto) 1.5 x10^3/uL (1.0-4.8) Monocytes # (Auto) 0.4 x10^3/uL (0.0-1.1) Eosinophils # (Auto) 0.1 x10^3/uL (0.0-0.7) Basophils # (Auto) 0.1 x10^3/uL (0.0-0.2) Sodium Level 133 mmol/L (136-145) Potassium Level 3.5 mmol/L (3.5-5.1) Chloride Level 99 mmol/L (98-107) Carbon Dioxide Level 24 mmol/L (21-32) Anion Gap 10 (6-14) Blood Urea Nitrogen 8 mg/dL (7-20) Creatinine 0.8 mg/dL (0.6-1.0) Estimated GFR (Cockcroft-Gault) 77.9 BUN/Creatinine Ratio 10 (6-20) Glucose Level 115 mg/dL (70-99) Calcium Level 8.8 mg/dL (8.5-10.1) Total Bilirubin 0.3 mg/dL (0.2-1.0) Aspartate Amino Transf (AST/SGOT) 28 U/L (15-37) Alanine Aminotransferase (ALT/SGPT) 44 U/L (14-59) Alkaline Phosphatase 132 U/L (46-116) Troponin I Quantitative < 0.017 ng/mL (0.000-0.055) Total Protein 6.9 g/dL (6.4-8.2) Albumin 3.5 g/dL (3.4-5.0) Albumin/Globulin Ratio 1.0 (1.0-1.7) Images: Images Pending CT of the chest with IV contrast from outside records. Assessment/Plan Assessment/Plan Acute right upper lobe lobe pulmonary embolus measuring 8 cm Mild hyponatremia Obesity class I History of COPD History of asthma History of hypertension Hx of IBS Admit to hospitalist for services for observation Continue full dose Lovenox Can likely transition to Eliquis at time of discharge. Pending C diff Continued Lovenox for DVT prophylaxis ADA diet Full code Discussed with RN and SW Disposition inpatient management as Surrogate decision maker is Ted Ratliff Justifications for Admission Other Justification JAMILA MOORE MD Sep 22, 2020 16:54
[2020-09-22] MEDS ORDERED: ACETAMINOPHEN 325 MG TABLET. PO PRN (17:00)
[2020-09-22] MEDS ORDERED: PROCHLORPERAZINE 10 MG/2 ML VIAL. IV PRN (17:00)
[2020-09-22] MEDS ORDERED: ONDANSETRON PF 4 MG/2 ML VIAL. IVP PRN (17:00)
[2020-09-22] MEDS ORDERED: DOCUSATE SODIUM 100 MG CAPSULE. PO PRN (17:00)
[2020-09-22] MEDS ORDERED: SENNOSIDES 8.6 MG TABLET PO PRN (17:00)
[2020-09-22] MEDS ORDERED: DEXTROSE 50% 25 GM / 50ML DISP.SYRIN. IV PRN (17:00)
[2020-09-22 19:30] VITALS: BP 102/66
[2020-09-22 19:44] LABS: PROTHROMBIN TIME PATIENT 12.6 SEC (11.7-14.0)
--- NOTE | 2020-09-22 20:52 | NUR ---
Pt arrived on unit at 1940 by wheelchair via ED staff. Pt reports headache, rated 4/10. POC/orders reviewed and acknowledged. Tele monitor applied. Pt requests water on admission. Fresh ice water given. Will assume care of this pt.
[2020-09-22] MEDS ORDERED: LIDO:MAALOX 1:1 20 ML SINGLE DOSE. SWSW ONE (22:30)
[2020-09-22 23:00] VITALS: BP 93/59
[2020-09-22] MEDS ORDERED: oxyCODONE/APAP 5/325 1 TAB TABLET PO PRN ×2 (23:15→23:30)
[2020-09-22] MEDS ORDERED: ZOLPIDEM 5 MG TABLET. PO PRN (23:45)
[2020-09-23] MEDS ORDERED: PRAZOSIN 1 MG CAPSULE. PO SCH
[2020-09-23] MEDS ORDERED: MIRTAZAPINE 15 MG TABLET PO SCH
[2020-09-23 03:00] VITALS: BP 102/68
[2020-09-23 06:01] LABS: BASO % 1 % (0-3); EOS # 0.1 x10^3/uL (0.0-0.7); EOS % 3 % (0-3); HEMATOCRIT 28.6 % (36.0-47.0); HEMOGLOBIN 9.4 g/dL (12.0-15.5); LYMPH # 1.7 x10^3/uL (1.0-4.8); LYMPH % 35 % (24-48); MEAN CORPUSCULAR HEMOGLOBIN 29 pg (25-35); MEAN CORPUSCULAR HGB CONC 33 g/dL (31-37); MEAN CORPUSCULAR VOLUME 87 fL (79-100); MONO # 0.5 x10^3/uL (0.0-1.1); MONO % 11 % (0-9); NEUT # 2.4 x10^3/uL (1.8-7.7); NEUT % 51 % (31-73); PLATELET COUNT 278 x10^3/uL (140-400); RED BLOOD COUNT 3.28 x10^6/uL (3.50-5.40); RED CELL DISTRIBUTION WIDTH 14.7 % (11.5-14.5); WHITE BLOOD COUNT 4.8 x10^3/uL (4.0-11.0)
[2020-09-23 06:31] LABS: CALCIUM 8.7 mg/dL (8.5-10.1); CREATININE 0.9 mg/dL (0.6-1.0); MAGNESIUM 1.9 mg/dL (1.8-2.4); POTASSIUM 3.5 mmol/L (3.5-5.1)
[2020-09-23 07:30] VITALS: BP 117/53
[2020-09-23] MEDS ORDERED: PANTOPRAZOLE 40 MG TABLET.DR. PO SCH (07:30)
[2020-09-23] MEDS ORDERED: LUBIPROSTONE 24 MCG CAPSULE PO SCH (08:00)
[2020-09-23] MEDS ORDERED: DULoxetine HCL 30 MG CAPSULE.DR PO SCH (09:00)
[2020-09-23] MEDS ORDERED: SPIRONOLACTONE 25 MG TABLET PO SCH (09:00)
[2020-09-23] MEDS ORDERED: FLUoxetine HCL 20 MG CAPSULE PO SCH (09:00)
[2020-09-23 11:00] VITALS: BP 123/72
--- NOTE | 2020-09-23 11:17 | NUR ---
SW following. Discussed with RN, pt from home, room air, regular diet. Per RN, decision being made about Coumadin VS Eliquis. RN advised no SW needs at this time, anticipates possible discharge home today. SW will continue to follow.
[2020-09-23 15:00] VITALS: BP 103/73
[2020-09-23] MEDS ORDERED: APIX5TAB PO (15:58)
--- NOTE | 2020-09-23 16:03 | PDOC3 ---
Discharge Summary Visit Information Date of Admission: Sep 22, 2020 Date of Discharge: Sep 23, 2020 Final Diagnosis Acute right upper lobe lobe pulmonary embolus measuring 8 mm Mild hyponatremia Obesity class I History of COPD History of asthma History of hypertension Hx of IBS depression, anxiety and insomnia, mult meds Problems Medical Problems: (1) Pulmonary embolism Status: Acute Brief Hospital Course Allergies Allergies Coded Allergies Type Severity Reaction Last Updated Verified Latex, Natural Rubber Allergy Intermediate RASH 08/20/20 Yes adhesive tape Allergy Intermediate Rash 08/20/20 Yes ciprofloxacin Allergy Intermediate COLITIS 09/22/20 Yes phosphoric acid,diluted Allergy Intermediate RASH, SWELLING 08/20/20 Yes sodium lauryl sulfate Allergy Intermediate RASH, SWELLING 08/20/20 Yes vaginal antiseptics combination no.1 Allergy Intermediate RASH, SWELLING 08/20/20 Yes RONIT Inhibitors Allergy Mild SHAKEY AND NAUSEA 09/22/20 Yes levofloxacin Allergy Mild GI UPSET 08/20/20 Yes pramipexole Allergy Mild Nausea and Vomiting 09/22/20 Yes I S O L A T I O N *CONTACT* Allergy Unknown mrsa 08/20/20 Yes formoterol Adverse Reaction Intermediate 08/20/20 Yes mometasone furoate Adverse Reaction Intermediate 08/20/20 Yes varenicline Adverse Reaction Intermediate 08/20/20 Yes cyclobenzaprine Adverse Reaction Mild CONSTIPATION 09/22/20 Yes nortriptyline Adverse Reaction Mild TIRED 09/22/20 Yes topiramate Adverse Reaction Mild TIRED 09/22/20 Yes Vital Signs Vital Signs Date Time Temp Pulse Resp B/P (MAP) Pulse Ox O2 Delivery O2 Flow Rate FiO2 09/23/20 11:00 98.8 93 18 123/72 (89) 96 Room Air 98.8 Lab Results Laboratory Tests Test 09/22/20 12:30 09/22/20 13:40 09/22/20 18:48 09/23/20 03:20 Urine Collection Type Unknown Urine Color Yellow Urine Clarity Clear Urine pH 6.5 (<5.0-8.0) Urine Specific [place] >=1.030 (1.000-1.030) Urine Protein Negative mg/dL (NEG-TRACE) Urine Glucose (UA) Negative mg/dL (NEG) Urine Ketones (Stick) Negative mg/dL (NEG) Urine Blood Negative (NEG) Urine Nitrite Negative (NEG) Urine Bilirubin Negative (NEG) Urine Urobilinogen Dipstick 0.2 mg/dL (0.2 mg/dL) Urine Leukocyte Esterase Negative (NEG) Urine RBC 0 /HPF (0-2) Urine WBC 0 /HPF (0-4) Urine Squamous Epithelial Cells Mod /LPF Urine Bacteria Few /HPF (0-FEW) White Blood Count 5.7 x10^3/uL (4.0-11.0) 4.8 x10^3/uL (4.0-11.0) Red Blood Count 3.42 x10^6/uL (3.50-5.40) 3.28 x10^6/uL (3.50-5.40) Hemoglobin 9.5 g/dL (12.0-15.5) 9.4 g/dL (12.0-15.5) Hematocrit 29.1 % (36.0-47.0) 28.6 % (36.0-47.0) Mean Corpuscular Volume 85 fL (79-100) 87 fL (79-100) Mean Corpuscular Hemoglobin 28 pg (25-35) 29 pg (25-35) Mean Corpuscular Hemoglobin Concent 33 g/dL (31-37) 33 g/dL (31-37) Red Cell Distribution Width 14.3 % (11.5-14.5) 14.7 % (11.5-14.5) Platelet Count 315 x10^3/uL (140-400) 278 x10^3/uL (140-400) Neutrophils (%) (Auto) 64 % (31-73) 51 % (31-73) Lymphocytes (%) (Auto) 26 % (24-48) 35 % (24-48) Monocytes (%) (Auto) 8 % (0-9) 11 % (0-9) Eosinophils (%) (Auto) 2 % (0-3) 3 % (0-3) Basophils (%) (Auto) 1 % (0-3) 1 % (0-3) Neutrophils # (Auto) 3.6 x10^3/uL (1.8-7.7) 2.4 x10^3/uL (1.8-7.7) Lymphocytes # (Auto) 1.5 x10^3/uL (1.0-4.8) 1.7 x10^3/uL (1.0-4.8) Monocytes # (Auto) 0.4 x10^3/uL (0.0-1.1) 0.5 x10^3/uL (0.0-1.1) Eosinophils # (Auto) 0.1 x10^3/uL (0.0-0.7) 0.1 x10^3/uL (0.0-0.7) Basophils # (Auto) 0.1 x10^3/uL (0.0-0.2) 0.0 x10^3/uL (0.0-0.2) Sodium Level 133 mmol/L (136-145) 136 mmol/L (136-145) Potassium Level 3.5 mmol/L (3.5-5.1) 3.5 mmol/L (3.5-5.1) Chloride Level 99 mmol/L (98-107) 102 mmol/L (98-107) Carbon Dioxide Level 24 mmol/L (21-32) 23 mmol/L (21-32) Anion Gap 10 (6-14) 11 (6-14) Blood Urea Nitrogen 8 mg/dL (7-20) 11 mg/dL (7-20) Creatinine 0.8 mg/dL (0.6-1.0) 0.9 mg/dL (0.6-1.0) Estimated GFR (Cockcroft-Gault) 77.9 68.0 BUN/Creatinine Ratio 10 (6-20) Glucose Level 115 mg/dL (70-99) 153 mg/dL (70-99) Calcium Level 8.8 mg/dL (8.5-10.1) 8.7 mg/dL (8.5-10.1) Total Bilirubin 0.3 mg/dL (0.2-1.0) Aspartate Amino Transf (AST/SGOT) 28 U/L (15-37) Alanine Aminotransferase (ALT/SGPT) 44 U/L (14-59) Alkaline Phosphatase 132 U/L (46-116) Troponin I Quantitative < 0.017 ng/mL (0.000-0.055) Total Protein 6.9 g/dL (6.4-8.2) Albumin 3.5 g/dL (3.4-5.0) Albumin/Globulin Ratio 1.0 (1.0-1.7) Prothrombin Time 12.6 SEC (11.7-14.0) Prothromb Time International Ratio 0.9 (0.8-1.1) Activated Partial Thromboplast Time 29 SEC (24-38) Phosphorus Level 4.0 mg/dL (2.6-4.7) Magnesium Level 1.9 mg/dL (1.8-2.4) Laboratory Tests Test 09/22/20 18:48 09/23/20 03:20 Prothrombin Time 12.6 SEC (11.7-14.0) Prothromb Time International Ratio 0.9 (0.8-1.1) Activated Partial Thromboplast Time 29 SEC (24-38) White Blood Count 4.8 x10^3/uL (4.0-11.0) Red Blood Count 3.28 x10^6/uL (3.50-5.40) Hemoglobin 9.4 g/dL (12.0-15.5) Hematocrit 28.6 % (36.0-47.0) Mean Corpuscular Volume 87 fL (79-100) Mean Corpuscular Hemoglobin 29 pg (25-35) Mean Corpuscular Hemoglobin Concent 33 g/dL (31-37) Red Cell Distribution Width 14.7 % (11.5-14.5) Platelet Count 278 x10^3/uL (140-400) Neutrophils (%) (Auto) 51 % (31-73) Lymphocytes (%) (Auto) 35 % (24-48) Monocytes (%) (Auto) 11 % (0-9) Eosinophils (%) (Auto) 3 % (0-3) Basophils (%) (Auto) 1 % (0-3) Neutrophils # (Auto) 2.4 x10^3/uL (1.8-7.7) Lymphocytes # (Auto) 1.7 x10^3/uL (1.0-4.8) Monocytes # (Auto) 0.5 x10^3/uL (0.0-1.1) Eosinophils # (Auto) 0.1 x10^3/uL (0.0-0.7) Basophils # (Auto) 0.0 x10^3/uL (0.0-0.2) Sodium Level 136 mmol/L (136-145) Potassium Level 3.5 mmol/L (3.5-5.1) Chloride Level 102 mmol/L (98-107) Carbon Dioxide Level 23 mmol/L (21-32) Anion Gap 11 (6-14) Blood Urea Nitrogen 11 mg/dL (7-20) Creatinine 0.9 mg/dL (0.6-1.0) Estimated GFR (Cockcroft-Gault) 68.0 Glucose Level 153 mg/dL (70-99) Calcium Level 8.7 mg/dL (8.5-10.1) Phosphorus Level 4.0 mg/dL (2.6-4.7) Magnesium Level 1.9 mg/dL (1.8-2.4) Brief Hospital Course Ms. Ratliff is a 44 old admti with weaknaess, dyspnea, nausea, worse over weeks, had prior surg, hernia repair did fall and injury her ankle and hip after surg and had a large bruise to her thigh. is on estrogen/progesterone and test for s/p complete hys and for mood Discharge Information Condition at Discharge: Improved Follow Up: Weeks Disposition/Orders: D/C to Home Scheduled Albuterol Sulfate (Albuterol Sulfate Hfa Inhaler) 8.5 Gm Hfa.aer.ad, 8.5 GM IH DAILY, (Reported) Entered as Reported by: TERRIE HEALY on 02/28/13 0813 Last Action: Reviewed on 09/22/202310 by VICTOR MANUEL SAWYER Amlodipine Besylate (Norvasc) 2.5 Mg Tablet, 1 TAB PO HS for HTN, #30 Ref 5 (Reported) Entered as Reported by: MAYKEL ROJAS on 04/21/20 0850 Last Action: Converted on 09/22/202313 by VICTOR MANUEL SAWYER Apixaban (Eliquis) 5 Mg Tablet, 10 MG PO BID for acute PE, first 10 days for 10 Days, #40 Prescribed by: RAJI PARKER on 09/23/20 155 Apixaban (Eliquis) 5 Mg Tablet, 5 MG PO BID for PE, #60 Ref 2 Prescribed by: RAJI PARKER on 09/23/201557 Duloxetine Hcl (Cymbalta) 30 Mg Capsule.dr, 1 CAP PO DAILY for depression, #30 Ref 5 (Reported) Entered as Reported by: AMOL MCGRATH on 09/29/192312 Last Action: Continued on 09/22/202313 by VICTOR MANUEL SAWYER Fluoxetine Hcl (Fluoxetine Hcl) 60 Mg Tablet, 80 MG PO DAILY for depression, (Reported) Entered as Reported by: ONEYDA MEREDITH on 08/19/20 135 Last Action: Converted on 09/22/202313 by VICTOR MANUEL SAWYER Linaclotide (Linzess) 290 Mcg Capsule, 290 MCG PO DAILY07 for IRRITABLE BOWEL, (Reported) Entered as Reported by: ONEYDA MEREDITH on 08/19/20 135 Last Action: Converted on 09/22/202313 by VICTOR MANUEL SAWYER Lorazepam (Ativan) 1 Mg Tablet, 1-2 MG PO HS for anxiety , (Reported) Entered as Reported by: ONEYDA MEREDITH on 08/19/201354 Last Action: Continued on 09/22/202313 by VICTOR MANUEL SAWYER Mirtazapine (Remeron) 15 Mg Tablet, 1 TAB PO QHS, #30 Ref 1 (Reported) Entered as Reported by: MAYKEL ROJAS on 04/21/20 0850 Last Action: Continued on 09/22/202313 by VICTOR MANUEL SAWYER Pantoprazole Sodium (Protonix ) 40 Mg Tablet.dr, 40 MG PO DAILYAC for GERD, (Reported) Entered as Reported by: Maykel Fields on 10/29/18 1540 Last Action: Continued on 09/22/202313 by VICTOR MANUEL SAWYER Prazosin Hcl (Prazosin Hcl) 5 Mg Capsule, 1 CAP PO QHS, #30 Ref 1 (Reported) Entered as Reported by: MAYKEL ROJAS on 04/21/20 0850 Last Action: Converted on 09/22/202313 by VICTOR MANUEL SAWYER Progesterone,Micronized (Progesterone) 100 Mg Capsule, 1 CAP PO QHS for hormone replacement for 30 Days, #30 Ref 0 (Reported) Entered as Reported by: AMOL MCGRATH on 09/29/192312 Last Action: Reviewed on 09/22/202310 by VICTOR MANUEL SAWYER Spironolactone (Spironolactone) 100 Mg Tablet, 100 MG PO BID for water pill, (Reported) Entered as Reported by: ONEYDA MEREDITH on 08/19/20 1359 Last Action: Converted on 09/22/202313 by VICTOR MANUEL SAWYER Testosterone Cypionate (Testosterone Cypionate) 200 Mg/1 Ml Vial, 150 MG IM Q4WK for hormone replace, (Reported) Entered as Reported by: ONEYDA MEREDITH on 08/19/20 1359 Last Action: Reviewed on 09/22/202310 by VICTOR MANUEL SAWYER Zaleplon (Zaleplon) 10 Mg Capsule, 10 MG PO HS for insomnia, (Reported) Entered as Reported by: MAYKEL ROJAS on 04/21/20 0850 Last Action: Converted on 09/22/202313 by VICTOR MANUEL SAWYER Scheduled PRN Acetaminophen (Tylenol) 325 Mg Tablet, 650 MG PO PRN Q6HRS PRN for MILD PAIN / TEMP > 100.3'F for 10 Days, #30 Prescribed by: DENISSE MENDES MD on 10/02/19 1021 Last Action: Reviewed on 09/22/202310 by VICTOR MANUEL SAWYER Albuterol Sulfate (Proair Hfa Inhaler) 8.5 Gm Hfa.aer.ad, 1 PUFF INH PRN Q6HRS PRN for SHORTNESS OF BREATH, #1 Ref 0 Prescribed by: JUSTIN DORSEY APRN on 09/08/20 1229 Last Action: Reviewed on 09/22/202310 by VICTOR MANUEL SAWYER Oxycodone/Apap 5-325 (Percocet 5-325 Mg Tablet ) 1 Each Tablet, 1-2 TAB PO PRN Q6HRS PRN for PAIN, #20 Ref 0 (Reported) Entered as Reported by: ROSALIE JACKSON, RN on 08/20/20 1152 Last Action: Continued on 09/22/202313 by VICTOR MANUEL SAWYER Patient Instructions Patient Instructions DC home plan discussed wtih patiet face to face x2 Justicifation of Admission Dx: Justifications for Admission: Justification of Admission Dx: Yes Cellulitis: Cellulitis RAJI PARKER MD Sep 23, 2020 16:03
--- NOTE | 2020-09-23 16:10 | NUR ---
Discharge Note: NARCISA ALCAZAR [place] Discharge instructions and discharge home medications reviewed with Patient and a copy given. All questions have been answered and understanding verbalized. The following instructions and handouts were given: d/c instructions Discontinued lines and drains: Peripheral IV intact. Patient discharged to Home or Self Care with Spouse via Wheelchair
== END 2020-09-23 16:52 | disposition home or self-care (01) ==
LOC: ER 11:09 → ED HOLD 15:50 → 6 SOUTH 19:30 → 5 NORTH 09-23 08:54
PROVIDERS: ADMIT Internal Medicine; ATTEND Internal Medicine
DX: I26.99 Other pulmonary embolism without acute cor pulmonale (principal); Z20.822 Contact with and (suspected) exposure to COVID-19; R79.1 Abnormal coagulation profile; I10 Essential (primary) hypertension; G47.00 Insomnia, unspecified; F41.9 Anxiety disorder, unspecified; E87.1 Hypo-osmolality and hyponatremia; F31.9 Bipolar disorder, unspecified; E66.9 Obesity, unspecified; G89.29 Other chronic pain; M54.9 Dorsalgia, unspecified; R53.1 Weakness; J44.9 Chronic obstructive pulmonary disease, unspecified; K58.0 Irritable bowel syndrome with diarrhea; M79.7 Fibromyalgia; Z87.891 Personal history of nicotine dependence; Z90.710 Acquired absence of both cervix and uterus; Z90.49 Acquired absence of other specified parts of digestive tract; Z98.890 Other specified postprocedural states; Z87.440 Personal history of urinary (tract) infections
CPT/HCPCS: 36415; 80048; 80053; 81001; 83735; 84100; 84484; 85025; 85610; 85730; 87040; 93005; 96372; 96374; 99284; G0378; J1650; J2405; G0379

== ENCOUNTER 2021-03-08 13:26 | Emergency (ER) | payer BC ==
[~2021-03-08] VITALS: Ht 167.6 cm; Wt 90.9 kg
[~2021-03-08 13:26] MED LIST changes: +APIX5TAB PO; -MOME17SP NS; +MOME17SP5 NS; -TEST100V2 IM; +TEST100V8 IM; +TIZA-75 PO; -TIZA4TAB2 PO
[2021-03-08] MEDS ORDERED: IV NORMAL SALINE 1000ML BAG 1,000 ML IV ONE ×2 (14:15→15:15)
[2021-03-08 14:19] LABS: BASO % 0 % (0-3); EOS # 0.1 x10^3/uL (0.0-0.7); EOS % 1 % (0-3); HEMATOCRIT 32.4 % (36.0-47.0); HEMOGLOBIN 10.4 g/dL (12.0-15.5); LYMPH # 1.5 x10^3/uL (1.0-4.8); LYMPH % 21 % (24-48); MEAN CORPUSCULAR HEMOGLOBIN 24 pg (25-35); MEAN CORPUSCULAR HGB CONC 32 g/dL (31-37); MEAN CORPUSCULAR VOLUME 75 fL (79-100); MONO # 0.5 x10^3/uL (0.0-1.1); MONO % 7 % (0-9); NEUT % 71 % (31-73); PLATELET COUNT 347 x10^3/uL (140-400); RED BLOOD COUNT 4.35 x10^6/uL (3.50-5.40); RED CELL DISTRIBUTION WIDTH 17.9 % (11.5-14.5); WHITE BLOOD COUNT 7.1 x10^3/uL (4.0-11.0)
--- NOTE | 2021-03-08 14:30 | RAD ---
EXAM: Chest, single view. HISTORY: Drug overdose. COMPARISON: 09/08/2020 FINDINGS: A frontal view of the chest is obtained. There is no infiltrate, pleural effusion or pneumo thorax. There is a stable cardiac silhouette. IMPRESSION: No acute pulmonary finding. Electronically signed by: Ilene Santamaria MD (03/08/2021 2:28 PM) [id number]
--- NOTE | 2021-03-08 14:38 | PHYS DOC ---
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 Patient states on Sunday she took 20 tablets of 1 mg Klonopin, [facility] version of dextromethorphan cough syrup 2 bottles(each bottle is 148 mL) She states today around noon she took 2 extra tablets of her hydrocodone 7.5/325 mg, she also took 3 tablets of metaxolone (800mg), she also took chlorzoxazone 3 tablets each is 250 mg. She also took 2 to 3 tablets of phentermine. She states she was not trying to harm herself, she was trying to treat her chronic pain as well as her chronic insomnia. She is requesting more pain medicine and anxiety medicine. Patient also states she is on argumentative right now for pneumonia and UTI diagnosed last week (EUGENIA JOHNS ) Review of Systems: Review of Systems: Constitutional: Denies fever or chills. [] Eyes: Denies change in visual acuity. [] HENT: Denies nasal congestion or sore throat. [] Respiratory: Denies cough or shortness of breath. [] Cardiovascular: Denies chest pain or edema. [] GI: Denies abdominal pain, nausea, vomiting, bloody stools or diarrhea. [] : Denies dysuria. [] Musculoskeletal: Reports chronic low back pain Integument: Denies rash. [] Neurologic: Denies headache, focal weakness or sensory changes. [] Endocrine: Denies polyuria or polydipsia. [] Lymphatic: Denies swollen glands. [] Psychiatric: Reports overdose (SAURABHEUGENIA Jensen [employer]) Heart Score: C/O Chest Pain: N/A Risk Factors: Risk Factors: DM, Current or recent (<one month) smoker, HTN, HLP, family history of CAD, obesity. Risk Scores: Score 0 - 3: 2.5% MACE over next 6 weeks - Discharge Home Score 4 - 6: 20.3% MACE over next 6 weeks - Admit for Clinical Observation Score 7 - 10: 72.7% MACE over next 6 weeks - Early Invasive Strategies (EUGENIA JOHNS [employer]) Current Medications: Current Medications Medications (Trade) Dose Ordered Sig/Eric Start Time Stop Time Status Last Admin Dose Admin Sodium Chloride 1,000 ml @ 1,000 mls/hr 1X ONCE 03/08/21 14:15 03/08/21 15:14 (ROSALINDAEUGENIA MOREL [employer]) Allergies: Allergies: Allergies Coded Allergies Type Severity Reaction Last Updated Verified Latex, Natural Rubber Allergy Intermediate RASH 08/20/20 Yes adhesive tape Allergy Intermediate Rash 08/20/20 Yes ciprofloxacin Allergy Intermediate COLITIS 09/22/20 Yes phosphoric acid,diluted Allergy Intermediate RASH, SWELLING 08/20/20 Yes sodium lauryl sulfate Allergy Intermediate RASH, SWELLING 08/20/20 Yes vaginal antiseptics combination no.1 Allergy Intermediate RASH, SWELLING 08/20/20 Yes RONIT Inhibitors Allergy Mild SHAKEY AND NAUSEA 09/22/20 Yes levofloxacin Allergy Mild GI UPSET 08/20/20 Yes pramipexole Allergy Mild Nausea and Vomiting 09/22/20 Yes I S O L A T I O N *CONTACT* Allergy Unknown mrsa 08/20/20 Yes formoterol Adverse Reaction Intermediate 08/20/20 Yes mometasone furoate Adverse Reaction Intermediate 08/20/20 Yes varenicline Adverse Reaction Intermediate 08/20/20 Yes cyclobenzaprine Adverse Reaction Mild CONSTIPATION 09/22/20 Yes nortriptyline Adverse Reaction Mild TIRED 09/22/20 Yes topiramate Adverse Reaction Mild TIRED 09/22/20 Yes (ROSALINDAEUGENIA MOREL [employer]) Physical Exam: PE: Constitutional: Well developed, well nourished, no acute distress, non-toxic appearance. [] HENT: Normocephalic, atraumatic, bilateral external ears normal, oropharynx moist, no oral exudates, nose normal. [] Eyes: PERRLA, EOMI, conjunctiva normal, no discharge. [] Neck: Normal range of motion, no tenderness, supple, no stridor. [] Cardiovascular: Tachycardic Lungs & Thorax: Bilateral breath sounds clear to auscultation [] Abdomen: Bowel sounds normal, soft, no tenderness, no masses, no pulsatile masses. [] Skin: Warm, dry, no erythema, no rash. [] Back: No tenderness, no CVA tenderness. [] Extremities: No tenderness, no cyanosis, no clubbing, ROM intact, no edema. [] Neurologic: Alert and oriented X 3, normal motor function, normal sensory function, no focal deficits noted. [] Psychologic: Flat affect, depressed mood (EUGENIA JOHNS APRN) PE: Constitutional: Well developed, well nourished, no acute distress, non-toxic appearance HENT: Normocephalic, atraumatic Eyes: Conjunctiva normal, no discharge Neck: Normal range of motion, supple Lungs & Thorax: No respiratory distress, equal chest rise and fall Skin: Warm, dry, no erythema, no rash Neurologic: Alert and oriented X 3, normal motor function, normal sensory function, no focal deficits noted Psychologic: Affect normal, judgment normal, denies current suicidal ideation (YVON COLLINS DO) Current Patient Data: Labs: Laboratory Tests Test 03/08/21 13:40 White Blood Count 7.1 x10^3/uL (4.0-11.0) Red Blood Count 4.35 x10^6/uL (3.50-5.40) Hemoglobin 10.4 g/dL (12.0-15.5) L Hematocrit 32.4 % (36.0-47.0) L Mean Corpuscular Volume 75 fL (79-100) L Mean Corpuscular Hemoglobin 24 pg (25-35) L Mean Corpuscular Hemoglobin Concent 32 g/dL (31-37) Red Cell Distribution Width 17.9 % (11.5-14.5) H Platelet Count 347 x10^3/uL (140-400) Neutrophils (%) (Auto) 71 % (31-73) Lymphocytes (%) (Auto) 21 % (24-48) L Monocytes (%) (Auto) 7 % (0-9) Eosinophils (%) (Auto) 1 % (0-3) Basophils (%) (Auto) 0 % (0-3) Neutrophils # (Auto) 5.0 x10^3/uL (1.8-7.7) Lymphocytes # (Auto) 1.5 x10^3/uL (1.0-4.8) Monocytes # (Auto) 0.5 x10^3/uL (0.0-1.1) Eosinophils # (Auto) 0.1 x10^3/uL (0.0-0.7) Basophils # (Auto) 0.0 x10^3/uL (0.0-0.2) Laboratory Tests 03/08/21 13:40 Vital Signs: Vital Signs Date Time Temp Pulse Resp B/P (MAP) Pulse Ox O2 Delivery O2 Flow Rate FiO2 03/08/21 13:26 98.2 109 18 128/77 (94) 99 Room Air 98.2 (EUGENIA JOHNS [employer]) EKG: EK interpreted by Dr. Velasquez sinus tachycardia heart rate 108 no STEMI, QTC 476 [] (EUGENIA JOHNS APRN) Radiology/Procedures: Radiology/Procedures: []PROCEDURE: PORTABLE CHEST 1V EXAM: Chest, single view. HISTORY: Drug overdose. COMPARISON: 09/08/2020 FINDINGS: A frontal view of the chest is obtained. There is no infiltrate, pleural effusion or pneumothorax. There is a stable cardiac silhouette. IMPRESSION: No acute pulmonary finding. Electronically signed by: Torri Iglesias MD (03/08/2021 2:28 PM) [id number] DICTATED and SIGNED BY: TORRI IGLESIAS MD DATE: 03/08/21 [id number] (EUGENIA JOHNS [employer]) Course & Med Decision Making: Course & Med Decision Making Pertinent Labs and Imaging studies reviewed. (See chart for details) This is a 45-year-old female patient presented to the ED today to be evaluated for an overdose. On Sunday she took 20 tablets of 1 mg Klonopin, [facility] version of dextromethorphan cough syrup 2 bottles(each bottle is 148 mL) Today around noon she took 2 extra tablets of her hydrocodone 7.5/325 mg, she also took 3 tablets of metaxolone (800mg), she also took chlorzoxazone 3 tablets each is 250 mg. She also took 2 to 3 tablets of phentermine. She also reports she is currently on Augmentin for UTI and pneumonia. All the above are her home medications I spoke to poison control, they gave recommendation of labs EKGs and iv fluids. 1500 Angel from [facility] patient is reporting SI. 1:1 was ordered. Chest x-ray interpreted by radiologist as negative for any acute findings. EKG is negative. CBC, CMP with no acute findings, lactic 3.0. IV fluids given lactate came back to normal. Acetaminophen level was 5.1, it came down to 2 1946 Spoke with poison control, stated patient can be [facility] if she qualifies but medically she has been cleared. [facility] team working on placement. [address] Collins. (EUGENIA JOHNS [employer]) Course & Med Decision Making 0100- Sign out received from Eugenia MANCIA for patient with suicidal ideation and drug overdose. Patient had previously been medically cleared. Psychiatric assessment was initially performed with plan for inpatient psychiatric services. Patient had requested reevaluation. Psychiatric assessment team consultation again performed with change in decision for safety plan and outpatient management. Labs reviewed. Patient seen by myself. Patient stable for discharge with outpatient follow-up with PCP/mental health. Discussed findings and plan with patient, who acknowledges understanding and agr eement. (YVON COLLINS DO) Dragon Disclaimer: Dannie Disclaimer: This electronic medical record was generated, in whole or in part, using a voice recognition dictation system. (EUGENIA JOHNS [employer]) Departure Departure Impression: Primary Impression: Drug overdose Qualified Codes: T50.902A - Poisoning by unspecified drugs, medicaments and biological substances, intentional self-harm, initial encounter Additional Impression: Suicidal ideation Disposition: 01 HOME / SELF CARE / HOMELESS Condition: STABLE Referrals: LESLIE FREED (PCP) Patient Instructions: Alcohol and Drug Addiction, Finding Treatment, Overdose, Adult, Suicidal Feelings, How to Help Yourself Additional Instructions: Please call [facility] at to seek help for your mental health and/or drug/alcohol abuse. Attending Signature Attending Signature I have personally interviewed and examined the patient. All charts, labs, and imaging studies were reviewed. I agree with the PA/[employer] SUPERVISOR's findings, exam, and plan. (YVON COLLINS DO) EUGENIA JOHNS APRN Mar 08, 2021 14:38 YVON COLLINS DO Mar 09, 2021 02:09
[2021-03-08 14:39] LABS: ACETAMIN 5.1 mcg/ml (10-30); ETHANOL < 10 mg/dL (0-10); SALIC 1.8 mg/dL (2.8-20.0)
[2021-03-08 14:43] LABS: CALCIUM 9.1 mg/dL (8.5-10.1); CREATININE 0.9 mg/dL (0.6-1.0); GFR 67.7; POTASSIUM 3.4 mmol/L (3.5-5.1)
[2021-03-08 14:45] LABS: ALBUMIN 3.7 g/dL (3.4-5.0); ALBUMIN/GLOBULIN RATIO 0.8 (1.0-1.7); MAGNESIUM 1.8 mg/dL (1.8-2.4); TOTAL BILIRUBIN 0.5 mg/dL (0.2-1.0); TOTAL PROTEIN 8.1 g/dL (6.4-8.2)
[2021-03-08 15:26] LABS: BASE EXCESS ABG -4 mmol/L (-3-3); HCO3 ABG 20 mmol/L (21-28); PCO2 ABG 33 mmHg (35-46); PO2 ABG 75 mmHg (75-108); SAT O2 ABG 95 % (92-99)
[2021-03-08 15:29] LABS: FIO2 ABG 21/RA
[2021-03-08 16:19] LABS: BILIRUBIN,URINE NEGATIVE (NEG); CLARITY,URINE CLEAR; COLOR,URINE YELLOW; NITRITE,URINE NEGATIVE (NEG); PROTEIN,URINE NEGATIVE (NEG-TRACE); UROBILINOGEN,URINE 0.2 mg/dL (0.2 mg/dL)
[2021-03-08 16:27] LABS: AMPHETAMINE/METHAMPHETAMINE NEG (NEG); BARBITURATES NEG (NEG); BENZODIAZEPINES POS (NEG); CANNABINOIDS NEG (NEG); COCAINE NEG (NEG); METHADONE NEG (NEG); OPIATES POS (NEG); PHENCYCLIDINE NEG (NEG)
[2021-03-08 16:30] LABS: BACTERIA,URINE 0 /HPF (0-FEW); HYALINE CASTS, URINE FEW /HPF
[2021-03-08 16:31] LABS: YEAST,URINE PRESENT /HPF
[2021-03-08] MEDS ORDERED: NICOTINE 21MG PATCH. TD STA (16:56)
[2021-03-08 17:38] LABS: ALBUMIN 3.3 g/dL (3.4-5.0); ALBUMIN/GLOBULIN RATIO 0.8 (1.0-1.7); CALCIUM 8.2 mg/dL (8.5-10.1); CREATININE 0.8 mg/dL (0.6-1.0); GFR 77.6; POTASSIUM 3.6 mmol/L (3.5-5.1); TOTAL BILIRUBIN 0.4 mg/dL (0.2-1.0); TOTAL PROTEIN 7.2 g/dL (6.4-8.2)
[2021-03-08 17:43] LABS: ACETAMIN < 2 mcg/ml (10-30)
--- NOTE | 2021-03-08 19:13 | EKG ---
[facility] [address] [place] [address] Test Date: 2021-03-08 Test Time: 14:34:09 Pat Name: NARCISA ALCAZAR Department: Room: Gender: F Composite Worker: : 1975 Requested By: STEPHANIA JOHNS Order Number: [id number] Reading MD: Eliazar Villagomez Measurements Intervals [place] Rate: 108 P: 114 CT: 156 QRS: 44 QRSD: 70 T: 37 QT: 352 QTc: 476 Interpretive Statements SINUS TACHYCARDIA LEFT ATRIAL ABNORMALITY Electronically Signed On 03-12-2021 16:51:20 REPRODUCTIVE SURGEON by Eliazar Villagomez
[2021-03-08] MEDS ORDERED: clonazePAM 0.5 MG TABLET PO STA (19:45)
[2021-03-08] MEDS ORDERED: HYDROcodone/APAP 7.5/325MG 1 TAB TABLET PO ONE (22:30)
[2021-03-08] MEDS ORDERED: metFORMIN 500 MG TABLET PO ONE (22:43)
[2021-03-09] MEDS ORDERED: ZOLPIDEM 5 MG TABLET. PO STA (00:14)
[2021-03-09 02:00] VITALS: BP 153/90
[2021-03-09] MEDS ORDERED: metFORMIN 500 MG TABLET PO SCH (08:00)
--- NOTE | 2021-03-09 16:01 | NUR ---
IP: Attempted to contact pt concerning covid results. No answer, left a voicemail to return the call. Addendum: 03/09/21 at 1915 by CHELSIE HAYDEN RN Pt returned call. Informed her of the negative covid test. She verbalized understanding.
== END 2021-03-09 02:10 | disposition home or self-care (01) ==
LOC: ER 13:26
DX: T42.4X2A Poisoning by benzodiazepines, intentional self-harm, initial encounter (principal); T40.2X2A Poisoning by other opioids, intentional self-harm, initial encounter; Z20.822 Contact with and (suspected) exposure to COVID-19; T42.8X2A Poisoning by antiparkinsonism drugs and other central muscle-tone depressants, intentional self-harm, initial encounter; T50.5X2A Poisoning by appetite depressants, intentional self-harm, initial encounter; T48.3X2A Poisoning by antitussives, intentional self-harm, initial encounter; F41.9 Anxiety disorder, unspecified; G89.29 Other chronic pain; F31.9 Bipolar disorder, unspecified; J44.9 Chronic obstructive pulmonary disease, unspecified; I10 Essential (primary) hypertension; K58.9 Irritable bowel syndrome, unspecified; Z86.14 Personal history of Methicillin resistant Staphylococcus aureus infection; F17.200 Nicotine dependence, unspecified, uncomplicated; Z91.040 Latex allergy status; Z88.1 Allergy status to other antibiotic agents; Z91.041 Radiographic dye allergy status; Z88.8 Allergy status to other drugs, medicaments and biological substances; Y92.89 Other specified places as the place of occurrence of the external cause
CPT/HCPCS: 36415; 36600; 71045; 80053; 80307; 80329; 81001; 82550; 82805; 83605; 83690; 83735; 84484; 85025; 85610; 85730; 87426; 93005; 96360; 96361; 99285; G0480; J7030; U0003; U0005

== ENCOUNTER → 2021-05-27 | Day surgery (SDC) | payer BC ==
[~2021-05-27] VITALS: Ht 378.5 cm; Wt 90.0 kg
[~2021-05-27] MED LIST changes: +CEFD300C PO; +CLON1TAB12 PO; +FENT1PAT17 TP; +HYDROmorphone 2 MG/ML INJ. IVP PRN; +IV RINGERS,LACTATED 1000ML 1,000 ML IV SCH; +METF500T16 PO; +MORPHINE SULFATE 2 MG/ML INJ. IVP PRN; +PROCHLORPERAZINE 10 MG/2 ML VIAL. IVP PRN; +PROPOFOL 10 MG/ML (20ML) VIAL. IV ONE; +PROPOFOL 50 ML IV ONE; +fentaNYL PF VIAL 100 MCG/2 ML VIAL IVP PRN
[2021-05-27 07:33] VITALS: BP 130/72
[2021-05-27 09:05] VITALS: BP 100/55
--- NOTE | 2021-05-30 18:06 | PATHOLOGY ---
[facility] Accession Number: [id number] . 01 Material submitted: . sigmoid colon - SIGMOID POLYP BIOPSY . 01 Clinical history: . ANEMIA . 02 Diagnosis: Colon biopsy, sigmoid colon polyp: - Hyperplastic polyp. (CLAY:madiha; 05/30/2021) [facility] 05/30/2021 1612 Local . 02 Comment: There are no adenomatous changes or evidence of malignancy. (CLAYM:madiha; 05/30/2021) . 02 Electronically signed: . Ben Kingsley MD, Pathologist NPI- [id number] . 01 Gross description: . Received in formalin labeled "[place], [place]efany, sigmoid colon polyp BX" are 2 melgoza-brown soft tissue fragments measuring in aggregate 0.4 x 0.2 x 0.1 cm. The specimen is submitted entirely in A1. ([facility]; 05/29/2021) [facility] 05/29/2021 1354 Local . 02 Pathologist provided ICD-10: K63.5 . 02 CPT . 993818 Specimen Comment: A courtesy copy of this report has been sent to [phone], [phone] Specimen Comment: [id number] Specimen Comment: Report sent to / DR FREED Specimen Comment: A duplicate report has been generated due to demographic updates. Performed at: 01 [facility] [address], [place] [id number] MD Samuel Brooks MD Phone: [phone] [facility]formed at: [facility] [address] [place], [place] [id number] MD Ben Kingsley MD Phone: [phone]
== END | disposition home or self-care (01) ==
LOC: ENDOS 07:04
PROVIDERS: ATTEND Internal Medicine Gastroenterology
DX: D50.9 Iron deficiency anemia, unspecified (principal); K64.0 First degree hemorrhoids; K63.5 Polyp of colon; K29.50 Unspecified chronic gastritis without bleeding; K31.89 Other diseases of stomach and duodenum; K63.89 Other specified diseases of intestine; R58 Hemorrhage, not elsewhere classified; I10 Essential (primary) hypertension; K21.9 Gastro-esophageal reflux disease without esophagitis; J44.9 Chronic obstructive pulmonary disease, unspecified; E66.9 Obesity, unspecified; F41.9 Anxiety disorder, unspecified; F32.9 Major depressive disorder, single episode, unspecified; F17.210 Nicotine dependence, cigarettes, uncomplicated; Z90.49 Acquired absence of other specified parts of digestive tract; Z90.710 Acquired absence of both cervix and uterus; Z98.890 Other specified postprocedural states; Z79.84 Long term (current) use of oral hypoglycemic drugs; Z79.899 Other long term (current) drug therapy; Z72.89 Other problems related to lifestyle; Z88.1 Allergy status to other antibiotic agents; Z91.040 Latex allergy status; Z88.8 Allergy status to other drugs, medicaments and biological substances
CPT/HCPCS: 43235; 45380; 88305; J2704

== ENCOUNTER 2021-06-07 18:30 | Emergency (ER) | payer BC ==
[~2021-06-07] VITALS: Ht 167.6 cm; Wt 90.9 kg
[~2021-06-07 18:30] MED LIST changes: -HYDROmorphone 2 MG/ML INJ. IVP PRN; -IV RINGERS,LACTATED 1000ML 1,000 ML IV SCH; -MORPHINE SULFATE 2 MG/ML INJ. IVP PRN; -PROCHLORPERAZINE 10 MG/2 ML VIAL. IVP PRN; -PROPOFOL 10 MG/ML (20ML) VIAL. IV ONE; -PROPOFOL 50 ML IV ONE; -fentaNYL PF VIAL 100 MCG/2 ML VIAL IVP PRN
[2021-06-07 19:34] LABS: BASO # 0.1 x10^3/uL (0.0-0.2); BASO % 2 % (0-3); EOS # 0.1 x10^3/uL (0.0-0.7); EOS % 1 % (0-3); HEMATOCRIT 31.9 % (36.0-47.0); HEMOGLOBIN 10.1 g/dL (12.0-15.5); LYMPH # 1.3 x10^3/uL (1.0-4.8); LYMPH % 27 % (24-48); MEAN CORPUSCULAR HEMOGLOBIN 25 pg (25-35); MEAN CORPUSCULAR HGB CONC 32 g/dL (31-37); MEAN CORPUSCULAR VOLUME 78 fL (79-100); MONO # 0.5 x10^3/uL (0.0-1.1); MONO % 10 % (0-9); NEUT # 2.9 x10^3/uL (1.8-7.7); NEUT % 60 % (31-73); PLATELET COUNT 341 x10^3/uL (140-400); RED BLOOD COUNT 4.11 x10^6/uL (3.50-5.40); RED CELL DISTRIBUTION WIDTH 19.4 % (11.5-14.5); WHITE BLOOD COUNT 4.8 x10^3/uL (4.0-11.0)
[2021-06-07 19:43] VITALS: BP 110/73
[2021-06-07 19:43] LABS: CALCIUM 9.1 mg/dL (8.5-10.1); POTASSIUM 3.2 mmol/L (3.5-5.1)
[2021-06-07] MEDS ORDERED: IOHEXOL 350 MG/ML 100 ML VIAL. IV ONE (19:45)
[2021-06-07 19:49] LABS: ALBUMIN 3.8 g/dL (3.4-5.0); TOTAL BILIRUBIN 0.2 mg/dL (0.2-1.0); TOTAL PROTEIN 7.7 g/dL (6.4-8.2)
[2021-06-07 19:56] LABS: PREG TEST PT QUAL NEGATIVE (NEG)
--- NOTE | 2021-06-07 20:33 | RAD ---
Exam: CT of chest with contrast INDICATION: Elevated d-dimer TECHNIQUE: Sequential axial images through the chest obtained following the administration of 100 mL of Isovue-370 IV contrast. Sagittal and coronal reformatted images were reconstructed from the axial data and reviewed. Exposure: One or more of the following in the visualized dose reduction techniques were utilized for this examination: 1. Automated exposure control 2. Adjustment of the MA and/or KV according to patient size 3. Use of iterative of reconstructive technique Comparisons: Chest x-ray 05/06/2021 FINDINGS: Visualized portions of the thyroid are unremarkable. No enlarged mediastinal lymph nodes are identifi ed. Heart size is normal. No pericardial effusion. Thoracic aorta has normal course and caliber. Pulmonar y artery is not enlarged. No pulmonary embolus identified within the main, lobar or segmental pulmona ry arteries. Airways are patent. Mild bronchial wall thickening is noted. No consolidation or pneumothorax. 4 mm n odule in the left lower lobe series 3 image 102. No pleural effusion. Visualized upper abdomen is unremarkable. No suspicious osseous lesions or acute fractures. IMPRESSION: 1. No pulmonary embolus identified within the main, lobar or segmental pulmonary arteries. 2. A 4 mm nodule in the left lower lobe. In a low-risk patient no further follow-up imaging is recom mended. In a high-risk patient optional one-year follow-up can BE performed. Electronically signed by: Chele Swenson MD (06/07/2021 8:30 PM) [facility]
[2021-06-07 20:40] LABS: INFLUENZA A PATIENT NEGATIVE (NEGATIVE); INFLUENZA B PATIENT NEGATIVE (NEGATIVE)
[2021-06-07] MEDS ORDERED: HYDROcodone/APAP 5/325MG 1 TAB TABLET PO ONE (21:00)
--- NOTE | 2021-06-07 21:37 | PHYS DOC ---
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 Ms. Ratliff presents for evaluation of nasal congestion, rhinorrhea, mild dry cough and very mild shortness of breath with onset over the last 2 days. Daughter had a similar illness last week. Primary doctor was concerned about upper respiratory symptoms and ordered blood work; blood work ordered evidently included a D-dimer which was elevated. Patient was directed to the emergency department to rule out a PE. Upon initial evaluation here in the emergency department patient is alert, pleasantly and appropriately interactive, oriented x4 and in no acute distress with completely appropriate vital signs. She ambulated with a narrow, steady gait. She is not objectively short of breath. She has mild nasal congestion. No fevers, vomiting, chest pain of any kind, abdominal pain of any kind, flank pain, midline back pain, dysuria, hematuria, polyuria or oliguria, changes in bowel habits, pain or swelling to arms or legs. Review of Systems Review of Systems A 12 point review of systems was completed and was negative except what noted in HPI above. Current Medications Current Medications Current Medications Medications (Trade) Dose Ordered Sig/Eric Start Time Stop Time Status Last Admin Dose Admin Acetaminophen/ Hydrocodone Bitart (Lortab 5/325) 1 tab 1X ONCE 06/07/21 21:00 06/07/21 21:01 DC 06/07/21 21:01 1 TAB Iohexol (Omnipaque 350 Mg/ml) 100 ml 1X ONCE 06/07/21 19:45 06/07/21 19:49 DC 06/07/21 19:45 100 ML Lorazepam (Ativan Inj) 1 mg 1X ONCE 06/07/21 20:30 06/07/21 20:31 DC 06/07/21 20:21 1 MG Allergies Allergies Allergies Coded Allergies Type Severity Reaction Last Updated Verified Latex, Natural Rubber Allergy Intermediate RASH 05/27/21 Yes adhesive tape Allergy Intermediate Rash 05/27/21 Yes ciprofloxacin Allergy Intermediate COLITIS 05/27/21 Yes phosphoric acid,diluted Allergy Intermediate RASH, SWELLING 05/27/21 Yes sodium lauryl sulfate Allergy Intermediate RASH, SWELLING 05/27/21 Yes vaginal antiseptics combination no.1 Allergy Intermediate RASH, SWELLING 05/27/21 Yes I S O L A T I O N *CONTACT* Allergy Unknown mrsa 05/27/21 Yes RONIT Inhibitors Adverse Reaction Intermediate SHAKEY AND NAUSEA 05/27/21 Yes cyclobenzaprine Adverse Reaction Intermediate CONSTIPATION 05/27/21 Yes formoterol Adverse Reaction Intermediate 05/27/21 Yes levofloxacin Adverse Reaction Intermediate GI UPSET 05/27/21 Yes mometasone furoate Adverse Reaction Intermediate 05/27/21 Yes nortriptyline Adverse Reaction Intermediate TIRED 05/27/21 Yes pramipexole Adverse Reaction Intermediate Nausea and Vomiting 05/27/21 Yes topiramate Adverse Reaction Intermediate TIRED 05/27/21 Yes varenicline Adverse Reaction Intermediate 05/27/21 Yes Physical Exam Physical Exam 45-year-old female appearing nontoxic and in no acute distress. Head is normocephalic and atraumatic. Neck is supple and nontender. Patient ranges neck fully in all dimensions without discomfort or distress and there is no neck stiffness/rigidity/meningismus seen. Oropharynx is moist. Mild nasal mucus bilaterally. Lungs are clear to auscultation at all stations. There is normal S1 and S2 without rubs or gallops and capillary refill is appropriate, less than 2 seconds globally. Abdomen is soft, nontender and nondistended. Skin is warm and dry without cyanosis, clubbing or edema. Psychiatrically, the patient demonstrates appropriate mood and affect and is alert. Evaluation of the extremities reveals BUEs and BLEs neurovascularly intact distally with strength out of 5, sensation intact light touch in all nerve distributions, radial, DP and PT pulses 2+ and equal bilaterally, capillary refill less than 2 seconds, hands and feet warm and well-perfused. No dependent peripheral edema distally. No calf tenderness or swelling bilaterally. Homans test is negative bilater ally. Current Patient Data Vital Signs Vital Signs Date Time Temp Pulse Resp B/P (MAP) Pulse Ox O2 Delivery O2 Flow Rate FiO2 06/07/21 21:01 Room Air 06/07/21 18:55 98.1 104 19 106/62 (77) 98 98.1 Lab Values Laboratory Tests Test 06/07/21 19:18 06/07/21 20:20 White Blood Count 4.8 x10^3/uL (4.0-11.0) Red Blood Count 4.11 x10^6/uL (3.50-5.40) Hemoglobin 10.1 g/dL (12.0-15.5) L Hematocrit 31.9 % (36.0-47.0) L Mean Corpuscular Volume 78 fL (79-100) L Mean Corpuscular Hemoglobin 25 pg (25-35) Mean Corpuscular Hemoglobin Concent 32 g/dL (31-37) Red Cell Distribution Width 19.4 % (11.5-14.5) H Platelet Count 341 x10^3/uL (140-400) Neutrophils (%) (Auto) 60 % (31-73) Lymphocytes (%) (Auto) 27 % (24-48) Monocytes (%) (Auto) 10 % (0-9) H Eosinophils (%) (Auto) 1 % (0-3) Basophils (%) (Auto) 2 % (0-3) Neutrophils # (Auto) 2.9 x10^3/uL (1.8-7.7) Lymphocytes # (Auto) 1.3 x10^3/uL (1.0-4.8) Monocytes # (Auto) 0.5 x10^3/uL (0.0-1.1) Eosinophils # (Auto) 0.1 x10^3/uL (0.0-0.7) Basophils # (Auto) 0.1 x10^3/uL (0.0-0.2) Sodium Level 139 mmol/L (136-145) Potassium Level 3.2 mmol/L (3.5-5.1) L Chloride Level 105 mmol/L (98-107) Carbon Dioxide Level 18 mmol/L (21-32) L Anion Gap 16 (6-14) H Blood Urea Nitrogen 6 mg/dL (7-20) L Creatinine 1.0 mg/dL (0.6-1.0) Estimated GFR (Cockcroft-Gault) 60.0 BUN/Creatinine Ratio 6 (6-20) Glucose Level 145 mg/dL (70-99) H Calcium Level 9.1 mg/dL (8.5-10.1) Total Bilirubin 0.2 mg/dL (0.2-1.0) Aspartate Amino Transferase (AST) 51 U/L (15-37) H Alanine Aminotransferase (ALT) 56 U/L (14-59) Alkaline Phosphatase 144 U/L (46-116) H Troponin I High Sensitivity 5 ng/L (4-50) Total Protein 7.7 g/dL (6.4-8.2) Albumin 3.8 g/dL (3.4-5.0) Albumin/Globulin Ratio 1.0 (1.0-1.7) Serum Test, Qualitative Negative (NEG) Influenza Type A Antigen Negative (NEGATIVE) Influenza Type B Antigen Negative (NEGATIVE) SARS-CoV-2 Antigen (Rapid) Negative (NEGATIVE) Laboratory Tests 06/07/21 19:18 Laboratory Tests 06/07/21 19:18 EKG EKG Sinus rhythm, rate 95, no acute ST elevation or depression, HI 188, QRS 82, QTc 471, EP interpretation. Nonischemic tracing, intervals appropriate. Radiology/Procedures Radiology/Procedures Exam: CT of chest with contrast INDICATION: Elevated d-dimer TECHNIQUE: Sequential axial images through the chest obtained following the administration of 100 mL of Isovue-370 IV contrast. Sagittal and coronal reformatted images were reconstructed from the axial data and reviewed. Exposure: One or more of the following in the visualized dose reduction techniques were utilized for this examination: 1. Automated exposure control 2. Adjustment of the MA and/or KV according to patient size 3. Use of iterative of reconstructive technique Comparisons: Chest x-ray 05/06/2021 FINDINGS: Visualized portions of the thyroid are unremarkable. No enlarged mediastinal lymph nodes are identified. Heart size is normal. No pericardial effusion. Thoracic aorta has normal course and caliber. Pulmonary artery is not enlarged. No pulmonary embolus identified within the main, lobar or segmental pulmonary arteries. Airways are patent. Mild bronchial wall thickening is noted. No consolidation or pneumothorax. 4 mm nodule in the left lower lobe series 3 image 102. No pleural effusion. Visualized upper abdomen is unremarkable. No suspicious osseous lesions or acute fractures. IMPRESSION: 1. No pulmonary embolus identified within the main, lobar or segmental pulmonary arteries. 2. A 4 mm nodule in the left lower lobe. In a low-risk patient no further follow-up imaging is recommended. In a high-risk patient optional one-year follow-up can BE performed. Electronically signed by: Chele Masterson MD (06/07/2021 8:30 PM) [facility] DICTATED and SIGNED BY: CHELE MASTERSON MD DATE: 06/07/212021 Course & Med Decision Making Course & Med Decision Making Labs and imaging are without significant evidence of acute process. No pulmonary embolism or other acute process in the chest. Patient is noted to have a pulmonary nodule which we discussed in which she understands she needs to follow-up on with her primary doctor at her next visit. Counseled her she may need to follow-up with the pulmonary medicine physician but this will be a conversation between her and her doctor. I suspect her elevated D-dimer was secondary to her upper respiratory viral infection. Patient is encouraged to rest, hydrate, take [id number] cough and cold medication and to follow-up closely with primary care. She understands that if she feels worse instead of better or develops other new symptoms of concern that she should return to the emergency department immediately for reevaluation. All questions were answered. Dragon Disclaimer Dragon Disclaimer This electronic medical record was generated, in whole or in part, using a voice recognition dictation system. Departure Departure Impression: Primary Impression: Upper respiratory infection, viral Disposition: HOME / SELF CARE / HOMELESS Condition: GOOD Referrals: LESLIE FREED (PCP) Patient Instructions: Upper Respiratory Infection, Adult Additional Instructions: Follow-up very closely with your primary care doctor in the office in the next 1 to 2 days for reevaluation of your symptoms and a discussion of next best steps in care. Your evaluation today did not show any significant problems and you were negative for pulmonary embolism. You do have a pulmonary nodule which you should discuss with your doctor; this may benefit from follow-up with the grounds restoration specialist. Drink plenty of fluids and get plenty of rest. Recommend [id number] medications for upper respiratory symptom management. Return to the emergency department right away for worsening symptoms of any kind or with any other new symptoms of concern HERIBERTO FLOWERS MD Jun 07, 2021 21:37
--- NOTE | 2021-06-08 13:46 | EKG ---
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
== END 2021-06-07 21:38 | disposition home or self-care (01) ==
LOC: ER 18:30
DX: J06.9 Acute upper respiratory infection, unspecified (principal); B97.89 Other viral agents as the cause of diseases classified elsewhere; F31.9 Bipolar disorder, unspecified; J44.9 Chronic obstructive pulmonary disease, unspecified; Z20.822 Contact with and (suspected) exposure to COVID-19; E11.9 Type 2 diabetes mellitus without complications; I10 Essential (primary) hypertension; K58.9 Irritable bowel syndrome, unspecified; Z86.14 Personal history of Methicillin resistant Staphylococcus aureus infection; F17.200 Nicotine dependence, unspecified, uncomplicated; Z91.040 Latex allergy status; Z88.1 Allergy status to other antibiotic agents; Z91.041 Radiographic dye allergy status; Z88.8 Allergy status to other drugs, medicaments and biological substances
CPT/HCPCS: 36415; 71275; 80053; 84484; 84703; 85025; 87428; 93005; 96374; 99285; J2060; Q9967